=== PATIENT | male | born 1980 | race American Indian/Alaskan Native ===

== ENCOUNTER 2017-02-08 10:24 | Emergency (ER) | payer MEDICAID, OTHER ==
--- NOTE | 2017-02-08 10:22 | EDM.PDOC ---
ED HPI GENERAL MEDICAL PROBLEM - General Chief Complaint: Abdominal Pain Stated Complaint: PANCREATITUS, BY AMBULANCE Time Seen by Provider: 02/08/17 10:10 Source of Information: Reports: Patient, EMS, Provider History Limitations: Reports: No Limitations - History of Present Illness INITIAL COMMENTS - FREE TEXT/NARRATIVE: This 36 yo male patient was sent to the ED from the [facility] by [facility] due to increased abdominal pain. The patient reports his pain started last night and has been getting worse. Dr. Martin reported that the patient had been given IV fluids, Phenergan and Morphine while in the Clinic. EMS gave the patient Zofran and Fentanyl while enroute to the ED. The patient has been admitted for pancreatitis back in September. The patient denies any drug or ETOH use. The patient reports his symptoms are similar to his symptoms when he had pancreatitis. 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 [No Known Home Meds] 05/21/14 [History] Past Medical History HEENT History: Reports: None Cardiovascular History: Reports: None Respiratory History: Reports: None Gastrointestinal History: Reports: Pancreatitis Genitourinary History: Reports: None Musculoskeletal History: Reports: None Neurological History: Reports: None Psychiatric History: Reports: None Endocrine/Metabolic History: Reports: None Hematologic History: Reports: None Immunologic History: Reports: None Oncologic (Cancer) History: Reports: None Dermatologic History: Reports: None - Infectious Disease History Infectious Disease History: Reports: None - Past Surgical History GI Surgical History: Reports: Appendectomy, Cholecystectomy Social & Family History - Family History Family Medical History: Noncontributory - Tobacco Use Smoking Status *Q: Current Every Day Smoker Years of Tobacco use: 5 Packs/Tins Daily: 0.3 Used Tobacco, but Quit: No Month Tobacco Last Used: current Second Hand Smoke Exposure: Yes - Caffeine Use Caffeine Use: Reports: Coffee, Energy Drinks, Soda - Alcohol Use Days Per Week of Alcohol Use: 1 Number of Drinks Per Day: 3 Total Drinks Per Week: 3 - Recreational Drug Use Recreational Drug Use: Yes Drug Use in Last 12 Months: Yes Recreational Drug Type: Reports: Marijuana/Hashish, Methamphetamine Recreational Drug Use Frequency: Binges Recreational Drug Last Use: pot - Living Situation & Occupation Living situation: Reports: with Family Occupation: Unemployed ED ROS GENERAL - Review of Systems Review Of Systems: ROS reveals no pertinent complaints other than HPI. ED EXAM, GI/ABD - Physical Exam Exam: See Below Exam Limited By: No Limitations General Appearance: Alert, WD/WN, Anxious, Severe Distress Eyes: Bilateral: Normal Appearance, EOMI Ears: Normal External Exam, Normal Canal, Hearing Grossly Normal, Normal TMs Nose: Normal Inspection, Normal Mucosa, No Blood Throat/Mouth: Normal Inspection, Normal Lips, Normal Teeth, Normal Gums, Normal Oropharynx, Normal Voice, No Airway Compromise Head: Atraumatic, Normocephalic Neck: Normal Inspection, Supple, Non-Tender, Full Range of Motion Respiratory/Chest: No Respiratory Distress, Lungs Clear, Normal Breath Sounds, No Accessory Muscle Use, Chest Non-Tender Cardiovascular: Normal Peripheral Pulses, Regular Rate, Rhythm, No Edema, No Gallop, No JVD, No Murmur, No Rub GI/Abdominal: Tenderness (generalized), Guarding (Male) Exam: Deferred Rectal (Males) Exam: Deferred Back Exam: Normal Inspection, Full Range of Motion, NT Extremities: Normal Inspection, Normal Range of Motion, Non-Tender, Normal Capillary Refill, No Pedal Edema Neurological: Alert, Oriented, CN II-XII Intact, Normal Cognition, Normal Gait, Normal Reflexes, No Motor/Sensory Deficits Psychiatric: Normal Affect, Normal Mood Skin Exam: Warm, Intact, Normal Color, No Rash, Diaphoretic Lymphatic: No Adenopathy Course - Vital Signs Last Recorded V/S: Last Vital Signs Temp 35.9 C 02/08/17 10:28 Pulse 67 02/08/17 10:28 Resp 16 02/08/17 10:28 BP 150/88 H 02/08/17 10:28 Pulse Ox 88 L 02/08/17 10:34 - Orders/Labs/Meds Orders: Active Orders 24 hr Category Date Time Status Abdomen Pelvis w Cont [CT] Urgent Exams 02/08/17 11:24 Ordered CULTURE BLOOD [BC] Stat Lab 02/08/17 10:28 Received Lactated Ringers [Ringers, Lactated] 1,000 ml Med 02/08/17 10:30 Active IV ASDIRECTED Medication Orders Lactated Ringer's (Ringers, Lactated) 1,000 mls @ 250 mls/hr IV ASDIRECTED JJ Last Admin: 02/08/17 10:22 Dose: 250 mls/hr Labs: Laboratory Tests 02/08/17 02/08/17 02/08/17 Range/Units 10:28 10:28 10:28 WBC 12.6 H (5.0-10.0) 10^3/uL RBC 5.59 (4.6-6.2) 10^6/uL Hgb 17.3 (14.0-18.0) g/dL Hct 49.6 (40.0-54.0) % MCV 88.7 (80-100) fL MCH 30.9 (27.0-34.0) pg MCHC 34.9 (33.0-35.0) g/dL Plt Count 295 (150-450) 10^3/uL Neut % (Auto) 75.4 H (42.2-75.2) % Lymph % (Auto) 16.5 L (20.5-50.1) % [place] % (Auto) 6.3 (2-8) % Eos % (Auto) 1.6 (1.0-3.0) % Baso % (Auto) 0.2 (0.0-1.0) % Sodium 140 (135-145) mmol/L Potassium 3.9 (3.6-5.0) mmol/L Chloride 106 (101-111) mmol/L Carbon Dioxide 19.0 L (21.0-31.0) mmol/L Anion Gap 18.9 BUN 15 (7-18) mg/dL Creatinine 0.9 (0.6-1.3) mg/dL Est Cr Clr Drug Dosing 108.15 mL/min Estimated GFR (MDRD) > 60 BUN/Creatinine Ratio 16.66 Glucose 117 H (74-105) mg/dL Lactic Acid (0.5-2.2) mmol/L Calcium 9.6 (8.4-10.2) mg/dl Magnesium 2.0 (1.8-2.5) mg/dL Total Bilirubin 0.9 (0.2-1.0) mg/dL AST 44 H (10-42) IU/L ALT 68 H (10-60) IU/L Alkaline Phosphatase 93 (42-121) IU/L Ammonia 13 (11-35) umol/L Total Protein 8.2 (6.7-8.2) g/dl Albumin 4.7 (3.2-5.5) g/dl Globulin 3.5 Albumin/Globulin Ratio 1.34 Amylase 60 (28-100) U/L Lipase 20 L (22-51) U/L Urine Color (YELLOW) Urine Appearance (CLEAR) Urine pH (5.0-9.0) Ur Specific [place] (1.005-1.030) Urine Protein (NEGATIVE) Urine Glucose (UA) (NEGATIVE) Urine Ketones (NEGATIVE) Urine Occult Blood (NEGATIVE) Urine Nitrite (NEGATIVE) Urine Bilirubin (NEGATIVE) Urine Urobilinogen (0.2-1.0) mg/dL Ur Leukocyte Esterase (NEGATIVE) Urine RBC /HPF Urine WBC (0-5/HPF) /HPF Ur Epithelial Cells /HPF Urine Bacteria (0-FEW/HPF) /HPF Urine Mucus /LPF Urine Opiates Screen (NEGATIVE) Ur Oxycodone Screen (NEGATIVE) Urine Methadone Screen (NEGATIVE) Acetaminophen 17.6 Ur Barbiturates Screen (NEGATIVE) U Tricyclic Antidepress (NEGATIVE) Ur Phencyclidine Scrn (NEGATIVE) Ur Amphetamine Screen (NEGATIVE) U Methamphetamines Scrn (NEGATIVE) Urine MDMA Screen (NEGATIVE) U Benzodiazepines Scrn (NEGATIVE) Urine Cocaine Screen (NEGATIVE) U Marijuana (THC) Screen (NEGATIVE) Ethyl Alcohol 6 mg/dL 02/08/17 02/08/17 02/08/17 Range/Units 10:28 11:09 11:09 WBC (5.0-10.0) 10^3/uL RBC (4.6-6.2) 10^6/uL Hgb (14.0-18.0) g/dL Hct (40.0-54.0) % MCV (80-100) fL MCH (27.0-34.0) pg MCHC (33.0-35.0) g/dL Plt Count (150-450) 10^3/uL Neut % (Auto) (42.2-75.2) % Lymph % (Auto) (20.5-50.1) % [place] % (Auto) (2-8) % Eos % (Auto) (1.0-3.0) % Baso % (Auto) (0.0-1.0) % Sodium (135-145) mmol/L Potassium (3.6-5.0) mmol/L Chloride (101-111) mmol/L Carbon Dioxide (21.0-31.0) mmol/L Anion Gap BUN (7-18) mg/dL Creatinine (0.6-1.3) mg/dL Est Cr Clr Drug Dosing mL/min Estimated GFR (MDRD) BUN/Creatinine Ratio Glucose (74-105) mg/dL Lactic Acid 1.7 (0.5-2.2) mmol/L Calcium (8.4-10.2) mg/dl Magnesium (1.8-2.5) mg/dL Total Bilirubin (0.2-1.0) mg/dL AST (10-42) IU/L ALT (10-60) IU/L Alkaline Phosphatase (42-121) IU/L Ammonia (11-35) umol/L Total Protein (6.7-8.2) g/dl Albumin (3.2-5.5) g/dl Globulin Albumin/Globulin Ratio Amylase (28-100) U/L Lipase (22-51) U/L Urine Color Yellow (YELLOW) Urine Appearance Slightly cloudy (CLEAR) Urine pH 6.5 (5.0-9.0) Ur Specific [place] 1.020 (1.005-1.030) Urine Protein 100 H (NEGATIVE) Urine Glucose (UA) Negative (NEGATIVE) Urine Ketones 40 H (NEGATIVE) Urine Occult Blood Negative (NEGATIVE) Urine Nitrite Negative (NEGATIVE) Urine Bilirubin Small H (NEGATIVE) Urine Urobilinogen 0.2 (0.2-1.0) mg/dL Ur Leukocyte Esterase Negative (NEGATIVE) Urine RBC 0-5 /HPF Urine WBC 10-20 H (0-5/HPF) /HPF Ur Epithelial Cells Few /HPF Urine Bacteria Few (0-FEW/HPF) /HPF Urine Mucus Few H /LPF Urine Opiates Screen Positive H (NEGATIVE) Ur Oxycodone Screen Negative (NEGATIVE) Urine Methadone Screen Negative (NEGATIVE) Acetaminophen Ur Barbiturates Screen Negative (NEGATIVE) U Tricyclic Antidepress Negative (NEGATIVE) Ur Phencyclidine Scrn Negative (NEGATIVE) Ur Amphetamine Screen Negative (NEGATIVE) U Methamphetamines Scrn Negative (NEGATIVE) Urine MDMA Screen Negative (NEGATIVE) U Benzodiazepines Scrn Negative (NEGATIVE) Urine Cocaine Screen Negative (NEGATIVE) U Marijuana (THC) Screen Positive H (NEGATIVE) Ethyl Alcohol mg/dL Meds: Medications Generic Name Dose Route Start Last Admin Trade Name Freq PRN Reason Stop Dose Admin Lactated Ringer's 1,000 mls @ 250 mls/hr 02/08/17 10:30 02/08/17 10:22 Ringers, Lactated IV 250 mls/hr ASDIRECTED JJ Administration Discontinued Medications Generic Name Dose Route Start Last Admin Trade Name Freq PRN Reason Stop Dose Admin Hydromorphone HCl 1 mg 02/08/17 10:16 02/08/17 10:21 Dilaudid IVPUSH 02/08/17 10:17 1 mg ONETIME ONE Administration Hydromorphone HCl 0.5 mg 02/08/17 11:00 02/08/17 11:12 Dilaudid IVPUSH 02/08/17 11:01 0.5 mg ONETIME ONE Administration Hydromorphone HCl 0.5 mg 02/08/17 12:22 02/08/17 12:31 Dilaudid IVPUSH 02/08/17 12:23 0.5 mg ONETIME ONE Administration Iopamidol 100 ml 02/08/17 11:24 02/08/17 11:46 Isovue-300 (61%) IVPUSH 02/08/17 11:25 75 ml ONETIME ONE Administration Metoclopramide HCl 10 mg 02/08/17 11:01 02/08/17 11:12 Reglan IVPUSH 02/08/17 11:02 10 mg ONETIME ONE Administration Departure - Departure Time of Disposition: 13:00 Disposition: Home, Self-Care 01 Condition: Fair Clinical Impression: Gastroenteritis - Discharge Information Instructions: Viral Gastroenteritis, Adult, [id number] Forms: ED Department Discharge Care Plan Goals: The patient was advised of the examination, lab and CT results during the visit. The patient was given Phenergan ([facility]), Morphine ([facility]), Zofran ([facility]), Fentanyl ([facility]), Reglan ([facility]), Dilaudid ([facility]) and IV fluids ([facility] and [facility]). The patient was discharged with a script for [place] (5/325) #8 to take 1 by mouth every 6 hours as needed for pain and Zofran (4 mg) #10 to take 1 by mouth every 6 hours as needed. The patient should stick to a BRAT diet (bananas, rice, applesauce and toast) with small sips of water. If the patient has any additional symptoms or concerns, the patient should follow-up with his primary care facility or return to the emergency department. - My Orders Last 24 Hours: My Active Orders 02/08/17 10:28 CULTURE BLOOD [BC] Stat 02/08/17 10:30 Lactated Ringers [Ringers, Lactated] 1,000 ml IV ASDIRECTED 02/08/17 11:24 Abdomen Pelvis w Cont [CT] Urgent - Assessment/Plan Last 24 Hours: My Active Orders 02/08/17 10:28 CULTURE BLOOD [BC] Stat 02/08/17 10:30 Lactated Ringers [Ringers, Lactated] 1,000 ml IV ASDIRECTED 02/08/17 11:24 Abdomen Pelvis w Cont [CT] Urgent
[~2017-02-08 10:24] MED LIST: HYDROmorphone 1 MG/ML Syringe IVPUSH ONE
[2017-02-08] MEDS ORDERED: Lactated Ringers 1,000 ML IV SCH (10:30)
[2017-02-08 10:34] VITALS: BP 150/88
[2017-02-08 10:55] LABS: ACETAMINOPHEN 17.6; CHLORIDE,CL 106 mmol/L (101-111); SODIUM,NA 140 mmol/L (135-145)
[2017-02-08] MEDS ORDERED: HYDROmorphone 1 MG/ML Syringe IVPUSH ONE ×2 (11:00→12:22)
[2017-02-08] MEDS ORDERED: Metoclopramide 10 MG/2 ML SDV IVPUSH ONE (11:01)
[2017-02-08] MEDS ORDERED: Iopamidol 612 MG/ML 100 ML Bottle IVPUSH ONE (11:24)
--- NOTE | 2017-02-08 13:21 | CT ---
CLINICAL HISTORY: 36-year-old 150 pound male with history of pancreatitis and now abdominal pain "no acute intra-abdominal pathology" reported on CT exam 04 September 2016 obtained for epigastric pain, nausea and vomiting (patient weight 200# in May 2014). SCAN TECHNIQUE: Volume acquisition of data from the abdomen and pelvis obtained without oral contras t but during the intravenous administration 75 cc nonionic Isovue contrast (3 cc/sec via injector) w hile the patient was lying supine on the Siemens multislice scanner [place], [place]. All data archived in the PACS system for storage, reformatting and study. INTERPRETATION: No acute intraperitoneal abnormalities. 1. Several diverticula sigmoid colon without associated inflammatory changes left lower quadrant. 2. Surgical clips gallbladder fossa. 3. Liver, stomach, spleen, pancreas unremarkable, i.e., negative. Normal adrenal glands and kidneys. No sign of renal cortical mass lesion, nephrolithiasis or obstructive uropathy. Incompletely disten ded urinary bladder unremarkable. 4. No new pelvic or abdominal mass lesion, inflammatory "dirty" peritoneal fat, mesenteric/rectoperi rachael lymphadenopathy, mechanical bowel obstruction, ascites or free intraperitoneal air. 5. Normal cardiac silhouette. Lung bases clear. Normal caliber abdominal aorta.
== END 2017-02-08 13:15 | disposition home or self-care (01) ==
LOC: DL.ED 10:24
DX: K52.9 Noninfective gastroenteritis and colitis, unspecified (principal); F17.210 Nicotine dependence, cigarettes, uncomplicated; Z90.49 Acquired absence of other specified parts of digestive tract
CPT/HCPCS: 36415; 74177; 80053; 80305; 81001; 82140; 82150; 83605; 83690; 83735; 85025; 87040; 96361; 96374; 96375; 96376; 99284; G0480; J1170; J2765; J7120; Q9967

== ENCOUNTER 2017-02-10 04:15 | Emergency (ER) | payer MEDICAID, OTHER ==
[2017-02-10] MEDS ORDERED: Metoclopramide 10 MG/2 ML SDV IVPUSH ONE (04:28)
[2017-02-10] MEDS ORDERED: LORazepam 2 MG/ML Syringe IVPUSH ONE (04:28)
--- NOTE | 2017-02-10 04:35 | EDM.PDOC ---
<Carlos Vance - Last Filed: 02/10/17 07:12> ED HPI GENERAL MEDICAL PROBLEM - General Chief Complaint: Abdominal Pain Stated Complaint: IN BY AMBULANCE Time Seen by Provider: 02/10/17 04:30 Source of Information: Reports: Patient, Old Records History Limitations: Reports: No Limitations - History of Present Illness INITIAL COMMENTS - FREE TEXT/NARRATIVE: pt c/o abd' all night only ate hot dish was here yesterday for same thing states was pancreatitis and wants pain meds now. informed pt the ER record reveal no evidence of pancreatitis but dx of viral gastroenteritis. pt continue to shake and moan and retch. informed pt he will get something for his retching & to calm him down. Epigastric Pain Score (Numeric/FACES): 10 - Related Data Allergies Allergy/AdvReac Type Severity Reaction Status Date / Time No Known Allergies Allergy Verified 02/10/17 05:51 Home Meds: Home Meds . [No Known Home Meds] 05/21/14 [History] Past Medical History HEENT History: Reports: None Cardiovascular History: Reports: None Respiratory History: Reports: None Gastrointestinal History: Reports: Pancreatitis Genitourinary History: Reports: None Musculoskeletal History: Reports: None Neurological History: Reports: None Psychiatric History: Reports: None Endocrine/Metabolic History: Reports: None Hematologic History: Reports: None Immunologic History: Reports: None Oncologic (Cancer) History: Reports: None Dermatologic History: Reports: None - Infectious Disease History Infectious Disease History: Reports: None - Past Surgical History GI Surgical History: Reports: Appendectomy, Cholecystectomy Social & Family History - Family History Family Medical History: Noncontributory - Tobacco Use Smoking Status *Q: Current Every Day Smoker Years of Tobacco use: 5 Packs/Tins Daily: 0.3 Used Tobacco, but Quit: No Month Tobacco Last Used: current Second Hand Smoke Exposure: Yes - Caffeine Use Caffeine Use: Reports: Coffee, Energy Drinks, Soda - Alcohol Use Days Per Week of Alcohol Use: 1 Number of Drinks Per Day: 3 Total Drinks Per Week: 3 - Recreational Drug Use Recreational Drug Use: Yes Drug Use in Last 12 Months: Yes Recreational Drug Type: Reports: Marijuana/Hashish, Methamphetamine Recreational Drug Use Frequency: Binges Recreational Drug Last Use: pot - Living Situation & Occupation Living situation: Reports: with Family Occupation: Unemployed ED ROS GENERAL - Review of Systems Review Of Systems: ROS reveals no pertinent complaints other than HPI. ED EXAM, GI/ABD - Physical Exam Exam: See Below Exam Limited By: No Limitations General Appearance: Alert, WD/WN, Mild Distress, Other (retching shaking) Ears: Hearing Grossly Normal Throat/Mouth: Normal Voice, No Airway Compromise Head: Atraumatic Neck: Non-Tender, Full Range of Motion Respiratory/Chest: No Respiratory Distress, Lungs Clear, Normal Breath Sounds Cardiovascular: Regular Rate, Rhythm GI/Abdominal: Hyperactive Bowel Sounds, Tenderness, Other (epiG). No: Guarding , Rebound, Rigidity Neurological: Alert, Oriented, Normal Cognition, Normal Gait, No Motor/Sensory Deficits Psychiatric: Anxious Skin Exam: Warm, Dry Lymphatic: No Adenopathy Course - Vital Signs Last Recorded V/S: Last Vital Signs Temp 36.2 C 02/10/17 06:50 Pulse 63 02/10/17 06:50 Resp 18 02/10/17 06:50 BP 157/98 H 02/10/17 06:50 Pulse Ox 98 02/10/17 06:50 - Orders/Labs/Meds Orders: Active Orders 24 hr Category Date Time Status KUB [Abdomen 1V Flat] [CR] Urgent Exams 02/10/17 06:25 Taken Labs: Laboratory Tests 02/10/17 02/10/17 02/10/17 Range/Units 04:25 04:25 04:25 WBC 12.5 H (5.0-10.0) 10^3/uL RBC 5.39 (4.6-6.2) 10^6/uL Hgb 16.7 (14.0-18.0) g/dL Hct 48.2 (40.0-54.0) % MCV 89.4 (80-100) fL MCH 31.0 (27.0-34.0) pg MCHC 34.6 (33.0-35.0) g/dL Plt Count 312 (150-450) 10^3/uL Neut % (Auto) 63.7 (42.2-75.2) % Lymph % (Auto) 22.9 (20.5-50.1) % [place] % (Auto) 9.8 H (2-8) % Eos % (Auto) 3.3 H (1.0-3.0) % Baso % (Auto) 0.3 (0.0-1.0) % Sodium 139 (135-145) mmol/L Potassium 3.5 L (3.6-5.0) mmol/L Chloride 104 (101-111) mmol/L Carbon Dioxide 23.0 (21.0-31.0) mmol/L Anion Gap 15.5 BUN 30 H (7-18) mg/dL Creatinine 0.9 (0.6-1.3) mg/dL Est Cr Clr Drug Dosing TNP Estimated GFR (MDRD) > 60 BUN/Creatinine Ratio 33.33 Glucose 104 (74-105) mg/dL Calcium 9.6 (8.4-10.2) mg/dl Total Bilirubin 0.6 (0.2-1.0) mg/dL AST 37 (10-42) IU/L ALT 52 (10-60) IU/L Alkaline Phosphatase 98 (42-121) IU/L Total Protein 8.0 (6.7-8.2) g/dl Albumin 4.5 (3.2-5.5) g/dl Globulin 3.5 Albumin/Globulin Ratio 1.29 Amylase 84 (28-100) U/L Lipase 32 (22-51) U/L Urine Opiates Screen (NEGATIVE) Ur Oxycodone Screen (NEGATIVE) Urine Methadone Screen (NEGATIVE) Ur Barbiturates Screen (NEGATIVE) U Tricyclic Antidepress (NEGATIVE) Ur Phencyclidine Scrn (NEGATIVE) Ur Amphetamine Screen (NEGATIVE) U Methamphetamines Scrn (NEGATIVE) Urine MDMA Screen (NEGATIVE) U Benzodiazepines Scrn (NEGATIVE) Urine Cocaine Screen (NEGATIVE) U Marijuana (THC) Screen (NEGATIVE) Ethyl Alcohol 6 mg/dL 02/10/17 Range/Units 07:00 WBC (5.0-10.0) 10^3/uL RBC (4.6-6.2) 10^6/uL Hgb (14.0-18.0) g/dL Hct (40.0-54.0) % MCV (80-100) fL MCH (27.0-34.0) pg MCHC (33.0-35.0) g/dL Plt Count (150-450) 10^3/uL Neut % (Auto) (42.2-75.2) % Lymph % (Auto) (20.5-50.1) % [place] % (Auto) (2-8) % Eos % (Auto) (1.0-3.0) % Baso % (Auto) (0.0-1.0) % Sodium (135-145) mmol/L Potassium (3.6-5.0) mmol/L Chloride (101-111) mmol/L Carbon Dioxide (21.0-31.0) mmol/L Anion Gap BUN (7-18) mg/dL Creatinine (0.6-1.3) mg/dL Est Cr Clr Drug Dosing Estimated GFR (MDRD) BUN/Creatinine Ratio Glucose (74-105) mg/dL Calcium (8.4-10.2) mg/dl Total Bilirubin (0.2-1.0) mg/dL AST (10-42) IU/L ALT (10-60) IU/L Alkaline Phosphatase (42-121) IU/L Total Protein (6.7-8.2) g/dl Albumin (3.2-5.5) g/dl Globulin Albumin/Globulin Ratio Amylase (28-100) U/L Lipase (22-51) U/L Urine Opiates Screen Positive H (NEGATIVE) Ur Oxycodone Screen Negative (NEGATIVE) Urine Methadone Screen Negative (NEGATIVE) Ur Barbiturates Screen Negative (NEGATIVE) U Tricyclic Antidepress Negative (NEGATIVE) Ur Phencyclidine Scrn Negative (NEGATIVE) Ur Amphetamine Screen Negative (NEGATIVE) U Methamphetamines Scrn Negative (NEGATIVE) Urine MDMA Screen Negative (NEGATIVE) U Benzodiazepines Scrn Positive H (NEGATIVE) Urine Cocaine Screen Negative (NEGATIVE) U Marijuana (THC) Screen Positive H (NEGATIVE) Ethyl Alcohol mg/dL Meds: Medications Discontinued Medications Generic Name Dose Route Start Last Admin Trade Name [place] PRN Reason Stop Dose Admin Dicyclomine HCl 20 mg 02/10/17 05:17 02/10/17 05:24 Bentyl IM 02/10/17 05:18 20 mg ONETIME ONE Administration Lorazepam 2 mg 02/10/17 04:28 02/10/17 04:42 Ativan IVPUSH 02/10/17 04:29 2 mg ONETIME ONE Administration Metoclopramide HCl 10 mg 02/10/17 04:28 02/10/17 04:42 Reglan IVPUSH 02/10/17 04:29 10 mg ONETIME ONE Administration Ondansetron HCl 4 mg 02/10/17 06:09 02/10/17 06:17 Zofran IV 02/10/17 06:10 4 mg ONETIME ONE Administration Pantoprazole Sodium 40 mg 02/10/17 06:12 02/10/17 06:29 Protonix Iv IVPUSH 02/10/17 06:13 40 mg ONETIME ONE Administration - Re-Assessments/Exams Free Text/Narrative Re-Assessment/Exam: 02/10/17 04:36 c/o needing for BM got off gurney by self. 02/10/17 05:05 s/p IV ativan & reglan. Pt sleeping. 02/10/17 05:17 pt woke up wanting morphine. explained to pt laws governing opiod tx. Departure - Departure Disposition: Home, Self-Care 01 Condition: Good Clinical Impression: Abdominal pain Qualifiers: Abdominal location: epigastric Qualified Code(s): R10.13 - Epigastric pain Vomiting Qualifiers: Vomiting type: unspecified Vomiting Intractability: non-intractable Nausea presence: with nausea Qualified Code(s): R11.2 - Nausea with vomiting, unspecified - Discharge Information Instructions: Abdominal Pain, Adult, [id number] Forms: ED Department Discharge Additional Instructions: 1) avoid solid foods next 48 hours 2) have popsicle, jello, juice 3) return to the ED if new or worsening symptoms. 4) Phenergan 25mg po every 6 hrs as needed for nausea. 5) Recheck clinic next available appointment for chronic epigastric pain nausea and vomiting. <Pj Mix - Last Filed: 02/10/17 07:42> Course - Re-Assessments/Exams Free Text/Narrative Re-Assessment/Exam: 02/10/17 07:36 I went into exam the patient after I assumed care at this time. He does not want to be here any more. He came for Dilaudid IV and "you fuckers wont give it to me so I'm fucking leaving". I explained I just took over his care and Dr. Vance had already told the patient no narcotics but I will examine and re- evaluate, patient wants to leave "right fucking now". Pt will be discharged on his request. Without my physical evaluation. 02/10/17 07:41 Departure - Departure Time of Disposition: 07:34 - Assessment/Plan Assessment:: epigastric pain, chronic recurrent. nausea vomiting-without diarrhea. Plan: 1) avoid solid foods next 48 hours 2) have popsicle, jello, juice 3) return to the ED if new or worsening symptoms. 4) Phenergan 25mg po every 6 hrs as needed for nausea. 5) Recheck clinic next available appointment for chronic epigastric pain nausea and vomiting.
[2017-02-10 04:52] LABS: CHLORIDE,CL 104 mmol/L (101-111); SODIUM,NA 139 mmol/L (135-145)
[2017-02-10] MEDS ORDERED: Dicyclomine 20 MG/2 ML SDV IM ONE (05:17)
[2017-02-10] MEDS ORDERED: Ondansetron 4 MG/2 ML SDV IV ONE (06:09)
[2017-02-10] MEDS ORDERED: Pantoprazole 40 MG Vial IVPUSH ONE (06:12)
[2017-02-10 06:51] VITALS: BP 157/98
== END 2017-02-10 07:49 | disposition home or self-care (01) ==
LOC: DL.ED 04:15
DX: R10.13 Epigastric pain (principal); R11.2 Nausea with vomiting, unspecified; F17.210 Nicotine dependence, cigarettes, uncomplicated; Z90.49 Acquired absence of other specified parts of digestive tract
CPT/HCPCS: 36415; 74000; 80053; 80305; 82150; 83690; 85025; 96374; 96375; 99284; C9113; G0480; J0500; J2060; J2405; J2765

== ENCOUNTER 2017-03-25 17:13 | Emergency (ER) | payer MEDICAID, OTHER ==
[2017-03-25] MEDS ORDERED: Sodium Chloride 0.9% 10 ML Syringe FLUSH PRN (17:14)
--- NOTE | 2017-03-25 17:14 | EDM.PDOC ---
<Yoel Beach - Last Filed: 03/25/17 17:50> ED HPI GENERAL MEDICAL PROBLEM - General Chief Complaint: Abdominal Pain Stated Complaint: COMING BY AMBULANCE Time Seen by Provider: 03/25/17 17:14 Source of Information: Reports: Patient, EMS, RN, RN Notes Reviewed History Limitations: Reports: No Limitations - History of Present Illness INITIAL COMMENTS - FREE TEXT/NARRATIVE: Arrives from home by ambulance with a complaint of onset severe epigastric pain this morning. Patient reports he last drank ETOH and "couple of days ago". Denies fever or chills. Pain radiates straight through to his back. Denies bloody or black emesis on stool. Onset: Today Location: Reports: Abdomen Quality: Reports: Ache Severity: Severe Improves with: Reports: None Worsens with: Reports: None Associated Symptoms: Reports: No Other Symptoms - Related Data Allergies Allergy/AdvReac Type Severity Reaction Status Date / Time No Known Allergies Allergy Verified 02/10/17 05:51 Home Meds: Home Meds . [No Known Home Meds] 05/21/14 [History] Past Medical History HEENT History: Reports: None Cardiovascular History: Reports: None Respiratory History: Reports: None Gastrointestinal History: Reports: Pancreatitis (and alcohol abuse) Genitourinary History: Reports: None Musculoskeletal History: Reports: None Neurological History: Reports: None Psychiatric History: Reports: None Endocrine/Metabolic History: Reports: None Hematologic History: Reports: None Immunologic History: Reports: None Oncologic (Cancer) History: Reports: None Dermatologic History: Reports: None - Infectious Disease History Infectious Disease History: Reports: None - Past Surgical History GI Surgical History: Reports: Appendectomy, Cholecystectomy Social & Family History - Family History Family Medical History: Noncontributory - Tobacco Use Smoking Status *Q: Current Every Day Smoker Years of Tobacco use: 5 Packs/Tins Daily: 0.3 Used Tobacco, but Quit: No Month Tobacco Last Used: current Second Hand Smoke Exposure: Yes - Caffeine Use Caffeine Use: Reports: Coffee, Energy Drinks, Soda - Alcohol Use Days Per Week of Alcohol Use: 1 Number of Drinks Per Day: 3 Total Drinks Per Week: 3 - Recreational Drug Use Recreational Drug Use: Yes Drug Use in Last 12 Months: Yes Recreational Drug Type: Reports: Marijuana/Hashish, Methamphetamine Recreational Drug Use Frequency: Binges Recreational Drug Last Use: pot - Living Situation & Occupation Living situation: Reports: with Family Occupation: Unemployed ED ROS GENERAL - Review of Systems Review Of Systems: ROS reveals no pertinent complaints other than HPI. ED EXAM, GI/ABD - Physical Exam Exam: See Below Exam Limited By: No Limitations General Appearance: Other (Severe distress due to abdominal pain with active emesis. ) Eyes: Bilateral: Normal Appearance Ears: Normal External Exam, Normal Canal, Hearing Grossly Normal, Normal TMs Nose: Normal Inspection, Normal Mucosa, No Blood Throat/Mouth: Normal Inspection, Normal Lips, Normal Teeth, Normal Gums, Normal Oropharynx, Normal Voice, No Airway Compromise Head: Atraumatic, Normocephalic Neck: Normal Inspection, Supple, Non-Tender, Full Range of Motion Respiratory/Chest: No Respiratory Distress, Lungs Clear, Normal Breath Sounds, No Accessory Muscle Use, Chest Non-Tender Cardiovascular: Regular Rate, Rhythm, Tachycardia GI/Abdominal Exam: Other (acute epigastric tenderness) (Male) Exam: Deferred Rectal (Males) Exam: Deferred Back Exam: Normal Inspection, Full Range of Motion, NT Extremities: Normal Inspection, Normal Range of Motion, Non-Tender, Normal Capillary Refill, No Pedal Edema Neurological: Alert, Oriented, CN II-XII Intact, Normal Cognition, Normal Gait, Normal Reflexes, No Motor/Sensory Deficits Skin Exam: Warm, Normal Color, Diaphoretic Course - Vital Signs Last Recorded V/S: Last Vital Signs Temp 99.2 F 03/25/17 20:59 Pulse 75 03/25/17 20:59 Resp 18 03/25/17 20:59 BP 133/77 03/25/17 20:59 Pulse Ox 100 03/25/17 20:59 - Orders/Labs/Meds Orders: Active Orders 24 hr Category Date Time Status Peripheral IV Care [RC] . DIRECTED Care 03/25/17 17:15 Active CULTURE BLOOD [BC] Stat Lab 03/25/17 17:29 Received CULTURE BLOOD [BC] Stat Lab 03/25/17 17:34 Received Blood Culture x2 Reflex Set [OM.PC] Stat Oth 03/25/17 17:14 Ordered Peripheral IV Insertion Adult [OM.PC] Stat Oth 03/25/17 17:14 Ordered Labs: Laboratory Tests 03/25/17 03/25/17 03/25/17 Range/Units 17:29 17:29 17:29 WBC 19.1 H (5.0-10.0) 10^3/uL RBC 5.17 (4.6-6.2) 10^6/uL Hgb 16.0 (14.0-18.0) g/dL Hct 46.5 (40.0-54.0) % MCV 89.9 (80-100) fL MCH 30.9 (27.0-34.0) pg MCHC 34.4 (33.0-35.0) g/dL Plt Count 388 (150-450) 10^3/uL Neut % (Auto) 85.3 H (42.2-75.2) % Lymph % (Auto) 10.5 L (20.5-50.1) % [place] % (Auto) 3.8 (2-8) % Eos % (Auto) 0.2 L (1.0-3.0) % Baso % (Auto) 0.2 (0.0-1.0) % Sodium 141 (135-145) mmol/L Potassium 4.0 (3.6-5.0) mmol/L Chloride 102 (101-111) mmol/L Carbon Dioxide 23.0 (21.0-31.0) mmol/L Anion Gap 20.0 BUN 12 (7-18) mg/dL Creatinine 1.0 (0.6-1.3) mg/dL Est Cr Clr Drug Dosing TNP Estimated GFR (MDRD) > 60 BUN/Creatinine Ratio 12.00 Glucose 143 H (74-105) mg/dL Lactic Acid 2.8 H (0.5-2.2) mmol/L Calcium 10.6 H (8.4-10.2) mg/dl Total Bilirubin 1.0 (0.2-1.0) mg/dL AST 43 H (10-42) IU/L ALT 53 (10-60) IU/L Alkaline Phosphatase 103 (42-121) IU/L Troponin I < 0.02 (0.00-0.02) ng/ml Total Protein 8.6 H (6.7-8.2) g/dl Albumin 4.7 (3.2-5.5) g/dl Globulin 3.9 Albumin/Globulin Ratio 1.21 Amylase 73 (28-100) U/L Lipase 19 L (22-51) U/L Urine Color (YELLOW) Urine Appearance (CLEAR) Urine pH (5.0-9.0) Ur Specific [place] (1.005-1.030) Urine Protein (NEGATIVE) Urine Glucose (UA) (NEGATIVE) Urine Ketones (NEGATIVE) Urine Occult Blood (NEGATIVE) Urine Nitrite (NEGATIVE) Urine Bilirubin (NEGATIVE) Urine Urobilinogen (0.2-1.0) mg/dL Ur Leukocyte Esterase (NEGATIVE) Urine RBC /HPF Urine WBC (0-5/HPF) /HPF Ur Epithelial Cells /HPF Amorphous Sediment (0/HPF) /HPF Urine Bacteria (0-FEW/HPF) /HPF Urine Mucus /LPF Urine Opiates Screen (NEGATIVE) Ur Oxycodone Screen (NEGATIVE) Urine Methadone Screen (NEGATIVE) Ur Barbiturates Screen (NEGATIVE) U Tricyclic Antidepress (NEGATIVE) Ur Phencyclidine Scrn (NEGATIVE) Ur Amphetamine Screen (NEGATIVE) U Methamphetamines Scrn (NEGATIVE) Urine MDMA Screen (NEGATIVE) U Benzodiazepines Scrn (NEGATIVE) Urine Cocaine Screen (NEGATIVE) U Marijuana (THC) Screen (NEGATIVE) Ethyl Alcohol < 5 mg/dL 03/25/17 03/25/17 Range/Units 18:07 18:07 WBC (5.0-10.0) 10^3/uL RBC (4.6-6.2) 10^6/uL Hgb (14.0-18.0) g/dL Hct (40.0-54.0) % MCV (80-100) fL MCH (27.0-34.0) pg MCHC (33.0-35.0) g/dL Plt Count (150-450) 10^3/uL Neut % (Auto) (42.2-75.2) % Lymph % (Auto) (20.5-50.1) % [place] % (Auto) (2-8) % Eos % (Auto) (1.0-3.0) % Baso % (Auto) (0.0-1.0) % Sodium (135-145) mmol/L Potassium (3.6-5.0) mmol/L Chloride (101-111) mmol/L Carbon Dioxide (21.0-31.0) mmol/L Anion Gap BUN (7-18) mg/dL Creatinine (0.6-1.3) mg/dL Est Cr Clr Drug Dosing Estimated GFR (MDRD) BUN/Creatinine Ratio Glucose (74-105) mg/dL Lactic Acid (0.5-2.2) mmol/L Calcium (8.4-10.2) mg/dl Total Bilirubin (0.2-1.0) mg/dL AST (10-42) IU/L ALT (10-60) IU/L Alkaline Phosphatase (42-121) IU/L Troponin I (0.00-0.02) ng/ml Total Protein (6.7-8.2) g/dl Albumin (3.2-5.5) g/dl Globulin Albumin/Globulin Ratio Amylase (28-100) U/L Lipase (22-51) U/L Urine Color Yellow (YELLOW) Urine Appearance Clear (CLEAR) Urine pH >= 9.0 (5.0-9.0) Ur Specific [place] 1.020 (1.005-1.030) Urine Protein 100 H (NEGATIVE) Urine Glucose (UA) Negative (NEGATIVE) Urine Ketones >=160 H (NEGATIVE) Urine Occult Blood Trace-intact H (NEGATIVE) Urine Nitrite Negative (NEGATIVE) Urine Bilirubin Small H (NEGATIVE) Urine Urobilinogen 0.2 (0.2-1.0) mg/dL Ur Leukocyte Esterase Negative (NEGATIVE) Urine RBC 5-10 H /HPF Urine WBC 0-5 (0-5/HPF) /HPF Ur Epithelial Cells Rare /HPF Amorphous Sediment Rare (0/HPF) /HPF Urine Bacteria Rare (0-FEW/HPF) /HPF Urine Mucus Many H /LPF Urine Opiates Screen Negative (NEGATIVE) Ur Oxycodone Screen Positive H (NEGATIVE) Urine Methadone Screen Negative (NEGATIVE) Ur Barbiturates Screen Negative (NEGATIVE) U Tricyclic Antidepress Negative (NEGATIVE) Ur Phencyclidine Scrn Negative (NEGATIVE) Ur Amphetamine Screen Negative (NEGATIVE) U Methamphetamines Scrn Negative (NEGATIVE) Urine MDMA Screen Negative (NEGATIVE) U Benzodiazepines Scrn Negative (NEGATIVE) Urine Cocaine Screen Negative (NEGATIVE) U Marijuana (THC) Screen Positive H (NEGATIVE) Ethyl Alcohol mg/dL Meds: Medications Discontinued Medications Generic Name Dose Route Start Last Admin Trade Name Freq PRN Reason Stop Dose Admin Al Hydroxide/Mg Hydroxide 30 ml 03/25/17 20:13 03/25/17 20:19 Gi Cocktail PO 03/25/17 20:14 30 ml ONETIME ONE Administration Dicyclomine HCl 10 mg 03/25/17 20:30 08/07/17 20:55 Bentyl PO 03/25/17 20:31 10 mg ONETIME ONE Administration Famotidine 20 mg 03/25/17 20:12 03/25/17 20:18 Pepcid IVPUSH 03/25/17 20:13 20 mg ONETIME ONE Administration Hydromorphone HCl 1 mg 03/25/17 17:15 03/25/17 18:23 Dilaudid IVPUSH 03/25/17 17:16 1 mg ONETIME ONE Administration Hydromorphone HCl 1 mg 03/25/17 20:43 03/25/17 20:55 Dilaudid IVPUSH 03/25/17 20:44 1 mg ONETIME ONE Administration Sodium Chloride 1,000 mls @ 999 mls/hr 03/25/17 17:15 03/25/17 19:04 Normal Saline IV 03/25/17 18:15 999 mls/hr .BOLUS ONE Administration Multivitamins/Minerals 10 ml/ 1,011.2 mls @ 999 mls/hr 03/25/17 17:49 18:25 Thiamine HCl 100 mg/ Folic IV 03/25/17 18:49 999 mls/hr Acid 1 mg/ Lactated Ringer's .BOLUS ONE Administration Iopamidol 75 ml 03/25/17 18:40 03/25/17 19:09 Isovue-300 (61%) IVPUSH 03/25/17 18:41 75 ml ONETIME ONE Administration Ondansetron HCl 4 mg 03/25/17 17:15 03/25/17 18:21 Zofran IV 03/25/17 17:16 4 mg ONETIME ONE Administration Promethazine HCl 50 mg 03/25/17 17:22 03/25/17 17:50 Phenergan IM 03/25/17 17:23 50 mg ONETIME ONE Administration Promethazine HCl Confirm 03/25/17 17:42 03/25/17 17:51 Phenergan Administered 03/25/17 17:43 Not Given Dose 25 mg .ROUTE .STK-MED ONE Sodium Chloride 10 ml 03/25/17 17:14 03/25/17 17:51 Saline Flush FLUSH 10 ml ASDIRECTED PRN Administration Keep Vein Open Sucralfate Confirm 03/25/17 21:12 03/25/17 21:20 Carafate Administered 03/25/17 21:13 Not Given Dose 2 gm .ROUTE .STK-MED ONE Departure - Departure Disposition: Home, Self-Care 01 Clinical Impression: Gastritis - Discharge Information Instructions: Gastritis, Adult, [id number] Referrals: Eulalio Velazquez [Primary Care Provider] - Forms: ED Department Discharge Additional Instructions: light bland diet no alcohol no drugs carafate 1 gm 4 times daily #8 clinic follow up this week <Tori Contreras - Last Filed: 03/26/17 03:07> Departure - Departure Time of Disposition: 21:01 Condition: Fair
[2017-03-25] MEDS ORDERED: Sodium Chloride 0.9% 1,000 ML IV ONE (17:15)
[2017-03-25] MEDS ORDERED: HYDROmorphone 1 MG/ML Syringe IVPUSH ONE ×2 (17:15→20:43)
[2017-03-25] MEDS ORDERED: Ondansetron 4 MG/2 ML SDV IV ONE (17:15)
[2017-03-25] MEDS ORDERED: Promethazine 25 MG/ML SDV IM ONE (17:22)
[2017-03-25] MEDS ORDERED: Promethazine 25 MG/ML SDV ONE (17:42)
[2017-03-25] MEDS ORDERED: MVI, Adult with Vitamin K 10 ML, Thiamine 100 MG, Folic Acid 1 MG in Lactated Ringers 1... IV ONE ×4 (17:49)
[2017-03-25 17:55] LABS: CHLORIDE,CL 102 mmol/L (101-111); SODIUM,NA 141 mmol/L (135-145)
[2017-03-25] MEDS ORDERED: Iopamidol 612 MG/ML 75 ML Bottle IVPUSH ONE (18:40)
[2017-03-25] MEDS ORDERED: Famotidine 20 MG/2 ML SDV IVPUSH ONE (20:12)
[2017-03-25] MEDS ORDERED: GI Cocktail Oral Solution 30 ML PO ONE (20:13)
[2017-03-25] MEDS ORDERED: Dicyclomine 10 MG Cap PO ONE (20:30)
[2017-03-25 21:00] VITALS: BP 133/77
[2017-03-25] MEDS ORDERED: Sucralfate 1 GM Tab ONE (21:12)
[2017-03-25] MEDS ORDERED: Sucralfate 1 GM Tab PO ONE (21:12)
== END 2017-03-25 21:20 | disposition home or self-care (01) ==
LOC: DL.ED 17:13
DX: K29.70 Gastritis, unspecified, without bleeding (principal); F17.210 Nicotine dependence, cigarettes, uncomplicated; Z90.49 Acquired absence of other specified parts of digestive tract
CPT/HCPCS: 36415; 74177; 80053; 80305; 81001; 82150; 83605; 83690; 84484; 85025; 87040; 96361; 96365; 96372; 96375; 96376; 99284; A9270; G0480; J1170; J2405; J2550; J3411; J7030; J7050; J7120; Q9967; J3490; S0028

== ENCOUNTER 2017-04-26 12:03 | Emergency (ER) | payer MEDICAID, OTHER ==
[2017-04-26] MEDS ORDERED: Sodium Chloride 0.9% 10 ML Syringe FLUSH PRN (12:35)
[2017-04-26] MEDS ORDERED: Ondansetron 4 MG/2 ML SDV IV ONE ×2 (12:36→13:57)
[2017-04-26] MEDS ORDERED: MVI, Adult with Vitamin K 10 ML, Thiamine 100 MG, Folic Acid 1 MG in Lactated Ringers 1... IV ONE ×4 (12:37)
[2017-04-26] MEDS ORDERED: Pantoprazole 40 MG Vial IVPUSH ONE (12:37)
--- NOTE | 2017-04-26 12:42 | EDM.PDOC ---
<Tammie Tate - Last Filed: 04/26/17 17:10> ED HPI GENERAL MEDICAL PROBLEM - General Chief Complaint: Abdominal Pain Stated Complaint: STOMACH PAINS, THROWING UP Time Seen by Provider: 04/26/17 12:42 Source of Information: Reports: Patient History Limitations: Reports: No Limitations - History of Present Illness INITIAL COMMENTS - FREE TEXT/NARRATIVE: Patient presents to the ER with c/o severe nausea, vomiting, and abdominal pain. Patient states he began wretching approximately 1 hour prior to arrival. He states he has had this trouble in the past but it has been due to alcohol. He states he has not drank alcohol in 1 month. - Related Data Allergies Allergy/AdvReac Type Severity Reaction Status Date / Time No Known Allergies Allergy Verified 04/26/17 12:34 Home Meds: Home Meds . [No Known Home Meds] 05/21/14 [History] Past Medical History HEENT History: Reports: None Cardiovascular History: Reports: None Respiratory History: Reports: None Gastrointestinal History: Reports: Pancreatitis Genitourinary History: Reports: None Musculoskeletal History: Reports: None Neurological History: Reports: None Psychiatric History: Reports: None Endocrine/Metabolic History: Reports: None Hematologic History: Reports: None Immunologic History: Reports: None Oncologic (Cancer) History: Reports: None Dermatologic History: Reports: None - Infectious Disease History Infectious Disease History: Reports: None - Past Surgical History GI Surgical History: Reports: Appendectomy, Cholecystectomy Social & Family History - Family History Family Medical History: Noncontributory - Tobacco Use Smoking Status *Q: Current Every Day Smoker Years of Tobacco use: 20 Packs/Tins Daily: 1 Used Tobacco, but Quit: No Month Tobacco Last Used: current Second Hand Smoke Exposure: Yes - Caffeine Use Caffeine Use: Reports: Coffee, Energy Drinks, Soda, Tea - Alcohol Use Days Per Week of Alcohol Use: 5 Number of Drinks Per Day: 6 Total Drinks Per Week: 30 - Recreational Drug Use Recreational Drug Use: Yes Drug Use in Last 12 Months: Yes Recreational Drug Type: Reports: Marijuana/Hashish Other Recreational Drug Type: Pt states that he smoked Pot 2 days ago Recreational Drug Use Frequency: Binges Recreational Drug Last Use: pot - Living Situation & Occupation Living situation: Reports: with Family Occupation: Unemployed ED ROS GENERAL - Review of Systems Review Of Systems: ROS reveals no pertinent complaints other than HPI. ED EXAM, GI/ABD - Physical Exam Exam: See Below Exam Limited By: No Limitations General Appearance: Alert, WD/WN, Anxious, Moderate Distress, Active Emesis Head: Atraumatic, Normocephalic Neck: Normal Inspection Respiratory/Chest: No Respiratory Distress, Lungs Clear, Normal Breath Sounds Cardiovascular: Normal Peripheral Pulses, Regular Rate, Rhythm, No Edema, No Gallop, No JVD, No Murmur, No Rub GI/Abdominal Exam: Normal Bowel Sounds, No Distention, Tender, Other (actively vomiting frequently) (Male) Exam: Deferred Rectal (Males) Exam: Deferred Back Exam: Normal Inspection, Full Range of Motion Extremities: Normal Inspection, Normal Range of Motion Neurological: Alert, Oriented Psychiatric: Anxious Skin Exam: Warm, Dry, Intact, Normal Color, No Rash Lymphatic: No Adenopathy EKG INTERPRETATION EKG Date: 04/26/17 Time: 15:30 Rhythm: Other (sinus bradycardia) Rate (Beats/Min): 38 [place]: Normal P-Wave: Present QRS: Normal ST-T: Normal QT: Normal Course - Vital Signs Last Recorded V/S: Last Vital Signs Temp 35.9 C 04/26/17 15:14 Pulse 60 04/26/17 15:14 Resp 20 04/26/17 15:14 BP 151/99 H 04/26/17 15:14 Pulse Ox 100 04/26/17 15:14 - Orders/Labs/Meds Orders: Active Orders 24 hr Category Date Time Status Peripheral IV Care [RC] . DIRECTED Care 04/26/17 12:36 Active CHLAMYDIA TRACHOMATIS/GC AMPLF Routine Lab 04/26/17 13:29 Received Peripheral IV Insertion Adult [OM.PC] Stat Oth 04/26/17 12:36 Ordered Labs: Laboratory Tests 04/26/17 04/26/17 04/26/17 Range/Units 12:48 12:48 12:48 WBC 12.8 H (5.0-10.0) 10^3/uL RBC 5.13 (4.6-6.2) 10^6/uL Hgb 15.7 (14.0-18.0) g/dL Hct 45.9 (40.0-54.0) % MCV 89.5 (80-100) fL MCH 30.6 (27.0-34.0) pg MCHC 34.2 (33.0-35.0) g/dL Plt Count 299 (150-450) 10^3/uL Neut % (Auto) 69.3 (42.2-75.2) % Lymph % (Auto) 20.1 L (20.5-50.1) % [place] % (Auto) 8.0 (2-8) % Eos % (Auto) 2.3 (1.0-3.0) % Baso % (Auto) 0.3 (0.0-1.0) % PT 9.9 (9.0-12.0) SEC INR 1.0 (0.9-1.2) APTT 25.5 (22.0-34.0) SEC Sodium 142 (135-145) mmol/L Potassium 3.8 (3.6-5.0) mmol/L Chloride 103 (101-111) mmol/L Carbon Dioxide 25.0 (21.0-31.0) mmol/L Anion Gap 17.8 BUN 21 H (7-18) mg/dL Creatinine 1.0 (0.6-1.3) mg/dL Est Cr Clr Drug Dosing 111.01 mL/min Estimated GFR (MDRD) > 60 BUN/Creatinine Ratio 21.00 Glucose 108 H (74-105) mg/dL Calcium 9.7 (8.4-10.2) mg/dl Total Bilirubin 0.7 (0.2-1.0) mg/dL AST 39 (10-42) IU/L ALT 45 (10-60) IU/L Alkaline Phosphatase 100 (42-121) IU/L Total Protein 8.1 (6.7-8.2) g/dl Albumin 4.3 (3.2-5.5) g/dl Globulin 3.8 Albumin/Globulin Ratio 1.13 Amylase 77 (28-100) U/L Lipase 22 (22-51) U/L Urine Color (YELLOW) Urine Appearance (CLEAR) Urine pH (5.0-9.0) Ur Specific [place] (1.005-1.030) Urine Protein (NEGATIVE) Urine Glucose (UA) (NEGATIVE) Urine Ketones (NEGATIVE) Urine Occult Blood (NEGATIVE) Urine Nitrite (NEGATIVE) Urine Bilirubin (NEGATIVE) Urine Urobilinogen (0.2-1.0) mg/dL Ur Leukocyte Esterase (NEGATIVE) Urine RBC /HPF Urine WBC (0-5/HPF) /HPF Ur Epithelial Cells /HPF Amorphous Sediment (0/HPF) /HPF Urine Bacteria (0-FEW/HPF) /HPF Urine Mucus /LPF Urine Opiates Screen (NEGATIVE) Ur Oxycodone Screen (NEGATIVE) Urine Methadone Screen (NEGATIVE) Ur Barbiturates Screen (NEGATIVE) U Tricyclic Antidepress (NEGATIVE) Ur Phencyclidine Scrn (NEGATIVE) Ur Amphetamine Screen (NEGATIVE) U Methamphetamines Scrn (NEGATIVE) Urine MDMA Screen (NEGATIVE) U Benzodiazepines Scrn (NEGATIVE) Urine Cocaine Screen (NEGATIVE) U Marijuana (THC) Screen (NEGATIVE) Ethyl Alcohol < 5 mg/dL 04/26/17 04/26/17 Range/Units 13:29 13:29 WBC (5.0-10.0) 10^3/uL RBC (4.6-6.2) 10^6/uL Hgb (14.0-18.0) g/dL Hct (40.0-54.0) % MCV (80-100) fL MCH (27.0-34.0) pg MCHC (33.0-35.0) g/dL Plt Count (150-450) 10^3/uL Neut % (Auto) (42.2-75.2) % Lymph % (Auto) (20.5-50.1) % [place] % (Auto) (2-8) % Eos % (Auto) (1.0-3.0) % Baso % (Auto) (0.0-1.0) % PT (9.0-12.0) SEC INR (0.9-1.2) APTT (22.0-34.0) SEC Sodium (135-145) mmol/L Potassium (3.6-5.0) mmol/L Chloride (101-111) mmol/L Carbon Dioxide (21.0-31.0) mmol/L Anion Gap BUN (7-18) mg/dL Creatinine (0.6-1.3) mg/dL Est Cr Clr Drug Dosing mL/min Estimated GFR (MDRD) BUN/Creatinine Ratio Glucose (74-105) mg/dL Calcium (8.4-10.2) mg/dl Total Bilirubin (0.2-1.0) mg/dL AST (10-42) IU/L ALT (10-60) IU/L Alkaline Phosphatase (42-121) IU/L Total Protein (6.7-8.2) g/dl Albumin (3.2-5.5) g/dl Globulin Albumin/Globulin Ratio Amylase (28-100) U/L Lipase (22-51) U/L Urine Color Yellow (YELLOW) Urine Appearance Clear (CLEAR) Urine pH 7.0 (5.0-9.0) Ur Specific [place] 1.025 (1.005-1.030) Urine Protein 30 H (NEGATIVE) Urine Glucose (UA) Negative (NEGATIVE) Urine Ketones 15 H (NEGATIVE) Urine Occult Blood Negative (NEGATIVE) Urine Nitrite Negative (NEGATIVE) Urine Bilirubin Negative (NEGATIVE) Urine Urobilinogen 0.2 (0.2-1.0) mg/dL Ur Leukocyte Esterase Negative (NEGATIVE) Urine RBC 5-10 H /HPF Urine WBC 0-5 (0-5/HPF) /HPF Ur Epithelial Cells Moderate H /HPF Amorphous Sediment Moderate (0/HPF) /HPF Urine Bacteria Moderate H (0-FEW/HPF) /HPF Urine Mucus Moderate H /LPF Urine Opiates Screen Negative (NEGATIVE) Ur Oxycodone Screen Positive H (NEGATIVE) Urine Methadone Screen Negative (NEGATIVE) Ur Barbiturates Screen Negative (NEGATIVE) U Tricyclic Antidepress Negative (NEGATIVE) Ur Phencyclidine Scrn Negative (NEGATIVE) Ur Amphetamine Screen Negative (NEGATIVE) U Methamphetamines Scrn Negative (NEGATIVE) Urine MDMA Screen Negative (NEGATIVE) U Benzodiazepines Scrn Negative (NEGATIVE) Urine Cocaine Screen Negative (NEGATIVE) U Marijuana (THC) Screen Positive H (NEGATIVE) Ethyl Alcohol mg/dL Meds: Medications Discontinued Medications Generic Name Dose Route Start Last Admin Trade Name Markel PRN Reason Stop Dose Admin Al Hydroxide/Mg Hydroxide 30 ml 04/26/17 16:56 04/26/17 17:10 Gi Cocktail PO 04/26/17 16:57 30 ml ONETIME ONE Administration Atropine Sulfate 1 mg 04/26/17 19:00 04/26/17 15:35 Atropine IVPUSH 04/26/17 19:01 1 mg ONETIME ONE Administration Diphenhydramine HCl 25 mg 04/26/17 12:54 04/26/17 13:09 Benadryl IVPUSH 04/26/17 12:55 25 mg ONETIME ONE Administration Folic Acid Confirm 04/26/17 12:44 04/26/17 13:24 Folic Acid Administered 04/26/17 12:45 Not Given Dose 50 mg .ROUTE .STK-MED ONE Haloperidol Lactate 5 mg 04/26/17 14:57 04/26/17 15:05 Haldol IVPUSH 04/26/17 14:58 5 mg ONETIME ONE Administration Multivitamins/Minerals 10 ml/ 1,011.2 mls @ 999 mls/hr 04/26/17 12:37 13:11 Thiamine HCl 100 mg/ Folic IV 04/26/17 13:37 999 mls/hr Acid 1 mg/ Lactated Ringer's .BOLUS ONE Administration Pantoprazole Sodium 40 mg/ 100 mls @ 20 mls/hr 04/26/17 12:54 04/26/17 13:42 Sodium Chloride IV 20 mls/hr .CONTINUOS JJ Administration Sodium Chloride 1,000 mls @ 999 mls/hr 04/26/17 14:47 04/26/17 15:42 Normal Saline IV 04/26/17 15:47 999 mls/hr .BOLUS ONE Administration Lorazepam 1 mg 04/26/17 13:13 04/26/17 13:41 Ativan IVPUSH 04/26/17 13:14 1 mg ONETIME ONE Administration Metoclopramide HCl 10 mg 04/26/17 12:53 04/26/17 13:10 Reglan IVPUSH 04/26/17 12:54 10 mg ONETIME ONE Administration Ondansetron HCl 4 mg 04/26/17 12:36 04/26/17 12:58 Zofran IV 04/26/17 12:37 4 mg ONETIME ONE Administration Ondansetron HCl 4 mg 04/26/17 13:57 04/26/17 14:21 Zofran IV 04/26/17 13:58 4 mg ONETIME ONE Administration Pantoprazole Sodium 80 mg 04/26/17 12:37 04/26/17 12:59 Protonix Iv IVPUSH 04/26/17 12:38 80 mg .BOLUS ONE Administration Pantoprazole Sodium Confirm 04/26/17 12:55 04/26/17 13:00 Protonix Iv Administered 04/26/17 12:56 Not Given Dose 40 mg .ROUTE .STK-MED ONE Sodium Chloride 10 ml 04/26/17 12:35 Saline Flush FLUSH ASDIRECTED PRN Keep Vein Open Thiamine HCl Confirm 04/26/17 12:44 04/26/17 13:24 Vitamin B-1 Administered 04/26/17 12:45 Not Given Dose 200 mg .ROUTE .STK-MED ONE Departure - Departure Time of Disposition: 17:02 Disposition: Home, Self-Care 01 Condition: Fair Clinical Impression: Cannabinoid hyperemesis syndrome Gastritis Qualifiers: Gastritis type: unspecified gastritis Chronicity: acute Gastritis bleeding: without bleeding Qualified Code(s): K29.00 - Acute gastritis without bleeding - Discharge Information Instructions: Nausea and Vomiting, Adult, [id number] Referrals: Eulalio Lafleur [Primary Care Provider] - Forms: ED Department Discharge Additional Instructions: Omeprazole 20 mg - take 1 every day for 30 days, or until seen by primary care provider. Carafate 1 gram orally - 4 times daily 30 minutes before meals and bedtime. Abstain from marijuana use. Drink plenty of fluids Follow up with your primary care provider in the clinic in 3-4 days - My Orders Last 24 Hours: My Active Orders 04/26/17 12:36 Peripheral IV Care [RC] . DIRECTED Peripheral IV Insertion Adult [OM.PC] Stat 04/26/17 13:29 CHLAMYDIA TRACHOMATIS/GC AMPLF Routine - Assessment/Plan Last 24 Hours: My Active Orders 04/26/17 12:36 Peripheral IV Care [RC] . DIRECTED Peripheral IV Insertion Adult [OM.PC] Stat 04/26/17 13:29 CHLAMYDIA TRACHOMATIS/GC AMPLF Routine <Yoel Beach - Last Filed: 04/27/17 11:08> Course - Re-Assessments/Exams Free Text/Narrative Re-Assessment/Exam: Pt continued with persistent nausea, vomiting and anxiety/agitation after Zofran 4mg IVP x2, Reglan 10mg IVP w/Benadryl 25mg IVP, Protonix 80mg IV bolus and 8mg/HR. Haldol 5mg IV was given which resolved the pt's N/V and anxiety/ agitation, however shortly after receiving Haldol he had a drop in heart rate with monitor showing sinus pina with rates of 38-48 BPM. Pt maintained nl BP, and was awake, alert and oriented. He received Atropine 1mg IVP per Stanislaw Tate, and had return to HR of 90 to 105 for approx. 15mins. then rate settled in the 80's.
[2017-04-26] MEDS ORDERED: Thiamine 200 MG/2 ML MDV ONE (12:44)
[2017-04-26] MEDS ORDERED: Folic Acid 50 MG/10 ML MDV ONE (12:44)
[2017-04-26] MEDS ORDERED: Metoclopramide 10 MG/2 ML SDV IVPUSH ONE (12:53)
[2017-04-26] MEDS ORDERED: diphenhydrAMINE 50 MG/ML SDV IVPUSH ONE (12:54)
[2017-04-26] MEDS ORDERED: Pantoprazole 40 MG in Sodium Chloride 0.9% 100 ML IV SCH (12:54)
[2017-04-26] MEDS ORDERED: Pantoprazole 40 MG Vial ONE (12:55)
[2017-04-26] MEDS ORDERED: LORazepam 2 MG/ML Syringe IVPUSH ONE (13:13)
[2017-04-26 13:33] LABS: CHLORIDE,CL 103 mmol/L (101-111); SODIUM,NA 142 mmol/L (135-145)
[2017-04-26] MEDS ORDERED: Sodium Chloride 0.9% 1,000 ML IV ONE (14:47)
[2017-04-26] MEDS ORDERED: Haloperidol Lactate 5 MG/ML SDV IVPUSH ONE (14:57)
[2017-04-26 15:16] VITALS: BP 151/99
[2017-04-26] MEDS ORDERED: GI Cocktail Oral Solution 30 ML PO ONE (16:56)
[2017-04-26] MEDS ORDERED: Atropine 0.4 MG/ML SDV IVPUSH ONE (19:00)
--- NOTE | 2017-04-30 13:26 | EKG ---
04/26/2017 - [facility] - [place] 12-lead EKG shows normal sinus rhythm with sinus bradycardia with heart rate of 38. AR interval of 156. QTc of 404. No significant ST elevation or ST depression noted at this time. Nonspecific ST-T wave changes noted on lead V2 and V3. Questionable heart block at this time. [facility] /[id number]
== END 2017-04-26 17:54 | disposition home or self-care (01) ==
LOC: DL.ED 12:03
DX: K29.00 Acute gastritis without bleeding (principal); F12.929 Cannabis use, unspecified with intoxication, unspecified; F17.210 Nicotine dependence, cigarettes, uncomplicated; Z90.49 Acquired absence of other specified parts of digestive tract
CPT/HCPCS: 36415; 80053; 80305; 81001; 82150; 83690; 85025; 85610; 85730; 87491; 87591; 96365; 96366; 96367; 96375; 96376; 99284; A9270; C9113; G0480; J0461; J1200; J1630; J2060; J2405; J2765; J3411; J7030; J7050; J7120; J3490

== ENCOUNTER 2017-04-28 16:09 | Emergency (ER) | payer MEDICAID, OTHER ==
[2017-04-28] MEDS ORDERED: Sodium Chloride 0.9% 10 ML Syringe FLUSH PRN (16:10)
[2017-04-28] MEDS ORDERED: Ondansetron 4 MG/2 ML SDV IV ONE (16:11)
[2017-04-28] MEDS ORDERED: Sodium Chloride 0.9% 1,000 ML IV ONE (16:11)
[2017-04-28] MEDS ORDERED: Pantoprazole 40 MG in Sodium Chloride 0.9% 100 ML IV ONE (16:12)
[2017-04-28 16:18] VITALS: BP 110/67
[2017-04-28 16:44] LABS: CHLORIDE,CL 105 mmol/L (101-111); SODIUM,NA 142 mmol/L (135-145)
[2017-04-28] MEDS ORDERED: HYDROmorphone 1 MG/ML Syringe IVPUSH ONE (16:58)
[2017-04-28] MEDS ORDERED: diphenhydrAMINE 50 MG/ML SDV IVPUSH ONE (16:58)
[2017-04-28] MEDS ORDERED: Sucralfate 1 GM Tab PO ONE (16:59)
[2017-04-28] MEDS ORDERED: GI Cocktail Oral Solution 30 ML PO ONE (16:59)
[2017-04-28] MEDS ORDERED: Promethazine 25 MG Tab ONE (18:19)
[2017-04-28] MEDS ORDERED: Promethazine 25 MG Tab PO ONE (18:19)
--- NOTE | 2017-04-28 18:26 | EDM.PDOC ---
Scribed by Jayne Mcdonnell 04/28/17 3354 for Yoel Beach MD ED HPI GENERAL MEDICAL PROBLEM - General Chief Complaint: Abdominal Pain Stated Complaint: ABD PAINS, COMING BY AMBULANCE Time Seen by Provider: 04/28/17 16:09 Source of Information: Reports: Patient, EMS, EMS Notes Reviewed, RN, RN Notes Reviewed History Limitations: Reports: No Limitations - History of Present Illness INITIAL COMMENTS - FREE TEXT/NARRATIVE: Patient presents via ambulance with 3 days history of severe nausea, vomiting and abdominal pain worse after using marijuana. Location: Reports: Abdomen Quality: Reports: Ache Severity: Severe Improves with: Reports: None Associated Symptoms: Reports: No Other Symptoms Abdominal Pain Score (Numeric/FACES): 9 - Related Data Allergies Allergy/AdvReac Type Severity Reaction Status Date / Time No Known Allergies Allergy Verified 04/28/17 16:10 Home Meds: Home Meds Doxycycline [Vibramycin] 100 mg PO Q12HR 04/28/17 [History] Ibuprofen 800 mg PO PRN 04/28/17 [History] Past Medical History HEENT History: Reports: None Cardiovascular History: Reports: None Respiratory History: Reports: None Gastrointestinal History: Reports: Pancreatitis Genitourinary History: Reports: None Musculoskeletal History: Reports: None Neurological History: Reports: None Psychiatric History: Reports: None Endocrine/Metabolic History: Reports: None Hematologic History: Reports: None Immunologic History: Reports: None Oncologic (Cancer) History: Reports: None Dermatologic History: Reports: None - Infectious Disease History Infectious Disease History: Reports: None - Past Surgical History GI Surgical History: Reports: Appendectomy, Cholecystectomy Social & Family History - Family History Family Medical History: Noncontributory - Tobacco Use Smoking Status *Q: Current Every Day Smoker Years of Tobacco use: 20 Packs/Tins Daily: 1 Used Tobacco, but Quit: No Month Tobacco Last Used: current Second Hand Smoke Exposure: Yes - Caffeine Use Caffeine Use: Reports: Coffee, Energy Drinks, Soda, Tea - Alcohol Use Days Per Week of Alcohol Use: 5 Number of Drinks Per Day: 6 Total Drinks Per Week: 30 - Recreational Drug Use Recreational Drug Use: Yes Drug Use in Last 12 Months: Yes Recreational Drug Type: Reports: Marijuana/Hashish Other Recreational Drug Type: Pt states that he smoked Pot 2 days ago Recreational Drug Use Frequency: Binges Recreational Drug Last Use: pot - Living Situation & Occupation Living situation: Reports: with Family Occupation: Unemployed ED ROS GENERAL - Review of Systems Review Of Systems: ROS reveals no pertinent complaints other than HPI. ED EXAM, GI/ABD - Physical Exam Exam: See Below Exam Limited By: No Limitations General Appearance: Alert, WD/WN, Moderate Distress Head: Atraumatic, Normocephalic Neck: Normal Inspection Respiratory/Chest: No Respiratory Distress, Lungs Clear, Normal Breath Sounds Cardiovascular: Normal Peripheral Pulses, Regular Rate, Rhythm, No Edema, No Gallop, No JVD, No Murmur, No Rub GI/Abdominal Exam: Normal Bowel Sounds, No Distention, Tender (Male) Exam: Deferred Rectal (Males) Exam: Deferred Back Exam: Normal Inspection, Full Range of Motion Extremities: Normal Inspection, Normal Range of Motion Neurological: Alert, Oriented Psychiatric: Anxious Skin Exam: Warm, Dry, Intact, Normal Color, No Rash Lymphatic: No Adenopathy Course - Vital Signs Last Recorded V/S: Last Vital Signs Temp 36.7 C 04/28/17 16:12 Pulse 68 04/28/17 16:12 Resp 16 04/28/17 16:12 BP 110/67 04/28/17 16:12 Pulse Ox 95 04/28/17 16:12 - Orders/Labs/Meds Orders: Active Orders 24 hr Category Date Time Status Peripheral IV Care [RC] . DIRECTED Care 04/28/17 16:11 Active Sodium Chloride 0.9% [Saline Flush] Med 04/28/17 16:10 Active 10 ml FLUSH ASDIRECTED PRN Peripheral IV Insertion Adult [OM.PC] Stat Oth 04/28/17 16:10 Ordered Medication Orders Sodium Chloride (Saline Flush) 10 ml FLUSH ASDIRECTED PRN PRN Reason: Keep Vein Open Last Admin: 04/28/17 16:19 Dose: 10 ml Labs: Laboratory Tests 04/28/17 04/28/17 04/28/17 Range/Units 16:15 16:15 16:18 WBC 8.6 (5.0-10.0) 10^3/uL RBC 4.63 (4.6-6.2) 10^6/uL Hgb 13.9 L (14.0-18.0) g/dL Hct 42.0 (40.0-54.0) % MCV 90.7 (80-100) fL MCH 30.0 (27.0-34.0) pg MCHC 33.1 (33.0-35.0) g/dL Plt Count 272 (150-450) 10^3/uL Neut % (Auto) 71.4 (42.2-75.2) % Lymph % (Auto) 20.8 (20.5-50.1) % [place] % (Auto) 6.3 (2-8) % Eos % (Auto) 1.2 (1.0-3.0) % Baso % (Auto) 0.3 (0.0-1.0) % Sodium (135-145) mmol/L Potassium (3.6-5.0) mmol/L Chloride (101-111) mmol/L Carbon Dioxide (21.0-31.0) mmol/L Anion Gap BUN (7-18) mg/dL Creatinine (0.6-1.3) mg/dL Est Cr Clr Drug Dosing Estimated GFR (MDRD) BUN/Creatinine Ratio Glucose (74-105) mg/dL Calcium (8.4-10.2) mg/dl Total Bilirubin (0.2-1.0) mg/dL AST (10-42) IU/L ALT (10-60) IU/L Alkaline Phosphatase (42-121) IU/L Total Protein (6.7-8.2) g/dl Albumin (3.2-5.5) g/dl Globulin Albumin/Globulin Ratio Amylase (28-100) U/L Lipase (22-51) U/L Urine Color Yellow (YELLOW) Urine Appearance Clear (CLEAR) Urine pH 8.5 (5.0-9.0) Ur Specific [place] 1.015 (1.005-1.030) Urine Protein 30 H (NEGATIVE) Urine Glucose (UA) Negative (NEGATIVE) Urine Ketones Negative (NEGATIVE) Urine Occult Blood Trace-intact H (NEGATIVE) Urine Nitrite Negative (NEGATIVE) Urine Bilirubin Small H (NEGATIVE) Urine Urobilinogen 0.2 (0.2-1.0) mg/dL Ur Leukocyte Esterase Negative (NEGATIVE) Urine RBC 0-5 /HPF Urine WBC 0-5 (0-5/HPF) /HPF Ur Epithelial Cells Few /HPF Amorphous Sediment Many (0/HPF) /HPF Urine Bacteria Moderate H (0-FEW/HPF) /HPF Urine Mucus Moderate H /LPF Urine Opiates Screen Negative (NEGATIVE) Ur Oxycodone Screen Negative (NEGATIVE) Urine Methadone Screen Negative (NEGATIVE) Ur Barbiturates Screen Negative (NEGATIVE) U Tricyclic Antidepress Negative (NEGATIVE) Ur Phencyclidine Scrn Negative (NEGATIVE) Ur Amphetamine Screen Negative (NEGATIVE) U Methamphetamines Scrn Negative (NEGATIVE) Urine MDMA Screen Negative (NEGATIVE) U Benzodiazepines Scrn Positive H (NEGATIVE) Urine Cocaine Screen Negative (NEGATIVE) U Marijuana (THC) Screen Positive H (NEGATIVE) Ethyl Alcohol mg/dL 04/28/17 Range/Units 16:18 WBC (5.0-10.0) 10^3/uL RBC (4.6-6.2) 10^6/uL Hgb (14.0-18.0) g/dL Hct (40.0-54.0) % MCV (80-100) fL MCH (27.0-34.0) pg MCHC (33.0-35.0) g/dL Plt Count (150-450) 10^3/uL Neut % (Auto) (42.2-75.2) % Lymph % (Auto) (20.5-50.1) % [place] % (Auto) (2-8) % Eos % (Auto) (1.0-3.0) % Baso % (Auto) (0.0-1.0) % Sodium 142 (135-145) mmol/L Potassium 3.8 (3.6-5.0) mmol/L Chloride 105 (101-111) mmol/L Carbon Dioxide 28.0 (21.0-31.0) mmol/L Anion Gap 12.8 BUN 20 H (7-18) mg/dL Creatinine 1.0 (0.6-1.3) mg/dL Est Cr Clr Drug Dosing TNP Estimated GFR (MDRD) > 60 BUN/Creatinine Ratio 20.00 Glucose 105 (74-105) mg/dL Calcium 9.1 (8.4-10.2) mg/dl Total Bilirubin 0.7 (0.2-1.0) mg/dL AST 26 (10-42) IU/L ALT 30 (10-60) IU/L Alkaline Phosphatase 76 (42-121) IU/L Total Protein 7.0 (6.7-8.2) g/dl Albumin 3.9 (3.2-5.5) g/dl Globulin 3.1 Albumin/Globulin Ratio 1.26 Amylase 55 (28-100) U/L Lipase 19 L (22-51) U/L Urine Color (YELLOW) Urine Appearance (CLEAR) Urine pH (5.0-9.0) Ur Specific [place] (1.005-1.030) Urine Protein (NEGATIVE) Urine Glucose (UA) (NEGATIVE) Urine Ketones (NEGATIVE) Urine Occult Blood (NEGATIVE) Urine Nitrite (NEGATIVE) Urine Bilirubin (NEGATIVE) Urine Urobilinogen (0.2-1.0) mg/dL Ur Leukocyte Esterase (NEGATIVE) Urine RBC /HPF Urine WBC (0-5/HPF) /HPF Ur Epithelial Cells /HPF Amorphous Sediment (0/HPF) /HPF Urine Bacteria (0-FEW/HPF) /HPF Urine Mucus /LPF Urine Opiates Screen (NEGATIVE) Ur Oxycodone Screen (NEGATIVE) Urine Methadone Screen (NEGATIVE) Ur Barbiturates Screen (NEGATIVE) U Tricyclic Antidepress (NEGATIVE) Ur Phencyclidine Scrn (NEGATIVE) Ur Amphetamine Screen (NEGATIVE) U Methamphetamines Scrn (NEGATIVE) Urine MDMA Screen (NEGATIVE) U Benzodiazepines Scrn (NEGATIVE) Urine Cocaine Screen (NEGATIVE) U Marijuana (THC) Screen (NEGATIVE) Ethyl Alcohol < 5 mg/dL Meds: Medications Generic Name Dose Route Start Last Admin Trade Name Freq PRN Reason Stop Dose Admin Sodium Chloride 10 ml 04/28/17 16:10 04/28/17 16:19 Saline Flush FLUSH 10 ml ASDIRECTED PRN Administration Keep Vein Open Discontinued Medications Generic Name Dose Route Start Last Admin Trade Name Freq PRN Reason Stop Dose Admin Al Hydroxide/Mg Hydroxide 30 ml 04/28/17 16:59 04/28/17 17:15 Gi Cocktail PO 04/28/17 17:00 30 ml ONETIME ONE Administration Diphenhydramine HCl 25 mg 04/28/17 16:58 04/28/17 17:14 Benadryl IVPUSH 04/28/17 16:59 25 mg ONETIME ONE Administration Hydromorphone HCl 1 mg 04/28/17 16:58 04/28/17 17:15 Dilaudid IVPUSH 04/28/17 16:59 1 mg ONETIME ONE Administration Pantoprazole Sodium 40 mg/ 100 mls @ 200 mls/hr 04/28/17 16:12 04/28/17 16:24 Sodium Chloride IV 04/28/17 16:41 200 mls/hr ONETIME ONE Administration Sodium Chloride 1,000 mls @ 999 mls/hr 04/28/17 16:11 04/28/17 16:24 Normal Saline IV 04/28/17 17:11 999 mls/hr .BOLUS ONE Administration Ondansetron HCl 4 mg 04/28/17 16:11 04/28/17 16:24 Zofran IV 04/28/17 16:12 4 mg ONETIME ONE Administration Promethazine HCl Confirm 04/28/17 18:19 04/28/17 18:25 Phenergan Administered 04/28/17 18:20 Not Given Dose 100 mg .ROUTE .STK-MED ONE Sucralfate 1 gm 04/28/17 16:59 04/28/17 17:16 Carafate PO 04/28/17 17:00 1 gm ONETIME ONE Administration Departure - Departure Time of Disposition: 18:06 Disposition: Home, Self-Care 01 Condition: Fair Clinical Impression: Cannabinoid hyperemesis syndrome Gastritis Qualifiers: Gastritis type: unspecified gastritis Chronicity: acute Gastritis bleeding: without bleeding Qualified Code(s): K29.00 - Acute gastritis without bleeding - Discharge Information Instructions: Gastritis, Adult, [id number] Forms: ED Department Discharge Additional Instructions: RX: Phenergan 25mg. Do not smoke marijuana. Follow up in clinic this week for recheck. Take the Carafate as previously described. - My Orders Last 24 Hours: My Active Orders 04/28/17 16:10 Sodium Chloride 0.9% [Saline Flush] 10 ml FLUSH ASDIRECTED PRN Peripheral IV Insertion Adult [OM.PC] Stat 04/28/17 16:11 Peripheral IV Care [RC] . DIRECTED - Assessment/Plan Last 24 Hours: My Active Orders 04/28/17 16:10 Sodium Chloride 0.9% [Saline Flush] 10 ml FLUSH ASDIRECTED PRN Peripheral IV Insertion Adult [OM.PC] Stat 04/28/17 16:11 Peripheral IV Care [RC] . DIRECTED I have read and agree with the documentation that has been completed regarding this visit. By signing this record, I attest that the documentation was completed in my physical presence and is an accurate record of the encounter.
== END 2017-04-28 18:27 | disposition home or self-care (01) ==
LOC: DL.ED 16:09
DX: F12.288 Cannabis dependence with other cannabis-induced disorder (principal); K29.00 Acute gastritis without bleeding; Z90.49 Acquired absence of other specified parts of digestive tract; F17.210 Nicotine dependence, cigarettes, uncomplicated
CPT/HCPCS: 36415; 80053; 80305; 81001; 82150; 83690; 85025; 96361; 96365; 96375; 99285; A9270; C9113; G0480; J1170; J1200; J2405; J7030; J7050

== ENCOUNTER 2017-04-29 07:54 | Emergency (ER) | payer MEDICAID, OTHER ==
[2017-04-29] MEDS ORDERED: Capsaicin 0.025% Crm 60 GM Tube TOP ONE ×2 (07:55→08:05)
[2017-04-29] MEDS ORDERED: Sodium Chloride 0.9% 1,000 ML IV ONE (07:58)
[2017-04-29] MEDS ORDERED: diphenhydrAMINE 50 MG/ML SDV IVPUSH ONE (07:58)
--- NOTE | 2017-04-29 07:58 | EDM.PDOC ---
ED HPI GENERAL MEDICAL PROBLEM - General Chief Complaint: Abdominal Pain Stated Complaint: IN BY AMBULANCE Time Seen by Provider: 04/29/17 07:58 Source of Information: Reports: Patient, EMS, Old Records, RN - History of Present Illness INITIAL COMMENTS - FREE TEXT/NARRATIVE: Arrives by ambulance with c/o waking with severe epigastric pain w/nausea and vomiting. Pt states he had to "force" himself to vomit to feel better. Pt states the only thing that helps is to soak in a tub of hot water. He admits to chronic marijuana use, and "quit" yesterday after he was seen here by me. At yesterday's visit I explained to the pt that his Sx's and exam/diagnostic findings are consistent with 'Cannabinoid Hyperemesis Syndrome". Pt denies fever , chills, radiating pain, or any other Sx's. Duration: Recurring Location: Reports: Abdomen Quality: Reports: Ache Severity: Severe Improves with: Reports: Other (soaking in a hot bath) Worsens with: Reports: Eating Associated Symptoms: Reports: No Other Symptoms Treatments OVEN TENDER BAGELS: Reports: Other Medication(s) Abdominal Pain Score (Numeric/FACES): 10 - Related Data Allergies Allergy/AdvReac Type Severity Reaction Status Date / Time No Known Allergies Allergy Verified 04/29/17 08:03 Home Meds: Home Meds Doxycycline [Vibramycin] 100 mg PO Q12HR 04/28/17 [History] Ibuprofen 800 mg PO PRN 04/28/17 [History] Past Medical History HEENT History: Reports: None Cardiovascular History: Reports: None Respiratory History: Reports: None Gastrointestinal History: Reports: Pancreatitis Genitourinary History: Reports: None Musculoskeletal History: Reports: None Neurological History: Reports: None Psychiatric History: Reports: None Endocrine/Metabolic History: Reports: None Hematologic History: Reports: None Immunologic History: Reports: None Oncologic (Cancer) History: Reports: None Dermatologic History: Reports: None - Infectious Disease History Infectious Disease History: Reports: None - Past Surgical History GI Surgical History: Reports: Appendectomy, Cholecystectomy - History Comment History Comment: Marijuana hyperemesis syndrome Social & Family History - Family History Family Medical History: Noncontributory - Tobacco Use Smoking Status *Q: Current Every Day Smoker Years of Tobacco use: 20 Packs/Tins Daily: 1 Used Tobacco, but Quit: No Month Tobacco Last Used: current Second Hand Smoke Exposure: Yes - Caffeine Use Caffeine Use: Reports: Coffee, Energy Drinks, Soda, Tea - Alcohol Use Days Per Week of Alcohol Use: 5 Number of Drinks Per Day: 6 Total Drinks Per Week: 30 - Recreational Drug Use Recreational Drug Use: Yes Drug Use in Last 12 Months: Yes Recreational Drug Type: Reports: Marijuana/Hashish Other Recreational Drug Type: Pt states that he smoked Pot 2 days ago Recreational Drug Use Frequency: Binges Recreational Drug Last Use: pot - Living Situation & Occupation Living situation: Reports: with Family Occupation: Unemployed ED ROS GENERAL - Review of Systems Review Of Systems: ROS reveals no pertinent complaints other than HPI. ED EXAM, GI/ABD - Physical Exam Exam: See Below Exam Limited By: No Limitations General Appearance: Anxious, Mild Distress (due to epigastric pain) Eyes: Bilateral: Normal Appearance, EOMI Ears: Normal External Exam, Hearing Grossly Normal Nose: Normal Inspection, Normal Mucosa, No Blood Throat/Mouth: Normal Inspection, Normal Lips, Normal Gums, Normal Oropharynx, Normal Voice, No Airway Compromise Head: Atraumatic, Normocephalic Neck: Normal Inspection, Supple, Non-Tender, Full Range of Motion Respiratory/Chest: No Respiratory Distress, Lungs Clear, Normal Breath Sounds, No Accessory Muscle Use, Chest Non-Tender Cardiovascular: Normal Peripheral Pulses, Regular Rate, Rhythm, No Edema, No Gallop, No JVD, No Murmur, No Rub GI/Abdominal Exam: Normal Bowel Sounds, Soft, No Organomegaly, No Distention, No Abnormal Bruit, Tender (epigastric region). No: Guarding, Rigid, Rebound (Male) Exam: Deferred Rectal (Males) Exam: Deferred Back Exam: Normal Inspection Extremities: Normal Inspection Neurological: Alert, Oriented, CN II-XII Intact, Normal Cognition, Normal Gait, No Motor/Sensory Deficits Psychiatric: Normal Affect, Normal Mood Skin Exam: Warm, Dry, Intact, Normal Color, No Rash Course - Vital Signs Last Recorded V/S: Last Vital Signs Temp 36.3 C 04/29/17 08:23 Pulse 64 04/29/17 08:23 Resp 20 04/29/17 08:23 BP 189/91 H 04/29/17 08:23 Pulse Ox 98 04/29/17 08:23 - Orders/Labs/Meds Orders: Active Orders 24 hr Category Date Time Status Sodium Chloride 0.9% [Normal Saline] 1,000 ml Med 04/29/17 07:58 Active IV .BOLUS Sodium Chloride 0.9% [Saline Flush] Med 04/29/17 08:00 Active 10 ml FLUSH ASDIRECTED PRN Peripheral IV Insertion Adult [OM.PC] Stat Oth 04/29/17 08:00 Ordered Medication Orders Sodium Chloride (Normal Saline) 1,000 mls @ 999 mls/hr IV .BOLUS ONE Stop: 04/29/17 08:58 Last Admin: 04/29/17 08:09 Dose: 999 mls/hr Sodium Chloride (Saline Flush) 10 ml FLUSH ASDIRECTED PRN PRN Reason: Keep Vein Open Last Admin: 04/29/17 08:11 Dose: 10 ml Labs: Laboratory Tests 04/29/17 04/29/17 Range/Units 08:09 08:09 WBC 11.1 H (5.0-10.0) 10^3/uL RBC 5.19 (4.6-6.2) 10^6/uL Hgb 15.8 (14.0-18.0) g/dL Hct 47.0 (40.0-54.0) % MCV 90.6 (80-100) fL MCH 30.4 (27.0-34.0) pg MCHC 33.6 (33.0-35.0) g/dL Plt Count 300 (150-450) 10^3/uL Neut % (Auto) 66.3 (42.2-75.2) % Lymph % (Auto) 24.5 (20.5-50.1) % [place] % (Auto) 7.4 (2-8) % Eos % (Auto) 1.4 (1.0-3.0) % Baso % (Auto) 0.4 (0.0-1.0) % Sodium 141 (135-145) mmol/L Potassium 4.4 (3.6-5.0) mmol/L Chloride 102 (101-111) mmol/L Carbon Dioxide 27.0 (21.0-31.0) mmol/L Anion Gap 16.4 BUN 14 (7-18) mg/dL Creatinine 1.1 (0.6-1.3) mg/dL Est Cr Clr Drug Dosing TNP Estimated GFR (MDRD) > 60 BUN/Creatinine Ratio 12.72 Glucose 115 H (74-105) mg/dL Calcium 9.7 (8.4-10.2) mg/dl Total Bilirubin 0.8 (0.2-1.0) mg/dL AST 29 (10-42) IU/L ALT 32 (10-60) IU/L Alkaline Phosphatase 97 (42-121) IU/L Total Protein 8.0 (6.7-8.2) g/dl Albumin 4.4 (3.2-5.5) g/dl Globulin 3.6 Albumin/Globulin Ratio 1.22 Amylase 86 (28-100) U/L Lipase 29 (22-51) U/L Meds: Medications Generic Name Dose Route Start Last Admin Trade Name Freq PRN Reason Stop Dose Admin Sodium Chloride 1,000 mls @ 999 mls/hr 04/29/17 07:58 04/29/17 08:09 Normal Saline IV 04/29/17 08:58 999 mls/hr .BOLUS ONE Administration Sodium Chloride 10 ml 04/29/17 08:00 04/29/17 08:11 Saline Flush FLUSH 10 ml ASDIRECTED PRN Administration Keep Vein Open Discontinued Medications Generic Name Dose Route Start Last Admin Trade Name Freq PRN Reason Stop Dose Admin Capsaicin 15 gm 04/29/17 08:05 04/29/17 08:30 Zostrix 0.025% [facility] 04/29/17 08:06 15 gm ONETIME ONE Administration Diphenhydramine HCl 25 mg 04/29/17 07:58 04/29/17 08:11 Benadryl IVPUSH 04/29/17 07:59 25 mg ONETIME ONE Administration Hydromorphone HCl 1 mg 04/29/17 07:59 04/29/17 08:10 Dilaudid IVPUSH 04/29/17 08:00 1 mg ONETIME ONE Administration Ondansetron HCl 8 mg/ Sodium 54 mls @ 200 mls/hr 04/29/17 08:08 04/29/17 08: 19 Chloride IV 04/29/17 08:24 200 mls/hr ONETIME ONE Administration Lorazepam 2 mg 04/29/17 08:01 04/29/17 08:09 Ativan IVPUSH 04/29/17 08:02 2 mg ONETIME ONE Administration Pantoprazole Sodium 40 mg 04/29/17 07:59 04/29/17 08:11 Protonix Iv IVPUSH 04/29/17 08:00 40 mg ONETIME ONE Administration Departure - Departure Time of Disposition: 09:45 Disposition: Home, Self-Care 01 Condition: Fair Clinical Impression: Cannabinoid hyperemesis syndrome - Discharge Information Instructions: Abdominal Pain, Adult, Ulad-jq-[id number] Forms: ED Department Discharge Additional Instructions: Capsaicin Cream 0.075% Take previous medications as prescribed. Soak in hot bath tub, or take long hot shower. Do not smoke or use any form of marijuana in the future. Follow up in clinic this week for recheck. - My Orders Last 24 Hours: My Active Orders 04/29/17 07:58 Sodium Chloride 0.9% [Normal Saline] 1,000 ml IV .BOLUS 04/29/17 08:00 Sodium Chloride 0.9% [Saline Flush] 10 ml FLUSH ASDIRECTED PRN Peripheral IV Insertion Adult [OM.PC] Stat - Assessment/Plan Last 24 Hours: My Active Orders 04/29/17 07:58 Sodium Chloride 0.9% [Normal Saline] 1,000 ml IV .BOLUS 04/29/17 08:00 Sodium Chloride 0.9% [Saline Flush] 10 ml FLUSH ASDIRECTED PRN Peripheral IV Insertion Adult [OM.PC] Stat
[2017-04-29] MEDS ORDERED: Pantoprazole 40 MG Vial IVPUSH ONE (07:59)
[2017-04-29] MEDS ORDERED: HYDROmorphone 1 MG/ML Syringe IVPUSH ONE (07:59)
[2017-04-29] MEDS ORDERED: Sodium Chloride 0.9% 10 ML Syringe FLUSH PRN (08:00)
[2017-04-29] MEDS ORDERED: LORazepam 2 MG/ML Syringe IVPUSH ONE (08:01)
[2017-04-29] MEDS ORDERED: Ondansetron 8 MG in Sodium Chloride 0.9% 50 ML IV ONE (08:08)
[2017-04-29 08:30] VITALS: BP 189/91
[2017-04-29 08:38] LABS: CHLORIDE,CL 102 mmol/L (101-111); SODIUM,NA 141 mmol/L (135-145)
== END 2017-04-29 09:28 | disposition home or self-care (01) ==
LOC: DL.ED 07:54
DX: F12.10 Cannabis abuse, uncomplicated (principal); R11.10 Vomiting, unspecified; F17.210 Nicotine dependence, cigarettes, uncomplicated
CPT/HCPCS: 36415; 80053; 82150; 83690; 85025; 96361; 96374; 96375; 99284; C9113; J1170; J1200; J2060; J2405; J7030; J7050; A9270-GY

== ENCOUNTER 2017-05-02 07:25 | Day surgery (SDC) | payer MEDICAID, OTHER ==
[~2017-05-02 07:25] MED LIST changes: +Bupivacaine 0.5% 10 ML SDV ONE; -HYDROmorphone 1 MG/ML Syringe IVPUSH ONE; +Lactated Ringers 1,000 ML IV SCH; +Lidocaine 1% 30 ML SDV ONE; +Sodium Chloride 0.9% 10 ML Syringe FLUSH PRN
[2017-05-02] MEDS ORDERED: Midazolam 1 MG/ML 2 ML SDV IV ONE (07:26)
[2017-05-02] MEDS ORDERED: Propofol 1,000 MG/100 ML SDV IV ONE (07:26)
[2017-05-02] MEDS ORDERED: Dexamethasone 4 MG/ML SDV IV ONE (07:26)
[2017-05-02] MEDS ORDERED: Lidocaine 1% 30 ML SDV INJECT ONE ×4 (07:26→10:20)
[2017-05-02] MEDS ORDERED: fentaNYL 100 MCG/2 ML SDV IV ONE (07:26)
[2017-05-02] MEDS ORDERED: Bupivacaine 0.5% 10 ML SDV INJECT ONE ×4 (07:26→10:20)
[2017-05-02] MEDS ORDERED: Ondansetron 4 MG/2 ML SDV IV ONE (07:26)
[2017-05-02] MEDS ORDERED: ceFAZolin 1 GM in Premix Bag 1 BAG IV ONE (07:30)
[2017-05-02] MEDS ORDERED: Atropine 0.4 MG/ML SDV ONE (07:59)
[2017-05-02] MEDS ORDERED: fentaNYL 100 MCG/2 ML SDV ONE (07:59)
[2017-05-02] MEDS ORDERED: Dexamethasone 4 MG/ML SDV ONE (07:59)
[2017-05-02] MEDS ORDERED: Ondansetron 4 MG/2 ML SDV ONE (07:59)
[2017-05-02] MEDS ORDERED: Midazolam 1 MG/ML 2 ML SDV ONE (07:59)
[2017-05-02] MEDS ORDERED: Succinylcholine 200 MG/10 ML MDV ONE (08:00)
--- NOTE | 2017-05-02 08:13 | PCM.SN ---
- Free Text/Narrative Note: 05/02/17 0805 preop patients history and physical reviewed along with allergies and medications cholecystectomy lap appendectomy in past no history of complications with past anesthesia heart regular rhythm lungs clear smoker npo 8 hrs mallampati 2 asa 1 plan local with iv sedation this along with risks goals alternatives explained to patient and accepted
[2017-05-02] MEDS ORDERED: Ketorolac 30 MG/ML SDV IVPUSH ONE (10:34)
[2017-05-02] MEDS ORDERED: Ketorolac 30 MG/ML SDV ONE (10:40)
[2017-05-02] MEDS ORDERED: Acetaminophen/oxyCODONE 325-5 MG Tab PO PRN (10:48)
--- NOTE | 2017-05-02 10:52 | PCM.OPNOTE ---
- General Post-Op/Procedure Note Date of Surgery/Procedure: 05/02/17 Operative Procedure(s): left foot 5th metatarsal osteotomy/bunionectomy, 1st MTPJ exploration with cheilectomy and drilling of cartilaginous defect Pre Op Diagnosis: left foot tailors bunion, 1st MTPJ hallux limitus and joint pain Post-Op Diagnosis: irena Anesthesia Technique: Local, MAC Primary Surgeon: Era Mata Anesthesia Provider: Renan Summers EBL in mLs: 5 Complications: none Condition: Good Free Text/Narrative:: Pt tolerated procedure well and was transported to pacu with vss and vascular status intact to left foot. TT79 mins. alex 2.0 cannulated screws placed.
[2017-05-02] MEDS ORDERED: HYDROmorphone 1 MG/ML Syringe IVPUSH ONE (11:14)
[2017-05-02 13:28] VITALS: BP 146/99
--- NOTE | 2017-05-02 15:19 | PCM.SN ---
- Free Text/Narrative Note: 05/02/17 9622 postop patient recovered well from iv sedation eating drinking no complaints or apparent complications with anesthesia
--- NOTE | 2017-05-02 21:37 | OR ---
DATE: 05/02/2017 PREOPERATIVE DIAGNOSES: 1. Left foot tailor's bunion. 2. Left foot 1st metatarsophalangeal joint pain with hallux limitus. POSTOPERATIVE DIAGNOSES: 1. Left foot tailor's bunion. 2. Left foot 1st metatarsophalangeal joint pain with hallux limitus. PROCEDURE PERFORMED: 1. Left foot 5th metatarsal osteotomy/bunionectomy. 2. Left foot 1st metatarsophalangeal joint exploration with cheilectomy and debridement with subchondral drilling of cartilaginous defect. ANESTHESIA: Local MAC with preoperative local block of 10 mL with 1:1 mixture of 1% lidocaine plain and 0.5% Marcaine plain. TOURNIQUET TIME: 79 minutes of pneumatic ankle tourniquet. ESTIMATED BLOOD LOSS: Minimal. SPECIMEN: None. COMPLICATIONS: None. INDICATIONS: Jr is a 36-year-old male, who presents with bilateral foot pain. He reports very large bunions on the outside of his feet, worse on the left foot. This has been bothering him for over a year now. He has tried multiple different shoes and cushioning of the area with no relief. He reports his shoes do not last very long because they wear to the outside of his foot where his bunions. The bunions do get very swollen by the end of the day. His pain is whenever he is standing or walking. He also has pain to the big toe joint on the left foot which does become swollen on and off. He is not able to move it as well anymore and feels some grinding in the joint. He did injure it a while ago and has not been able to move in the same sense. Pain is rated 9/10 at worst. X-rays reveal a large tailor's bunion with laterally deviated 5th metatarsal, intermetatarsal angle of 12 degrees with some bowing present. Some periarticular spurring at the 1st metatarsophalangeal joint which does have some elevation on the lateral view. There is a small ossicle/bony fragment at the lateral aspect of the joint. The patient voiced good understanding of the proposed procedure, the possible complications, and elects to have surgery at this time. DESCRIPTION OF THE PROCEDURE: The patient was taken the operating room, lying in supine position. After adequate anesthesia induction as described above, the left foot was prepped and draped in the usual sterile fashion. A pneumatic ankle tourniquet was inflated to 225 mmHg. Attention was then directed to the dorsal aspect of the 5th metatarsophalangeal joint where an approximately 5 cm linear incision was made. Sharp and blunt dissection was carried down to the level of the 5th metatarsal and the joint capsule taking care to gently retract all neurovascular structures. A linear capsulotomy was made at the 5th MTPJ and the capsule was reflected to expose the distal 5th metatarsal. A sagittal saw was then used to resect the lateral eminence. The sagittal saw was then used to make a chevron-type osteotomy with a long dorsal arm at the 5th metatarsal. The capital fragment was then transposed medially approximately 6 mm. The 5th digit was noted to be in rectus alignment at this time. Two Carol 2.0 wires from the cannulated screw set were then placed as temporary fixation. Fluoroscopy was used to verify adequate reduction of the deformity and proper fixation. The 2.0 Carol screws were then placed across the osteotomy site. Fluoroscopy was then again used to verify proper positioning of the screws with adequate correction. The osteotomy site was noted to be stable with axial varus and valgus forces applied. The sagittal saw was used to resect the lateral cortical shell. The area was then flushed with copious amounts of sterile saline. The 5th MTPJ did have good fluid range of motion at this time. Deep closure was completed with 3-0 Vicryl, and skin closure was completed with 4-0 nylon. Attention was then directed to the medial foot, where an approximately 4 cm linear incision was made overlying the 1st metatarsophalangeal joint. Sharp and blunt dissection was carried down to the level of the joint capsule taking care to gently retract all neurovascular structures. A linear capsulotomy was performed and the capsule was reflected to expose the distal 1st metatarsal. The 1st metatarsophalangeal joint was inspected and there was noted to be a cartilaginous defect at the lateral central portion. This was debrided and drilled with a K-wire. There was also noted to be a loose bony fragment at this area which was completely removed. It was noted that there was some small amount of spurring at the dorsal aspect of the joint and this was removed using a sagittal saw. A bone rasp was used to remove any rough edges and smooth the area. The rest of the joint appeared healthy in appearance without any signs of defects present. The 1st MTPJ was then tested with range of motion. It was noted that there was increased range of motion to the joint after the dorsal spur was removed. The area was then irrigated with copious amounts of sterile saline. Deep closure was completed with 3-0 Vicryl and skin closure was completed with 4-0 nylon. The foot was then dressed with Xeroform to the incision site, fluffs, Kerlix, and an Paul wrap. The patient was placed into a Cam boot nonweightbearing. The patient tolerated anesthesia and the procedure well and was transported to the recovery room with vital signs stable and vascular status intact as noted by immediate hyperemia to all digits upon deflation of the ankle tourniquet. He was then discharged home once he met hospital discharge requirements. [facility] /[id number]
== END 2017-05-02 12:00 | disposition home or self-care (01) ==
LOC: DL.SDS 07:25
PROVIDERS: ATTEND Podiatrist
DX: M21.622 Bunionette of left foot (principal); M20.5X2 Other deformities of toe(s) (acquired), left foot; Z90.49 Acquired absence of other specified parts of digestive tract; Z98.890 Other specified postprocedural states; F17.210 Nicotine dependence, cigarettes, uncomplicated; Z79.899 Other long term (current) drug therapy
CPT/HCPCS: 28289; 28296; C1713; J0690; J1100; J1170; J1885; J2250; J2405; J2704; J3010; J7120

== ENCOUNTER 2017-05-10 18:04 | Emergency (ER) | payer MEDICAID, OTHER ==
--- NOTE | 2017-05-10 18:45 | EDM.PDOC ---
ED HPI GENERAL MEDICAL PROBLEM - General Chief Complaint: Lower Extremity Injury/Pain Stated Complaint: BY AMBULANCE Time Seen by Provider: 05/10/17 18:40 Source of Information: Reports: Patient History Limitations: Reports: No Limitations - History of Present Illness INITIAL COMMENTS - FREE TEXT/NARRATIVE: states injured left big toe few hours ago. had bunion surgery last week, taking perco' but still in lots of pain. also cut left hand Saturday hurts too. Left Feet Pain Score (Numeric/FACES): 10 Left Hand Pain Score (Numeric/FACES): 10 - Related Data Allergies Allergy/AdvReac Type Severity Reaction Status Date / Time No Known Allergies Allergy Verified 05/10/17 18:19 Home Meds: Home Meds Doxycycline [Vibramycin] 100 mg PO Q12HR 04/28/17 [History] Ibuprofen 800 mg PO ASDIRECTED PRN 04/28/17 [History] Acetaminophen/oxyCODONE [Percocet 325-5 MG] 1 - 2 tab PO Q6H PRN 05/10/17 [ History] Past Medical History HEENT History: Reports: None Other HEENT History: WEARS CONTACT LENS Cardiovascular History: Reports: None Respiratory History: Reports: None Gastrointestinal History: Reports: Pancreatitis Genitourinary History: Reports: None Musculoskeletal History: Reports: None Neurological History: Reports: None Psychiatric History: Reports: None Other Psychiatric History: HX OF CANNABIS ABUSE Endocrine/Metabolic History: Reports: None Hematologic History: Reports: None Immunologic History: Reports: None Oncologic (Cancer) History: Reports: None Dermatologic History: Reports: None - Infectious Disease History Infectious Disease History: Reports: None - Past Surgical History GI Surgical History: Reports: Appendectomy, Cholecystectomy - History Comment History Comment: Marijuana hyperemesis syndrome Social & Family History - Family History Family Medical History: Noncontributory Other HEENT Family History: HX OF ABCESSED TEETH Oncologic: Reports: Other (See Below) Other Oncologic Family History: FATHER & PATERNAL GRANDFATHER CANCER - Tobacco Use Smoking Status *Q: Current Every Day Smoker Years of Tobacco use: 20 Packs/Tins Daily: 1 Used Tobacco, but Quit: No Month Tobacco Last Used: current Second Hand Smoke Exposure: Yes - Caffeine Use Caffeine Use: Reports: Coffee, Energy Drinks, Soda, Tea Other Caffeine Use: 1-2 'CANS' OF CAFFIENATED BEVERAGES - Alcohol Use Days Per Week of Alcohol Use: 5 Number of Drinks Per Day: 6 Total Drinks Per Week: 30 - Recreational Drug Use Recreational Drug Use: Yes Drug Use in Last 12 Months: Yes Recreational Drug Type: Reports: Marijuana/Hashish Other Recreational Drug Type: Pt states that he smoked Pot 2 days ago Recreational Drug Use Frequency: Binges Recreational Drug Last Use: pot - Living Situation & Occupation Living situation: Reports: with Family Occupation: Unemployed Review of Systems - Review of Systems Review Of Systems: ROS reveals no pertinent complaints other than HPI. ED EXAM, GENERAL - Physical Exam Exam: See Below Exam Limited By: No Limitations General Appearance: Alert, WD/WN, Mild Distress, Other (discomfort) Ears: Hearing Grossly Normal Throat/Mouth: Normal Voice, No Airway Compromise Head: Atraumatic Neck: Non-Tender, Full Range of Motion Respiratory/Chest: No Respiratory Distress Cardiovascular: Regular Rate, Rhythm GI/Abdominal: Soft, Non-Tender Extremities: Other (left thenar eminence old spfl lac, without drainage, local erythema without lumphangitis. NV wnl. left foot surical sites good without s/s infection, NV wnl. gait limited to pain.) Neurological: Alert, Oriented, Normal Cognition, No Motor/Sensory Deficits Psychiatric: Tearful Skin Exam: Warm, Dry, Normal Color Lymphatic: No Adenopathy Course - Vital Signs Last Recorded V/S: Last Vital Signs Temp 36.4 C 05/10/17 19:16 Pulse 73 05/10/17 19:16 Resp 18 05/10/17 19:16 BP 156/101 H 05/10/17 19:16 Pulse Ox 100 05/10/17 19:16 - Orders/Labs/Meds Labs: Laboratory Tests 05/10/17 05/10/17 Range/Units 19:19 19:19 Urine Color Yellow (YELLOW) Urine Appearance Clear (CLEAR) Urine pH 7.0 (5.0-9.0) Ur Specific Clover 1.015 (1.005-1.030) Urine Protein Negative (NEGATIVE) Urine Glucose (UA) Negative (NEGATIVE) Urine Ketones Negative (NEGATIVE) Urine Occult Blood Negative (NEGATIVE) Urine Nitrite Negative (NEGATIVE) Urine Bilirubin Negative (NEGATIVE) Urine Urobilinogen 0.2 (0.2-1.0) mg/dL Ur Leukocyte Esterase Negative (NEGATIVE) Urine Opiates Screen Negative (NEGATIVE) Ur Oxycodone Screen Negative (NEGATIVE) Urine Methadone Screen Negative (NEGATIVE) Ur Barbiturates Screen Negative (NEGATIVE) U Tricyclic Antidepress Negative (NEGATIVE) Ur Phencyclidine Scrn Negative (NEGATIVE) Ur Amphetamine Screen Negative (NEGATIVE) U Methamphetamines Scrn Negative (NEGATIVE) Urine MDMA Screen Negative (NEGATIVE) U Benzodiazepines Scrn Negative (NEGATIVE) Urine Cocaine Screen Negative (NEGATIVE) U Marijuana (THC) Screen Positive H (NEGATIVE) Meds: Medications Discontinued Medications Generic Name Dose Route Start Last Admin Trade Name Freq PRN Reason Stop Dose Admin Clindamycin HCl 150 mg 05/10/17 19:34 Cleocin PO 05/10/17 19:35 ONETIME ONE - Re-Assessments/Exams Free Text/Narrative Re-Assessment/Exam: 05/10/17 19:35 results discussed with pt. Departure - Departure Time of Disposition: 19:35 Disposition: Home, Self-Care 01 Condition: Good Clinical Impression: Laceration of left hand with infection Qualifiers: Encounter type: initial encounter Qualified Code(s): S61.412A - Laceration without foreign body of left hand, initial encounter; L08.9 - Local infection of the skin and subcutaneous tissue, unspecified Post op infection Qualifiers: Encounter type: initial encounter Qualified Code(s): T81.4XXA - Infection following a procedure, initial encounter - Discharge Information Instructions: Wound Infection, [id number] Forms: ED Department Discharge Additional Instructions: 1) keep wounds clean dry covered 2) continue daily dressing change 3) follow up with Continuing Education Specialist Saturday rx given; clindamycin 150mg qid x 40
[2017-05-10 19:18] VITALS: BP 156/101
[2017-05-10] MEDS ORDERED: Clindamycin HCl 150 MG Cap PO ONE (19:34)
== END 2017-05-10 19:45 | disposition home or self-care (01) ==
LOC: DL.ED 18:04
DX: T81.4XXA Infection following a procedure, initial encounter (principal); S61.412A Laceration without foreign body of left hand, initial encounter; F17.210 Nicotine dependence, cigarettes, uncomplicated; Z90.49 Acquired absence of other specified parts of digestive tract; Z98.890 Other specified postprocedural states; X58.XXXA Exposure to other specified factors, initial encounter
CPT/HCPCS: 73620; 80305; 81003; 99284; A9270

== ENCOUNTER 2017-05-18 09:22 | Emergency (ER) | payer MEDICAID ==
[2017-05-18] MEDS ORDERED: diphenhydrAMINE 50 MG/ML SDV IVPUSH ONE (09:49)
[2017-05-18] MEDS ORDERED: Sodium Chloride 0.9% 1,000 ML IV ONE (09:49)
[2017-05-18] MEDS ORDERED: GI Cocktail Oral Solution 30 ML PO ONE (09:50)
[2017-05-18] MEDS ORDERED: Pantoprazole 40 MG Vial IVPUSH ONE (09:51)
--- NOTE | 2017-05-18 10:01 | EDM.PDOC ---
ED HPI GENERAL MEDICAL PROBLEM - General Chief Complaint: Abdominal Pain Stated Complaint: by ambulance Time Seen by Provider: 05/18/17 09:40 Source of Information: Reports: Patient History Limitations: Reports: No Limitations - History of Present Illness INITIAL COMMENTS - FREE TEXT/NARRATIVE: Patient comes emergency department today with complaints of abdominal pain. He developed sharp shooting stabbing epigastric abdominal pain earlier this morning. He does have a rather lengthy history of chronic pancreatitis. He has been trying Tylenol and ibuprofen without improvement of the pain. His last flare of his chronic pancreatitis was approximately 1 month ago. He denies any fever or chills. He denies any chest pain shortness breath difficulty breathing. He denies any nausea or vomiting at this time. He denies any flank pain. He denies any hematuria dysuria or urinary frequency. His last bowel movement was this morning and somewhat loose. Treatments GENERAL ASSEMBLER: Reports: Acetaminophen Other Treatments GENERAL ASSEMBLER: ibuprofen Abdominal Pain Score (Numeric/FACES): 9 - Related Data Allergies Allergy/AdvReac Type Severity Reaction Status Date / Time No Known Allergies Allergy Verified 05/10/17 18:19 Home Meds: Home Meds Doxycycline [Vibramycin] 100 mg PO Q12HR 04/28/17 [History] Ibuprofen 800 mg PO ASDIRECTED PRN 04/28/17 [History] Acetaminophen/oxyCODONE [Percocet 325-5 MG] 1 - 2 tab PO Q6H PRN 05/10/17 [ History] Past Medical History HEENT History: Reports: None Other HEENT History: WEARS CONTACT LENS Cardiovascular History: Reports: None Respiratory History: Reports: None Gastrointestinal History: Reports: Pancreatitis Genitourinary History: Reports: None Musculoskeletal History: Reports: None Neurological History: Reports: None Psychiatric History: Reports: None Other Psychiatric History: HX OF CANNABIS ABUSE Endocrine/Metabolic History: Reports: None Hematologic History: Reports: None Immunologic History: Reports: None Oncologic (Cancer) History: Reports: None Dermatologic History: Reports: None - Infectious Disease History Infectious Disease History: Reports: None - Past Surgical History Head Surgeries/Procedures: Reports: None GI Surgical History: Reports: Appendectomy, Cholecystectomy - History Comment History Comment: Marijuana hyperemesis syndrome Social & Family History - Family History Family Medical History: Noncontributory Other HEENT Family History: HX OF ABCESSED TEETH Oncologic: Reports: Other (See Below) Other Oncologic Family History: FATHER & PATERNAL GRANDFATHER CANCER - Tobacco Use Smoking Status *Q: Current Every Day Smoker Years of Tobacco use: 2 Packs/Tins Daily: 0.3 Used Tobacco, but Quit: No Month Tobacco Last Used: current Second Hand Smoke Exposure: Yes - Caffeine Use Caffeine Use: Reports: Coffee, Energy Drinks, Soda, Tea Other Caffeine Use: 1-2 'CANS' OF CAFFIENATED BEVERAGES - Alcohol Use Days Per Week of Alcohol Use: 5 Number of Drinks Per Day: 6 Total Drinks Per Week: 30 - Recreational Drug Use Recreational Drug Use: Yes Drug Use in Last 12 Months: Yes Recreational Drug Type: Reports: Marijuana/Hashish Other Recreational Drug Type: Pt states that he smoked Pot 2 days ago Recreational Drug Use Frequency: Binges Recreational Drug Last Use: pot - Living Situation & Occupation Living situation: Reports: with Family Occupation: Unemployed ED ROS GENERAL - Review of Systems Review Of Systems: ROS reveals no pertinent complaints other than HPI. ED EXAM, GI/ABD - Physical Exam Exam: See Below Exam Limited By: No Limitations General Appearance: Alert, WD/WN, No Apparent Distress Head: Atraumatic, Normocephalic Neck: Normal Inspection, Supple, Non-Tender Respiratory/Chest: No Respiratory Distress, Lungs Clear, Normal Breath Sounds, No Accessory Muscle Use, Chest Non-Tender Cardiovascular: Normal Peripheral Pulses, Regular Rate, Rhythm, No Edema, No Murmur, No Rub GI/Abdominal Exam: Normal Bowel Sounds, Soft, No Organomegaly, No Distention, No Abnormal Bruit, Tender (Tenderness in the epigastric region with mild guarding. No rebound tenderness.) (Male) Exam: Deferred Rectal (Males) Exam: Deferred Back Exam: Normal Inspection. No: CVA Tenderness (L), CVA Tenderness (R) Extremities: Normal Inspection, Normal Range of Motion, Non-Tender, No Pedal Edema, Normal Capillary Refill Neurological: Alert, Oriented, CN II-XII Intact, Normal Cognition Psychiatric: Normal Affect, Normal Mood Skin Exam: Warm, Dry, Intact Lymphatic: No Adenopathy Course - Vital Signs Last Recorded V/S: Last Vital Signs Temp 36.2 C 05/18/17 09:38 Pulse 67 05/18/17 09:38 Resp 18 05/18/17 09:38 BP 139/95 H 05/18/17 09:38 Pulse Ox 100 05/18/17 09:38 - Orders/Labs/Meds Orders: Active Orders 24 hr Category Date Time Status Ketorolac [Toradol] Med 05/18/17 10:48 Once 30 mg IVPUSH ONETIME ONE Labs: Laboratory Tests 05/18/17 05/18/17 Range/Units 09:57 09:57 WBC 8.2 (5.0-10.0) 10^3/uL RBC 4.76 (4.6-6.2) 10^6/uL Hgb 14.5 (14.0-18.0) g/dL Hct 44.1 (40.0-54.0) % MCV 92.6 (80-100) fL MCH 30.5 (27.0-34.0) pg MCHC 32.9 L (33.0-35.0) g/dL Plt Count 314 (150-450) 10^3/uL Neut % (Auto) 65.9 (42.2-75.2) % Lymph % (Auto) 20.6 (20.5-50.1) % Price % (Auto) 9.4 H (2-8) % Eos % (Auto) 3.6 H (1.0-3.0) % Baso % (Auto) 0.5 (0.0-1.0) % Sodium 140 (135-145) mmol/L Potassium 4.8 (3.6-5.0) mmol/L Chloride 104 (101-111) mmol/L Carbon Dioxide 31.0 (21.0-31.0) mmol/L Anion Gap 9.8 BUN 17 (7-18) mg/dL Creatinine 0.9 (0.6-1.3) mg/dL Est Cr Clr Drug Dosing 122.15 mL/min Estimated GFR (MDRD) > 60 BUN/Creatinine Ratio 18.88 Glucose 95 (74-105) mg/dL Calcium 9.2 (8.4-10.2) mg/dl Total Bilirubin 0.4 (0.2-1.0) mg/dL AST 26 (10-42) IU/L ALT 32 (10-60) IU/L Alkaline Phosphatase 78 (42-121) IU/L Total Protein 6.8 (6.7-8.2) g/dl Albumin 3.6 (3.2-5.5) g/dl Globulin 3.2 Albumin/Globulin Ratio 1.13 Lipase 26 (22-51) U/L Ethyl Alcohol < 5 mg/dL Meds: Medications Discontinued Medications Generic Name Dose Route Start Last Admin Trade Name Markel PRN Reason Stop Dose Admin Al Hydroxide/Mg Hydroxide 30 ml 05/18/17 09:50 05/18/17 10:08 Gi Cocktail PO 05/18/17 09:51 30 ml ONETIME ONE Administration Diphenhydramine HCl 25 mg 05/18/17 09:49 05/18/17 10:09 Benadryl IVPUSH 05/18/17 09:50 25 mg ONETIME ONE Administration Sodium Chloride 1,000 mls @ 999 mls/hr 05/18/17 09:49 05/18/17 10:06 Normal Saline IV 05/18/17 10:49 999 mls/hr .BOLUS ONE Administration Pantoprazole Sodium 40 mg 05/18/17 09:51 05/18/17 10:06 Protonix Iv IVPUSH 05/18/17 09:52 40 mg ONETIME ONE Administration - Re-Assessments/Exams Free Text/Narrative Re-Assessment/Exam: 05/18/17 10:51 Following the above therapy the patient felt much better. His nausea and vomiting was still not present. His pain had been much improved. His lab work is rather unremarkable today. We will discharge him home with [id number] remedies for GERD as well as Prilosec. He was comfortable with this plan and his questions were answered. Departure - Departure Time of Disposition: 10:45 Disposition: Home, Self-Care 01 Clinical Impression: Abdominal pain Qualifiers: Abdominal location: epigastric Qualified Code(s): R10.13 - Epigastric pain - Discharge Information Instructions: Abdominal Pain, Adult, Orth-ke-Ffym Forms: ED Department Discharge Additional Instructions: Tylenol and/or ibuprofen as needed for pain. Continue to abstain from alcohol. Push oral fluids over the next couple of days. Pain reoccurs [id number] Maalox or Mylanta as needed for symptoms. Prilosec 1 tablet day for the next 28 days. Rx given to patient. Return to emergency department or worsening symptoms. Follow-up with primary care provider in the next 7 days. - My Orders Last 24 Hours: My Active Orders 05/18/17 10:48 Ketorolac [Toradol] 30 mg IVPUSH ONETIME ONE - Assessment/Plan Last 24 Hours: My Active Orders 05/18/17 10:48 Ketorolac [Toradol] 30 mg IVPUSH ONETIME ONE Assessment:: Abdominal pain/GERD Hx of Chronic pancreatitis. Plan: Tylenol and/or ibuprofen as needed for pain. Continue to abstain from alcohol. Push oral fluids over the next couple of days. Pain reoccurs [id number] Maalox or Mylanta as needed for symptoms. Prilosec 1 tablet day for the next 28 days. Rx given to patient. Return to emergency department or worsening symptoms. Follow-up with primary care provider in the next 7 days.
[2017-05-18 10:24] LABS: CHLORIDE,CL 104 mmol/L (101-111); SODIUM,NA 140 mmol/L (135-145)
[2017-05-18] MEDS ORDERED: Ketorolac 30 MG/ML SDV IVPUSH ONE (10:48)
[2017-05-18 10:58] VITALS: BP 166/93
== END 2017-05-18 11:08 | disposition home or self-care (01) ==
LOC: DL.ED 09:22
DX: K21.9 Gastro-esophageal reflux disease without esophagitis (principal); F17.210 Nicotine dependence, cigarettes, uncomplicated; Z90.49 Acquired absence of other specified parts of digestive tract
CPT/HCPCS: 36415; 80053; 83690; 85025; 96361; 96374; 96375; 99285; A9270; C9113; G0480; J1200; J1885; J7030

== ENCOUNTER 2017-05-28 10:30 | Emergency (ER) | payer MEDICAID ==
[2017-05-28] MEDS ORDERED: Pantoprazole 40 MG Vial IVPUSH ONE (10:33)
[2017-05-28] MEDS ORDERED: diphenhydrAMINE 50 MG/ML SDV IVPUSH ONE (10:33)
[2017-05-28] MEDS ORDERED: LORazepam 2 MG/ML Syringe IVPUSH ONE (10:33)
[2017-05-28] MEDS ORDERED: Ondansetron 4 MG/2 ML SDV IV ONE ×2 (10:34→11:43)
[2017-05-28 10:36] VITALS: BP 146/84
[2017-05-28] MEDS ORDERED: Pantoprazole 40 MG Vial ONE (10:39)
--- NOTE | 2017-05-28 10:47 | EDM.PDOC ---
ED HPI GENERAL MEDICAL PROBLEM - General Chief Complaint: Abdominal Pain Stated Complaint: BY AMBULANCE Time Seen by Provider: 05/28/17 10:46 Source of Information: Reports: Patient, EMS, RN, RN Notes Reviewed History Limitations: Reports: No Limitations - History of Present Illness INITIAL COMMENTS - FREE TEXT/NARRATIVE: Patient presents to the ER per [facility] with c/o abdominal pain and vomiting. Patient told the provider that the pain/nausea/vomiting began last night, but told the nurse it started this am. Patient states he has had many episodes of the gastric pain/nausea/vomiting. He denies alcohol use for "a couple weeks". He denies any elicit drug use except marijuana "just a little bit". He denies fever, but admits to chills, denies sob, chest pain. Onset: Sudden Onset Date: 05/27/17 Duration: Getting Worse Location: Reports: Abdomen Quality: Reports: Stabbing Severity: Severe Improves with: Reports: None Worsens with: Reports: None Associated Symptoms: Reports: Nausea/Vomiting Middle Abdomen Pain Score (Numeric/FACES): 10 - Related Data Allergies Allergy/AdvReac Type Severity Reaction Status Date / Time No Known Allergies Allergy Verified 05/28/17 10:31 Home Meds: Home Meds Doxycycline [Vibramycin] 100 mg PO Q12HR 04/28/17 [History] Ibuprofen 800 mg PO ASDIRECTED PRN 04/28/17 [History] Acetaminophen/oxyCODONE [Percocet 325-5 MG] 1 - 2 tab PO Q6H PRN 05/10/17 [ History] Past Medical History HEENT History: Reports: None Other HEENT History: WEARS CONTACT LENS Cardiovascular History: Reports: None Respiratory History: Reports: None Gastrointestinal History: Reports: Pancreatitis Genitourinary History: Reports: None Musculoskeletal History: Reports: None Neurological History: Reports: None Psychiatric History: Reports: Addiction Other Psychiatric History: HX OF CANNABIS ABUSE Endocrine/Metabolic History: Reports: None Hematologic History: Reports: None Immunologic History: Reports: None Oncologic (Cancer) History: Reports: None Dermatologic History: Reports: None - Infectious Disease History Infectious Disease History: Reports: None - Past Surgical History Head Surgeries/Procedures: Reports: None GI Surgical History: Reports: Appendectomy, Cholecystectomy - History Comment History Comment: Marijuana hyperemesis syndrome Social & Family History - Family History Family Medical History: Noncontributory Other HEENT Family History: HX OF ABCESSED TEETH Oncologic: Reports: Other (See Below) Other Oncologic Family History: FATHER & PATERNAL GRANDFATHER CANCER - Tobacco Use Smoking Status *Q: Former Smoker Years of Tobacco use: 2 Packs/Tins Daily: 0.3 Used Tobacco, but Quit: Yes Month Tobacco Last Used: ? Second Hand Smoke Exposure: Yes - Caffeine Use Caffeine Use: Reports: Coffee Other Caffeine Use: 1-2 'CANS' OF CAFFIENATED BEVERAGES - Alcohol Use Days Per Week of Alcohol Use: 5 Number of Drinks Per Day: 6 Total Drinks Per Week: 30 - Recreational Drug Use Recreational Drug Use: Yes Drug Use in Last 12 Months: Yes Recreational Drug Type: Reports: Marijuana/Hashish Other Recreational Drug Type: Pt states that he smoked Pot 2 days ago Recreational Drug Use Frequency: Binges Recreational Drug Last Use: pot - Living Situation & Occupation Living situation: Reports: with Family Occupation: Unemployed ED ROS GENERAL - Review of Systems Review Of Systems: ROS reveals no pertinent complaints other than HPI. ED EXAM, GI/ABD - Physical Exam Exam: See Below Exam Limited By: No Limitations General Appearance: Alert, WD/WN, Moderate Distress Ears: Normal External Exam, Hearing Grossly Normal Nose: Normal Inspection Throat/Mouth: Normal Inspection, Normal Voice, No Airway Compromise Head: Atraumatic, Normocephalic Neck: Normal Inspection, Supple, Non-Tender, Full Range of Motion Respiratory/Chest: No Respiratory Distress, Lungs Clear, Normal Breath Sounds Cardiovascular: Normal Peripheral Pulses, Regular Rate, Rhythm, No Edema, No Gallop, No JVD, No Murmur, No Rub GI/Abdominal Exam: Normal Bowel Sounds, Soft, Tender (diffuse/epigastric) (Male) Exam: Deferred Rectal (Males) Exam: Deferred Back Exam: Normal Inspection, Full Range of Motion Extremities: Normal Inspection, Normal Range of Motion, Non-Tender, No Pedal Edema, Normal Capillary Refill Neurological: Alert, Oriented, Normal Cognition, No Motor/Sensory Deficits Psychiatric: Normal Affect, Anxious Skin Exam: Warm, Dry, Intact Lymphatic: No Adenopathy Course - Vital Signs Last Recorded V/S: Last Vital Signs Temp 97.4 F 05/28/17 10:31 Pulse 64 05/28/17 10:31 Resp 20 05/28/17 10:31 BP 146/84 H 05/28/17 10:31 Pulse Ox 100 05/28/17 10:31 - Orders/Labs/Meds Labs: Laboratory Tests 05/28/17 05/28/17 05/28/17 Range/Units 10:49 10:49 10:52 WBC 13.7 H (5.0-10.0) 10^3/uL RBC 5.43 (4.6-6.2) 10^6/uL Hgb 16.5 D (14.0-18.0) g/dL Hct 48.8 (40.0-54.0) % MCV 89.9 (80-100) fL MCH 30.4 (27.0-34.0) pg MCHC 33.8 (33.0-35.0) g/dL Plt Count 304 (150-450) 10^3/uL Neut % (Auto) 75.0 (42.2-75.2) % Lymph % (Auto) 17.7 L (20.5-50.1) % [place] % (Auto) 5.8 (2-8) % Eos % (Auto) 1.1 (1.0-3.0) % Baso % (Auto) 0.4 (0.0-1.0) % Sodium (135-145) mmol/L Potassium (3.6-5.0) mmol/L Chloride (101-111) mmol/L Carbon Dioxide (21.0-31.0) mmol/L Anion Gap BUN (7-18) mg/dL Creatinine (0.6-1.3) mg/dL Est Cr Clr Drug Dosing Estimated GFR (MDRD) BUN/Creatinine Ratio Glucose (74-105) mg/dL Calcium (8.4-10.2) mg/dl Total Bilirubin (0.2-1.0) mg/dL AST (10-42) IU/L ALT (10-60) IU/L Alkaline Phosphatase (42-121) IU/L Total Protein (6.7-8.2) g/dl Albumin (3.2-5.5) g/dl Globulin Albumin/Globulin Ratio Amylase (28-100) U/L Lipase (22-51) U/L Urine Color Dark yellow (YELLOW) Urine Appearance Slightly cloudy (CLEAR) Urine pH 7.0 (5.0-9.0) Ur Specific [place] 1.025 (1.005-1.030) Urine Protein 30 H (NEGATIVE) Urine Glucose (UA) Negative (NEGATIVE) Urine Ketones 15 H (NEGATIVE) Urine Occult Blood Small H (NEGATIVE) Urine Nitrite Negative (NEGATIVE) Urine Bilirubin Small H (NEGATIVE) Urine Urobilinogen 0.2 (0.2-1.0) mg/dL Ur Leukocyte Esterase Negative (NEGATIVE) Urine RBC 0-5 /HPF Urine WBC 0-5 (0-5/HPF) /HPF Ur Epithelial Cells Few /HPF Amorphous Sediment Rare (0/HPF) /HPF Urine Bacteria Not seen (0-FEW/HPF) /HPF Urine Mucus Many H /LPF Urine Opiates Screen Negative (NEGATIVE) Ur Oxycodone Screen Negative (NEGATIVE) Urine Methadone Screen Negative (NEGATIVE) Ur Barbiturates Screen Negative (NEGATIVE) U Tricyclic Antidepress Negative (NEGATIVE) Ur Phencyclidine Scrn Negative (NEGATIVE) Ur Amphetamine Screen Negative (NEGATIVE) U Methamphetamines Scrn Negative (NEGATIVE) Urine MDMA Screen Negative (NEGATIVE) U Benzodiazepines Scrn Negative (NEGATIVE) Urine Cocaine Screen Negative (NEGATIVE) U Marijuana (THC) Screen Positive H (NEGATIVE) Ethyl Alcohol mg/dL 05/28/17 05/28/17 Range/Units 10:52 10:52 WBC (5.0-10.0) 10^3/uL RBC (4.6-6.2) 10^6/uL Hgb (14.0-18.0) g/dL Hct (40.0-54.0) % MCV (80-100) fL MCH (27.0-34.0) pg MCHC (33.0-35.0) g/dL Plt Count (150-450) 10^3/uL Neut % (Auto) (42.2-75.2) % Lymph % (Auto) (20.5-50.1) % [place] % (Auto) (2-8) % Eos % (Auto) (1.0-3.0) % Baso % (Auto) (0.0-1.0) % Sodium 140 (135-145) mmol/L Potassium 4.0 (3.6-5.0) mmol/L Chloride 101 (101-111) mmol/L Carbon Dioxide 26.0 (21.0-31.0) mmol/L Anion Gap 17.0 BUN 17 (7-18) mg/dL Creatinine 1.0 (0.6-1.3) mg/dL Est Cr Clr Drug Dosing TNP Estimated GFR (MDRD) > 60 BUN/Creatinine Ratio 17.00 Glucose 103 (74-105) mg/dL Calcium 9.8 (8.4-10.2) mg/dl Total Bilirubin 0.9 (0.2-1.0) mg/dL AST 34 (10-42) IU/L ALT 40 (10-60) IU/L Alkaline Phosphatase 98 (42-121) IU/L Total Protein 8.6 H (6.7-8.2) g/dl Albumin 4.7 (3.2-5.5) g/dl Globulin 3.9 Albumin/Globulin Ratio 1.21 Amylase 65 (28-100) U/L Lipase 22 (22-51) U/L Urine Color (YELLOW) Urine Appearance (CLEAR) Urine pH (5.0-9.0) Ur Specific [place] (1.005-1.030) Urine Protein (NEGATIVE) Urine Glucose (UA) (NEGATIVE) Urine Ketones (NEGATIVE) Urine Occult Blood (NEGATIVE) Urine Nitrite (NEGATIVE) Urine Bilirubin (NEGATIVE) Urine Urobilinogen (0.2-1.0) mg/dL Ur Leukocyte Esterase (NEGATIVE) Urine RBC /HPF Urine WBC (0-5/HPF) /HPF Ur Epithelial Cells /HPF Amorphous Sediment (0/HPF) /HPF Urine Bacteria (0-FEW/HPF) /HPF Urine Mucus /LPF Urine Opiates Screen (NEGATIVE) Ur Oxycodone Screen (NEGATIVE) Urine Methadone Screen (NEGATIVE) Ur Barbiturates Screen (NEGATIVE) U Tricyclic Antidepress (NEGATIVE) Ur Phencyclidine Scrn (NEGATIVE) Ur Amphetamine Screen (NEGATIVE) U Methamphetamines Scrn (NEGATIVE) Urine MDMA Screen (NEGATIVE) U Benzodiazepines Scrn (NEGATIVE) Urine Cocaine Screen (NEGATIVE) U Marijuana (THC) Screen (NEGATIVE) Ethyl Alcohol < 5 mg/dL Meds: Medications Discontinued Medications Generic Name Dose Route Start Last Admin Trade Name Freq PRN Reason Stop Dose Admin Diphenhydramine HCl 50 mg 05/28/17 10:33 05/28/17 10:45 Benadryl IVPUSH 05/28/17 10:34 50 mg ONETIME ONE Administration Haloperidol Lactate 5 mg 05/28/17 11:43 05/28/17 11:51 Haldol IM 05/28/17 11:44 5 mg ONETIME ONE Administration Haloperidol Lactate 5 mg 05/28/17 12:35 05/28/17 12:42 Haldol IM 05/28/17 12:36 5 mg ONETIME ONE Administration Hydromorphone HCl 1 mg 05/28/17 12:34 05/28/17 12:42 Dilaudid IM 05/28/17 12:35 1 mg ONETIME ONE Administration Sodium Chloride 1,000 mls @ 999 mls/hr 05/28/17 11:27 05/28/17 11:34 Normal Saline IV 05/28/17 12:27 999 mls/hr .BOLUS ONE Administration Lorazepam 2 mg 05/28/17 10:33 05/28/17 10:45 Ativan IVPUSH 05/28/17 10:34 2 mg ONETIME ONE Administration Ondansetron HCl 4 mg 05/28/17 10:34 05/28/17 10:45 Zofran IV 05/28/17 10:35 4 mg ONETIME ONE Administration Ondansetron HCl 4 mg 05/28/17 11:43 05/28/17 11:51 Zofran IV 05/28/17 11:44 4 mg ONETIME ONE Administration Pantoprazole Sodium 80 mg 05/28/17 10:33 05/28/17 10:45 Protonix Iv IVPUSH 05/28/17 10:34 80 mg .BOLUS ONE Administration Pantoprazole Sodium Confirm 05/28/17 10:39 05/28/17 10:49 Protonix Iv Administered 05/28/17 10:40 Not Given Dose 40 mg .ROUTE .STK-MED ONE Promethazine HCl 25 mg 05/28/17 12:05 05/28/17 12:10 Phenergan IM 05/28/17 12:06 25 mg ONETIME ONE Administration Departure - Departure Time of Disposition: 13:37 Disposition: Home, Self-Care 01 Condition: Fair Clinical Impression: Gastritis, Cannabinoid hyperemesis syndrome Vomiting Qualifiers: Vomiting type: unspecified Vomiting Intractability: non-intractable Nausea presence: with nausea Qualified Code(s): R11.2 - Nausea with vomiting, unspecified - Discharge Information Instructions: Nausea and Vomiting, Adult, [id number] Forms: ED Department Discharge Additional Instructions: Drink plenty of fluids. Follow up with your primary care facility. Stop using Marijuana Zofran ODT 4mg, 1 every 6 hours as needed for nausea and vomiting.
[2017-05-28 11:26] LABS: CHLORIDE,CL 101 mmol/L (101-111); SODIUM,NA 140 mmol/L (135-145)
[2017-05-28] MEDS ORDERED: Sodium Chloride 0.9% 1,000 ML IV ONE (11:27)
[2017-05-28] MEDS ORDERED: Haloperidol Lactate 5 MG/ML SDV IM ONE ×2 (11:43→12:35)
[2017-05-28] MEDS ORDERED: Promethazine 25 MG/ML SDV IM ONE (12:05)
[2017-05-28] MEDS ORDERED: HYDROmorphone 1 MG/ML Syringe IM ONE (12:34)
== END 2017-05-28 13:53 | disposition home or self-care (01) ==
LOC: DL.ED 10:30
DX: K29.70 Gastritis, unspecified, without bleeding (principal); Z87.891 Personal history of nicotine dependence
CPT/HCPCS: 36415; 80053; 80305; 81001; 82150; 83690; 85025; 96372; 96374; 96375; 99284; C9113; G0480; J1170; J1200; J1630; J2060; J2405; J2550; J7030

== ENCOUNTER 2017-07-03 08:10 | Emergency (ER) | payer MEDICAID ==
[2017-07-03] MEDS ORDERED: Sodium Chloride 0.9% 1,000 ML IV ONE (08:26)
[2017-07-03] MEDS ORDERED: LORazepam 2 MG/ML Syringe IVPUSH ONE (08:26)
--- NOTE | 2017-07-03 08:28 | EDM.PDOC ---
ED HPI GENERAL MEDICAL PROBLEM - General Chief Complaint: Abdominal Pain Stated Complaint: BY AMBULANCE Time Seen by Provider: 07/03/17 08:24 Source of Information: Reports: Patient History Limitations: Reports: No Limitations - History of Present Illness INITIAL COMMENTS - FREE TEXT/NARRATIVE: 37 yo [place] Male c/o abdomen pain Onset: Today Onset Date: 07/03/17 Onset Time: 06:30 Duration: Hour(s):, Chronic Location: Reports: Abdomen Quality: Reports: Ache Severity: Moderate Improves with: Reports: None Worsens with: Reports: None Associated Symptoms: Reports: Nausea/Vomiting Upper Abdominal Pain Score (Numeric/FACES): 10 - Related Data Allergies Allergy/AdvReac Type Severity Reaction Status Date / Time No Known Allergies Allergy Verified 07/03/17 08:25 Home Meds: Home Meds Acetaminophen/oxyCODONE [Percocet 325-5 MG] 2 tab PO Q6H PRN 05/10/17 [History] Past Medical History HEENT History: Reports: None Other HEENT History: WEARS CONTACT LENS Cardiovascular History: Reports: None Respiratory History: Reports: None Gastrointestinal History: Reports: Pancreatitis Genitourinary History: Reports: None Musculoskeletal History: Reports: None Neurological History: Reports: None Psychiatric History: Reports: Addiction Other Psychiatric History: HX OF CANNABIS ABUSE Endocrine/Metabolic History: Reports: None Hematologic History: Reports: None Immunologic History: Reports: None Oncologic (Cancer) History: Reports: None Dermatologic History: Reports: None - Infectious Disease History Infectious Disease History: Reports: None - Past Surgical History Head Surgeries/Procedures: Reports: None GI Surgical History: Reports: Appendectomy, Cholecystectomy - History Comment History Comment: Marijuana hyperemesis syndrome Social & Family History - Family History Family Medical History: Noncontributory Other HEENT Family History: HX OF ABCESSED TEETH Oncologic: Reports: Other (See Below) Other Oncologic Family History: FATHER & PATERNAL GRANDFATHER CANCER - Tobacco Use Smoking Status *Q: Former Smoker Years of Tobacco use: 2 Packs/Tins Daily: 0.3 Used Tobacco, but Quit: Yes Month Tobacco Last Used: ? Second Hand Smoke Exposure: Yes - Caffeine Use Caffeine Use: Reports: Coffee Other Caffeine Use: 1-2 'CANS' OF CAFFIENATED BEVERAGES - Alcohol Use Days Per Week of Alcohol Use: 5 Number of Drinks Per Day: 6 Total Drinks Per Week: 30 - Recreational Drug Use Recreational Drug Use: Yes Drug Use in Last 12 Months: Yes Recreational Drug Type: Reports: Marijuana/Hashish Other Recreational Drug Type: Pt states that he smoked Pot 2 days ago Recreational Drug Use Frequency: Binges Recreational Drug Last Use: pot - Living Situation & Occupation Living situation: Reports: with Family Occupation: Unemployed ED ROS GENERAL - Review of Systems Review Of Systems: See Below Constitutional: Reports: No Symptoms HEENT: Reports: No Symptoms Respiratory: Reports: No Symptoms Cardiovascular: Reports: No Symptoms Endocrine: Reports: No Symptoms GI/Abdominal: Reports: Abdominal Pain (epigastric area) : Reports: No Symptoms Musculoskeletal: Reports: No Symptoms Skin: Reports: No Symptoms Neurological: Reports: No Symptoms Psychiatric: Reports: No Symptoms Hematologic/Lymphatic: Reports: No Symptoms Immunologic: Reports: No Symptoms ED EXAM, GI/ABD - Physical Exam Exam: See Below Exam Limited By: No Limitations General Appearance: Alert, No Apparent Distress, Anxious Eyes: Bilateral: Normal Appearance, EOMI Ears: Normal External Exam Nose: Normal Inspection Throat/Mouth: Normal Inspection Head: Atraumatic Neck: Normal Inspection Respiratory/Chest: No Respiratory Distress Cardiovascular: Normal Peripheral Pulses GI/Abdominal Exam: Normal Bowel Sounds, Soft, No Organomegaly, Tender ( epigastric) (Male) Exam: No Hernia Back Exam: Normal Inspection Extremities: Normal Inspection, Normal Range of Motion Neurological: Alert, Oriented, CN II-XII Intact, Normal Cognition Psychiatric: Anxious Skin Exam: Warm, Dry Lymphatic: No Adenopathy Course - Vital Signs Last Recorded V/S: Last Vital Signs Temp 36.8 C 07/03/17 08:28 Pulse 60 07/03/17 09:12 Resp 24 H 07/03/17 08:28 BP 196/98 H 07/03/17 09:12 Pulse Ox 100 07/03/17 09:12 - Orders/Labs/Meds Orders: Active Orders 24 hr Category Date Time Status Abdomen 2V AP Flat Upright [CR] Urgent Exams 07/03/17 08:27 Taken Labs: Laboratory Tests 07/03/17 07/03/17 07/03/17 Range/Units 08:30 08:30 08:32 WBC 11.8 H (5.0-10.0) 10^3/uL RBC 5.50 (4.6-6.2) 10^6/uL Hgb 16.4 (14.0-18.0) g/dL Hct 48.3 (40.0-54.0) % MCV 87.8 (80-100) fL MCH 29.8 (27.0-34.0) pg MCHC 34.0 (33.0-35.0) g/dL Plt Count 295 (150-450) 10^3/uL Neut % (Auto) 64.5 (42.2-75.2) % Lymph % (Auto) 24.2 (20.5-50.1) % [place] % (Auto) 7.9 (2-8) % Eos % (Auto) 3.1 H (1.0-3.0) % Baso % (Auto) 0.3 (0.0-1.0) % Sodium (135-145) mmol/L Potassium (3.6-5.0) mmol/L Chloride (101-111) mmol/L Carbon Dioxide (21.0-31.0) mmol/L Anion Gap BUN (7-18) mg/dL Creatinine (0.6-1.3) mg/dL Est Cr Clr Drug Dosing mL/min Estimated GFR (MDRD) BUN/Creatinine Ratio Glucose (74-105) mg/dL Lactic Acid (0.5-2.2) mmol/L Calcium (8.4-10.2) mg/dl Total Bilirubin (0.2-1.0) mg/dL AST (10-42) IU/L ALT (10-60) IU/L Alkaline Phosphatase (42-121) IU/L Total Protein (6.7-8.2) g/dl Albumin (3.2-5.5) g/dl Globulin Albumin/Globulin Ratio Amylase (28-100) U/L Lipase (22-51) U/L Urine Color Yellow (YELLOW) Urine Appearance Clear (CLEAR) Urine pH 6.5 (5.0-9.0) Ur Specific [place] 1.020 (1.005-1.030) Urine Protein Negative (NEGATIVE) Urine Glucose (UA) Negative (NEGATIVE) Urine Ketones Negative (NEGATIVE) Urine Occult Blood Trace-intact H (NEGATIVE) Urine Nitrite Negative (NEGATIVE) Urine Bilirubin Negative (NEGATIVE) Urine Urobilinogen 0.2 (0.2-1.0) mg/dL Ur Leukocyte Esterase Negative (NEGATIVE) Urine RBC 0-5 /HPF Urine WBC Not seen (0-5/HPF) /HPF Ur Epithelial Cells Rare /HPF Urine Bacteria Few (0-FEW/HPF) /HPF Urine Opiates Screen Negative (NEGATIVE) Ur Oxycodone Screen Positive H (NEGATIVE) Urine Methadone Screen Negative (NEGATIVE) Ur Barbiturates Screen Negative (NEGATIVE) U Tricyclic Antidepress Negative (NEGATIVE) Ur Phencyclidine Scrn Negative (NEGATIVE) Ur Amphetamine Screen Negative (NEGATIVE) U Methamphetamines Scrn Negative (NEGATIVE) Urine MDMA Screen Negative (NEGATIVE) U Benzodiazepines Scrn Negative (NEGATIVE) Urine Cocaine Screen Negative (NEGATIVE) U Marijuana (THC) Screen Positive H (NEGATIVE) 07/03/17 07/03/17 Range/Units 08:32 08:44 WBC (5.0-10.0) 10^3/uL RBC (4.6-6.2) 10^6/uL Hgb (14.0-18.0) g/dL Hct (40.0-54.0) % MCV (80-100) fL MCH (27.0-34.0) pg MCHC (33.0-35.0) g/dL Plt Count (150-450) 10^3/uL Neut % (Auto) (42.2-75.2) % Lymph % (Auto) (20.5-50.1) % [place] % (Auto) (2-8) % Eos % (Auto) (1.0-3.0) % Baso % (Auto) (0.0-1.0) % Sodium 141 (135-145) mmol/L Potassium 3.9 (3.6-5.0) mmol/L Chloride 105 (101-111) mmol/L Carbon Dioxide 23.0 (21.0-31.0) mmol/L Anion Gap 16.9 BUN 21 H (7-18) mg/dL Creatinine 0.8 (0.6-1.3) mg/dL Est Cr Clr Drug Dosing 137.42 mL/min Estimated GFR (MDRD) > 60 BUN/Creatinine Ratio 26.25 Glucose 112 H (74-105) mg/dL Lactic Acid 2.2 (0.5-2.2) mmol/L Calcium 10.2 (8.4-10.2) mg/dl Total Bilirubin 0.5 (0.2-1.0) mg/dL AST 38 (10-42) IU/L ALT 59 (10-60) IU/L Alkaline Phosphatase 124 H (42-121) IU/L Total Protein 8.5 H (6.7-8.2) g/dl Albumin 4.7 (3.2-5.5) g/dl Globulin 3.8 Albumin/Globulin Ratio 1.24 Amylase 93 (28-100) U/L Lipase 38 (22-51) U/L Urine Color (YELLOW) Urine Appearance (CLEAR) Urine pH (5.0-9.0) Ur Specific [place] (1.005-1.030) Urine Protein (NEGATIVE) Urine Glucose (UA) (NEGATIVE) Urine Ketones (NEGATIVE) Urine Occult Blood (NEGATIVE) Urine Nitrite (NEGATIVE) Urine Bilirubin (NEGATIVE) Urine Urobilinogen (0.2-1.0) mg/dL Ur Leukocyte Esterase (NEGATIVE) Urine RBC /HPF Urine WBC (0-5/HPF) /HPF Ur Epithelial Cells /HPF Urine Bacteria (0-FEW/HPF) /HPF Urine Opiates Screen (NEGATIVE) Ur Oxycodone Screen (NEGATIVE) Urine Methadone Screen (NEGATIVE) Ur Barbiturates Screen (NEGATIVE) U Tricyclic Antidepress (NEGATIVE) Ur Phencyclidine Scrn (NEGATIVE) Ur Amphetamine Screen (NEGATIVE) U Methamphetamines Scrn (NEGATIVE) Urine MDMA Screen (NEGATIVE) U Benzodiazepines Scrn (NEGATIVE) Urine Cocaine Screen (NEGATIVE) U Marijuana (THC) Screen (NEGATIVE) Meds: Medications Discontinued Medications Generic Name Dose Route Start Last Admin Trade Name Freq PRN Reason Stop Dose Admin Sodium Chloride 1,000 mls @ 999 mls/hr 07/03/17 08:26 07/03/17 08:38 Normal Saline IV 07/03/17 09:26 999 mls/hr .BOLUS ONE Administration Ketorolac Tromethamine 30 mg 07/03/17 08:58 07/03/17 09:05 Toradol IVPUSH 07/03/17 08:59 30 mg ONETIME ONE Administration Lorazepam 2 mg 07/03/17 08:26 07/03/17 08:41 Ativan IVPUSH 07/03/17 08:27 2 mg ONETIME ONE Administration Departure - Departure Time of Disposition: 10:01 Disposition: Home, Self-Care 01 Condition: Good Clinical Impression: Cannabinoid hyperemesis syndrome Abdominal pain Qualifiers: Abdominal location: epigastric Qualified Code(s): R10.13 - Epigastric pain - Discharge Information Instructions: Nausea and Vomiting, Adult, [id number] Forms: ED Department Discharge Additional Instructions: Rest For Nausea: ZOFRAN ODT 4mg use as needed # 20 F/U w/ Bowel Specialist as advised previously in [place] Stop All street drug use F/U w/ PCP - My Orders Last 24 Hours: My Active Orders 07/03/17 08:27 Abdomen 2V AP Flat Upright [CR] Urgent - Assessment/Plan Last 24 Hours: My Active Orders 07/03/17 08:27 Abdomen 2V AP Flat Upright [CR] Urgent
[2017-07-03] MEDS ORDERED: Ketorolac 30 MG/ML SDV IVPUSH ONE (08:58)
[2017-07-03 09:02] LABS: CHLORIDE,CL 105 mmol/L (101-111); SODIUM,NA 141 mmol/L (135-145)
[2017-07-03 09:13] VITALS: BP 196/98
--- NOTE | 2017-07-03 10:08 | CR ---
Clinical history: 37-year-old male with abdominal pain. Interpretation: (4 films) surgical clips right upper quadrant. No other foreign body and no abdominal soft tissue mass lesion, pathologic calcifications, or signs of mechanical bowel obstruction. No sharad e subdiaphragmatic air. Lung bases clear. Normal cardiac silhouette. 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 AP pelvis unremarkable. CONCLUSION: No specific plain film exam abdomen. Apparent cholecystectomy. Multilevel lumbar disc dis ease/arthritis.
== END 2017-07-03 10:15 | disposition home or self-care (01) ==
LOC: DL.ED 08:10
DX: R11.2 Nausea with vomiting, unspecified (principal); F12.90 Cannabis use, unspecified, uncomplicated; Z87.891 Personal history of nicotine dependence
CPT/HCPCS: 36415; 74020; 80053; 80305; 81001; 82150; 83605; 83690; 85025; 96361; 96374; 96375; 99285; J1885; J2060; J7030

== ENCOUNTER 2017-08-26 06:54 | Emergency (ER) | payer MEDICAID ==
[2017-08-26] MEDS ORDERED: Ketorolac 30 MG/ML SDV IVPUSH ONE (07:04)
[2017-08-26] MEDS ORDERED: diphenhydrAMINE 50 MG/ML SDV IVPUSH ONE (07:04)
[2017-08-26] MEDS ORDERED: Sodium Chloride 0.9% 1,000 ML IV ONE (07:04)
[2017-08-26] MEDS ORDERED: Promethazine 25 MG/ML SDV IM ONE (07:06)
[2017-08-26] MEDS: Sodium Chloride 0.9% 10 ML Syringe FLUSH PRN ×2 (07:24→09:59)
--- NOTE | 2017-08-26 07:24 | EDM.PDOC ---
ED HPI GENERAL MEDICAL PROBLEM - General Chief Complaint: Abdominal Pain Stated Complaint: IN BY AMBULANCE Time Seen by Provider: 08/26/17 07:05 Source of Information: Reports: Patient History Limitations: Reports: No Limitations - History of Present Illness INITIAL COMMENTS - FREE TEXT/NARRATIVE: Patient comes emergency Department today with complaints of severe abdominal pain. Patient has a rather lengthy history of chronic pancreatitis. For which she has been seen in the emergency department multiple times for this. He has had abdominal pain since last night which has slowly gotten worse. He has not had any fever or chills. He has been vomiting multiple times and primarily bile now. He denies any recent alcohol usage. He denies any recreational drug use. He denies any hematuria dysuria or urinary frequency. No flank pain. Last bowel movement was last night which was normal for him. Upper Abdomen Pain Score (Numeric/FACES): 10 - Related Data Allergies Allergy/AdvReac Type Severity Reaction Status Date / Time No Known Allergies Allergy Verified 07/03/17 08:25 Home Meds: Home Meds Acetaminophen/oxyCODONE [Percocet 325-5 MG] 2 tab PO Q6H PRN 05/10/17 [History] Past Medical History HEENT History: Reports: None Other HEENT History: WEARS CONTACT LENS Cardiovascular History: Reports: None Respiratory History: Reports: None Gastrointestinal History: Reports: Diverticulosis, Pancreatitis Genitourinary History: Reports: None Musculoskeletal History: Reports: None Neurological History: Reports: None Psychiatric History: Reports: Addiction Other Psychiatric History: HX OF CANNABIS ABUSE Endocrine/Metabolic History: Reports: None Hematologic History: Reports: None Immunologic History: Reports: None Oncologic (Cancer) History: Reports: None Dermatologic History: Reports: None - Infectious Disease History Infectious Disease History: Reports: None - Past Surgical History Head Surgeries/Procedures: Reports: None GI Surgical History: Reports: Appendectomy, Cholecystectomy - History Comment History Comment: Marijuana hyperemesis syndrome Social & Family History - Family History Family Medical History: Noncontributory Other HEENT Family History: HX OF ABCESSED TEETH Oncologic: Reports: Other (See Below) Other Oncologic Family History: FATHER & PATERNAL GRANDFATHER CANCER - Tobacco Use Smoking Status *Q: Former Smoker Years of Tobacco use: 2 Packs/Tins Daily: 0.3 Used Tobacco, but Quit: Yes Month Tobacco Last Used: jul 2017 Second Hand Smoke Exposure: Yes - Caffeine Use Caffeine Use: Reports: Coffee Other Caffeine Use: 1-2 'CANS' OF CAFFIENATED BEVERAGES - Alcohol Use Days Per Week of Alcohol Use: 5 Number of Drinks Per Day: 6 Total Drinks Per Week: 30 - Recreational Drug Use Recreational Drug Use: Yes Drug Use in Last 12 Months: Yes Recreational Drug Type: Reports: Marijuana/Hashish Other Recreational Drug Type: Pt states that he smoked Pot 2 days ago Recreational Drug Use Frequency: Binges Recreational Drug Last Use: pot - Living Situation & Occupation Living situation: Reports: with Family Occupation: Unemployed ED ROS GENERAL - Review of Systems Review Of Systems: ROS reveals no pertinent complaints other than HPI. ED EXAM, GI/ABD - Physical Exam Exam: See Below Text/Narrative:: He is in the position on his left side holding his epigastric region. There is bilious like vomit in his emesis bag. He is moaning and anxious. Exam Limited By: No Limitations General Appearance: Alert, WD/WN, Anxious, Moderate Distress Eyes: Bilateral: EOMI Ears: Normal External Exam, Normal Canal, Hearing Grossly Normal, Normal TMs Nose: Normal Inspection, Normal Mucosa, No Blood Throat/Mouth: Normal Inspection (Except for dry mucosal membranes. ), Normal Lips, Normal Teeth, Normal Oropharynx Head: Atraumatic, Normocephalic Neck: Normal Inspection, Supple, Non-Tender, Full Range of Motion Respiratory/Chest: No Respiratory Distress, Lungs Clear, Normal Breath Sounds, No Accessory Muscle Use, Chest Non-Tender Cardiovascular: Normal Peripheral Pulses, Regular Rate, Rhythm, No Edema, No Murmur, No Rub GI/Abdominal Exam: Soft, No Organomegaly, No Distention, No Abnormal Bruit, Tender (Generalized tenderness throughout the abd. More in the epigastric region. ) (Male) Exam: Deferred Rectal (Males) Exam: Deferred Back Exam: Normal Inspection, Full Range of Motion Extremities: Normal Inspection, Normal Capillary Refill Neurological: Alert, Oriented Psychiatric: Normal Affect, Normal Mood Skin Exam: Intact, Normal Color, Diaphoretic Course - Vital Signs Last Recorded V/S: Last Vital Signs Temp 37.1 C 08/26/17 15:50 Pulse 84 08/26/17 15:50 Resp 16 08/26/17 15:50 BP 146/96 H 08/26/17 15:50 Pulse Ox 97 08/26/17 15:50 - Orders/Labs/Meds Orders: Active Orders 24 hr Category Date Time Status Peripheral IV Care [RC] . DIRECTED Care 08/26/17 07:05 Active CULTURE BLOOD [BC] Stat Lab 08/26/17 09:21 Received CULTURE BLOOD [BC] Stat Lab 08/26/17 09:25 Received Blood Culture x2 Reflex Set [OM.PC] Stat Oth 08/26/17 09:09 Ordered Peripheral IV Insertion Adult [OM.PC] Stat Oth 08/26/17 07:04 Ordered Labs: Laboratory Tests 08/26/17 08/26/17 08/26/17 Range/Units 07:07 07:07 07:07 WBC 22.7 H (5.0-10.0) 10^3/uL RBC 5.94 (4.6-6.2) 10^6/uL Hgb 17.8 (14.0-18.0) g/dL Hct 50.1 (40.0-54.0) % MCV 84.3 D (80-100) fL MCH 30.0 (27.0-34.0) pg MCHC 35.5 H (33.0-35.0) g/dL Plt Count 301 (150-450) 10^3/uL Neut % (Auto) 77.1 H (42.2-75.2) % Lymph % (Auto) 14.7 L (20.5-50.1) % Calloway % (Auto) 7.2 (2-8) % Eos % (Auto) 0.8 L (1.0-3.0) % Baso % (Auto) 0.2 (0.0-1.0) % VBG pH (7.31-7.41) VBG pCO2 (41-51) mmHg VBG pO2 (35-42) mmHg VBG HCO3 (19-25) mmol/l VBG O2 Saturation (60-80) % VBG Base Excess ((-2)-(+3)) mmol/l O2 Delivery Device Sodium 134 L (135-145) mmol/L Potassium 3.0 L (3.6-5.0) mmol/L Chloride 93 L D (101-111) mmol/L Carbon Dioxide 29.0 (21.0-31.0) mmol/L Anion Gap 15.0 BUN 18 (7-18) mg/dL Creatinine 1.1 (0.6-1.3) mg/dL Est Cr Clr Drug Dosing 99.94 mL/min Estimated GFR (MDRD) > 60 BUN/Creatinine Ratio 16.36 Glucose 101 (74-105) mg/dL Lactic Acid 1.7 (0.5-2.2) mmol/L Calcium 9.8 (8.4-10.2) mg/dl Magnesium (1.8-2.5) mg/dL Total Bilirubin 1.2 H (0.2-1.0) mg/dL GGT (7-64) IU/L AST 24 (10-42) IU/L ALT 26 (10-60) IU/L Alkaline Phosphatase 110 (42-121) IU/L C-Reactive Protein (0.0-1.3) mg/dL Total Protein 8.4 H (6.7-8.2) g/dl Albumin 4.6 (3.2-5.5) g/dl Globulin 3.8 Albumin/Globulin Ratio 1.21 Amylase 68 (28-100) U/L Lipase 23 (22-51) U/L Urine Color (YELLOW) Urine Appearance (CLEAR) Urine pH (5.0-9.0) Ur Specific [place] (1.005-1.030) Urine Protein (NEGATIVE) Urine Glucose (UA) (NEGATIVE) Urine Ketones (NEGATIVE) Urine Occult Blood (NEGATIVE) Urine Nitrite (NEGATIVE) Urine Bilirubin (NEGATIVE) Urine Urobilinogen (0.2-1.0) mg/dL Ur Leukocyte Esterase (NEGATIVE) Urine RBC /HPF Urine WBC (0-5/HPF) /HPF Ur Epithelial Cells /HPF Urine Bacteria (0-FEW/HPF) /HPF Urine Mucus /LPF Urine Opiates Screen (NEGATIVE) Ur Oxycodone Screen (NEGATIVE) Urine Methadone Screen (NEGATIVE) Ur Barbiturates Screen (NEGATIVE) U Tricyclic Antidepress (NEGATIVE) Ur Phencyclidine Scrn (NEGATIVE) Ur Amphetamine Screen (NEGATIVE) U Methamphetamines Scrn (NEGATIVE) Urine MDMA Screen (NEGATIVE) U Benzodiazepines Scrn (NEGATIVE) Urine Cocaine Screen (NEGATIVE) U Marijuana (THC) Screen (NEGATIVE) Ethyl Alcohol mg/dL 08/26/17 08/26/17 08/26/17 Range/Units 07:07 07:07 07:07 WBC (5.0-10.0) 10^3/uL RBC (4.6-6.2) 10^6/uL Hgb (14.0-18.0) g/dL Hct (40.0-54.0) % MCV (80-100) fL MCH (27.0-34.0) pg MCHC (33.0-35.0) g/dL Plt Count (150-450) 10^3/uL Neut % (Auto) (42.2-75.2) % Lymph % (Auto) (20.5-50.1) % Calloway % (Auto) (2-8) % Eos % (Auto) (1.0-3.0) % Baso % (Auto) (0.0-1.0) % VBG pH (7.31-7.41) VBG pCO2 (41-51) mmHg VBG pO2 (35-42) mmHg VBG HCO3 (19-25) mmol/l VBG O2 Saturation (60-80) % VBG Base Excess ((-2)-(+3)) mmol/l O2 Delivery Device Sodium (135-145) mmol/L Potassium (3.6-5.0) mmol/L Chloride (101-111) mmol/L Carbon Dioxide (21.0-31.0) mmol/L Anion Gap BUN (7-18) mg/dL Creatinine (0.6-1.3) mg/dL Est Cr Clr Drug Dosing mL/min Estimated GFR (MDRD) BUN/Creatinine Ratio Glucose (74-105) mg/dL Lactic Acid (0.5-2.2) mmol/L Calcium (8.4-10.2) mg/dl Magnesium 2.2 (1.8-2.5) mg/dL Total Bilirubin (0.2-1.0) mg/dL GGT (7-64) IU/L AST (10-42) IU/L ALT (10-60) IU/L Alkaline Phosphatase (42-121) IU/L C-Reactive Protein < 0.5 (0.0-1.3) mg/dL Total Protein (6.7-8.2) g/dl Albumin (3.2-5.5) g/dl Globulin Albumin/Globulin Ratio Amylase (28-100) U/L Lipase (22-51) U/L Urine Color (YELLOW) Urine Appearance (CLEAR) Urine pH (5.0-9.0) Ur Specific [place] (1.005-1.030) Urine Protein (NEGATIVE) Urine Glucose (UA) (NEGATIVE) Urine Ketones (NEGATIVE) Urine Occult Blood (NEGATIVE) Urine Nitrite (NEGATIVE) Urine Bilirubin (NEGATIVE) Urine Urobilinogen (0.2-1.0) mg/dL Ur Leukocyte Esterase (NEGATIVE) Urine RBC /HPF Urine WBC (0-5/HPF) /HPF Ur Epithelial Cells /HPF Urine Bacteria (0-FEW/HPF) /HPF Urine Mucus /LPF Urine Opiates Screen (NEGATIVE) Ur Oxycodone Screen (NEGATIVE) Urine Methadone Screen (NEGATIVE) Ur Barbiturates Screen (NEGATIVE) U Tricyclic Antidepress (NEGATIVE) Ur Phencyclidine Scrn (NEGATIVE) Ur Amphetamine Screen (NEGATIVE) U Methamphetamines Scrn (NEGATIVE) Urine MDMA Screen (NEGATIVE) U Benzodiazepines Scrn (NEGATIVE) Urine Cocaine Screen (NEGATIVE) U Marijuana (THC) Screen (NEGATIVE) Ethyl Alcohol < 5 mg/dL 08/26/17 08/26/17 08/26/17 Range/Units 07:07 09:00 09:00 WBC (5.0-10.0) 10^3/uL RBC (4.6-6.2) 10^6/uL Hgb (14.0-18.0) g/dL Hct (40.0-54.0) % MCV (80-100) fL MCH (27.0-34.0) pg MCHC (33.0-35.0) g/dL Plt Count (150-450) 10^3/uL Neut % (Auto) (42.2-75.2) % Lymph % (Auto) (20.5-50.1) % Calloway % (Auto) (2-8) % Eos % (Auto) (1.0-3.0) % Baso % (Auto) (0.0-1.0) % VBG pH (7.31-7.41) VBG pCO2 (41-51) mmHg VBG pO2 (35-42) mmHg VBG HCO3 (19-25) mmol/l VBG O2 Saturation (60-80) % VBG Base Excess ((-2)-(+3)) mmol/l O2 Delivery Device Sodium (135-145) mmol/L Potassium (3.6-5.0) mmol/L Chloride (101-111) mmol/L Carbon Dioxide (21.0-31.0) mmol/L Anion Gap BUN (7-18) mg/dL Creatinine (0.6-1.3) mg/dL Est Cr Clr Drug Dosing mL/min Estimated GFR (MDRD) BUN/Creatinine Ratio Glucose (74-105) mg/dL Lactic Acid (0.5-2.2) mmol/L Calcium (8.4-10.2) mg/dl Magnesium (1.8-2.5) mg/dL Total Bilirubin (0.2-1.0) mg/dL GGT 67 H (7-64) IU/L AST (10-42) IU/L ALT (10-60) IU/L Alkaline Phosphatase (42-121) IU/L C-Reactive Protein (0.0-1.3) mg/dL Total Protein (6.7-8.2) g/dl Albumin (3.2-5.5) g/dl Globulin Albumin/Globulin Ratio Amylase (28-100) U/L Lipase (22-51) U/L Urine Color Yellow (YELLOW) Urine Appearance Clear (CLEAR) Urine pH 7.0 (5.0-9.0) Ur Specific [place] 1.015 (1.005-1.030) Urine Protein Negative (NEGATIVE) Urine Glucose (UA) Negative (NEGATIVE) Urine Ketones 15 H (NEGATIVE) Urine Occult Blood Negative (NEGATIVE) Urine Nitrite Negative (NEGATIVE) Urine Bilirubin Negative (NEGATIVE) Urine Urobilinogen 1.0 (0.2-1.0) mg/dL Ur Leukocyte Esterase Negative (NEGATIVE) Urine RBC 0-5 /HPF Urine WBC 0-5 (0-5/HPF) /HPF Ur Epithelial Cells Few /HPF Urine Bacteria Moderate H (0-FEW/HPF) /HPF Urine Mucus Moderate H /LPF Urine Opiates Screen Negative (NEGATIVE) Ur Oxycodone Screen Negative (NEGATIVE) Urine Methadone Screen Negative (NEGATIVE) Ur Barbiturates Screen Negative (NEGATIVE) U Tricyclic Antidepress Negative (NEGATIVE) Ur Phencyclidine Scrn Negative (NEGATIVE) Ur Amphetamine Screen Negative (NEGATIVE) U Methamphetamines Scrn Negative (NEGATIVE) Urine MDMA Screen Negative (NEGATIVE) U Benzodiazepines Scrn Negative (NEGATIVE) Urine Cocaine Screen Negative (NEGATIVE) U Marijuana (THC) Screen Positive H (NEGATIVE) Ethyl Alcohol mg/dL 01/08/18 Range/Units 09:20 WBC (5.0-10.0) 10^3/uL RBC (4.6-6.2) 10^6/uL Hgb (14.0-18.0) g/dL Hct (40.0-54.0) % MCV (80-100) fL MCH (27.0-34.0) pg MCHC (33.0-35.0) g/dL Plt Count (150-450) 10^3/uL Neut % (Auto) (42.2-75.2) % Lymph % (Auto) (20.5-50.1) % Calloway % (Auto) (2-8) % Eos % (Auto) (1.0-3.0) % Baso % (Auto) (0.0-1.0) % VBG pH 7.42 H (7.31-7.41) VBG pCO2 47 (41-51) mmHg VBG pO2 39 (35-42) mmHg VBG HCO3 30 H (19-25) mmol/l VBG O2 Saturation 78.4 (60-80) % VBG Base Excess 4.8 H ((-2)-(+3)) mmol/l O2 Delivery Device Room air Sodium (135-145) mmol/L Potassium (3.6-5.0) mmol/L Chloride (101-111) mmol/L Carbon Dioxide (21.0-31.0) mmol/L Anion Gap BUN (7-18) mg/dL Creatinine (0.6-1.3) mg/dL Est Cr Clr Drug Dosing mL/min Estimated GFR (MDRD) BUN/Creatinine Ratio Glucose (74-105) mg/dL Lactic Acid (0.5-2.2) mmol/L Calcium (8.4-10.2) mg/dl Magnesium (1.8-2.5) mg/dL Total Bilirubin (0.2-1.0) mg/dL GGT (7-64) IU/L AST (10-42) IU/L ALT (10-60) IU/L Alkaline Phosphatase (42-121) IU/L C-Reactive Protein (0.0-1.3) mg/dL Total Protein (6.7-8.2) g/dl Albumin (3.2-5.5) g/dl Globulin Albumin/Globulin Ratio Amylase (28-100) U/L Lipase (22-51) U/L Urine Color (YELLOW) Urine Appearance (CLEAR) Urine pH (5.0-9.0) Ur Specific [place] (1.005-1.030) Urine Protein (NEGATIVE) Urine Glucose (UA) (NEGATIVE) Urine Ketones (NEGATIVE) Urine Occult Blood (NEGATIVE) Urine Nitrite (NEGATIVE) Urine Bilirubin (NEGATIVE) Urine Urobilinogen (0.2-1.0) mg/dL Ur Leukocyte Esterase (NEGATIVE) Urine RBC /HPF Urine WBC (0-5/HPF) /HPF Ur Epithelial Cells /HPF Urine Bacteria (0-FEW/HPF) /HPF Urine Mucus /LPF Urine Opiates Screen (NEGATIVE) Ur Oxycodone Screen (NEGATIVE) Urine Methadone Screen (NEGATIVE) Ur Barbiturates Screen (NEGATIVE) U Tricyclic Antidepress (NEGATIVE) Ur Phencyclidine Scrn (NEGATIVE) Ur Amphetamine Screen (NEGATIVE) U Methamphetamines Scrn (NEGATIVE) Urine MDMA Screen (NEGATIVE) U Benzodiazepines Scrn (NEGATIVE) Urine Cocaine Screen (NEGATIVE) U Marijuana (THC) Screen (NEGATIVE) Ethyl Alcohol mg/dL Meds: Medications Discontinued Medications Generic Name Dose Route Start Last Admin Trade Name Freq PRN Reason Stop Dose Admin Diphenhydramine HCl 50 mg 08/26/17 07:04 08/26/17 07:11 Benadryl IVPUSH 08/26/17 07:05 50 mg ONETIME ONE Administration Hydromorphone HCl 1 mg 08/26/17 07:53 08/26/17 08:00 Dilaudid IVPUSH 08/26/17 07:54 1 mg ONETIME ONE Administration Hydromorphone HCl 1 mg 08/26/17 09:53 08/26/17 09:59 Dilaudid IVPUSH 08/26/17 09:54 1 mg ONETIME ONE Administration Sodium Chloride 1,000 mls @ 999 mls/hr 08/26/17 07:04 08/26/17 07:08 Normal Saline IV 08/26/17 08:04 999 mls/hr .BOLUS ONE Administration Potassium Chloride/Sodium Chloride 1,000 mls @ 250 mls/hr 08/26/17 08:15 Normal Saline With 40 Meq Kcl IV ASDIRECTED JJ Potassium Chloride 10 meq/ 100 mls @ 100 mls/hr 08/26/17 08:22 08/26/17 08:32 Premix IV 08/26/17 09:21 100 mls/hr ONETIME ONE Administration Sodium Chloride 1,000 mls @ 250 mls/hr 08/26/17 08:30 08/26/17 10:44 Normal Saline IV 250 mls/hr ASDIRECTED JJ Administration Piperacillin Sod/Tazobactam 100 mls @ 200 mls/hr 08/26/17 09:14 08/26/17 09: 39 Sod 3.375 gm/ Sodium Chloride IV 08/26/17 09:43 200 mls/hr ONETIME ONE Administration Potassium Chloride 10 meq/ 100 mls @ 100 mls/hr 08/26/17 10:20 08/26/17 10:44 Premix IV 08/26/17 11:19 100 mls/hr ONETIME ONE Administration Piperacillin Sod/Tazobactam 100 mls @ 200 mls/hr 08/26/17 16:00 08/26/17 15: 03 Sod 3.375 gm/ Sodium Chloride IV 200 mls/hr ONETIME JJ Administration Iopamidol 100 ml 08/26/17 08:23 08/26/17 08:20 Isovue-300 (61%) IVPUSH 08/26/17 08:24 100 ml ONETIME ONE Administration Ketorolac Tromethamine 30 mg 08/26/17 07:04 08/26/17 07:12 Toradol IVPUSH 08/26/17 07:05 30 mg ONETIME ONE Administration Morphine Sulfate 2 mg 08/26/17 15:49 08/26/17 15:57 Morphine IVPUSH 08/26/17 15:50 2 mg ONETIME ONE Administration Promethazine HCl 25 mg 08/26/17 07:06 08/26/17 07:12 Phenergan IM 08/26/17 07:07 25 mg ONETIME ONE Administration Sodium Chloride 10 ml 08/26/17 07:05 08/26/17 09:59 Saline Flush FLUSH 10 ml ASDIRECTED PRN Administration Keep Vein Open - Radiology Interpretation Free Text/Narrative:: Radiological review cholecystectomy and new evidence of air in the hepatobiliary ducts. Question cholangitis. Normal pancreas. - Re-Assessments/Exams Free Text/Narrative Re-Assessment/Exam: 01/08/18 09:21 IV normal saline 1 L wide open Benadryl 50 mg IV push. Ketorolac 30 mg IV push. Phenergan 25 mg IM. Patient continued pain as well as retching and vomiting. Dilaudid 1 mg IV. Continue normal saline at 250 mils an hour with jingle writer of 10 mEq potassium chloride. I did have the surgeon Dr. Sheppard review the case with myself due to the concerns of cholangitis and he does not feel that there is anything surgical at this time. Zosyn 3.375grams IVPB after blood cultures were drawn. 08/26/17 12:29 [facility] beds were full so we held the patient in the emergency department until a bed was available. Departure - Departure Time of Disposition: 16:00 Disposition: DC/Tfer to Acute Hospital 02 Clinical Impression: Cholangitis, Hypokalemia Chronic pancreatitis Qualifiers: Pancreatitis type: alcohol induced Qualified Code(s): K86.0 - Alcohol-induced chronic pancreatitis Hypertension Qualifiers: Hypertension type: unspecified Qualified Code(s): I10 - Essential (primary) hypertension - Discharge Information Referrals: PCP,Unobtain [Primary Care Provider] - Forms: ED Department Discharge, Interfacility Transfer [facility] ED Communication - Discussed Case With (1) Discussed Case With (1): Inpatient Mover Helper (Dr. Sheppard surgeon on site, who reviewed the labs and the CT and does not feel there is anything surgical at this time.) - Discussed Case With (2) Discussed Case With (2): Admitting Provider (Call ed spoke with [facility] hospitalist in [place]. HPI ER COURSE findings and concerns were relayed verbally to Dr. Alcantar over the phone. Questions answered and accepted the patient in transfer at this time. Eventually [facility] did not have any bed we were told at 1400 hrs. So unable to accepted. [facility] full. 1400hrs I called and spoke with Dr. Damon at [facility] HPI ER COURSE findings and concerns were relayed to him and his questions answered. He accepted the patient in transfer to [facility].) - My Orders Last 24 Hours: My Active Orders 08/26/17 07:04 Peripheral IV Insertion Adult [OM.PC] Stat 08/26/17 07:05 Peripheral IV Care [RC] . DIRECTED 08/26/17 09:09 Blood Culture x2 Reflex Set [OM.PC] Stat 08/26/17 09:21 CULTURE BLOOD [BC] Stat 08/26/17 09:25 CULTURE BLOOD [BC] Stat - Assessment/Plan Last 24 Hours: My Active Orders 08/26/17 07:04 Peripheral IV Insertion Adult [OM.PC] Stat 08/26/17 07:05 Peripheral IV Care [RC] . DIRECTED 08/26/17 09:09 Blood Culture x2 Reflex Set [OM.PC] Stat 08/26/17 09:21 CULTURE BLOOD [BC] Stat 08/26/17 09:25 CULTURE BLOOD [BC] Stat Assessment:: Cholangitis Chronic pancreatitis hypokalemia Plan: Transfer to [facility] for further care and management. Continue IV therapy with potassium. Zosyn blood cultures pending on transfer.
[2017-08-26 07:36] LABS: CHLORIDE,CL 93 mmol/L (101-111); SODIUM,NA 134 mmol/L (135-145)
[2017-08-26] MEDS ORDERED: HYDROmorphone 1 MG/ML Syringe IVPUSH ONE ×2 (07:53→09:53)
[2017-08-26] MEDS ORDERED: Sodium Chloride 0.9% with KCl 1,000 ML IV SCH (08:15)
[2017-08-26] MEDS ORDERED: Potassium Chloride 10 MEQ in Premix Bag 1 BAG IV ONE ×2 (08:22→10:20)
[2017-08-26] MEDS ORDERED: Iopamidol 612 MG/ML 100 ML Bottle IVPUSH ONE (08:23)
[2017-08-26] MEDS ORDERED: Sodium Chloride 0.9% 1,000 ML IV SCH (08:30)
--- NOTE | 2017-08-26 09:01 | CT ---
Clinical history: 37-year-old 200 pound hypertensive male smoker with epigastric pain, clinical "merchandise team manager marina pancreatitis" and WBC 22,000 reported to have "mild left hydrocele but otherwise unremarkable" CT exam 25 March 2017. Reevaluate please. Scan technique: Volume acquisition of data from the abdomen and pelvis obtained without oral contrast but during/after intravenous administration 100 cc nonionic Isovue contrast while patient was lying supine on the Siemens multi slice scanner [place], [place]. All data a rchived in the PACS system for storage, reformatting axial/sagittal/coronal planes and study. Interpretation: 1. Cholecystectomy. Air extending through the nondilated biliary biliary ducts (new compared to Mar ust 2016). Cholangitis? 2. Liver, stomach, spleen, pancreas and adrenal glands otherwise unremarkable and unchanged. 3. No inflammatory "dirty" peritoneal fat, signs of mechanical bowel obstruction, ascites or free int raperitoneal air. 4. Normal reniform size axis and configuration bilaterally. No new signs of renal cortical mass lesio n, inflammation, nephrolithiasis or obstructive uropathy. Symmetrically distended normal appearing ur inary bladder. Prostate gland and seminal vesicles unremarkable. 5. No abdominal or pelvic mass lesion and no mesenteric or retroperitoneal lymphadenopathy. 6. Arthritis lumbar spine. Normal caliber aortoiliac vessels i.e. no aneurysm or dissection. 7. Lung bases clear. Normal cardiac silhouette. CONCLUSION: Cholecystectomy and new evidence of air in the hepatobiliary ducts (see above). Normal pa ncreas.
[2017-08-26] MEDS ORDERED: Piperacillin/Tazobactam 3.375 GM in Sodium Chloride 0.9% 100 ML IV ONE (09:14)
[2017-08-26 09:33] LABS: BASE EXCESS VENOUS 4.8 mmol/l ((-2)-(+3)); BICARBONATE,VENOUS 30 mmol/l (19-25); O2 DELIVERY DEVICE ROOM AIR; O2 SATURATION VENOUS 78.4 % (60-80); PCO2 VENOUS 47 mmHg (41-51); PO2 VENOUS 39 mmHg (35-42)
[2017-08-26 09:44] LABS: PH,VENOUS 7.42 (7.31-7.41)
[2017-08-26] MEDS ORDERED: Morphine 2 MG/ML Syringe IVPUSH ONE (15:49)
[2017-08-26 15:50] VITALS: BP 146/96
[2017-08-26] MEDS ORDERED: Piperacillin/Tazobactam 3.375 GM in Sodium Chloride 0.9% 100 ML IV SCH (16:00)
== END 2017-08-26 16:20 ==
LOC: DL.ED 06:54
DX: K86.0 Alcohol-induced chronic pancreatitis (principal); K83.0 Cholangitis; E87.6 Hypokalemia; I10 Essential (primary) hypertension; Z87.891 Personal history of nicotine dependence
CPT/HCPCS: 36415; 74177; 80053; 80305; 81001; 82150; 82803; 82977; 83605; 83690; 83735; 85025; 86140; 87040; 96361; 96365; 96366; 96367; 96372; 96375; 96376; 99285; G0480; J1170; J1200; J1885; J2270; J2543; J2550; J3480; J7030; J7050; Q9967; 87077; 87186

== ENCOUNTER 2017-09-06 11:21 | Emergency (ER) | payer MEDICAID ==
[2017-09-06] MEDS ORDERED: Sodium Chloride 0.9% 10 ML Syringe FLUSH PRN (11:28)
[2017-09-06] MEDS ORDERED: Sodium Chloride 0.9% 1,000 ML IV ONE (11:29)
[2017-09-06] MEDS ORDERED: Morphine 2 MG/ML Syringe IVPUSH ONE (11:29)
[2017-09-06] MEDS ORDERED: Ondansetron 4 MG/2 ML SDV IV ONE ×2 (11:29→13:48)
[2017-09-06] MEDS ORDERED: fentaNYL 100 MCG/2 ML SDV IVPUSH ONE ×3 (12:25→15:04)
[2017-09-06 12:28] LABS: ANION GAP 14.4; CHLORIDE,CL 98 mmol/L (101-111); SODIUM,NA 136 mmol/L (135-145)
[2017-09-06] MEDS ORDERED: Iopamidol 612 MG/ML 100 ML Bottle IVPUSH ONE (12:33)
--- NOTE | 2017-09-06 14:18 | CT ---
Clinical history: 37-year-old 200 pound hypertensive male smoker with unexplained abdominal pain who was reported on recent CT scan 26 August 2017 for "clinical pancreatitis and WBC 22,000" to have "cho lecystectomy, biliary duct air and.... a normal pancreas". Reevaluate please. Scan technique: Volume acquisition of data abdomen and pelvis obtained without oral contrast but duri ng the intravenous administration 100 cc nonionic Isovue contrast (3 cc/s via injector) while patient was lying supine on the Siemens multi slice scanner [place], [place]. All data archived in the PACS system for storage, reformatting and study. Interpretation: 1. Surgical clips gallbladder fossa and trace air defining the intrahepatic biliary ducts unchanged s rashi a August 2017 CT exam. 2. Normal-appearing stomach, spleen, pancreas, adrenal glands and kidneys (no new evidence of acute p ancreatitis). No pancreatic mass (solid or cystic), calcifications or major pancreatic duct dilatatio n. No peripancreatic inflammatory "dirty" peritoneal fat. 3. Lung bases clear. Normal caliber aortoiliac vessels. 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 4. No new abdominal or pelvic mass lesion, signs of mesenteric/retroperitoneal lymphadenopathy, mecha nical bowel obstruction, ascites or free intraperitoneal air. Prostate gland unremarkable. CONCLUSION: No acute new intraperitoneal abnormality. 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
[2017-09-06 15:13] VITALS: BP 155/100
--- NOTE | 2017-09-06 15:44 | EDM.PDOC ---
Scribed by Jayne Mcdonnell 09/06/17 1543 for Tammie Tate NP ED HPI GENERAL MEDICAL PROBLEM - General Chief Complaint: Abdominal Pain Stated Complaint: INFECTION Time Seen by Provider: 09/06/17 11:35 Source of Information: Reports: Patient, RN, RN Notes Reviewed History Limitations: Reports: No Limitations - History of Present Illness INITIAL COMMENTS - FREE TEXT/NARRATIVE: Patient presents to the ER with complaint of severe abdominal pain rated 10/10. Patient states he recently had an ERCP done about 1 week ago. He was told if pain did not improve he would need stents. Pain began Saturday on and off and worsening since yesterday. He has nausea and vomiting. Duration: Getting Worse Location: Reports: Abdomen Quality: Reports: Ache Severity: Severe Improves with: Reports: None Worsens with: Reports: None Associated Symptoms: Reports: No Other Symptoms Abdomen Pain Score (Numeric/FACES): 10 - Related Data Allergies Allergy/AdvReac Type Severity Reaction Status Date / Time No Known Allergies Allergy Verified 09/06/17 11:25 Home Meds: Home Meds Acetaminophen/oxyCODONE [Percocet 325-5 MG] 2 tab PO Q6H PRN 05/10/17 [History] Past Medical History HEENT History: Reports: None Other HEENT History: WEARS CONTACT LENS Cardiovascular History: Reports: None Respiratory History: Reports: None Gastrointestinal History: Reports: Diverticulosis, Pancreatitis Genitourinary History: Reports: None Musculoskeletal History: Reports: None Neurological History: Reports: None Psychiatric History: Reports: Addiction Other Psychiatric History: HX OF CANNABIS ABUSE Endocrine/Metabolic History: Reports: None Hematologic History: Reports: None Immunologic History: Reports: None Oncologic (Cancer) History: Reports: None Dermatologic History: Reports: None - Infectious Disease History Infectious Disease History: Reports: None - Past Surgical History Head Surgeries/Procedures: Reports: None GI Surgical History: Reports: Appendectomy, Cholecystectomy, ERCP - History Comment History Comment: Marijuana hyperemesis syndrome Social & Family History - Family History Family Medical History: Noncontributory Other HEENT Family History: HX OF ABCESSED TEETH Oncologic: Reports: Other (See Below) Other Oncologic Family History: FATHER & PATERNAL GRANDFATHER CANCER - Tobacco Use Smoking Status *Q: Former Smoker Years of Tobacco use: 2 Packs/Tins Daily: 0.3 Used Tobacco, but Quit: Yes Month Tobacco Last Used: jul 2017 Second Hand Smoke Exposure: Yes - Caffeine Use Caffeine Use: Reports: Coffee Other Caffeine Use: 1-2 'CANS' OF CAFFIENATED BEVERAGES - Alcohol Use Days Per Week of Alcohol Use: 5 Number of Drinks Per Day: 6 Total Drinks Per Week: 30 - Recreational Drug Use Recreational Drug Use: Yes Drug Use in Last 12 Months: Yes Recreational Drug Type: Reports: Marijuana/Hashish Other Recreational Drug Type: Pt states that he smoked Pot 2 days ago Recreational Drug Use Frequency: Binges Recreational Drug Last Use: pot - Living Situation & Occupation Living situation: Reports: with Family Occupation: Unemployed ED ROS GENERAL - Review of Systems Review Of Systems: ROS reveals no pertinent complaints other than HPI. ED EXAM, GI/ABD - Physical Exam Exam: See Below Exam Limited By: No Limitations General Appearance: Moderate Distress, Other (agitated.) Ears: Normal External Exam, Normal Canal, Hearing Grossly Normal, Normal TMs Nose: Normal Inspection, Normal Mucosa, No Blood Throat/Mouth: Normal Inspection, Normal Lips, Normal Teeth, Normal Gums, Normal Oropharynx, Normal Voice, No Airway Compromise Head: Atraumatic, Normocephalic Neck: Normal Inspection, Supple, Non-Tender, Full Range of Motion Respiratory/Chest: No Respiratory Distress, Lungs Clear, Normal Breath Sounds, No Accessory Muscle Use, Chest Non-Tender Cardiovascular: Normal Peripheral Pulses, Regular Rate, Rhythm, No Edema, No Gallop, No JVD, No Murmur, No Rub GI/Abdominal Exam: Soft, Guarding, Other (tender) (Male) Exam: Deferred Rectal (Males) Exam: Deferred Back Exam: Normal Inspection, Full Range of Motion, NT Extremities: Normal Inspection, Normal Range of Motion, Non-Tender, Normal Capillary Refill, No Pedal Edema Neurological: Alert, Oriented, CN II-XII Intact, Normal Cognition, Normal Gait, Normal Reflexes, No Motor/Sensory Deficits Psychiatric: Anxious, Tearful Skin Exam: Warm, Dry, Intact, Normal Color, No Rash Lymphatic: No Adenopathy Course - Vital Signs Last Recorded V/S: Last Vital Signs Temp 98.8 F 09/06/17 15:12 Pulse 67 09/06/17 15:12 Resp 20 09/06/17 15:12 BP 155/100 H 09/06/17 15:12 Pulse Ox 100 09/06/17 15:12 - Orders/Labs/Meds Orders: Active Orders 24 hr Category Date Time Status Peripheral IV Care [RC] . DIRECTED Care 09/06/17 11:29 Active CULTURE BLOOD [BC] Stat Lab 09/06/17 11:54 Received CULTURE BLOOD [BC] Stat Lab 09/06/17 12:01 Received Sodium Chloride 0.9% [Saline Flush] Med 09/06/17 11:28 Active 10 ml FLUSH ASDIRECTED PRN Blood Culture x2 Reflex Set [OM.PC] Stat Oth 09/06/17 11:29 Ordered Peripheral IV Insertion Adult [OM.PC] Stat Oth 09/06/17 11:28 Ordered Medication Orders Sodium Chloride (Saline Flush) 10 ml FLUSH ASDIRECTED PRN PRN Reason: Keep Vein Open Last Admin: 09/06/17 11:47 Dose: 10 ml Labs: Laboratory Tests 09/06/17 09/06/17 09/06/17 Range/Units 12:01 12:01 12:01 WBC 15.7 H (5.0-10.0) 10^3/uL RBC 5.49 (4.6-6.2) 10^6/uL Hgb 16.5 (14.0-18.0) g/dL Hct 47.0 (40.0-54.0) % MCV 85.6 (80-100) fL MCH 30.1 (27.0-34.0) pg MCHC 35.1 H (33.0-35.0) g/dL Plt Count 306 (150-450) 10^3/uL Neut % (Auto) 82.2 H (42.2-75.2) % Lymph % (Auto) 11.2 L (20.5-50.1) % Coal % (Auto) 5.2 (2-8) % Eos % (Auto) 1.2 (1.0-3.0) % Baso % (Auto) 0.2 (0.0-1.0) % Sodium 136 (135-145) mmol/L Potassium 3.4 L (3.6-5.0) mmol/L Chloride 98 L (101-111) mmol/L Carbon Dioxide 27.0 (21.0-31.0) mmol/L Anion Gap 14.4 BUN 19 H (7-18) mg/dL Creatinine 1.0 (0.6-1.3) mg/dL Est Cr Clr Drug Dosing 109.93 mL/min Estimated GFR (MDRD) > 60 BUN/Creatinine Ratio 19.00 Glucose 89 (74-105) mg/dL Lactic Acid 2.3 H (0.5-2.2) mmol/L Calcium 9.3 (8.4-10.2) mg/dl Total Bilirubin 1.0 (0.2-1.0) mg/dL AST 29 (10-42) IU/L ALT 28 (10-60) IU/L Alkaline Phosphatase 98 (42-121) IU/L Total Protein 7.8 (6.7-8.2) g/dl Albumin 4.4 (3.2-5.5) g/dl Globulin 3.4 Albumin/Globulin Ratio 1.29 Amylase (28-100) U/L Lipase (22-51) U/L Urine Color (YELLOW) Urine Appearance (CLEAR) Urine pH (5.0-9.0) Ur Specific [place] (1.005-1.030) Urine Protein (NEGATIVE) Urine Glucose (UA) (NEGATIVE) Urine Ketones (NEGATIVE) Urine Occult Blood (NEGATIVE) Urine Nitrite (NEGATIVE) Urine Bilirubin (NEGATIVE) Urine Urobilinogen (0.2-1.0) mg/dL Ur Leukocyte Esterase (NEGATIVE) Urine RBC /HPF Urine WBC (0-5/HPF) /HPF Ur Epithelial Cells /HPF Amorphous Sediment (0/HPF) /HPF Urine Bacteria (0-FEW/HPF) /HPF Urine Mucus /LPF Urine Opiates Screen (NEGATIVE) Ur Oxycodone Screen (NEGATIVE) Urine Methadone Screen (NEGATIVE) Ur Barbiturates Screen (NEGATIVE) U Tricyclic Antidepress (NEGATIVE) Ur Phencyclidine Scrn (NEGATIVE) Ur Amphetamine Screen (NEGATIVE) U Methamphetamines Scrn (NEGATIVE) Urine MDMA Screen (NEGATIVE) U Benzodiazepines Scrn (NEGATIVE) Urine Cocaine Screen (NEGATIVE) U Marijuana (THC) Screen (NEGATIVE) 09/06/17 09/06/17 09/06/17 Range/Units 12:01 12:01 12:31 WBC (5.0-10.0) 10^3/uL RBC (4.6-6.2) 10^6/uL Hgb (14.0-18.0) g/dL Hct (40.0-54.0) % MCV (80-100) fL MCH (27.0-34.0) pg MCHC (33.0-35.0) g/dL Plt Count (150-450) 10^3/uL Neut % (Auto) (42.2-75.2) % Lymph % (Auto) (20.5-50.1) % Coal % (Auto) (2-8) % Eos % (Auto) (1.0-3.0) % Baso % (Auto) (0.0-1.0) % Sodium (135-145) mmol/L Potassium (3.6-5.0) mmol/L Chloride (101-111) mmol/L Carbon Dioxide (21.0-31.0) mmol/L Anion Gap BUN (7-18) mg/dL Creatinine (0.6-1.3) mg/dL Est Cr Clr Drug Dosing mL/min Estimated GFR (MDRD) BUN/Creatinine Ratio Glucose (74-105) mg/dL Lactic Acid (0.5-2.2) mmol/L Calcium (8.4-10.2) mg/dl Total Bilirubin (0.2-1.0) mg/dL AST (10-42) IU/L ALT (10-60) IU/L Alkaline Phosphatase (42-121) IU/L Total Protein (6.7-8.2) g/dl Albumin (3.2-5.5) g/dl Globulin Albumin/Globulin Ratio Amylase 64 (28-100) U/L Lipase 26 (22-51) U/L Urine Color Yellow (YELLOW) Urine Appearance Slightly cloudy (CLEAR) Urine pH 7.0 (5.0-9.0) Ur Specific [place] 1.010 (1.005-1.030) Urine Protein Negative (NEGATIVE) Urine Glucose (UA) Negative (NEGATIVE) Urine Ketones Negative (NEGATIVE) Urine Occult Blood Negative (NEGATIVE) Urine Nitrite Negative (NEGATIVE) Urine Bilirubin Negative (NEGATIVE) Urine Urobilinogen 0.2 (0.2-1.0) mg/dL Ur Leukocyte Esterase Negative (NEGATIVE) Urine RBC 0-5 /HPF Urine WBC 0-5 (0-5/HPF) /HPF Ur Epithelial Cells Rare /HPF Amorphous Sediment Rare (0/HPF) /HPF Urine Bacteria Rare (0-FEW/HPF) /HPF Urine Mucus Few H /LPF Urine Opiates Screen (NEGATIVE) Ur Oxycodone Screen (NEGATIVE) Urine Methadone Screen (NEGATIVE) Ur Barbiturates Screen (NEGATIVE) U Tricyclic Antidepress (NEGATIVE) Ur Phencyclidine Scrn (NEGATIVE) Ur Amphetamine Screen (NEGATIVE) U Methamphetamines Scrn (NEGATIVE) Urine MDMA Screen (NEGATIVE) U Benzodiazepines Scrn (NEGATIVE) Urine Cocaine Screen (NEGATIVE) U Marijuana (THC) Screen (NEGATIVE) 09/06/17 Range/Units 12:31 WBC (5.0-10.0) 10^3/uL RBC (4.6-6.2) 10^6/uL Hgb (14.0-18.0) g/dL Hct (40.0-54.0) % MCV (80-100) fL MCH (27.0-34.0) pg MCHC (33.0-35.0) g/dL Plt Count (150-450) 10^3/uL Neut % (Auto) (42.2-75.2) % Lymph % (Auto) (20.5-50.1) % Coal % (Auto) (2-8) % Eos % (Auto) (1.0-3.0) % Baso % (Auto) (0.0-1.0) % Sodium (135-145) mmol/L Potassium (3.6-5.0) mmol/L Chloride (101-111) mmol/L Carbon Dioxide (21.0-31.0) mmol/L Anion Gap BUN (7-18) mg/dL Creatinine (0.6-1.3) mg/dL Est Cr Clr Drug Dosing mL/min Estimated GFR (MDRD) BUN/Creatinine Ratio Glucose (74-105) mg/dL Lactic Acid (0.5-2.2) mmol/L Calcium (8.4-10.2) mg/dl Total Bilirubin (0.2-1.0) mg/dL AST (10-42) IU/L ALT (10-60) IU/L Alkaline Phosphatase (42-121) IU/L Total Protein (6.7-8.2) g/dl Albumin (3.2-5.5) g/dl Globulin Albumin/Globulin Ratio Amylase (28-100) U/L Lipase (22-51) U/L Urine Color (YELLOW) Urine Appearance (CLEAR) Urine pH (5.0-9.0) Ur Specific [place] (1.005-1.030) Urine Protein (NEGATIVE) Urine Glucose (UA) (NEGATIVE) Urine Ketones (NEGATIVE) Urine Occult Blood (NEGATIVE) Urine Nitrite (NEGATIVE) Urine Bilirubin (NEGATIVE) Urine Urobilinogen (0.2-1.0) mg/dL Ur Leukocyte Esterase (NEGATIVE) Urine RBC /HPF Urine WBC (0-5/HPF) /HPF Ur Epithelial Cells /HPF Amorphous Sediment (0/HPF) /HPF Urine Bacteria (0-FEW/HPF) /HPF Urine Mucus /LPF Urine Opiates Screen Positive H (NEGATIVE) Ur Oxycodone Screen Negative (NEGATIVE) Urine Methadone Screen Negative (NEGATIVE) Ur Barbiturates Screen Negative (NEGATIVE) U Tricyclic Antidepress Negative (NEGATIVE) Ur Phencyclidine Scrn Negative (NEGATIVE) Ur Amphetamine Screen Negative (NEGATIVE) U Methamphetamines Scrn Negative (NEGATIVE) Urine MDMA Screen Negative (NEGATIVE) U Benzodiazepines Scrn Negative (NEGATIVE) Urine Cocaine Screen Negative (NEGATIVE) U Marijuana (THC) Screen Positive H (NEGATIVE) Meds: Medications Generic Name Dose Route Start Last Admin Trade Name Freq PRN Reason Stop Dose Admin Sodium Chloride 10 ml 09/06/17 11:28 09/06/17 11:47 Saline Flush FLUSH 10 ml ASDIRECTED PRN Administration Keep Vein Open Discontinued Medications Generic Name Dose Route Start Last Admin Trade Name Freq PRN Reason Stop Dose Admin Fentanyl 100 mcg 09/06/17 12:25 09/06/17 12:31 Sublimaze IVPUSH 09/06/17 12:26 100 mcg ONETIME ONE Administration Fentanyl 50 mcg 09/06/17 13:49 09/06/17 13:57 Sublimaze IVPUSH 09/06/17 13:50 50 mcg ONETIME ONE Administration Fentanyl 100 mcg 09/06/17 15:04 09/06/17 15:12 Sublimaze IVPUSH 09/06/17 15:05 100 mcg ONETIME ONE Administration Sodium Chloride 1,000 mls @ 999 mls/hr 09/06/17 11:29 09/06/17 11:46 Normal Saline IV 09/06/17 12:29 999 mls/hr .BOLUS ONE Administration Iopamidol 100 ml 09/06/17 12:33 09/06/17 12:48 Isovue-300 (61%) IVPUSH 09/06/17 12:34 100 ml ONETIME ONE Administration Morphine Sulfate 2 mg 09/06/17 11:29 09/06/17 11:48 Morphine IVPUSH 09/06/17 11:30 2 mg ONETIME ONE Administration Ondansetron HCl 4 mg 09/06/17 11:29 09/06/17 11:47 Zofran IV 09/06/17 11:30 4 mg ONETIME ONE Administration Ondansetron HCl 4 mg 09/06/17 13:48 09/06/17 13:57 Zofran IV 09/06/17 13:49 4 mg ONETIME ONE Administration - Radiology Interpretation Free Text/Narrative:: Abdomen pelvis CT: No acute new intraperitoneal abnormality. 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 See Rad report. Departure - Departure Time of Disposition: 15:42 Disposition: DC/[facility] to [facility] Condition: Poor Clinical Impression: Abdominal pain, Elevated lactic acid level Leukocytosis Qualifiers: Leukocytosis type: unspecified Qualified Code(s): D72.829 - Elevated white blood cell count, unspecified - Discharge Information Forms: ED Department Discharge, Interfacility Transfer EMTALA - My Orders Last 24 Hours: My Active Orders 09/06/17 11:28 Sodium Chloride 0.9% [Saline Flush] 10 ml FLUSH ASDIRECTED PRN Peripheral IV Insertion Adult [OM.PC] Stat 09/06/17 11:29 Peripheral IV Care [RC] . DIRECTED Blood Culture x2 Reflex Set [OM.PC] Stat 09/06/17 11:54 CULTURE BLOOD [BC] Stat 09/06/17 12:01 CULTURE BLOOD [BC] Stat - Assessment/Plan Last 24 Hours: My Active Orders 09/06/17 11:28 Sodium Chloride 0.9% [Saline Flush] 10 ml FLUSH ASDIRECTED PRN Peripheral IV Insertion Adult [OM.PC] Stat 09/06/17 11:29 Peripheral IV Care [RC] . DIRECTED Blood Culture x2 Reflex Set [OM.PC] Stat 09/06/17 11:54 CULTURE BLOOD [BC] Stat 09/06/17 12:01 CULTURE BLOOD [BC] Stat I have read and agree with the documentation that has been completed regarding this visit. By signing this record, I attest that the documentation was completed in my physical presence and is an accurate record of the encounter.
== END 2017-09-06 15:40 ==
LOC: DL.ED 11:21
DX: R10.9 Unspecified abdominal pain (principal); D72.829 Elevated white blood cell count, unspecified; R74.0 Nonspecific elevation of levels of transaminase and lactic acid dehydrogenase [LDH]; Z87.891 Personal history of nicotine dependence; Z90.49 Acquired absence of other specified parts of digestive tract
CPT/HCPCS: 36415; 74177; 80053; 80305; 81001; 82150; 83605; 83690; 85025; 87040; 96361; 96374; 96375; 96376; 99285; J2270; J2405; J3010; J7030; J7050; Q9967

== ENCOUNTER 2017-10-08 10:08 | Emergency (ER) | payer MEDICAID ==
[2017-10-08] MEDS ORDERED: Sodium Chloride 0.9% 1,000 ML IV ONE (10:12)
[2017-10-08] MEDS ORDERED: Ondansetron 4 MG/2 ML SDV IV ONE (10:12)
[2017-10-08 10:16] VITALS: BP 183/104
--- NOTE | 2017-10-08 10:35 | EDM.PDOC ---
ED HPI GENERAL MEDICAL PROBLEM - General Chief Complaint: Abdominal Pain Stated Complaint: IN BY AMBULANCE Time Seen by Provider: 10/08/17 10:30 Source of Information: Reports: Patient History Limitations: Reports: No Limitations - History of Present Illness INITIAL COMMENTS - FREE TEXT/NARRATIVE: This 37 yo male patient reports to the ED via [facility] with diffuse abdominal pain that started yesterday. The patient reports his pain is similar to symptoms last month. The patient reports he was sent to [facility] in [place] for some kind of obstruction. The patient reports he has not taken anything for his current symptoms. The patient reports he ran out of [employer] 2 days ago. The patient reports he has not been having normal bowel movements and has not been eating or drinking much. The patient reports he smoked some marijuana last week, but denies any other drug or ETOH use. Onset Date: 10/07/17 Duration: Constant, Getting Worse Location: Reports: Abdomen Quality: Reports: Ache, Sharp, Stabbing Severity: Severe Improves with: Reports: None Worsens with: Reports: None Associated Symptoms: Reports: No Other Symptoms Bilateral Abdomen Pain Score (Numeric/FACES): 10 - Related Data Allergies Allergy/AdvReac Type Severity Reaction Status Date / Time No Known Allergies Allergy Verified 10/08/17 10:13 Home Meds: Home Meds Acetaminophen/oxyCODONE [Percocet 325-5 MG] 2 tab PO Q6H PRN 05/10/17 [History] Past Medical History HEENT History: Reports: None Other HEENT History: WEARS CONTACT LENS Cardiovascular History: Reports: None Respiratory History: Reports: None Gastrointestinal History: Reports: Diverticulosis, Pancreatitis Genitourinary History: Reports: None Musculoskeletal History: Reports: None Neurological History: Reports: None Psychiatric History: Reports: Addiction Other Psychiatric History: HX OF CANNABIS ABUSE Endocrine/Metabolic History: Reports: None Hematologic History: Reports: None Immunologic History: Reports: None Oncologic (Cancer) History: Reports: None Dermatologic History: Reports: None - Infectious Disease History Infectious Disease History: Reports: None - Past Surgical History Head Surgeries/Procedures: Reports: None GI Surgical History: Reports: Appendectomy, Cholecystectomy, ERCP - History Comment History Comment: Marijuana hyperemesis syndrome Social & Family History - Family History Family Medical History: Noncontributory Other HEENT Family History: HX OF ABCESSED TEETH Oncologic: Reports: Other (See Below) Other Oncologic Family History: FATHER & PATERNAL GRANDFATHER CANCER - Tobacco Use Smoking Status *Q: Current Every Day Smoker Years of Tobacco use: 8 Packs/Tins Daily: 1 Used Tobacco, but Quit: Yes Month Tobacco Last Used: jul 2017 Second Hand Smoke Exposure: Yes - Caffeine Use Caffeine Use: Reports: Soda Other Caffeine Use: 1-2 'CANS' OF CAFFIENATED BEVERAGES - Alcohol Use Days Per Week of Alcohol Use: 5 Number of Drinks Per Day: 6 Total Drinks Per Week: 30 - Recreational Drug Use Recreational Drug Use: No Drug Use in Last 12 Months: Yes Recreational Drug Type: Reports: Marijuana/Hashish Other Recreational Drug Type: Pt states that he smoked Pot 2 days ago Recreational Drug Use Frequency: Binges Recreational Drug Last Use: pot - Living Situation & Occupation Living situation: Reports: with Family Occupation: Unemployed ED ROS GENERAL - Review of Systems Review Of Systems: ROS reveals no pertinent complaints other than HPI. ED EXAM, GI/ABD - Physical Exam Exam: See Below Exam Limited By: No Limitations General Appearance: Alert, WD/WN, Severe Distress, Thin Eyes: Bilateral: Normal Appearance, EOMI Ears: Normal External Exam Nose: Normal Inspection, Normal Mucosa, No Blood Throat/Mouth: Other (excoriations in posterior pharynx) Head: Atraumatic, Normocephalic Neck: Normal Inspection, Supple, Non-Tender, Full Range of Motion Respiratory/Chest: No Respiratory Distress, Lungs Clear, Normal Breath Sounds, No Accessory Muscle Use, Chest Non-Tender Cardiovascular: Normal Peripheral Pulses, Regular Rate, Rhythm, No Edema, No Gallop, No JVD, No Murmur, No Rub GI/Abdominal Exam: Guarding, Tender (diffuse tenderness) (Male) Exam: Deferred Rectal (Males) Exam: Deferred Back Exam: Normal Inspection, Full Range of Motion, NT Extremities: Normal Inspection, Normal Range of Motion, Non-Tender, Normal Capillary Refill, No Pedal Edema Neurological: Alert, Oriented, CN II-XII Intact Psychiatric: Anxious Skin Exam: Warm, Dry, Intact, Normal Color, No Rash Course - Vital Signs Last Recorded V/S: Last Vital Signs Temp 36.4 C 10/08/17 10:13 Pulse 70 10/08/17 10:13 Resp 20 10/08/17 10:13 BP 183/104 H 10/08/17 10:13 Pulse Ox 99 10/08/17 10:13 - Orders/Labs/Meds Orders: Active Orders 24 hr Category Date Time Status CULTURE BLOOD [BC] Stat Lab 10/08/17 10:36 Received CULTURE BLOOD [BC] Stat Lab 10/08/17 10:58 Received Lactated Ringers [Ringers, Lactated] 1,000 ml Med 10/08/17 12:30 Active IV ASDIRECTED Blood Culture x2 Reflex Set [OM.PC] Stat Oth 10/08/17 10:12 Ordered Medication Orders Lactated Ringer's (Ringers, Lactated) 1,000 mls @ 125 mls/hr IV ASDIRECTED JJ Last Admin: 10/08/17 13:09 Dose: 125 mls/hr Labs: Laboratory Tests 10/08/17 10/08/17 10/08/17 Range/Units 10:25 10:30 10:38 WBC 14.2 H (5.0-10.0) 10^3/uL RBC 5.84 (4.6-6.2) 10^6/uL Hgb 17.7 (14.0-18.0) g/dL Hct 50.3 (40.0-54.0) % MCV 86.1 (80-100) fL MCH 30.3 (27.0-34.0) pg MCHC 35.2 H (33.0-35.0) g/dL Plt Count 313 (150-450) 10^3/uL Neut % (Auto) 82.9 H (42.2-75.2) % Lymph % (Auto) 12.6 L (20.5-50.1) % [place] % (Auto) 3.9 (2-8) % Eos % (Auto) 0.3 L (1.0-3.0) % Baso % (Auto) 0.3 (0.0-1.0) % Sodium (135-145) mmol/L Potassium (3.6-5.0) mmol/L Chloride (101-111) mmol/L Carbon Dioxide (21.0-31.0) mmol/L Anion Gap BUN (7-18) mg/dL Creatinine (0.6-1.3) mg/dL Est Cr Clr Drug Dosing mL/min Estimated GFR (MDRD) BUN/Creatinine Ratio Glucose (74-105) mg/dL Lactic Acid (0.5-2.2) mmol/L Calcium (8.4-10.2) mg/dl Total Bilirubin (0.2-1.0) mg/dL AST (10-42) IU/L ALT (10-60) IU/L Alkaline Phosphatase (42-121) IU/L Total Protein (6.7-8.2) g/dl Albumin (3.2-5.5) g/dl Globulin Albumin/Globulin Ratio Amylase (28-100) U/L Lipase (22-51) U/L Urine Color Sera (YELLOW) Urine Appearance Slightly cloudy (CLEAR) Urine pH 8.5 (5.0-9.0) Ur Specific [place] 1.020 (1.005-1.030) Urine Protein >=300 H (NEGATIVE) Urine Glucose (UA) Negative (NEGATIVE) Urine Ketones >=160 H (NEGATIVE) Urine Occult Blood Negative (NEGATIVE) Urine Nitrite Negative (NEGATIVE) Urine Bilirubin Small H (NEGATIVE) Urine Urobilinogen 4.0 H (0.2-1.0) mg/dL Ur Leukocyte Esterase Negative (NEGATIVE) Urine RBC 0-5 /HPF Urine WBC 0-5 (0-5/HPF) /HPF Ur Epithelial Cells Moderate H /HPF Amorphous Sediment Many (0/HPF) /HPF Urine Bacteria Few (0-FEW/HPF) /HPF Urine Mucus Many H /LPF Salicylates Urine Opiates Screen Negative (NEGATIVE) Ur Oxycodone Screen Negative (NEGATIVE) Urine Methadone Screen Negative (NEGATIVE) Acetaminophen Ur Barbiturates Screen Negative (NEGATIVE) U Tricyclic Antidepress Negative (NEGATIVE) Ur Phencyclidine Scrn Negative (NEGATIVE) Ur Amphetamine Screen Negative (NEGATIVE) U Methamphetamines Scrn Negative (NEGATIVE) Urine MDMA Screen Negative (NEGATIVE) U Benzodiazepines Scrn Negative (NEGATIVE) Urine Cocaine Screen Negative (NEGATIVE) U Marijuana (THC) Screen Positive H (NEGATIVE) Ethyl Alcohol mg/dL 10/08/17 10/08/17 10/08/17 Range/Units 10:58 10:58 10:58 WBC (5.0-10.0) 10^3/uL RBC (4.6-6.2) 10^6/uL Hgb (14.0-18.0) g/dL Hct (40.0-54.0) % MCV (80-100) fL MCH (27.0-34.0) pg MCHC (33.0-35.0) g/dL Plt Count (150-450) 10^3/uL Neut % (Auto) (42.2-75.2) % Lymph % (Auto) (20.5-50.1) % [place] % (Auto) (2-8) % Eos % (Auto) (1.0-3.0) % Baso % (Auto) (0.0-1.0) % Sodium 139 (135-145) mmol/L Potassium 3.8 (3.6-5.0) mmol/L Chloride 102 (101-111) mmol/L Carbon Dioxide 24.0 (21.0-31.0) mmol/L Anion Gap 16.8 BUN 20 H (7-18) mg/dL Creatinine 1.0 (0.6-1.3) mg/dL Est Cr Clr Drug Dosing 109.93 mL/min Estimated GFR (MDRD) > 60 BUN/Creatinine Ratio 20.00 Glucose 116 H (74-105) mg/dL Lactic Acid 2.6 H (0.5-2.2) mmol/L Calcium 9.7 (8.4-10.2) mg/dl Total Bilirubin 1.1 H (0.2-1.0) mg/dL AST 36 (10-42) IU/L ALT 29 (10-60) IU/L Alkaline Phosphatase 81 (42-121) IU/L Total Protein 7.9 (6.7-8.2) g/dl Albumin 4.5 (3.2-5.5) g/dl Globulin 3.4 Albumin/Globulin Ratio 1.32 Amylase (28-100) U/L Lipase (22-51) U/L Urine Color (YELLOW) Urine Appearance (CLEAR) Urine pH (5.0-9.0) Ur Specific [place] (1.005-1.030) Urine Protein (NEGATIVE) Urine Glucose (UA) (NEGATIVE) Urine Ketones (NEGATIVE) Urine Occult Blood (NEGATIVE) Urine Nitrite (NEGATIVE) Urine Bilirubin (NEGATIVE) Urine Urobilinogen (0.2-1.0) mg/dL Ur Leukocyte Esterase (NEGATIVE) Urine RBC /HPF Urine WBC (0-5/HPF) /HPF Ur Epithelial Cells /HPF Amorphous Sediment (0/HPF) /HPF Urine Bacteria (0-FEW/HPF) /HPF Urine Mucus /LPF Salicylates < 4 Urine Opiates Screen (NEGATIVE) Ur Oxycodone Screen (NEGATIVE) Urine Methadone Screen (NEGATIVE) Acetaminophen < 10 Ur Barbiturates Screen (NEGATIVE) U Tricyclic Antidepress (NEGATIVE) Ur Phencyclidine Scrn (NEGATIVE) Ur Amphetamine Screen (NEGATIVE) U Methamphetamines Scrn (NEGATIVE) Urine MDMA Screen (NEGATIVE) U Benzodiazepines Scrn (NEGATIVE) Urine Cocaine Screen (NEGATIVE) U Marijuana (THC) Screen (NEGATIVE) Ethyl Alcohol < 5 mg/dL 10/08/17 10/08/17 Range/Units 10:58 10:58 WBC (5.0-10.0) 10^3/uL RBC (4.6-6.2) 10^6/uL Hgb (14.0-18.0) g/dL Hct (40.0-54.0) % MCV (80-100) fL MCH (27.0-34.0) pg MCHC (33.0-35.0) g/dL Plt Count (150-450) 10^3/uL Neut % (Auto) (42.2-75.2) % Lymph % (Auto) (20.5-50.1) % [place] % (Auto) (2-8) % Eos % (Auto) (1.0-3.0) % Baso % (Auto) (0.0-1.0) % Sodium (135-145) mmol/L Potassium (3.6-5.0) mmol/L Chloride (101-111) mmol/L Carbon Dioxide (21.0-31.0) mmol/L Anion Gap BUN (7-18) mg/dL Creatinine (0.6-1.3) mg/dL Est Cr Clr Drug Dosing mL/min Estimated GFR (MDRD) BUN/Creatinine Ratio Glucose (74-105) mg/dL Lactic Acid (0.5-2.2) mmol/L Calcium (8.4-10.2) mg/dl Total Bilirubin (0.2-1.0) mg/dL AST (10-42) IU/L ALT (10-60) IU/L Alkaline Phosphatase (42-121) IU/L Total Protein (6.7-8.2) g/dl Albumin (3.2-5.5) g/dl Globulin Albumin/Globulin Ratio Amylase 61 (28-100) U/L Lipase 14 L (22-51) U/L Urine Color (YELLOW) Urine Appearance (CLEAR) Urine pH (5.0-9.0) Ur Specific [place] (1.005-1.030) Urine Protein (NEGATIVE) Urine Glucose (UA) (NEGATIVE) Urine Ketones (NEGATIVE) Urine Occult Blood (NEGATIVE) Urine Nitrite (NEGATIVE) Urine Bilirubin (NEGATIVE) Urine Urobilinogen (0.2-1.0) mg/dL Ur Leukocyte Esterase (NEGATIVE) Urine RBC /HPF Urine WBC (0-5/HPF) /HPF Ur Epithelial Cells /HPF Amorphous Sediment (0/HPF) /HPF Urine Bacteria (0-FEW/HPF) /HPF Urine Mucus /LPF Salicylates Urine Opiates Screen (NEGATIVE) Ur Oxycodone Screen (NEGATIVE) Urine Methadone Screen (NEGATIVE) Acetaminophen Ur Barbiturates Screen (NEGATIVE) U Tricyclic Antidepress (NEGATIVE) Ur Phencyclidine Scrn (NEGATIVE) Ur Amphetamine Screen (NEGATIVE) U Methamphetamines Scrn (NEGATIVE) Urine MDMA Screen (NEGATIVE) U Benzodiazepines Scrn (NEGATIVE) Urine Cocaine Screen (NEGATIVE) U Marijuana (THC) Screen (NEGATIVE) Ethyl Alcohol mg/dL Meds: Medications Generic Name Dose Route Start Last Admin Trade Name Freq PRN Reason Stop Dose Admin Lactated Ringer's 1,000 mls @ 125 mls/hr 10/08/17 12:30 10/08/17 13:09 Ringers, Lactated IV 125 mls/hr ASDIRECTED JJ Administration Discontinued Medications Generic Name Dose Route Start Last Admin Trade Name Freq PRN Reason Stop Dose Admin Hydromorphone HCl 1 mg 10/08/17 10:59 10/08/17 11:06 Dilaudid IVPUSH 10/08/17 11:00 1 mg ONETIME ONE Administration Hydromorphone HCl 0.5 mg 10/08/17 11:32 10/08/17 11:50 Dilaudid IVPUSH 10/08/17 11:33 0.5 mg ONETIME ONE Administration Hydromorphone HCl 0.5 mg 10/08/17 12:54 10/08/17 13:08 Dilaudid IVPUSH 10/08/17 12:55 0.5 mg ONETIME ONE Administration Sodium Chloride 1,000 mls @ 999 mls/hr 10/08/17 10:12 10/08/17 10:36 Normal Saline IV 10/08/17 11:12 999 mls/hr .BOLUS ONE Administration Iopamidol 100 ml 10/08/17 11:34 10/08/17 12:04 Isovue-300 (61%) IVPUSH 10/08/17 11:35 100 ml ONETIME ONE Administration Ondansetron HCl 4 mg 10/08/17 10:12 10/08/17 10:36 Zofran IV 10/08/17 10:13 4 mg ONETIME ONE Administration Promethazine HCl 25 mg 10/08/17 12:51 10/08/17 13:08 Phenergan IM 10/08/17 12:52 25 mg ONETIME ONE Administration - Re-Assessments/Exams Free Text/Narrative Re-Assessment/Exam: 10/08/17 13:14 Discussed the history, examination, CT and lab results with Dr. Teran ( Pancreatologist with [facility] in [place]). Dr. Teran reviewed his previous testing, recommendations and current test results. Dr. Teran recommended that the patient follow-up with a primary care provider to get a referral to pain management for continued evaluation and further treatment of his regional pain syndrome. Dr. Teran believes that all pertinent testing has been done at this time. The patient should be started on a clear fluid and follow-up with his primary care facility for continued evaluation and management. Departure - Departure Time of Disposition: 13:53 Disposition: Home, Self-Care 01 Condition: Fair Clinical Impression: Gastroenteritis - Discharge Information Instructions: Viral Gastroenteritis, Adult, [id number], Abdominal Pain, Adult , [id number] Forms: ED Department Discharge Care Plan Goals: The patient was advised of the examination, lab and CT results during the visit. A consult with Dr. Teran (Pancreatic Specialist with [facility] in [place]) with a complete review of previous records from [facility] as well as review of current labs and CT results resulted in the recommendation to have the patient follow-up with his primary care facility for continued evaluation and further management. The patient was given IV fluids, medications for nausea and medications for pain while in the emergency department. The patient was discharged with a script for Minco () #2 to take 1 by mouth every 6 hours. If the patient has any additional symptoms or concerns, the patient should follow-up with his primary care facility or return to the emergency department. - My Orders Last 24 Hours: My Active Orders 10/08/17 10:12 Blood Culture x2 Reflex Set [OM.PC] Stat 10/08/17 10:36 CULTURE BLOOD [BC] Stat 10/08/17 10:58 CULTURE BLOOD [BC] Stat 10/08/17 12:30 Lactated Ringers [Ringers, Lactated] 1,000 ml IV ASDIRECTED - Assessment/Plan Last 24 Hours: My Active Orders 10/08/17 10:12 Blood Culture x2 Reflex Set [OM.PC] Stat 10/08/17 10:36 CULTURE BLOOD [BC] Stat 10/08/17 10:58 CULTURE BLOOD [BC] Stat 10/08/17 12:30 Lactated Ringers [Ringers, Lactated] 1,000 ml IV ASDIRECTED
[2017-10-08] MEDS ORDERED: HYDROmorphone 1 MG/ML Syringe IVPUSH ONE (10:59)
[2017-10-08 11:24] LABS: ACETAMINOPHEN < 10
[2017-10-08 11:26] LABS: CHLORIDE,CL 102 mmol/L (101-111); SODIUM,NA 139 mmol/L (135-145)
[2017-10-08] MEDS ORDERED: HYDROmorphone 0.5 MG/0.5 ML Syringe IVPUSH ONE ×2 (11:32→12:54)
[2017-10-08] MEDS ORDERED: Iopamidol 612 MG/ML 100 ML Bottle IVPUSH ONE (11:34)
--- NOTE | 2017-10-08 12:07 | CT ---
Clinical history: 37-year-old
[2017-10-08] MEDS ORDERED: Lactated Ringers 1,000 ML IV SCH (12:30)
[2017-10-08] MEDS ORDERED: Promethazine 25 MG/ML SDV IM ONE (12:51)
== END 2017-10-08 14:04 | disposition home or self-care (01) ==
LOC: DL.ED 10:08
DX: K52.9 Noninfective gastroenteritis and colitis, unspecified (principal); F17.210 Nicotine dependence, cigarettes, uncomplicated; Z90.49 Acquired absence of other specified parts of digestive tract
CPT/HCPCS: 36415; 74177; 80053; 80305; 81001; 82150; 83605; 83690; 85025; 87040; 96361; 96372; 96374; 96375; 96376; 99285; G0480; J1170; J2405; J2550; J7030; J7120; Q9967

== ENCOUNTER 2017-12-26 14:34 | Emergency (ER) | payer MEDICAID ==
[2017-12-26] MEDS ORDERED: Sodium Chloride 0.9% 10 ML Syringe FLUSH PRN (14:35)
--- NOTE | 2017-12-26 14:35 | EDM.PDOC ---
ED HPI GENERAL MEDICAL PROBLEM - General Chief Complaint: Abdominal Pain Stated Complaint: ABDOMINAL PAIN Time Seen by Provider: 12/26/17 14:35 Source of Information: Reports: Patient, EMS, Old Records, RN, RN Notes Reviewed History Limitations: Reports: No Limitations - History of Present Illness INITIAL COMMENTS - FREE TEXT/NARRATIVE: Pt reports onset of generalized mid-abdominal pain from suprapubic region through periumbilical region to the epigastric abdomen. Pt states the pain aches into the low back as well. Admits to chills associated with nausea, vomiting, and dry heaves. Denies diarrhea, constipation, or urinary Sx's. Denies fevers. Pt states he last ate a sandwich from a cafe about 1.5 hours before the onset of Sx's. 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 Onset: Today Duration: Constant Location: Reports: Abdomen Quality: Reports: Ache, Same as Previous Episode, Sharp, Other (cramping) Severity: Severe Improves with: Reports: None Worsens with: Reports: None Associated Symptoms: Reports: No Other Symptoms Bilateral Lower Abdominal Pain Score (Numeric/FACES): 10 - Related Data Allergies Allergy/AdvReac Type Severity Reaction Status Date / Time No Known Allergies Allergy Verified 12/26/17 15:54 Home Meds: Home Meds Acetaminophen/oxyCODONE [Percocet 325-5 MG] 2 tab PO Q6H PRN 05/10/17 [History] Past Medical History HEENT History: Reports: None Other HEENT History: WEARS CONTACT LENS Cardiovascular History: Reports: None Respiratory History: Reports: None Gastrointestinal History: Reports: Diverticulosis, Pancreatitis Genitourinary History: Reports: None Musculoskeletal History: Reports: None Neurological History: Reports: None Psychiatric History: Reports: Addiction Other Psychiatric History: HX OF CANNABIS ABUSE Endocrine/Metabolic History: Reports: None Hematologic History: Reports: None Immunologic History: Reports: None Oncologic (Cancer) History: Reports: None Dermatologic History: Reports: None - Infectious Disease History Infectious Disease History: Reports: None - Past Surgical History Head Surgeries/Procedures: Reports: None GI Surgical History: Reports: Appendectomy, Cholecystectomy, ERCP - History Comment History Comment: Marijuana hyperemesis syndrome Social & Family History - Family History Family Medical History: Noncontributory Other HEENT Family History: HX OF ABCESSED TEETH Oncologic: Reports: Other (See Below) Other Oncologic Family History: FATHER & PATERNAL GRANDFATHER CANCER - Tobacco Use Smoking Status *Q: Current Every Day Smoker Tobacco Use Within Last Twelve Months: Cigarettes Years of Tobacco use: 20 Second Hand Smoke Exposure: Yes - Caffeine Use Caffeine Use: Reports: Soda Other Caffeine Use: 1-2 'CANS' OF CAFFIENATED BEVERAGES - Alcohol Use Alcohol Use History: Yes Alcohol Use Frequency: Binges, Rarely - Recreational Drug Use Recreational Drug Use: Yes Recreational Drug Type: Reports: Marijuana/Hashish Recreational Drug Use Frequency: Patient Refuses To Answer - Living Situation & Occupation Living situation: Reports: with Family Occupation: Unemployed ED ROS GENERAL - Review of Systems Review Of Systems: ROS reveals no pertinent complaints other than HPI. ED EXAM, GI/ABD - Physical Exam Exam: See Below Exam Limited By: No Limitations General Appearance: Alert, Anxious, Active Emesis Eyes: Bilateral: Normal Appearance (no scleral icterus), EOMI Ears: Normal External Exam, Normal Canal, Hearing Grossly Normal, Normal TMs Nose: Normal Inspection, Normal Mucosa, No Blood Throat/Mouth: Normal Oropharynx, Normal Voice, No Airway Compromise, Other (dry oral membranes). No: Normal Teeth Head: Atraumatic, Normocephalic Neck: Normal Inspection, Supple, Non-Tender, Full Range of Motion. No: Lymphadenopathy (L), Lymphadenopathy (R) Respiratory/Chest: No Respiratory Distress, Lungs Clear, Normal Breath Sounds, No Accessory Muscle Use, Chest Non-Tender Cardiovascular: Regular Rate, Rhythm, No Edema, Bradycardia GI/Abdominal Exam: Soft, No Distention, No Abnormal Bruit, Tender (generalized tenderness to upper abdomen and periumbilcial region, no RLQ tenderness or peritoneal signs), Abnormal Bowel Sounds (slightly hyperactive bowel sounds). No: Guarding, Rigid, Rebound (Male) Exam: Deferred Rectal (Males) Exam: Deferred Back Exam: Normal Inspection, Full Range of Motion. No: CVA Tenderness (L), CVA Tenderness (R) Extremities: Normal Inspection, Normal Range of Motion, Non-Tender, Normal Capillary Refill, No Pedal Edema Neurological: Alert, Oriented, CN II-XII Intact, Normal Cognition, No Motor/ Sensory Deficits Psychiatric: Anxious Skin Exam: Warm, Dry, Intact, Normal Color, No Rash EKG INTERPRETATION EKG Date: 12/26/17 Time: 15:13 Rhythm: Other (sinus bradycardia) Rate (Beats/Min): 48 [place]: Normal P-Wave: Present QRS: Normal ST-T: Normal QT: Normal Course - Vital Signs Last Recorded V/S: Last Vital Signs Temp 36.5 C 12/26/17 14:41 Pulse 46 L 12/26/17 14:41 Resp 17 12/26/17 14:41 BP 224/127 H 12/26/17 14:41 Pulse Ox 100 12/26/17 14:41 - Orders/Labs/Meds Orders: Active Orders 24 hr Category Date Time Status EKG 12 Lead [EKG Documentation Completion] [] STAT Care 12/26/17 15:06 Active Peripheral IV Care [] . DIRECTED Care 12/26/17 14:36 Active DRUG SCREEN URINE BIORAD [URCHEM] Stat Lab 12/26/17 18:15 Ordered UA W/MICROSCOPIC [URIN] Stat Lab 12/26/17 18:15 Ordered Sodium Chloride 0.9% [Saline Flush] Med 12/26/17 14:35 Active 10 ml FLUSH ASDIRECTED PRN Peripheral IV Insertion Adult [OM.PC] Stat Oth 12/26/17 14:36 Ordered Medication Orders Sodium Chloride (Saline Flush) 10 ml FLUSH ASDIRECTED PRN PRN Reason: Keep Vein Open Last Admin: 12/26/17 14:58 Dose: 10 ml Labs: Laboratory Tests 12/26/17 12/26/17 12/26/17 Range/Units 14:48 14:48 14:48 WBC 10.6 H (5.0-10.0) 10^3/uL RBC 5.11 (4.6-6.2) 10^6/uL Hgb 15.6 D (14.0-18.0) g/dL Hct 44.9 (40.0-54.0) % MCV 87.9 (80-100) fL MCH 30.5 (27.0-34.0) pg MCHC 34.7 (33.0-35.0) g/dL Plt Count 268 (150-450) 10^3/uL Neut % (Auto) 70.5 (42.2-75.2) % Lymph % (Auto) 20.7 (20.5-50.1) % [place] % (Auto) 6.8 (2-8) % Eos % (Auto) 1.7 (1.0-3.0) % Baso % (Auto) 0.3 (0.0-1.0) % Sodium 138 (135-145) mmol/L Potassium 3.2 L (3.6-5.0) mmol/L Chloride 101 (101-111) mmol/L Carbon Dioxide 28.0 (21.0-31.0) mmol/L Anion Gap 12.2 BUN 15 (7-18) mg/dL Creatinine 0.9 (0.6-1.3) mg/dL Est Cr Clr Drug Dosing TNP Estimated GFR (MDRD) > 60 BUN/Creatinine Ratio 16.66 Glucose 100 (74-105) mg/dL Calcium 9.2 (8.4-10.2) mg/dl Total Bilirubin 0.9 (0.2-1.0) mg/dL AST 30 (10-42) IU/L ALT 26 (10-60) IU/L Alkaline Phosphatase 81 (42-121) IU/L Troponin I < 0.02 (0.00-0.02) ng/ml Total Protein 7.5 (6.7-8.2) g/dl Albumin 4.3 (3.2-5.5) g/dl Globulin 3.2 Albumin/Globulin Ratio 1.34 Amylase 65 (28-100) U/L Lipase 24 (22-51) U/L Ethyl Alcohol < 5 mg/dL Meds: Medications Generic Name Dose Route Start Last Admin Trade Name Freq PRN Reason Stop Dose Admin Sodium Chloride 10 ml 12/26/17 14:35 12/26/17 14:58 Saline Flush FLUSH 10 ml ASDIRECTED PRN Administration Keep Vein Open Discontinued Medications Generic Name Dose Route Start Last Admin Trade Name Freq PRN Reason Stop Dose Admin Capsaicin 5 gm 12/26/17 18:03 Zostrix 0.025% Crm TOP 12/26/17 18:04 ONETIME ONE Diphenhydramine HCl 25 mg 12/26/17 14:36 12/26/17 14:57 Benadryl IVPUSH 12/26/17 14:37 25 mg ONETIME ONE Administration Flumazenil 0.2 mg 12/26/17 17:47 12/26/17 17:53 Romazicon IVPUSH 12/26/17 17:48 0.2 mg ONETIME ONE Administration Sodium Chloride 1,000 mls @ 999 mls/hr 12/26/17 14:36 12/26/17 14:53 Normal Saline IV 12/26/17 15:36 999 mls/hr .BOLUS ONE Administration Lorazepam 2 mg 12/26/17 14:36 12/26/17 14:58 Ativan IVPUSH 12/26/17 14:37 2 mg ONETIME ONE Administration Metoclopramide HCl 10 mg 12/26/17 14:37 12/26/17 14:58 Reglan IVPUSH 12/26/17 14:38 10 mg ONETIME ONE Administration Morphine Sulfate 5 mg 12/26/17 18:01 12/26/17 18:11 Morphine IVPUSH 12/26/17 18:02 5 mg ONETIME ONE Administration Pantoprazole Sodium 40 mg 12/26/17 14:38 12/26/17 14:57 Protonix Iv IVPUSH 12/26/17 14:39 40 mg ONETIME ONE Administration - Re-Assessments/Exams Free Text/Narrative Re-Assessment/Exam: 12/26/17 18:19 Pt uncooperative during ER stay, refused to provide urine specimen and urinated in his pants. Departure - Departure Time of Disposition: 18:20 Disposition: Home, Self-Care 01 Condition: Good Clinical Impression: Cannabinoid hyperemesis syndrome Abdominal pain Qualifiers: Abdominal location: generalized Qualified Code(s): R10.84 - Generalized abdominal pain - Discharge Information Instructions: Abdominal Pain, Adult, [id number], Cannabis Use Disorder Forms: ED Department Discharge Additional Instructions: Rx: Promethazine 25mg *Do not drive while under the influence of this medication. Rx: Dicyclomine 20mg *Do not drive while under the influence of this medication. Abstain from marijuana use to avoid abdominal pain and vomiting. Follow up in clinic if not improving as expected. - My Orders Last 24 Hours: My Active Orders 12/26/17 14:35 Sodium Chloride 0.9% [Saline Flush] 10 ml FLUSH ASDIRECTED PRN 12/26/17 14:36 Peripheral IV Care [RC] . DIRECTED Peripheral IV Insertion Adult [OM.PC] Stat 12/26/17 15:06 EKG 12 Lead [EKG Documentation Completion] [RC] STAT 12/26/17 18:15 DRUG SCREEN URINE BIORAD [URCHEM] Stat UA W/MICROSCOPIC [URIN] Stat - Assessment/Plan Last 24 Hours: My Active Orders 12/26/17 14:35 Sodium Chloride 0.9% [Saline Flush] 10 ml FLUSH ASDIRECTED PRN 12/26/17 14:36 Peripheral IV Care [RC] . DIRECTED Peripheral IV Insertion Adult [OM.PC] Stat 12/26/17 15:06 EKG 12 Lead [EKG Documentation Completion] [] STAT 12/26/17 18:15 DRUG SCREEN URINE BIORAD [URCHEM] Stat UA W/MICROSCOPIC [URIN] Stat
[2017-12-26] MEDS ORDERED: LORazepam 2 MG/ML Syringe IVPUSH ONE (14:36)
[2017-12-26] MEDS ORDERED: Sodium Chloride 0.9% 1,000 ML IV ONE (14:36)
[2017-12-26] MEDS ORDERED: diphenhydrAMINE 50 MG/ML SDV IVPUSH ONE (14:36)
[2017-12-26] MEDS ORDERED: Metoclopramide 10 MG/2 ML SDV IVPUSH ONE (14:37)
[2017-12-26] MEDS ORDERED: Pantoprazole 40 MG Vial IVPUSH ONE (14:38)
[2017-12-26 14:42] VITALS: BP 224/127
[2017-12-26 15:15] LABS: CHLORIDE,CL 101 mmol/L (101-111); SODIUM,NA 138 mmol/L (135-145)
[2017-12-26] MEDS ORDERED: Flumazenil 0.1 MG/ML 5 ML MDV IVPUSH ONE (17:47)
[2017-12-26] MEDS ORDERED: Morphine 10 MG/ML Syringe IVPUSH ONE ×2 (18:01→18:55)
[2017-12-26] MEDS ORDERED: Capsaicin 0.025% Crm 60 GM Tube TOP ONE (18:03)
--- NOTE | 2017-12-28 13:05 | EKG ---
12/26/2017 - KAL ODEN - FINDINGS: A 12-lead EKG shows normal sinus rhythm with sinus bradycardia with heart rate of 48. No significant ST elevation or ST depression noted on this 12- lead EKG. Nonspecific ST-T wave changes noted on leads V2, V3, V4, and V5. [facility] /[id number]
== END 2017-12-26 19:21 | disposition home or self-care (01) ==
LOC: DL.ED 14:34
DX: R10.84 Generalized abdominal pain (principal); F17.210 Nicotine dependence, cigarettes, uncomplicated
CPT/HCPCS: 36415; 80053; 80305; 81001; 82150; 83690; 84484; 85025; 93005; 96361; 96374; 96375; 99284; C9113; G0480; J1200; J2060; J2270; J2765; J7030; J7050; J3490

== ENCOUNTER 2017-12-29 06:53 | Emergency (ER) | payer MEDICAID ==
[2017-12-29] MEDS ORDERED: Morphine 2 MG/ML Syringe IVPUSH ONE (07:19)
[2017-12-29] MEDS ORDERED: Metoclopramide 10 MG/2 ML SDV IVPUSH ONE (07:20)
--- NOTE | 2017-12-29 07:22 | EDM.PDOC ---
ED HPI GENERAL MEDICAL PROBLEM - General Chief Complaint: Abdominal Pain Stated Complaint: IN BY AMBULANCE STOMACH PAIN Time Seen by Provider: 12/29/17 07:10 Source of Information: Reports: Patient, EMS, EMS Notes Reviewed, RN, RN Notes Reviewed History Limitations: Reports: No Limitations - History of Present Illness INITIAL COMMENTS - FREE TEXT/NARRATIVE: Pt presents to the ER with c/o severe abdominal pain, nausea and vomiting. Patient states he was seen in the ER a few days ago for the same thing and the pain has been on and off since last evening. Patient admits to chills, denies fevers, chest pains, SOB. When asked where the pain is, the patient points to RUQ, RLQ, rates the pain 10/10. Patient denies alcohol use. He states he has not been able to eat for the past few days and has only consumed water and soda. Patient states last BM was yesterday and was loose. Onset: Gradual Onset Date: 12/26/17 Duration: Getting Worse Location: Reports: Abdomen Quality: Reports: Sharp, Stabbing Severity: Severe Improves with: Reports: None Worsens with: Reports: None Associated Symptoms: Reports: Fever/Chills, Nausea/Vomiting Middle Abdomen Pain Score (Numeric/FACES): 9 - Related Data Allergies Allergy/AdvReac Type Severity Reaction Status Date / Time No Known Allergies Allergy Verified 12/26/17 15:54 Home Meds: Home Meds Acetaminophen/oxyCODONE [Percocet 325-5 MG] 2 tab PO Q6H PRN 05/10/17 [History] Past Medical History HEENT History: Reports: Other (See Below) Other HEENT History: WEARS CONTACT LENS Cardiovascular History: Reports: None Respiratory History: Reports: None Gastrointestinal History: Reports: Diverticulosis, Pancreatitis Genitourinary History: Reports: None Musculoskeletal History: Reports: None Neurological History: Reports: None Psychiatric History: Reports: Addiction, Other (See Below) Other Psychiatric History: HX OF CANNABIS ABUSE Endocrine/Metabolic History: Reports: None Hematologic History: Reports: None Immunologic History: Reports: None Oncologic (Cancer) History: Reports: None Dermatologic History: Reports: None - Infectious Disease History Infectious Disease History: Reports: None - Past Surgical History Head Surgeries/Procedures: Reports: None GI Surgical History: Reports: Appendectomy, Cholecystectomy, ERCP - History Comment History Comment: Marijuana hyperemesis syndrome Social & Family History - Family History Family Medical History: Noncontributory Other HEENT Family History: HX OF ABCESSED TEETH Oncologic: Reports: Other (See Below) Other Oncologic Family History: FATHER & PATERNAL GRANDFATHER CANCER - Tobacco Use Smoking Status *Q: Current Status Unknown - Caffeine Use Caffeine Use: Reports: None Other Caffeine Use: 1-2 'CANS' OF CAFFIENATED BEVERAGES - Recreational Drug Use Recreational Drug Use: No - Living Situation & Occupation Living situation: Reports: with Family Occupation: Unemployed ED ROS GENERAL - Review of Systems Review Of Systems: ROS reveals no pertinent complaints other than HPI. ED EXAM, GI/ABD - Physical Exam Exam: See Below Exam Limited By: No Limitations General Appearance: Alert, WD/WN, Moderate Distress Eyes: Bilateral: Normal Appearance, EOMI Ears: Normal External Exam, Hearing Grossly Normal Nose: Normal Inspection Throat/Mouth: Normal Inspection, Normal Voice, No Airway Compromise Head: Atraumatic, Normocephalic Neck: Normal Inspection, Supple, Non-Tender, Full Range of Motion Respiratory/Chest: No Respiratory Distress, Lungs Clear, Normal Breath Sounds, No Accessory Muscle Use, Chest Non-Tender Cardiovascular: Normal Peripheral Pulses, Regular Rate, Rhythm, No Edema, No Gallop, No JVD, No Murmur, No Rub GI/Abdominal Exam: Soft, No Organomegaly, No Distention, No Abnormal Bruit, No Mass, Pelvis Stable, Guarding, Tender (RUQ, RLQ), Abnormal Bowel Sounds ( hypoactive) (Male) Exam: Deferred Rectal (Males) Exam: Deferred Back Exam: Normal Inspection, Full Range of Motion Extremities: Normal Inspection, Normal Range of Motion, Non-Tender, Normal Capillary Refill, No Pedal Edema Neurological: Alert, Oriented, CN II-XII Intact, Normal Cognition, Normal Gait, Normal Reflexes, No Motor/Sensory Deficits Psychiatric: Anxious, Tearful Skin Exam: Warm, Dry, Intact, Normal Color, No Rash Lymphatic: No Adenopathy Course - Vital Signs Last Recorded V/S: Last Vital Signs Temp 97.8 F 12/29/17 06:53 Pulse 50 L 12/29/17 06:53 Resp 20 12/29/17 06:53 BP 188/101 H 12/29/17 08:05 Pulse Ox 100 12/29/17 06:53 - Orders/Labs/Meds Orders: Active Orders 24 hr Category Date Time Status DRUG SCREEN URINE BIORAD [URCHEM] Stat Lab 12/29/17 07:52 Ordered UA W/MICROSCOPIC [URIN] Stat Lab 12/29/17 07:52 Ordered Morphine Med 12/29/17 09:01 Once 2 mg IVPUSH ONETIME ONE Labs: Laboratory Tests 12/29/17 12/29/17 12/29/17 Range/Units 07:34 07:34 07:52 WBC 13.2 H (5.0-10.0) 10^3/uL RBC 5.62 (4.6-6.2) 10^6/uL Hgb 17.0 (14.0-18.0) g/dL Hct 48.1 (40.0-54.0) % MCV 85.6 (80-100) fL MCH 30.2 (27.0-34.0) pg MCHC 35.3 H (33.0-35.0) g/dL Plt Count 324 (150-450) 10^3/uL Neut % (Auto) 68.9 (42.2-75.2) % Lymph % (Auto) 20.4 L (20.5-50.1) % [facility] % (Auto) 8.2 H (2-8) % Eos % (Auto) 2.1 (1.0-3.0) % Baso % (Auto) 0.4 (0.0-1.0) % Sodium 135 (135-145) mmol/L Potassium 3.2 L (3.6-5.0) mmol/L Chloride 98 L (101-111) mmol/L Carbon Dioxide 28.0 (21.0-31.0) mmol/L Anion Gap 12.2 BUN 26 H (7-18) mg/dL Creatinine 1.1 (0.6-1.3) mg/dL Est Cr Clr Drug Dosing 99.94 mL/min Estimated GFR (MDRD) > 60 BUN/Creatinine Ratio 23.63 Glucose 103 (74-105) mg/dL Calcium 9.6 (8.4-10.2) mg/dl Total Bilirubin 1.5 H (0.2-1.0) mg/dL AST 26 (10-42) IU/L ALT 23 (10-60) IU/L Alkaline Phosphatase 88 (42-121) IU/L Total Protein 8.3 H (6.7-8.2) g/dl Albumin 4.6 (3.2-5.5) g/dl Globulin 3.7 Albumin/Globulin Ratio 1.24 Amylase 52 (28-100) U/L Lipase 22 (22-51) U/L Urine Color Yellow (YELLOW) Urine Appearance Cloudy (CLEAR) Urine pH 6.5 (5.0-9.0) Ur Specific [place] 1.025 (1.005-1.030) Urine Protein 30 H (NEGATIVE) Urine Glucose (UA) Negative (NEGATIVE) Urine Ketones 40 H (NEGATIVE) Urine Occult Blood Negative (NEGATIVE) Urine Nitrite Negative (NEGATIVE) Urine Bilirubin Moderate H (NEGATIVE) Urine Urobilinogen 4.0 H (0.2-1.0) mg/dL Ur Leukocyte Esterase Negative (NEGATIVE) Urine RBC 0-5 /HPF Urine WBC 0-5 (0-5/HPF) /HPF Ur Epithelial Cells Few /HPF Amorphous Sediment Few (0/HPF) /HPF Urine Bacteria Rare (0-FEW/HPF) /HPF Hyaline Casts Rare H /LPF Urine Mucus Many H /LPF Urine Opiates Screen (NEGATIVE) Ur Oxycodone Screen (NEGATIVE) Urine Methadone Screen (NEGATIVE) Ur Barbiturates Screen (NEGATIVE) U Tricyclic Antidepress (NEGATIVE) Ur Phencyclidine Scrn (NEGATIVE) Ur Amphetamine Screen (NEGATIVE) U Methamphetamines Scrn (NEGATIVE) Urine MDMA Screen (NEGATIVE) U Benzodiazepines Scrn (NEGATIVE) Urine Cocaine Screen (NEGATIVE) U Marijuana (THC) Screen (NEGATIVE) Ethyl Alcohol < 5 mg/dL 12/29/17 Range/Units 07:52 WBC (5.0-10.0) 10^3/uL RBC (4.6-6.2) 10^6/uL Hgb (14.0-18.0) g/dL Hct (40.0-54.0) % MCV (80-100) fL MCH (27.0-34.0) pg MCHC (33.0-35.0) g/dL Plt Count (150-450) 10^3/uL Neut % (Auto) (42.2-75.2) % Lymph % (Auto) (20.5-50.1) % [place] % (Auto) (2-8) % Eos % (Auto) (1.0-3.0) % Baso % (Auto) (0.0-1.0) % Sodium (135-145) mmol/L Potassium (3.6-5.0) mmol/L Chloride (101-111) mmol/L Carbon Dioxide (21.0-31.0) mmol/L Anion Gap BUN (7-18) mg/dL Creatinine (0.6-1.3) mg/dL Est Cr Clr Drug Dosing mL/min Estimated GFR (MDRD) BUN/Creatinine Ratio Glucose (74-105) mg/dL Calcium (8.4-10.2) mg/dl Total Bilirubin (0.2-1.0) mg/dL AST (10-42) IU/L ALT (10-60) IU/L Alkaline Phosphatase (42-121) IU/L Total Protein (6.7-8.2) g/dl Albumin (3.2-5.5) g/dl Globulin Albumin/Globulin Ratio Amylase (28-100) U/L Lipase (22-51) U/L Urine Color (YELLOW) Urine Appearance (CLEAR) Urine pH (5.0-9.0) Ur Specific [place] (1.005-1.030) Urine Protein (NEGATIVE) Urine Glucose (UA) (NEGATIVE) Urine Ketones (NEGATIVE) Urine Occult Blood (NEGATIVE) Urine Nitrite (NEGATIVE) Urine Bilirubin (NEGATIVE) Urine Urobilinogen (0.2-1.0) mg/dL Ur Leukocyte Esterase (NEGATIVE) Urine RBC /HPF Urine WBC (0-5/HPF) /HPF Ur Epithelial Cells /HPF Amorphous Sediment (0/HPF) /HPF Urine Bacteria (0-FEW/HPF) /HPF Hyaline Casts /LPF Urine Mucus /LPF Urine Opiates Screen Negative (NEGATIVE) Ur Oxycodone Screen Negative (NEGATIVE) Urine Methadone Screen Negative (NEGATIVE) Ur Barbiturates Screen Negative (NEGATIVE) U Tricyclic Antidepress Negative (NEGATIVE) Ur Phencyclidine Scrn Negative (NEGATIVE) Ur Amphetamine Screen Positive H (NEGATIVE) U Methamphetamines Scrn Positive H (NEGATIVE) Urine MDMA Screen Negative (NEGATIVE) U Benzodiazepines Scrn Negative (NEGATIVE) Urine Cocaine Screen Negative (NEGATIVE) U Marijuana (THC) Screen Positive H (NEGATIVE) Ethyl Alcohol mg/dL Meds: Medications Discontinued Medications Generic Name Dose Route Start Last Admin Trade Name Freq PRN Reason Stop Dose Admin Fentanyl 50 mcg 12/29/17 07:53 12/29/17 08:02 Sublimaze IVPUSH 12/29/17 07:54 50 mcg ONETIME ONE Administration Ketorolac Tromethamine 30 mg 12/29/17 07:25 12/29/17 07:31 Toradol IVPUSH 12/29/17 07:26 30 mg ONETIME ONE Administration Metoclopramide HCl 10 mg 12/29/17 07:20 12/29/17 07:27 Reglan IVPUSH 12/29/17 07:21 10 mg ONETIME ONE Administration Morphine Sulfate 2 mg 12/29/17 07:19 12/29/17 07:28 Morphine IVPUSH 12/29/17 07:20 Not Given ONETIME ONE Departure - Departure Time of Disposition: 09:03 Disposition: Home, Self-Care 01 Condition: Fair Clinical Impression: Cannabinoid hyperemesis syndrome - Discharge Information Instructions: Nausea and Vomiting, Adult, [id number], Abdominal Pain, Adult, [id number] Forms: ED Department Discharge Additional Instructions: Follow up with your primary care facility Refrain from use of marijuana Take medications as prescribed - My Orders Last 24 Hours: My Active Orders 12/29/17 07:52 DRUG SCREEN URINE BIORAD [URCHEM] Stat UA W/MICROSCOPIC [URIN] Stat 12/29/17 09:01 Morphine 2 mg IVPUSH ONETIME ONE - Assessment/Plan Last 24 Hours: My Active Orders 12/29/17 07:52 DRUG SCREEN URINE BIORAD [URCHEM] Stat UA W/MICROSCOPIC [URIN] Stat 12/29/17 09:01 Morphine 2 mg IVPUSH ONETIME ONE
[2017-12-29] MEDS ORDERED: Ketorolac 30 MG/ML SDV IVPUSH ONE (07:25)
[2017-12-29] MEDS ORDERED: fentaNYL 100 MCG/2 ML SDV IVPUSH ONE (07:53)
[2017-12-29 08:00] LABS: CHLORIDE,CL 98 mmol/L (101-111); SODIUM,NA 135 mmol/L (135-145)
[2017-12-29] MEDS ORDERED: Morphine 4 MG/ML Syringe IVPUSH ONE (09:01)
[2017-12-29] MEDS ORDERED: Ondansetron 4 MG Tab.DIS PO ONE (09:05)
[2017-12-29 09:49] VITALS: BP 186/118
== END 2017-12-29 10:05 | disposition home or self-care (01) ==
LOC: DL.ED 06:53
DX: F12.288 Cannabis dependence with other cannabis-induced disorder (principal); R11.10 Vomiting, unspecified
CPT/HCPCS: 36415; 80053; 80305; 81001; 82150; 83690; 85025; 96374; 96375; 96376; 99284; A9270; G0480; J1885; J2270; J2765; J3010

== ENCOUNTER 2018-04-04 09:00 | Emergency (ER) | payer MEDICAID ==
[~2018-04-04 09:00] MED LIST changes: -Bupivacaine 0.5% 10 ML SDV ONE; +HYDROmorphone 0.5 MG/0.5 ML Syringe IVPUSH ONE; -Lactated Ringers 1,000 ML IV SCH; -Lidocaine 1% 30 ML SDV ONE; +Metoclopramide 10 MG/2 ML SDV IVPUSH ONE; +Sodium Chloride 0.9% 1,000 ML IV ONE; -Sodium Chloride 0.9% 10 ML Syringe FLUSH PRN
[2018-04-04] MEDS ORDERED: Haloperidol Lactate 5 MG/ML SDV IVPUSH ONE (09:30)
[2018-04-04 09:46] LABS: ANION GAP 15.6; CHLORIDE,CL 106 mmol/L (101-111); SODIUM,NA 141 mmol/L (135-145)
--- NOTE | 2018-04-04 10:23 | EDM.PDOC ---
ED HPI GENERAL MEDICAL PROBLEM - General Chief Complaint: Abdominal Pain Stated Complaint: AMBULANCE / PANCREATITUS Time Seen by Provider: 04/04/18 09:27 Source of Information: Reports: Patient, EMS, EMS Notes Reviewed, RN, RN Notes Reviewed History Limitations: Reports: No Limitations - History of Present Illness INITIAL COMMENTS - FREE TEXT/NARRATIVE: Pt to Er per [facility] with c/o severe abdominal pain. Pt states the pain began last night. States pain getting worse. Admits to nausea, vomiting, and chills. Denies fever. Denies alcohol, admits to marijuana. Onset: Sudden Onset Date: 04/03/18 Duration: Constant Location: Reports: Abdomen Abdomen Pain Score (Numeric/FACES): 10 - Related Data Allergies Allergy/AdvReac Type Severity Reaction Status Date / Time No Known Allergies Allergy Verified 04/04/18 10:08 Home Meds: Home Meds Acetaminophen/oxyCODONE [Percocet 325-5 MG] 2 tab PO Q6H PRN 05/10/17 [History] Acetaminophen [Acetaminophen Extra Strength] 500 mg PO DAILY 02/12/18 [History] Aluminum Chloride [Drysol] 1 applic TOP ASDIRECTED 02/12/18 [History] Clotrimazole [Clotrimazole 1%] 1 applic TOP ASDIRECTED PRN 02/12/18 [History] Diclofenac Sodium [Voltaren] 75 mg PO ASDIRECTED PRN 02/12/18 [History] Gabapentin [Neurontin] 300 mg PO DAILY 02/12/18 [History] Ibuprofen 200 mg PO ASDIRECTED PRN 02/12/18 [History] Omeprazole 20 mg PO DAILY 02/12/18 [History] Past Medical History HEENT History: Reports: Other (See Below) Other HEENT History: WEARS CONTACT LENS Cardiovascular History: Reports: None Respiratory History: Reports: None Gastrointestinal History: Reports: Diverticulosis, Pancreatitis Genitourinary History: Reports: None Musculoskeletal History: Reports: None Neurological History: Reports: None Psychiatric History: Reports: Addiction, Other (See Below) Other Psychiatric History: HX OF CANNABIS ABUSE Endocrine/Metabolic History: Reports: None Hematologic History: Reports: None Immunologic History: Reports: None Oncologic (Cancer) History: Reports: None Dermatologic History: Reports: None - Infectious Disease History Infectious Disease History: Reports: None - Past Surgical History Head Surgeries/Procedures: Reports: None HEENT Surgical History: Reports: Oral Surgery Cardiovascular Surgical History: Reports: None Respiratory Surgical History: Reports: None GI Surgical History: Reports: Appendectomy, Cholecystectomy, EGD, ERCP Male Surgical History: Reports: None Endocrine Surgical History: Reports: None Neurological Surgical History: Reports: None Musculoskeletal Surgical History: Reports: None, Other (See Below) Other Musculoskeletal Surgeries/Procedures:: BUNIONECTOMY LEFT WITH HARDWARE Dermatological Surgical History: Reports: None - History Comment History Comment: Marijuana hyperemesis syndrome Social & Family History - Family History Family Medical History: Noncontributory Other HEENT Family History: HX OF ABCESSED TEETH Oncologic: Reports: Other (See Below) Other Oncologic Family History: FATHER & PATERNAL GRANDFATHER CANCER - Caffeine Use Caffeine Use: Reports: None Other Caffeine Use: 1-2 'CANS' OF CAFFIENATED BEVERAGES - Living Situation & Occupation Living situation: Reports: with Family Occupation: Unemployed ED ROS GENERAL - Review of Systems Review Of Systems: ROS reveals no pertinent complaints other than HPI. ED EXAM, GI/ABD - Physical Exam Exam: See Below Exam Limited By: No Limitations General Appearance: Alert, WD/WN, Anxious, Severe Distress Eyes: Bilateral: Normal Appearance, EOMI Ears: Normal External Exam, Hearing Grossly Normal Nose: Normal Inspection Throat/Mouth: Normal Inspection, Normal Voice, No Airway Compromise Head: Atraumatic, Normocephalic Neck: Normal Inspection, Supple, Non-Tender, Full Range of Motion Respiratory/Chest: No Respiratory Distress, Lungs Clear, Normal Breath Sounds, No Accessory Muscle Use, Chest Non-Tender Cardiovascular: Normal Peripheral Pulses, Regular Rate, Rhythm, No Edema, No Gallop, No JVD, No Murmur, No Rub GI/Abdominal Exam: Normal Bowel Sounds, Soft, No Organomegaly, No Distention, No Abnormal Bruit, No Mass, Pelvis Stable, Guarding, Tender (Male) Exam: Deferred Rectal (Males) Exam: Deferred Back Exam: Normal Inspection, Full Range of Motion Extremities: Normal Inspection, Normal Range of Motion, Non-Tender, No Pedal Edema, Normal Capillary Refill Neurological: Alert, Oriented, CN II-XII Intact, Normal Cognition, Normal Gait, Normal Reflexes, No Motor/Sensory Deficits Psychiatric: Anxious, Tearful, Other (Yelling out) Skin Exam: Warm, Dry, Intact, Normal Color, No Rash Lymphatic: No Adenopathy EKG INTERPRETATION EKG Date: 04/04/18 Time: 12:42 Rhythm: Other (sinus bradycardia) Rate (Beats/Min): 43 Comparison: No Change Course - Vital Signs Last Recorded V/S: Last Vital Signs Temp 97 F 04/04/18 12:56 Pulse 122 H 04/04/18 12:56 Resp 17 04/04/18 12:56 BP 163/119 H 04/04/18 12:56 Pulse Ox 97 04/04/18 12:56 - Orders/Labs/Meds Orders: Active Orders 24 hr Category Date Time Status EKG Documentation Completion [RC] URGENT Care 04/04/18 13:00 Active DRUG SCREEN URINE BIORAD [URCHEM] Stat Lab 04/04/18 09:48 Ordered OCCULT BLOOD DIAGNOSTIC [OP] Stat Lab 04/04/18 10:11 Ordered OCCULT BLOOD, GASTRIC [OP] Stat Lab 04/04/18 08:56 Ordered UA W/MICROSCOPIC [URIN] Stat Lab 04/04/18 09:47 Ordered Labs: Laboratory Tests 04/04/18 04/04/18 04/04/18 Range/Units 09:11 09:11 09:47 WBC 14.9 H (5.0-10.0) 10^3/uL RBC 5.28 (4.6-6.2) 10^6/uL Hgb 15.7 (14.0-18.0) g/dL Hct 46.6 (40.0-54.0) % MCV 88.3 (80-100) fL MCH 29.7 (27.0-34.0) pg MCHC 33.7 (33.0-35.0) g/dL Plt Count 279 (150-450) 10^3/uL Neut % (Auto) 76.5 H (42.2-75.2) % Lymph % (Auto) 16.1 L (20.5-50.1) % [place] % (Auto) 6.0 (2-8) % Eos % (Auto) 1.1 (1.0-3.0) % Baso % (Auto) 0.3 (0.0-1.0) % Sodium 141 (135-145) mmol/L Potassium 3.6 (3.6-5.0) mmol/L Chloride 106 (101-111) mmol/L Carbon Dioxide 23.0 (21.0-31.0) mmol/L Anion Gap 15.6 BUN 16 (7-18) mg/dL Creatinine 0.8 (0.6-1.3) mg/dL Est Cr Clr Drug Dosing TNP Estimated GFR (MDRD) > 60 BUN/Creatinine Ratio 20.00 Glucose 119 H (74-105) mg/dL Calcium 9.5 (8.4-10.2) mg/dl Total Bilirubin 0.4 (0.2-1.0) mg/dL AST 42 (10-42) IU/L ALT 48 (10-60) IU/L Alkaline Phosphatase 80 (42-121) IU/L Total Protein 7.6 (6.7-8.2) g/dl Albumin 4.4 (3.2-5.5) g/dl Globulin 3.2 Albumin/Globulin Ratio 1.38 Amylase 89 (28-100) U/L Lipase 40 (22-51) U/L Urine Color Dark yellow (YELLOW) Urine Appearance Slightly cloudy (CLEAR) Urine pH 7.5 (5.0-9.0) Ur Specific [place] 1.025 (1.005-1.030) Urine Protein Trace H (NEGATIVE) Urine Glucose (UA) Negative (NEGATIVE) Urine Ketones 15 H (NEGATIVE) Urine Occult Blood Negative (NEGATIVE) Urine Nitrite Negative (NEGATIVE) Urine Bilirubin Negative (NEGATIVE) Urine Urobilinogen 0.2 (0.2-1.0) mg/dL Ur Leukocyte Esterase Negative (NEGATIVE) Urine RBC 0-5 /HPF Urine WBC 0-5 (0-5/HPF) /HPF Ur Epithelial Cells Few /HPF Amorphous Sediment Few (0/HPF) /HPF Urine Bacteria Rare (0-FEW/HPF) /HPF Urine Mucus Many H /LPF Urine Opiates Screen (NEGATIVE) Ur Oxycodone Screen (NEGATIVE) Urine Methadone Screen (NEGATIVE) Ur Barbiturates Screen (NEGATIVE) U Tricyclic Antidepress (NEGATIVE) Ur Phencyclidine Scrn (NEGATIVE) Ur Amphetamine Screen (NEGATIVE) U Methamphetamines Scrn (NEGATIVE) Urine MDMA Screen (NEGATIVE) U Benzodiazepines Scrn (NEGATIVE) Urine Cocaine Screen (NEGATIVE) U Marijuana (THC) Screen (NEGATIVE) Ethyl Alcohol < 5 mg/dL 04/04/18 Range/Units 09:48 WBC (5.0-10.0) 10^3/uL RBC (4.6-6.2) 10^6/uL Hgb (14.0-18.0) g/dL Hct (40.0-54.0) % MCV (80-100) fL MCH (27.0-34.0) pg MCHC (33.0-35.0) g/dL Plt Count (150-450) 10^3/uL Neut % (Auto) (42.2-75.2) % Lymph % (Auto) (20.5-50.1) % [place] % (Auto) (2-8) % Eos % (Auto) (1.0-3.0) % Baso % (Auto) (0.0-1.0) % Sodium (135-145) mmol/L Potassium (3.6-5.0) mmol/L Chloride (101-111) mmol/L Carbon Dioxide (21.0-31.0) mmol/L Anion Gap BUN (7-18) mg/dL Creatinine (0.6-1.3) mg/dL Est Cr Clr Drug Dosing Estimated GFR (MDRD) BUN/Creatinine Ratio Glucose (74-105) mg/dL Calcium (8.4-10.2) mg/dl Total Bilirubin (0.2-1.0) mg/dL AST (10-42) IU/L ALT (10-60) IU/L Alkaline Phosphatase (42-121) IU/L Total Protein (6.7-8.2) g/dl Albumin (3.2-5.5) g/dl Globulin Albumin/Globulin Ratio Amylase (28-100) U/L Lipase (22-51) U/L Urine Color (YELLOW) Urine Appearance (CLEAR) Urine pH (5.0-9.0) Ur Specific [place] (1.005-1.030) Urine Protein (NEGATIVE) Urine Glucose (UA) (NEGATIVE) Urine Ketones (NEGATIVE) Urine Occult Blood (NEGATIVE) Urine Nitrite (NEGATIVE) Urine Bilirubin (NEGATIVE) Urine Urobilinogen (0.2-1.0) mg/dL Ur Leukocyte Esterase (NEGATIVE) Urine RBC /HPF Urine WBC (0-5/HPF) /HPF Ur Epithelial Cells /HPF Amorphous Sediment (0/HPF) /HPF Urine Bacteria (0-FEW/HPF) /HPF Urine Mucus /LPF Urine Opiates Screen Negative (NEGATIVE) Ur Oxycodone Screen Negative (NEGATIVE) Urine Methadone Screen Negative (NEGATIVE) Ur Barbiturates Screen Negative (NEGATIVE) U Tricyclic Antidepress Negative (NEGATIVE) Ur Phencyclidine Scrn Negative (NEGATIVE) Ur Amphetamine Screen Negative (NEGATIVE) U Methamphetamines Scrn Negative (NEGATIVE) Urine MDMA Screen Negative (NEGATIVE) U Benzodiazepines Scrn Negative (NEGATIVE) Urine Cocaine Screen Negative (NEGATIVE) U Marijuana (THC) Screen Positive H (NEGATIVE) Ethyl Alcohol mg/dL Meds: Medications Discontinued Medications Generic Name Dose Route Start Last Admin Trade Name Freq PRN Reason Stop Dose Admin Atropine Sulfate 0.5 mg 04/04/18 12:26 04/04/18 12:48 Atropine 0.1 Mg/Ml IVPUSH 04/04/18 12:27 0.5 mg ONETIME ONE Administration Haloperidol Lactate 5 mg 04/04/18 09:30 04/04/18 09:39 Haldol IVPUSH 04/04/18 09:31 5 mg ONETIME ONE Administration Hydromorphone HCl 0.5 mg 04/04/18 08:54 04/04/18 09:14 Dilaudid IVPUSH 04/04/18 08:55 0.5 mg ONETIME ONE Administration Hydromorphone HCl 0.5 mg 04/04/18 10:40 04/04/18 11:04 Dilaudid IVPUSH 04/04/18 10:41 0.5 mg ONETIME ONE Administration Hydromorphone HCl 0.5 mg 04/04/18 11:54 04/04/18 12:21 Dilaudid IVPUSH 04/04/18 11:55 0.5 mg ONETIME ONE Administration Sodium Chloride 1,000 mls @ 999 mls/hr 04/04/18 08:54 04/04/18 09:14 Normal Saline IV 04/04/18 09:54 999 mls/hr .BOLUS ONE Administration Metoclopramide HCl 10 mg 04/04/18 08:54 04/04/18 09:14 Reglan IVPUSH 04/04/18 08:55 10 mg ONETIME ONE Administration - Re-Assessments/Exams Free Text/Narrative Re-Assessment/Exam: 04/04/18 14:18 Patient became bradycardic after Haldol given. Atropine 0.5mg given IV. Heartrate improved. Pain decreased. Patient will be discharged home. Departure - Departure Time of Disposition: 13:40 Disposition: Home, Self-Care 01 Condition: Fair Clinical Impression: Gastritis, Cannabinoid hyperemesis syndrome Vomiting Qualifiers: Vomiting type: unspecified Vomiting Intractability: non-intractable Nausea presence: with nausea Qualified Code(s): R11.2 - Nausea with vomiting, unspecified - Discharge Information *PRESCRIPTION DRUG MONITORING PROGRAM REVIEWED*: Yes *COPY OF PRESCRIPTION DRUG MONITORING REPORT IN PATIENT NAKITA: No Instructions: Gastritis, Adult, [id number] Referrals: PCP,None [Primary Care Provider] - Forms: ED Department Discharge Additional Instructions: Bowel rest Only clear liquids when vomiting stops, gradually increase diet as tolerated Follow up with your primary care facility - My Orders Last 24 Hours: My Active Orders 04/04/18 08:56 OCCULT BLOOD, GASTRIC [OP] Stat 04/04/18 09:47 UA W/MICROSCOPIC [URIN] Stat 04/04/18 09:48 DRUG SCREEN URINE BIORAD [URCHEM] Stat 04/04/18 10:11 OCCULT BLOOD DIAGNOSTIC [OP] Stat 04/04/18 13:00 EKG Documentation Completion [RC] URGENT - Assessment/Plan Last 24 Hours: My Active Orders 04/04/18 08:56 OCCULT BLOOD, GASTRIC [OP] Stat 04/04/18 09:47 UA W/MICROSCOPIC [URIN] Stat 04/04/18 09:48 DRUG SCREEN URINE BIORAD [URCHEM] Stat 04/04/18 10:11 OCCULT BLOOD DIAGNOSTIC [OP] Stat 04/04/18 13:00 EKG Documentation Completion [RC] URGENT
[2018-04-04] MEDS ORDERED: HYDROmorphone 0.5 MG/0.5 ML Syringe IVPUSH ONE ×2 (10:40→11:54)
[2018-04-04] MEDS ORDERED: Atropine 0.1 MG/ML 10 ML Syringe IVPUSH ONE (12:26)
[2018-04-04 12:57] VITALS: BP 163/119
== END 2018-04-04 13:41 | disposition home or self-care (01) ==
LOC: DL.ED 09:00
DX: K29.70 Gastritis, unspecified, without bleeding (principal); F12.929 Cannabis use, unspecified with intoxication, unspecified; R11.2 Nausea with vomiting, unspecified; Z79.899 Other long term (current) drug therapy
CPT/HCPCS: 36415; 80053; 80305; 81001; 82150; 82271; 82272; 83690; 85025; 93005; 96361; 96374; 96375; 96376; 99285; G0480; J0461; J1170; J1630; J2765; J7030

== ENCOUNTER 2018-04-09 00:52 | Emergency (ER) | payer MEDICAID ==
[2018-04-09 00:56] VITALS: BP 165/89
[2018-04-09] MEDS ORDERED: Sodium Chloride 0.9% 10 ML Syringe FLUSH PRN (01:05)
[2018-04-09] MEDS ORDERED: GI Cocktail Oral Solution 30 ML PO ONE (01:06)
[2018-04-09] MEDS ORDERED: Lactated Ringers 1,000 ML IV ONE (01:06)
[2018-04-09] MEDS ORDERED: Pantoprazole 40 MG Vial IVPUSH ONE (01:06)
[2018-04-09] MEDS ORDERED: diphenhydrAMINE 50 MG/ML SDV IVPUSH ONE (01:07)
[2018-04-09 01:31] LABS: ANION GAP 12.1; CHLORIDE,CL 101 mmol/L (101-111); SODIUM,NA 138 mmol/L (135-145)
[2018-04-09] MEDS ORDERED: Potassium Chloride 10% 20 MEQ/15 ML Soln 15 ML UD Cup PO STA (02:09)
--- NOTE | 2018-04-09 03:19 | EDM.PDOC ---
ED HPI GENERAL MEDICAL PROBLEM - General Chief Complaint: Abdominal Pain Stated Complaint: IN BY AMBULANCE Time Seen by Provider: 04/09/18 01:05 Source of Information: Reports: Patient History Limitations: Reports: No Limitations - History of Present Illness INITIAL COMMENTS - FREE TEXT/NARRATIVE: patient emergency department today by ambulance from home with concerns of abdominal pain. This patient is well-known to myself as well as emergency department for recurring chronic epigastric abdominal pain.He does have a history of chronic pancreatitis as well as GERD. He was seen just a couple of days ago in the emergency department and his pain is slowly gotten worse since that time.He has been nauseated without vomiting. He does report that he questions if he has had black or tarry stools. This feels like his typical abdominal pain. No chest pain or shortness of breath or difficulty breathing. No fever no chills. No hematuria dysuria or urinary frequency. Middle Abdomen Pain Score (Numeric/FACES): 6 - Related Data Allergies Allergy/AdvReac Type Severity Reaction Status Date / Time No Known Allergies Allergy Verified 04/09/18 00:53 Home Meds: Home Meds Acetaminophen/oxyCODONE [Percocet 325-5 MG] 2 tab PO Q6H PRN 05/10/17 [History] Acetaminophen [Acetaminophen Extra Strength] 500 mg PO DAILY 02/12/18 [History] Aluminum Chloride [Drysol] 1 applic TOP ASDIRECTED 02/12/18 [History] Clotrimazole [Clotrimazole 1%] 1 applic TOP ASDIRECTED PRN 02/12/18 [History] Diclofenac Sodium [Voltaren] 75 mg PO ASDIRECTED PRN 02/12/18 [History] Gabapentin [Neurontin] 300 mg PO DAILY 02/12/18 [History] Ibuprofen 200 mg PO ASDIRECTED PRN 02/12/18 [History] Omeprazole 20 mg PO DAILY 02/12/18 [History] Past Medical History HEENT History: Reports: Other (See Below) Other HEENT History: WEARS CONTACT LENS Cardiovascular History: Reports: None Respiratory History: Reports: None Gastrointestinal History: Reports: Diverticulosis, Pancreatitis Genitourinary History: Reports: None Musculoskeletal History: Reports: None Neurological History: Reports: None Psychiatric History: Reports: Addiction, Other (See Below) Other Psychiatric History: HX OF CANNABIS ABUSE Endocrine/Metabolic History: Reports: None Hematologic History: Reports: None Immunologic History: Reports: None Oncologic (Cancer) History: Reports: None Dermatologic History: Reports: None - Infectious Disease History Infectious Disease History: Reports: None - Past Surgical History Head Surgeries/Procedures: Reports: None HEENT Surgical History: Reports: Oral Surgery Cardiovascular Surgical History: Reports: None Respiratory Surgical History: Reports: None GI Surgical History: Reports: Appendectomy, Cholecystectomy, EGD, ERCP Male Surgical History: Reports: None Endocrine Surgical History: Reports: None Neurological Surgical History: Reports: None Musculoskeletal Surgical History: Reports: None, Other (See Below) Other Musculoskeletal Surgeries/Procedures:: BUNIONECTOMY LEFT WITH HARDWARE Dermatological Surgical History: Reports: None - History Comment History Comment: Marijuana hyperemesis syndrome Social & Family History - Family History Family Medical History: Noncontributory Other HEENT Family History: HX OF ABCESSED TEETH Oncologic: Reports: Other (See Below) Other Oncologic Family History: FATHER & PATERNAL GRANDFATHER CANCER - Tobacco Use Smoking Status *Q: Light Tobacco Smoker Years of Tobacco use: 10 Packs/Tins Daily: 0.5 - Caffeine Use Caffeine Use: Reports: None Other Caffeine Use: 1-2 'CANS' OF CAFFIENATED BEVERAGES - Recreational Drug Use Recreational Drug Use: Yes Recreational Drug Type: Reports: Marijuana/Hashish Recreational Drug Use Frequency: Socially - Living Situation & Occupation Living situation: Reports: with Family Occupation: Unemployed ED ROS GENERAL - Review of Systems Review Of Systems: ROS reveals no pertinent complaints other than HPI. ED EXAM, GI/ABD - Physical Exam Exam: See Below Exam Limited By: No Limitations General Appearance: Alert, WD/WN, No Apparent Distress, Anxious Eyes: Bilateral: Normal Appearance Ears: Normal External Exam Nose: Normal Inspection Throat/Mouth: Normal Inspection, Normal Oropharynx Head: Atraumatic, Normocephalic Neck: Normal Inspection, Supple Respiratory/Chest: No Respiratory Distress, Lungs Clear, Normal Breath Sounds, No Accessory Muscle Use, Chest Non-Tender Cardiovascular: Normal Peripheral Pulses, Regular Rate, Rhythm GI/Abdominal Exam: Normal Bowel Sounds, Soft, Non-Tender, No Organomegaly, Tender (generalized tenderness). No: Distended, Guarding, Rigid, Rebound Back Exam: Normal Inspection, Full Range of Motion Extremities: Normal Inspection, Normal Range of Motion, Normal Capillary Refill Neurological: Alert, Oriented, CN II-XII Intact, Normal Reflexes Psychiatric: Normal Affect, Normal Mood Skin Exam: Warm, Dry, Intact, Normal Color, No Rash Course - Vital Signs Last Recorded V/S: Last Vital Signs Temp 37.0 C 04/09/18 00:53 Pulse 74 04/09/18 00:53 Resp 18 04/09/18 00:53 BP 165/89 H 04/09/18 00:53 Pulse Ox 98 04/09/18 00:53 - Orders/Labs/Meds Orders: Active Orders 24 hr Category Date Time Status Peripheral IV Care [RC] . DIRECTED Care 04/09/18 01:05 Active Peripheral IV Insertion Adult [OM.PC] Stat Oth 04/09/18 01:05 Ordered Labs: Laboratory Tests 04/09/18 04/09/18 04/09/18 Range/Units 01:05 01:05 01:05 WBC 10.4 H (5.0-10.0) 10^3/uL RBC 4.77 (4.6-6.2) 10^6/uL Hgb 14.2 D (14.0-18.0) g/dL Hct 41.7 (40.0-54.0) % MCV 87.4 (80-100) fL MCH 29.8 (27.0-34.0) pg MCHC 34.1 (33.0-35.0) g/dL Plt Count 270 (150-450) 10^3/uL Neut % (Auto) 63.9 (42.2-75.2) % Lymph % (Auto) 23.7 (20.5-50.1) % [place] % (Auto) 8.2 H (2-8) % Eos % (Auto) 3.8 H (1.0-3.0) % Baso % (Auto) 0.4 (0.0-1.0) % Sodium 138 (135-145) mmol/L Potassium 3.1 L (3.6-5.0) mmol/L Chloride 101 (101-111) mmol/L Carbon Dioxide 28.0 (21.0-31.0) mmol/L Anion Gap 12.1 BUN 9 (7-18) mg/dL Creatinine 0.9 (0.6-1.3) mg/dL Est Cr Clr Drug Dosing 122.15 mL/min Estimated GFR (MDRD) > 60 BUN/Creatinine Ratio 10.00 Glucose 105 (74-105) mg/dL Calcium 8.7 (8.4-10.2) mg/dl Total Bilirubin 0.7 (0.2-1.0) mg/dL AST 33 (10-42) IU/L ALT 34 (10-60) IU/L Alkaline Phosphatase 66 (42-121) IU/L C-Reactive Protein 0.5 (0.0-1.3) mg/dL Total Protein 6.7 (6.7-8.2) g/dl Albumin 3.9 (3.2-5.5) g/dl Globulin 2.8 Albumin/Globulin Ratio 1.39 Lipase 39 (22-51) U/L Meds: Medications Discontinued Medications Generic Name Dose Route Start Last Admin Trade Name Freq PRN Reason Stop Dose Admin Al Hydroxide/Mg Hydroxide 30 ml 04/09/18 01:06 04/09/18 01:15 Gi Cocktail PO 04/09/18 01:07 30 ml ONETIME ONE Administration Diphenhydramine HCl 50 mg 04/09/18 01:07 04/09/18 01:13 Benadryl IVPUSH 04/09/18 01:08 50 mg ONETIME ONE Administration Lactated Ringer's 1,000 mls @ 999 mls/hr 04/09/18 01:06 04/09/18 01:15 Ringers, Lactated IV 04/09/18 02:06 999 mls/hr .BOLUS ONE Administration Pantoprazole Sodium 40 mg 04/09/18 01:06 04/09/18 01:14 Protonix Iv IVPUSH 04/09/18 01:07 40 mg ONETIME ONE Administration Potassium Chloride 20 meq 04/09/18 02:09 04/09/18 02:32 Potassium Chloride Solution PO 04/09/18 02:10 20 meq NOW STA Administration Sodium Chloride 10 ml 04/09/18 01:05 04/09/18 01:14 Saline Flush FLUSH 10 ml ASDIRECTED PRN Administration Keep Vein Open - Re-Assessments/Exams Free Text/Narrative Re-Assessment/Exam: 04/09/18 the patient is given a GI cocktail as well as Protonix and Benadryl. His pain was much improved and he was able to rest comfortably and he was sleeping in the room. His laboratory evaluation is rather unremarkable. This is a chronic recurring abdominal pain. We will discharge him home at this time as there is no acute findings Departure - Departure Time of Disposition: 03:17 Disposition: Home, Self-Care 01 Clinical Impression: Chronic abdominal pain - Discharge Information Instructions: Abdominal Pain, Adult, [id number] Referrals: PCP,Unobtain [Primary Care Provider] - Forms: ED Department Discharge Additional Instructions: Continue therapies as before. Bowel rest until your symptoms have resolved. Follow up with primary care in the next week. - My Orders Last 24 Hours: My Active Orders 04/09/18 01:05 Peripheral IV Care [RC] . DIRECTED Peripheral IV Insertion Adult [OM.PC] Stat - Assessment/Plan Last 24 Hours: My Active Orders 04/09/18 01:05 Peripheral IV Care [RC] . DIRECTED Peripheral IV Insertion Adult [OM.PC] Stat Assessment:: Chronic abd pain. Plan: Continue therapies as before. Bowel rest until your symptoms have resolved. Follow up with primary care in the next week.
== END 2018-04-09 03:36 | disposition home or self-care (01) ==
LOC: DL.ED 00:52
DX: R10.9 Unspecified abdominal pain (principal); Z79.899 Other long term (current) drug therapy; F17.210 Nicotine dependence, cigarettes, uncomplicated
CPT/HCPCS: 36415; 80053; 83690; 85025; 86140; 96365; 96375; 99284; A9270; C9113; J1200; J7050; J7120

== ENCOUNTER 2018-04-30 06:14 | Inpatient (IN) | payer MEDICAID ==
[2018-04-30] MEDS ORDERED: Ketorolac 30 MG/ML SDV IVPUSH ONE (06:55)
--- NOTE | 2018-04-30 06:55 | EDM.PDOC ---
<Wero De Santiago - Last Filed: 04/30/18 07:07> ED HPI GENERAL MEDICAL PROBLEM - General Chief Complaint: Bite:Animal, Insect Stated Complaint: IN BY AMBULANCE Time Seen by Provider: 04/30/18 06:18 Source of Information: Reports: Patient, EMS History Limitations: Reports: No Limitations - History of Present Illness INITIAL COMMENTS - FREE TEXT/NARRATIVE: left hand sore swollen.This am sore to right thumb. States seen at [facility] yesterday and started on Clindamycin, had one dose. Was told if worse needed to be seen right away so called ambulance. Chills this am, No GI sx. Treatments COOK CAMP: Reports: NSAIDS Right 1-Thumb Pain Score (Numeric/FACES): 10 Left Hand Pain Score (Numeric/FACES): 10 - Related Data Allergies Allergy/AdvReac Type Severity Reaction Status Date / Time No Known Allergies Allergy Verified 04/30/18 06:22 Home Meds: Home Meds Acetaminophen [Acetaminophen Extra Strength] 500 mg PO DAILY 02/12/18 [History] Gabapentin [Neurontin] 300 mg PO DAILY 02/12/18 [History] Ibuprofen 200 mg PO ASDIRECTED PRN 02/12/18 [History] Omeprazole 20 mg PO DAILY 02/12/18 [History] Buprenorphine HCl/Naloxone HCl [Zubsolv 8.6-2.1 mg Tablet Sl] 1 tab PO ASDIRECTED 04/30/18 [History] Clindamycin HCl 300 mg PO TID 04/30/18 [History] Ondansetron [Ondansetron ODT] 4 mg SL Q6H PRN 04/30/18 [History] Past Medical History HEENT History: Reports: Impaired Vision Other HEENT History: WEARS CONTACT LENS Cardiovascular History: Reports: Hypertension Respiratory History: Reports: None Gastrointestinal History: Reports: Diverticulosis, GERD, Pancreatitis Genitourinary History: Reports: None Musculoskeletal History: Reports: None Neurological History: Reports: None Psychiatric History: Reports: Addiction, Other (See Below) Other Psychiatric History: HX OF CANNABIS ABUSE Endocrine/Metabolic History: Reports: None Hematologic History: Reports: None Immunologic History: Reports: None Oncologic (Cancer) History: Reports: None Dermatologic History: Reports: None - Infectious Disease History Infectious Disease History: Reports: None - Past Surgical History Head Surgeries/Procedures: Reports: None HEENT Surgical History: Reports: Oral Surgery Respiratory Surgical History: Reports: None GI Surgical History: Reports: Appendectomy, Cholecystectomy, EGD, ERCP Male Surgical History: Reports: None Endocrine Surgical History: Reports: None Neurological Surgical History: Reports: None Musculoskeletal Surgical History: Reports: Other (See Below) Other Musculoskeletal Surgeries/Procedures:: BUNIONECTOMY LEFT WITH HARDWARE Dermatological Surgical History: Reports: None - History Comment History Comment: Marijuana hyperemesis syndrome Social & Family History - Family History Family Medical History: Noncontributory Other HEENT Family History: HX OF ABCESSED TEETH Oncologic: Reports: Other (See Below) Other Oncologic Family History: FATHER & PATERNAL GRANDFATHER CANCER - Tobacco Use Smoking Status *Q: Current Every Day Smoker Years of Tobacco use: 23 Packs/Tins Daily: 0.5 Used Tobacco, but Quit: No Second Hand Smoke Exposure: Yes - Caffeine Use Caffeine Use: Reports: Coffee, Energy Drinks, Soda, Tea Other Caffeine Use: 1-2 'CANS' OF CAFFIENATED BEVERAGES - Recreational Drug Use Recreational Drug Use: Yes Recreational Drug Type: Reports: Marijuana/Hashish Recreational Drug Use Frequency: Binges - Living Situation & Occupation Living situation: Reports: with Family Occupation: Unemployed ED ROS GENERAL - Review of Systems Review Of Systems: ROS reveals no pertinent complaints other than HPI. ED EXAM, ANIMAL BITE - Physical Exam Exam: See Below Exam Limited By: No Limitations General Appearance: Alert, Mild Distress Eye Exam: Bilateral Eye: EOMI Ears: Normal External Exam, Hearing Loss. No: Hearing Grossly Normal Nose: Normal Inspection Throat/Mouth: Normal Inspection Head: Atraumatic, Normocephalic Neck: Normal Inspection Respiratory/Chest: No Respiratory Distress, Lungs Clear, Normal Breath Sounds Cardiovascular: Normal Peripheral Pulses, Regular Rate, Rhythm GI/Abdominal: Normal Bowel Sounds Extremities: Normal Range of Motion, Normal Capillary Refill, Limited Range of Motion (left hand), Increased Warmth (left hand) Neurological: Alert, Oriented, Normal Cognition Psychiatric: Other (irritable) Skin Exam: Warm/Dry, Other (purple bulla1.5.7mm right thumb, left hand swollen web and thenar pad erythematous. old crusted blister to inner thumb, pred web with central 3mm whitis area, no drainage. pain with movment) ED ANIMAL BITE PROCEDURES - I&D Site: right thumb Skin Prep: Providone-Iodine (Betadine) Area Incised With: 11 Blade Drainage: Purulent, Large Amount Sterile Dressinx4(s) Complications: No Course - Vital Signs Last Recorded V/S: Last Vital Signs Temp 36.9 C 04/30/18 07:05 Pulse 69 04/30/18 07:05 Resp 16 04/30/18 07:05 BP 140/94 H 04/30/18 07:05 Pulse Ox 96 04/30/18 07:05 - Orders/Labs/Meds Orders: Active Orders 24 hr Category Date Time Status CULTURE BLOOD [BC] Stat Lab 04/30/18 06:24 Received CULTURE BLOOD [BC] Stat Lab 04/30/18 06:33 Received CULTURE WOUND [RM] Stat Lab 04/30/18 07:07 Received Blood Culture x2 Reflex Set [OM.PC] Stat Oth 04/30/18 06:21 Ordered Labs: Laboratory Tests 04/30/18 04/30/18 04/30/18 Range/Units 06:24 06:24 06:24 WBC 18.0 H (5.0-10.0) 10^3/uL RBC 4.99 (4.6-6.2) 10^6/uL Hgb 14.9 (14.0-18.0) g/dL Hct 43.1 (40.0-54.0) % MCV 86.4 (80-100) fL MCH 29.9 (27.0-34.0) pg MCHC 34.6 (33.0-35.0) g/dL Plt Count 306 (150-450) 10^3/uL Neut % (Auto) 78.0 H (42.2-75.2) % Lymph % (Auto) 8.9 L (20.5-50.1) % [place] % (Auto) 11.0 H (2-8) % Eos % (Auto) 1.9 (1.0-3.0) % Baso % (Auto) 0.2 (0.0-1.0) % Sodium 134 L (135-145) mmol/L Potassium 3.2 L (3.6-5.0) mmol/L Chloride 96 L (101-111) mmol/L Carbon Dioxide 31.0 (21.0-31.0) mmol/L Anion Gap 10.2 BUN 17 (7-18) mg/dL Creatinine 1.3 (0.6-1.3) mg/dL Est Cr Clr Drug Dosing 84.56 mL/min Estimated GFR (MDRD) > 60 BUN/Creatinine Ratio 13.07 Glucose 98 (74-105) mg/dL Lactic Acid 0.8 (0.5-2.2) mmol/L Calcium 8.7 (8.4-10.2) mg/dl Total Bilirubin 0.9 (0.2-1.0) mg/dL AST 50 H (10-42) IU/L ALT 42 (10-60) IU/L Alkaline Phosphatase 73 (42-121) IU/L Total Protein 7.1 (6.7-8.2) g/dl Albumin 3.8 (3.2-5.5) g/dl Globulin 3.3 Albumin/Globulin Ratio 1.15 Meds: Medications Discontinued Medications Generic Name Dose Route Start Last Admin Trade Name Freq PRN Reason Stop Dose Admin Diphenhydramine HCl 25 mg 04/30/18 07:22 04/30/18 07:47 Benadryl IVPUSH 04/30/18 07:23 25 mg ONETIME ONE Administration Ketorolac Tromethamine 30 mg 04/30/18 06:55 04/30/18 07:03 Toradol IVPUSH 04/30/18 06:56 30 mg ONETIME ONE Administration Vancomycin HCl 1,250 mg 04/30/18 07:23 04/30/18 07:50 Vancomycin IV 04/30/18 07:24 1,250 mg ONETIME ONE Administration Vancomycin HCl Confirm 04/30/18 07:35 04/30/18 07:51 Vancomycin Administered 04/30/18 07:36 Not Given Dose 1 gm .ROUTE .STK-MED ONE Vancomycin HCl Confirm 04/30/18 07:35 04/30/18 07:51 Vancomycin Administered 04/30/18 07:36 Not Given Dose 500 mg .ROUTE .STK-MED ONE - Re-Assessments/Exams Free Text/Narrative Re-Assessment/Exam: 04/30/18 07:[address] Beach with shift change Departure - Departure Disposition: Admitted As Inpatient 65 Clinical Impression: Abscess of right thumb Cellulitis Qualifiers: Site of cellulitis: extremity Site of cellulitis of extremity: upper extremity Laterality: left Qualified Code(s): L03.114 - Cellulitis of left upper limb - Discharge Information Forms: ED Department Discharge <Yoel Beach - Last Filed: 04/30/18 08:12> ED HPI GENERAL MEDICAL PROBLEM - History of Present Illness INITIAL COMMENTS - FREE TEXT/NARRATIVE: Pt with Hx of clinic visit at [place] yesterday due to suspected spider bites to B/L hands. The left hand became hot, painful, swollen, and red over night. He reports feeling of fever and chills last night. Pt initially seen here in ER by Wero AGUILAR then care was transferred to tx at 0700HR shift change with x-ray report and lab results pending. Wero performed an I&D of the Rt thumb. Onset: Gradual Duration: Constant, Getting Worse Location: Reports: Upper Extremity, Left, Upper Extremity, Right Quality: Reports: Ache, Throbbing Severity: Moderate Improves with: Reports: None Worsens with: Reports: None Associated Symptoms: Reports: No Other Symptoms Treatments [place]OOK CAMP: Reports: Other Medication(s) (one dose of clinidamycin 300mg) ED EXAM, ANIMAL BITE - Physical Exam Text/Narrative:: No change to exam as documented by Wero AGUILAR for this encounter, except the erythema on the left hand has extended to the distal forearm. Course - Radiology Interpretation Free Text/Narrative:: [facility] Final Radiology Report Call: [phone] assistance Online chat: [email or web address] Name: KAL ODEN Age: 37Years M Date: 04/30/2018 SSN: -- : [id number] Study: XR HAND COMPLETE MIN OF 3 VIEWS Requesting Physician: WERO DE SANTIAGO Images: 3 Addl Studies: Provided Clinical History: Contrast: Contrast Medium: Contrast Amount: Contrast Method: CONFIDENTIALITY STATEMENT This report is intended only for use by the referring physician, and only in accordance with law. If you received this in error, call [phone]. Page 1 of 1 EXAM: XR Left Hand Complete, 3 or more Views EXAM DATE/TIME: 04/30/2018 6:35 AM CLINICAL HISTORY: 37 years old, male; Pain and signs and symptoms; Swelling and other: Cellulitis ; Hand; Left TECHNIQUE: XR Left hand 3 or more views. COMPARISON: No relevant prior studies available. FINDINGS: Bones/joints: Normal. Soft tissues: Soft tissue spine IMPRESSION: Soft tissue swelling No acute fracture or foreign body Thank you for allowing us to participate in the care of your patient. Dictated and Authenticated by: Castillo Blevins MD 04/30/2018 6:50 AM Central Time ([place] & [place]) Departure - Departure Time of Disposition: 07:40 (admitted to Dr. Mendoza) Condition: Fair, Serious
[2018-04-30 07:04] LABS: ANION GAP 10.2; CHLORIDE,CL 96 mmol/L (101-111); SODIUM,NA 134 mmol/L (135-145)
[2018-04-30] MEDS ORDERED: diphenhydrAMINE 50 MG/ML SDV IVPUSH ONE (07:22)
[2018-04-30] MEDS ORDERED: Vancomycin 500 MG SDV IV ONE (07:23)
[2018-04-30] MEDS ORDERED: Vancomycin 500 MG SDV ONE (07:35)
[2018-04-30] MEDS ORDERED: Vancomycin 1 GM SDV ONE (07:35)
[2018-04-30] MEDS ORDERED: Potassium Chloride 10 MEQ Tab.ER PO ONE (10:01)
[2018-04-30] MEDS: Morphine 2 MG/ML Syringe IVPUSH PRN ×5 (10:49→22:41)
[2018-04-30] MEDS ORDERED: Ondansetron 4 MG/2 ML SDV IV PRN (10:52)
[2018-04-30] MEDS ORDERED: Sodium Chloride 0.9% 10 ML Syringe FLUSH PRN (10:57)
--- NOTE | 2018-04-30 11:48 | PCM.HP ---
H&P History of Present Illness - General Date of Service: 04/30/18 Admit Problem/Dx: Admission Diagnosis/Problem Admission Diagnosis/Problem Cellulitis and abscess of finger Source of Information: Patient History Limitations: Reports: No Limitations - History of Present Illness Initial Comments - Free Text/Narative: 37 yo M with substance abuse disorder who presents with bilateral hand swelling , pain. Patient reports that symptoms started on Saturday, first on on the left hand around the thenar eminence and subsequently on the right pollex. He had associated fever, chills. No chest pain, no abdominal pain, no urinary symptoms. No history of instrumentation or recent IVDU Pain and swelling worsened and he came to the ED today. An I and D was done on the right pollex. Admission was recommended for IV antibiotics. Right 1-Thumb Pain Score (Numeric/FACES): 8 Left Hand Pain Score (Numeric/FACES): 8 - Related Data Allergies/Adverse Reactions: Allergies Allergy/AdvReac Type Severity Reaction Status Date / Time No Known Allergies Allergy Verified 04/30/18 09:24 Home Medications: Home Meds Acetaminophen [Acetaminophen Extra Strength] 500 mg PO DAILY 02/12/18 [History] Gabapentin [Neurontin] 300 mg PO DAILY 02/12/18 [History] Ibuprofen 200 mg PO ASDIRECTED PRN 02/12/18 [History] Omeprazole 20 mg PO DAILY 02/12/18 [History] Buprenorphine HCl/Naloxone HCl [Zubsolv 8.6-2.1 mg Tablet Sl] 1 tab PO ASDIRECTED 04/30/18 [History] Clindamycin HCl 300 mg PO TID 04/30/18 [History] Ondansetron [Ondansetron ODT] 4 mg SL Q6H PRN 04/30/18 [History] Past Medical History HEENT History: Reports: Impaired Vision Other HEENT History: WEARS CONTACT LENS AND GLASSES Cardiovascular History: Reports: Hypertension Respiratory History: Reports: None Gastrointestinal History: Reports: Diverticulosis, GERD, Pancreatitis Genitourinary History: Reports: None Musculoskeletal History: Reports: None Neurological History: Reports: None Psychiatric History: Reports: Addiction, Other (See Below) Other Psychiatric History: HX OF CANNABIS ABUSE Endocrine/Metabolic History: Reports: None Hematologic History: Reports: None Immunologic History: Reports: None Oncologic (Cancer) History: Reports: None Dermatologic History: Reports: None - Infectious Disease History Infectious Disease History: Reports: None - Past Surgical History Head Surgeries/Procedures: Reports: None HEENT Surgical History: Reports: Oral Surgery Respiratory Surgical History: Reports: None GI Surgical History: Reports: Appendectomy, Cholecystectomy, EGD, ERCP Male Surgical History: Reports: None Endocrine Surgical History: Reports: None Neurological Surgical History: Reports: None Musculoskeletal Surgical History: Reports: Other (See Below) Other Musculoskeletal Surgeries/Procedures:: BUNIONECTOMY LEFT WITH HARDWARE Dermatological Surgical History: Reports: None - History Comment History Comment: Marijuana hyperemesis syndrome Social & Family History - Family History Family Medical History: Noncontributory Other HEENT Family History: HX OF ABCESSED TEETH Oncologic: Reports: Other (See Below) Other Oncologic Family History: FATHER & PATERNAL GRANDFATHER CANCER - Tobacco Use Smoking Status *Q: Current Every Day Smoker Years of Tobacco use: 5 Packs/Tins Daily: 0.5 Used Tobacco, but Quit: No Second Hand Smoke Exposure: Yes - Caffeine Use Caffeine Use: Reports: Coffee, Energy Drinks, Soda, Tea Other Caffeine Use: 1-2 'CANS' OF CAFFIENATED BEVERAGES - Recreational Drug Use Recreational Drug Use: Yes Drug Use in Last 12 Months: Yes Recreational Drug Type: Reports: Marijuana/Hashish Recreational Drug Use Frequency: Daily - Living Situation & Occupation Living situation: Reports: with Family Occupation: Unemployed H&P Review of Systems - Review of Systems: Review Of Systems: See Below General: Reports: Fever HEENT: Reports: No Symptoms Pulmonary: Reports: No Symptoms Cardiovascular: Reports: No Symptoms Gastrointestinal: Reports: No Symptoms Genitourinary: Reports: No Symptoms Musculoskeletal: Reports: Other (as in HPI) Exam - Exam Exam: See Below - Vital Signs Vital Signs: Last Vital Signs Temp 37.1 C 04/30/18 10:53 Pulse 71 04/30/18 10:53 Resp 20 04/30/18 10:53 BP 139/91 H 04/30/18 10:53 Pulse Ox 100 04/30/18 10:53 Weight: 77.292 kg - Exam General: Alert, Oriented HEENT: Conjunctiva Clear Neck: Supple, Trachea Midline Lungs: Clear to Auscultation, Normal Respiratory Effort Cardiovascular: Regular Rate, Regular Rhythm GI/Abdominal Exam: Normal Bowel Sounds Extremities: Other (left thenar eminence is tender, swollen. right thumb is tender, swollen, draining sero-purulent material) - Patient Data Lab Results Last 24 hrs: Laboratory Results - last 24 hr 04/30/18 04/30/18 04/30/18 Range/Units 06:24 06:24 06:24 WBC 18.0 H (5.0-10.0) 10^3/uL RBC 4.99 (4.6-6.2) 10^6/uL Hgb 14.9 (14.0-18.0) g/dL Hct 43.1 (40.0-54.0) % MCV 86.4 (80-100) fL MCH 29.9 (27.0-34.0) pg MCHC 34.6 (33.0-35.0) g/dL Plt Count 306 (150-450) 10^3/uL Neut % (Auto) 78.0 H (42.2-75.2) % Lymph % (Auto) 8.9 L (20.5-50.1) % [place] % (Auto) 11.0 H (2-8) % Eos % (Auto) 1.9 (1.0-3.0) % Baso % (Auto) 0.2 (0.0-1.0) % Sodium 134 L (135-145) mmol/L Potassium 3.2 L (3.6-5.0) mmol/L Chloride 96 L (101-111) mmol/L Carbon Dioxide 31.0 (21.0-31.0) mmol/L Anion Gap 10.2 BUN 17 (7-18) mg/dL Creatinine 1.3 (0.6-1.3) mg/dL Est Cr Clr Drug Dosing 84.56 mL/min Estimated GFR (MDRD) > 60 BUN/Creatinine Ratio 13.07 Glucose 98 (74-105) mg/dL Lactic Acid 0.8 (0.5-2.2) mmol/L Calcium 8.7 (8.4-10.2) mg/dl Total Bilirubin 0.9 (0.2-1.0) mg/dL AST 50 H (10-42) IU/L ALT 42 (10-60) IU/L Alkaline Phosphatase 73 (42-121) IU/L Total Protein 7.1 (6.7-8.2) g/dl Albumin 3.8 (3.2-5.5) g/dl Globulin 3.3 Albumin/Globulin Ratio 1.15 Result Diagrams: 04/30/18 06:24 04/30/18 06:24 Problem List Initiated/Reviewed/Updated: Yes Orders Last 24hrs: Active Orders 24 hr Category Date Time Status Patient Status [ADT] Routine ADT 04/30/18 10:01 Active Ambulate [RC] ASDIRECTED Care 04/30/18 10:01 Active May Shower [RC] ASDIRECTED Care 04/30/18 10:01 Active Oxygen Therapy [RC] PRN Care 04/30/18 10:01 Active VTE/DVT Education [RC] PER UNIT ROUTINE Care 04/30/18 10:01 Active Vital Signs [RC] 00,04,08,12,16,20 Care 04/30/18 10:01 Active Regular Diet [DIET] Diet 04/30/18 Breakfast Active Hand w Cont Bi [CT] Routine Exams 04/30/18 10:56 Ordered CULTURE BLOOD [BC] Stat Lab 04/30/18 06:24 Received CULTURE BLOOD [BC] Stat Lab 04/30/18 06:33 Received CULTURE WOUND [RM] Stat Lab 04/30/18 07:07 Received Acetaminophen [Tylenol] Med 04/30/18 10:01 Active 650 mg PO Q4H PRN Heparin Sodium Med 04/30/18 14:00 Active 5,000 units SUBCUT Q8HR Ketorolac [Toradol] Med 04/30/18 10:01 Active 30 mg IVPUSH Q6H PRN Morphine Med 04/30/18 10:01 Active 2 mg IVPUSH Q2H PRN Ondansetron [Zofran] Med 04/30/18 10:52 Active 4 mg IV Q4H PRN Piperacillin/Tazobactam [Zosyn] 3.375 gm Med 04/30/18 12:00 Active Sodium Chloride 0.9% [Normal Saline] 100 ml IV Q6HR Sodium Chloride 0.9% [Saline Flush] Med 04/30/18 10:57 Active 10 ml FLUSH ASDIRECTED PRN Vancomycin Pharmacy to Dose [Pharmacy to Dose - Med 04/30/18 10:15 Pending Vancomycin] 1 dose .XX ASDIRECTED Blood Culture x2 Reflex Set [OM.PC] Stat Oth 04/30/18 06:21 Ordered Saline Lock Insert [OM.PC] Routine Oth 04/30/18 10:57 Ordered Resuscitation Status Routine Resus Stat 04/30/18 10:01 Ordered Medication Orders Acetaminophen (Tylenol) 650 mg PO Q4H PRN PRN Reason: Pain (Mild 1-3)/fever Heparin Sodium (Porcine) (Heparin Sodium) 5,000 units SUBCUT Q8HR JJ Piperacillin Sod/Tazobactam (Sod 3.375 gm/ Sodium Chloride) 100 mls @ 200 mls/ hr IV Q6HR JJ Ketorolac Tromethamine (Toradol) 30 mg IVPUSH Q6H PRN PRN Reason: Pain (moderate 4-6) Morphine Sulfate (Morphine) 2 mg IVPUSH Q2H PRN PRN Reason: Pain (severe 7-10) Last Admin: 04/30/18 10:49 Dose: 2 mg Ondansetron HCl (Zofran) 4 mg IV Q4H PRN PRN Reason: Nausea/Vomiting Sodium Chloride (Saline Flush) 10 ml FLUSH ASDIRECTED PRN PRN Reason: Keep Vein Open Vancomycin HCl (Pharmacy To Dose - Vancomycin) 1 dose .XX ASDIRECTED [facility] Assessment/Plan Comment:: Cellulitis/Abscess of the right and left hand -f/u blood culture -IV Vanc and Zosyn -CT of the hands bilaterally, if there is residual abscess, will transfer to Orthopedic center for further care Code status: OUMOU
[2018-04-30] MEDS: Piperacillin/Tazobactam 3.375 GM in Sodium Chloride 0.9% 100 ML IV SCH ×3 (12:28→23:31)
[2018-04-30] MEDS: Acetaminophen 325 MG Tab PO PRN ×2 (13:00→18:15)
[2018-04-30] MEDS: Ketorolac 30 MG/ML SDV IVPUSH PRN ×2 (13:04→20:07)
[2018-04-30] MEDS ORDERED: Iopamidol 612 MG/ML 100 ML Bottle IVPUSH ONE (13:10)
[2018-04-30] MEDS ORDERED: Heparin Sodium 5,000 Units/ML Vial SUBCUT SCH (14:00)
[2018-04-30] MEDS: Heparin Sodium 5,000 Units/ML Vial SUBCUT SCH ×2 (14:28→22:35)
[2018-05-01] MEDS: Morphine 2 MG/ML Syringe IVPUSH PRN ×2 (03:04→09:32)
[2018-05-01] MEDS: Ketorolac 30 MG/ML SDV IVPUSH PRN (03:55)
[2018-05-01] MEDS: Heparin Sodium 5,000 Units/ML Vial SUBCUT SCH (05:53)
[2018-05-01] MEDS: Piperacillin/Tazobactam 3.375 GM in Sodium Chloride 0.9% 100 ML IV SCH (05:54)
[2018-05-01] MEDS: Acetaminophen 325 MG Tab PO PRN (09:34)
[2018-05-01 09:44] LABS: ANION GAP 9.4; CHLORIDE,CL 99 mmol/L (101-111); SODIUM,NA 136 mmol/L (135-145)
[2018-05-01] MEDS ORDERED: Acetaminophen/oxyCODONE 325-5 MG Tab PO PRN (10:18)
[2018-05-01 10:48] VITALS: BP 155/94
--- NOTE | 2018-05-01 11:14 | PCM.DCSUM1 ---
Discharge Summary - Hospital Course HPI Initial Comments: 37 yo M with substance abuse disorder who presents with bilateral hand swelling , pain. An I and D was done on the right pollex in the ED. IV antibiotics started on admission. This morning patient report increasing pain and swelling to the right hand. Exam revealed very swollen, tender of the right hand with erythema spreading up wards. Evidence of pus collection noted. Hand tender and held in frog shape position. Patient being transfer to [facility] for orthopedic/hand surgery evaluation for I&D. Diagnosis: Stroke: No Modified [place] Scale: Mod.Disablility Requiring Some Help,Able to Walk Without Assistance Modified [place] Scale Score: 3 - Discharge Data Discharge Date: 05/01/18 Discharge Disposition: DC/Tfer to Acute Hospital 02 Condition: Stable - Patient Summary/Data Consults: Consultations 04/30/18 11:52 Consult to Wound Care Services [CONS] Routine - Patient Instructions Notify Provider of: Fever, Increased Pain, Swelling and Redness, Nausea and/or Vomiting - Discharge Plan *PRESCRIPTION DRUG MONITORING PROGRAM REVIEWED*: Not Applicable *COPY OF PRESCRIPTION DRUG MONITORING REPORT IN PATIENT [place]: Not Applicable Home Medications: Home Meds Acetaminophen [Acetaminophen Extra Strength] 500 mg PO DAILY 02/12/18 [History] Gabapentin [Neurontin] 300 mg PO DAILY 02/12/18 [History] Ibuprofen 200 mg PO ASDIRECTED PRN 02/12/18 [History] Omeprazole 20 mg PO DAILY 02/12/18 [History] Buprenorphine HCl/Naloxone HCl [Zubsolv 8.6-2.1 mg Tablet Sl] 1 tab PO ASDIRECTED 04/30/18 [History] Ondansetron [Ondansetron ODT] 4 mg SL Q6H PRN 04/30/18 [History] Forms: ED Department Discharge Referrals: PCP,Unobtain [Primary Care Provider] - - Discharge Summary/Plan Comment DC Time >30 min.: Yes - General Info Date of Service: 05/01/18 Subjective Update: 37 yo M with substance abuse disorder who presents with bilateral hand swelling , pain. An I and D was done on the right pollex in the ED. IV antibiotics started on admission. This morning patient report increasing pain and swelling to the right hand. Exam revealed very swollen, tender of the right hand with erythema spreading up wards. Evidence of pus collection noted. Hand tender and held in frog shape position. Patient being transfer to [facility] for orthopedic/hand surgery evaluation for I&D. Functional Status: Reports: Other (severe pain to right hand) - Review of Systems General: Reports: Fever HEENT: Reports: No Symptoms Pulmonary: Reports: No Symptoms Cardiovascular: Reports: No Symptoms Gastrointestinal: Reports: No Symptoms Genitourinary: Reports: No Symptoms Musculoskeletal: Reports: Other (tender swollen right hand) Skin: Reports: No Symptoms Neurological: Reports: No Symptoms Psychiatric: Reports: No Symptoms - Patient Data Vitals - Most Recent: Last Vital Signs Temp 98.4 F 05/01/18 10:48 Pulse 74 05/01/18 10:48 Resp 20 05/01/18 10:48 BP 155/94 H 05/01/18 10:48 Pulse Ox 96 05/01/18 10:48 Weight - Most Recent: 170 lb 6.4 oz I&O - Last 24 hours: Intake & Output 04/30/18 05/01/18 05/01/18 22:59 06:59 14:59 Intake Total 660 485 Balance 660 485 Lab Results - Last 24 hrs: Laboratory Results - last 24 hr 05/01/18 05/01/18 Range/Units 09:12 09:12 WBC 14.1 H (5.0-10.0) 10^3/uL RBC 4.64 (4.6-6.2) 10^6/uL Hgb 13.8 L (14.0-18.0) g/dL Hct 40.7 (40.0-54.0) % MCV 87.7 (80-100) fL MCH 29.7 (27.0-34.0) pg MCHC 33.9 (33.0-35.0) g/dL Plt Count 286 (150-450) 10^3/uL Neut % (Auto) 78.8 H (42.2-75.2) % Lymph % (Auto) 9.4 L (20.5-50.1) % [place] % (Auto) 7.9 (2-8) % Eos % (Auto) 3.6 H (1.0-3.0) % Baso % (Auto) 0.3 (0.0-1.0) % Sodium 136 (135-145) mmol/L Potassium 3.4 L (3.6-5.0) mmol/L Chloride 99 L (101-111) mmol/L Carbon Dioxide 31.0 (21.0-31.0) mmol/L Anion Gap 9.4 BUN 13 (7-18) mg/dL Creatinine 1.0 (0.6-1.3) mg/dL Est Cr Clr Drug Dosing 109.50 mL/min Estimated GFR (MDRD) > 60 Glucose 133 H (74-105) mg/dL Calcium 8.2 L (8.4-10.2) mg/dl JOHN Results - Last 24 hrs: Microbiology 04/30/18 07:07 Wound Culture - Preliminary Finger, Right 04/30/18 06:33 Aerobic Blood Culture - Preliminary Blood - Venous - Lab Draw NO GROWTH AFTER 1 DAY Anaerobic Blood Culture - Preliminary NO GROWTH AFTER 1 DAY 04/30/18 06:24 Aerobic Blood Culture - Preliminary Blood - Venous NO GROWTH AFTER 1 DAY Anaerobic Blood Culture - Preliminary NO GROWTH AFTER 1 DAY Med Orders - Current: Current Medications Acetaminophen (Tylenol) 650 mg PO Q4H PRN PRN Reason: Pain (Mild 1-3)/fever Last Admin: 05/01/18 09:34 Dose: 650 mg Heparin Sodium (Porcine) (Heparin Sodium) 5,000 units SUBCUT Q8HR [facility] Last Admin: 05/01/18 05:53 Dose: 5,000 units Piperacillin Sod/Tazobactam (Sod 3.375 gm/ Sodium Chloride) 100 mls @ 200 mls/ hr IV Q6HR [facility] Last Infusion: 05/01/18 06:32 Dose: Infused Vancomycin HCl 1 gm/ Sodium (Chloride) 250 mls @ 166.667 mls/hr IV Q8H [facility] Last Admin: 05/01/18 09:35 Dose: 166.667 mls/hr Ketorolac Tromethamine (Toradol) 30 mg IVPUSH Q6H PRN PRN Reason: Pain (moderate 4-6) Last Admin: 05/01/18 03:55 Dose: 30 mg Morphine Sulfate (Morphine) 2 mg IVPUSH Q2H PRN PRN Reason: Pain (severe 7-10) Last Admin: 05/01/18 09:32 Dose: 2 mg Ondansetron HCl (Zofran) 4 mg IV Q4H PRN PRN Reason: Nausea/Vomiting Oxycodone/Acetaminophen (Percocet 325-5 Mg) 2 tab PO Q6H PRN PRN Reason: Pain Last Admin: 05/01/18 10:37 Dose: 2 tab Sodium Chloride (Saline Flush) 10 ml FLUSH ASDIRECTED PRN PRN Reason: Keep Vein Open Last Admin: 05/01/18 09:31 Dose: 10 ml Vancomycin HCl (Pharmacy To Dose - Vancomycin) 1 dose .XX ASDIRECTED JJ Discontinued Medications Diphenhydramine HCl (Benadryl) 25 mg IVPUSH ONETIME ONE Stop: 04/30/18 07:23 Last Admin: 04/30/18 07:47 Dose: 25 mg Iopamidol (Isovue-300 (61%)) 100 ml IVPUSH ONETIME ONE Stop: 04/30/18 13:11 Last Admin: 04/30/18 13:44 Dose: 100 ml Ketorolac Tromethamine (Toradol) 30 mg IVPUSH ONETIME ONE Stop: 04/30/18 06:56 Last Admin: 04/30/18 07:03 Dose: 30 mg Potassium Chloride (Klor-Con 10) 40 meq PO ONETIME ONE Stop: 04/30/18 10:02 Last Admin: 04/30/18 10:49 Dose: 40 meq Vancomycin HCl (Vancomycin) 1,250 mg IV ONETIME ONE Stop: 04/30/18 07:24 Last Admin: 04/30/18 07:50 Dose: 1,250 mg Vancomycin HCl (Vancomycin) Confirm Administered Dose 1 gm .ROUTE .STK-MED ONE Stop: 04/30/18 07:36 Last Admin: 04/30/18 07:51 Dose: Not Given Vancomycin HCl (Vancomycin) Confirm Administered Dose 500 mg .ROUTE .STK-MED ONE Stop: 04/30/18 07:36 Last Admin: 04/30/18 07:51 Dose: Not Given Discharge Operative/Procedures - Procedures Performed I&D Site: right thumb
== END 2018-05-01 11:45 | DRG 603 ==
LOC: DL.ED 06:14 → DL.MS 08:47 → UNDOADMIN 08:47 → DL.MS 10:01
PROVIDERS: ADMIT Hospitalist; ATTEND Hospitalist
PROC: 0H9FXZX Drainage of Right Hand Skin, External Approach, Diagnostic (ICD-10-PCS; principal; 2018-04-30)
DX: L03.113 Cellulitis of right upper limb (principal); L03.011 Cellulitis of right finger; L03.114 Cellulitis of left upper limb; F19.10 Other psychoactive substance abuse, uncomplicated; I10 Essential (primary) hypertension; K21.9 Gastro-esophageal reflux disease without esophagitis; F17.210 Nicotine dependence, cigarettes, uncomplicated; H54.7 Unspecified visual loss; Z79.899 Other long term (current) drug therapy
CPT/HCPCS: 36415; 73130-LT; 73201-50; 80048; 80053; 83605; 85025; 87040; 87070; 87186; 96365; 96375; 99285; A9270-GY; J1200; J1644; J1885; J2270; J2543; J3370; J7050; Q9967

== ENCOUNTER 2018-11-24 16:01 | Emergency (ER) | payer SELFPAY ==
[2018-11-24 16:11] VITALS: BP 150/120
[2018-11-24] MEDS ORDERED: diphenhydrAMINE 50 MG/ML SDV IVPUSH ONE (16:30)
[2018-11-24] MEDS ORDERED: Ketorolac 30 MG/ML SDV IVPUSH ONE (16:30)
[2018-11-24] MEDS ORDERED: Lactated Ringers 1,000 ML IV ONE (16:30)
[2018-11-24] MEDS ORDERED: Sodium Chloride 0.9% 10 ML Syringe FLUSH PRN (16:31)
[2018-11-24] MEDS ORDERED: Haloperidol Lactate 5 MG/ML SDV IVPUSH ONE (16:31)
[2018-11-24] MEDS ORDERED: Promethazine 25 MG/ML SDV IM ONE (16:36)
--- NOTE | 2018-11-24 16:37 | EDM.PDOC ---
ED HPI GENERAL MEDICAL PROBLEM - General Chief Complaint: Abdominal Pain Stated Complaint: ABDOMINAL PAIN Time Seen by Provider: 11/24/18 16:25 Source of Information: Reports: Patient History Limitations: Reports: No Limitations - History of Present Illness INITIAL COMMENTS - FREE TEXT/NARRATIVE: Patient comes rinse her department today with complaints of epigastric pain. Patient is well-known to myself as well as the department for chronic epigastric recurrent pain. He has not had an episode of this since June of last year. He was sitting in class today when suddenly he had severe pain in his epigastric region. He is nauseated and vomited multiple times. No fever no chills. He has had no recent surgery. He was fine up until just a couple of hours ago he reports. He denies any recent alcohol usage. He has stopped using his Suboxone in June of last year. He denies any recreational drug usage. No black or tarry stools. No diarrhea. Abdominal Pain Score (Numeric/FACES): 10 - Related Data Allergies Allergy/AdvReac Type Severity Reaction Status Date / Time No Known Allergies Allergy Verified 11/24/18 16:14 Home Meds: Home Meds Acetaminophen [Acetaminophen Extra Strength] 500 mg PO DAILY 02/12/18 [History] Gabapentin [Neurontin] 300 mg PO DAILY 02/12/18 [History] Ibuprofen 200 mg PO ASDIRECTED PRN 02/12/18 [History] Omeprazole 20 mg PO DAILY 02/12/18 [History] Buprenorphine HCl/Naloxone HCl [Zubsolv 8.6-2.1 mg Tablet Sl] 1 tab PO ASDIRECTED 04/30/18 [History] Ondansetron [Ondansetron ODT] 4 mg SL Q6H PRN 04/30/18 [History] Lisinopril 20 mg PO DAILY 11/24/18 [History] Past Medical History HEENT History: Reports: Impaired Vision Other HEENT History: WEARS CONTACT LENS Cardiovascular History: Reports: Hypertension Respiratory History: Reports: None Gastrointestinal History: Reports: Diverticulosis, GERD, Pancreatitis Genitourinary History: Reports: None Musculoskeletal History: Reports: None Neurological History: Reports: None Psychiatric History: Reports: Addiction, Other (See Below) Other Psychiatric History: HX OF CANNABIS ABUSE Endocrine/Metabolic History: Reports: None Hematologic History: Reports: None Immunologic History: Reports: None Oncologic (Cancer) History: Reports: None Dermatologic History: Reports: None - Infectious Disease History Infectious Disease History: Reports: None - Past Surgical History Head Surgeries/Procedures: Reports: None HEENT Surgical History: Reports: Oral Surgery Cardiovascular Surgical History: Reports: None Respiratory Surgical History: Reports: None GI Surgical History: Reports: Appendectomy, Cholecystectomy, EGD, ERCP Male Surgical History: Reports: None Endocrine Surgical History: Reports: None Neurological Surgical History: Reports: None Musculoskeletal Surgical History: Reports: Other (See Below) Other Musculoskeletal Surgeries/Procedures:: BUNIONECTOMY LEFT WITH HARDWARE Dermatological Surgical History: Reports: None - History Comment History Comment: Marijuana hyperemesis syndrome Social & Family History - Family History Family Medical History: Noncontributory Other HEENT Family History: HX OF ABCESSED TEETH Oncologic: Reports: Other (See Below) Other Oncologic Family History: FATHER & PATERNAL GRANDFATHER CANCER - Tobacco Use Smoking Status *Q: Light Tobacco Smoker Years of Tobacco use: 2 Packs/Tins Daily: 0.5 Used Tobacco, but Quit: No - Caffeine Use Caffeine Use: Reports: None Other Caffeine Use: 1-2 'CANS' OF CAFFIENATED BEVERAGES - Recreational Drug Use Recreational Drug Type: Reports: Marijuana/Hashish Recreational Drug Use Frequency: Monthly - Living Situation & Occupation Living situation: Reports: with Family Occupation: Unemployed ED ROS GENERAL - Review of Systems Review Of Systems: ROS reveals no pertinent complaints other than HPI. ED EXAM, GI/ABD - Physical Exam Exam: See Below Exam Limited By: No Limitations General Appearance: Moderate Distress (he is moaning and shaking in discomfort. He is diaphoretic. ) Ears: Normal External Exam Nose: Normal Inspection, Normal Mucosa Throat/Mouth: Normal Inspection, Normal Lips, Normal Oropharynx Head: Atraumatic, Normocephalic Neck: Normal Inspection, Supple, Non-Tender Respiratory/Chest: No Respiratory Distress, Lungs Clear, Normal Breath Sounds, No Accessory Muscle Use Cardiovascular: Normal Peripheral Pulses, Regular Rate, Rhythm GI/Abdominal Exam: Normal Bowel Sounds, Soft, No Organomegaly, No Distention, No Abnormal Bruit, No Mass, Tender (to the epigastric region. ). No: Distended , Guarding, Rigid, Rebound, Hernia, Splenomegaly Back Exam: Normal Inspection Extremities: Normal Inspection, Normal Range of Motion, Normal Capillary Refill Neurological: Alert, Oriented, Normal Cognition, No Motor/Sensory Deficits Psychiatric: Normal Affect, Normal Mood Skin Exam: Intact, No Rash, Cool, Diaphoretic, Pallor Course - Vital Signs Last Recorded V/S: Last Vital Signs Temp 36.1 C 11/24/18 16:05 Pulse 85 11/24/18 16:05 Resp 20 11/24/18 16:05 BP 150/120 H 11/24/18 16:05 Pulse Ox 97 11/24/18 16:05 - Orders/Labs/Meds Orders: Active Orders 24 hr Category Date Time Status Peripheral IV Care [RC] . DIRECTED Care 11/24/18 16:31 Active Peripheral IV Insertion Adult [OM.PC] Stat Oth 11/24/18 16:30 Ordered Labs: Laboratory Tests 11/24/18 11/24/18 Range/Units 16:15 16:15 WBC 11.6 H (5.0-10.0) 10^3/uL RBC 5.53 (4.6-6.2) 10^6/uL Hgb 17.1 (14.0-18.0) g/dL Hct 49.4 (40.0-54.0) % MCV 89.3 D (80-100) fL MCH 30.9 (27.0-34.0) pg MCHC 34.6 (33.0-35.0) g/dL Plt Count 342 D (150-450) 10^3/uL Neut % (Auto) 68.9 (42.2-75.2) % Lymph % (Auto) 20.4 L (20.5-50.1) % [place] % (Auto) 9.4 H (2-8) % Eos % (Auto) 1.0 (1.0-3.0) % Baso % (Auto) 0.3 (0.0-1.0) % Sodium 138 (135-145) mmol/L Potassium 3.6 (3.6-5.0) mmol/L Chloride 104 (101-111) mmol/L Carbon Dioxide 19.0 L (21.0-31.0) mmol/L Anion Gap 18.6 BUN 21 H (7-18) mg/dL Creatinine 1.0 (0.6-1.3) mg/dL Est Cr Clr Drug Dosing 108.86 mL/min Estimated GFR (MDRD) > 60 BUN/Creatinine Ratio 21.00 Glucose 97 (74-105) mg/dL Calcium 9.8 (8.4-10.2) mg/dl Total Bilirubin 0.8 (0.2-1.0) mg/dL AST 36 (10-42) IU/L ALT 40 (10-60) IU/L Alkaline Phosphatase 82 (42-121) IU/L Total Protein 8.5 H (6.7-8.2) g/dl Albumin 4.6 (3.2-5.5) g/dl Globulin 3.9 Albumin/Globulin Ratio 1.18 Lipase 24 (22-51) U/L Ethyl Alcohol < 5 mg/dL Meds: Medications Discontinued Medications Generic Name Dose Route Start Last Admin Trade Name Freq PRN Reason Stop Dose Admin Diphenhydramine HCl 25 mg 11/24/18 16:30 11/24/18 16:39 Benadryl IVPUSH 11/24/18 16:31 25 mg ONETIME ONE Administration Haloperidol Lactate 2 mg 11/24/18 16:31 Haldol IVPUSH 11/24/18 16:32 ONETIME ONE Lactated Ringer's 1,000 mls @ 1,000 mls/hr 11/24/18 16:30 11/24/18 16:40 Ringers, Lactated IV 11/24/18 17:29 1,000 mls/hr .BOLUS ONE Administration Ketorolac Tromethamine 30 mg 11/24/18 16:30 11/24/18 16:38 Toradol IVPUSH 11/24/18 16:31 30 mg ONETIME ONE Administration Promethazine HCl 25 mg 11/24/18 16:36 11/24/18 16:49 Phenergan IM 11/24/18 16:37 25 mg ONETIME ONE Administration Sodium Chloride 10 ml 11/24/18 16:31 11/24/18 16:38 Saline Flush FLUSH 10 ml ASDIRECTED PRN Administration Keep Vein Open - Re-Assessments/Exams Free Text/Narrative Re-Assessment/Exam: 11/24/18 IV LR 1 liter wide open. Diphenhydramine 25mg IVP Phenergan 25mg IM Ketorolac 30mg IV Labs were drawn the patient left AMA as he had to go get his children. The patient left prior to receiving AMA discussion and left. Labs were not resulted. Departure - Departure Time of Disposition: 17:00 Disposition: Against Medical Advice 07 Clinical Impression: Abdominal pain Qualifiers: Abdominal location: generalized Qualified Code(s): R10.84 - Generalized abdominal pain - Discharge Information Forms: ED Department Discharge - My Orders Last 24 Hours: My Active Orders 11/24/18 16:30 Peripheral IV Insertion Adult [OM.PC] Stat 11/24/18 16:31 Peripheral IV Care [RC] . DIRECTED - Assessment/Plan Last 24 Hours: My Active Orders 11/24/18 16:30 Peripheral IV Insertion Adult [OM.PC] Stat 11/24/18 16:31 Peripheral IV Care [RC] . DIRECTED Assessment:: ABD pain acute on chronic left AMA before evaluation complete. Plan: LEFT AMA prior to AMA discussion with myself.
[2018-11-24 16:50] LABS: ANION GAP 18.6; CHLORIDE,CL 104 mmol/L (101-111); SODIUM,NA 138 mmol/L (135-145)
== END 2018-11-24 17:12 | disposition left against medical advice (07) ==
LOC: DL.ED 16:01
DX: R10.84 Generalized abdominal pain (principal); I10 Essential (primary) hypertension; F17.210 Nicotine dependence, cigarettes, uncomplicated; Z79.899 Other long term (current) drug therapy
CPT/HCPCS: 36415; 80053; 83690; 85025; 96372; 96374; 96375; 99284; G0480; J1200; J1885; J2550; J7120

== ENCOUNTER 2018-11-28 11:29 | Emergency (ER) | payer SELFPAY ==
--- NOTE | 2018-11-28 11:32 | EDM.PDOC ---
ED HPI GENERAL MEDICAL PROBLEM - General Chief Complaint: Abdominal Pain Stated Complaint: AMBULANCE Time Seen by Provider: 11/28/18 11:32 Source of Information: Reports: Patient, EMS, Old Records, RN, RN Notes Reviewed History Limitations: Reports: No Limitations - History of Present Illness INITIAL COMMENTS - FREE TEXT/NARRATIVE: Pt presents to ER by ambulance with c/o epigastric and LLQ abdominal pain with nausea and vomiting. Pt states the N/V and epigastric pain started about 4 days ago and has been recurrent. The LLQ pain began this morning. He denies fever, chills, diarrhea, or constipation. Pt has Hx of similar Sx's multiple times in the past due to marijuana hyperemesis syndrome. He also has Hx of pancreatitis. Pt denies recent alcohol or meth use, stating that he has abstained for several months. He did use marijuana last week. Duration: Day(s): (4), Recurring, Waxing/Waning Location: Reports: Abdomen Quality: Reports: Same as Previous Episode Severity: Severe Improves with: Reports: None Worsens with: Reports: None Associated Symptoms: Reports: No Other Symptoms - Related Data Allergies Allergy/AdvReac Type Severity Reaction Status Date / Time No Known Allergies Allergy Verified 11/28/18 11:30 Home Meds: Home Meds Acetaminophen [Acetaminophen Extra Strength] 500 mg PO DAILY 02/12/18 [History] Gabapentin [Neurontin] 300 mg PO DAILY 02/12/18 [History] Ibuprofen 200 mg PO ASDIRECTED PRN 02/12/18 [History] Omeprazole 20 mg PO DAILY 02/12/18 [History] Buprenorphine HCl/Naloxone HCl [Zubsolv 8.6-2.1 mg Tablet Sl] 1 tab PO ASDIRECTED 04/30/18 [History] Ondansetron [Ondansetron ODT] 4 mg SL Q6H PRN 04/30/18 [History] Lisinopril 20 mg PO DAILY 11/24/18 [History] Past Medical History HEENT History: Reports: Impaired Vision Other HEENT History: WEARS CONTACT LENS Cardiovascular History: Reports: Hypertension Respiratory History: Reports: None Gastrointestinal History: Reports: Diverticulosis, GERD, Pancreatitis Genitourinary History: Reports: None Musculoskeletal History: Reports: None Neurological History: Reports: None Psychiatric History: Reports: Addiction, Other (See Below) Other Psychiatric History: HX OF CANNABIS ABUSE Endocrine/Metabolic History: Reports: None Hematologic History: Reports: None Immunologic History: Reports: None Oncologic (Cancer) History: Reports: None Dermatologic History: Reports: None - Infectious Disease History Infectious Disease History: Reports: None - Past Surgical History Head Surgeries/Procedures: Reports: None HEENT Surgical History: Reports: Oral Surgery Cardiovascular Surgical History: Reports: None Respiratory Surgical History: Reports: None GI Surgical History: Reports: Appendectomy, Cholecystectomy, EGD, ERCP Male Surgical History: Reports: None Endocrine Surgical History: Reports: None Neurological Surgical History: Reports: None Musculoskeletal Surgical History: Reports: Other (See Below) Other Musculoskeletal Surgeries/Procedures:: BUNIONECTOMY LEFT WITH HARDWARE Dermatological Surgical History: Reports: None - History Comment History Comment: Marijuana hyperemesis syndrome Social & Family History - Family History Family Medical History: Noncontributory Other HEENT Family History: HX OF ABCESSED TEETH Oncologic: Reports: Other (See Below) Other Oncologic Family History: FATHER & PATERNAL GRANDFATHER CANCER - Caffeine Use Caffeine Use: Reports: None Other Caffeine Use: 1-2 'CANS' OF CAFFIENATED BEVERAGES - Alcohol Use Alcohol Use History: Yes Alcohol Use Frequency: Not Used in Over 1 Month - Recreational Drug Use Recreational Drug Use: Yes Recreational Drug Type: Reports: Marijuana/Hashish, Methamphetamine - Living Situation & Occupation Living situation: Reports: with Significant Other, with Family Occupation: Student ED ROS GENERAL - Review of Systems Review Of Systems: ROS reveals no pertinent complaints other than HPI. ED EXAM, GI/ABD - Physical Exam Exam: See Below Exam Limited By: No Limitations General Appearance: Alert, WD/WN, Moderate Distress (with dry heaving) Nose: Normal Inspection, Normal Mucosa, No Blood Throat/Mouth: Normal Inspection, Normal Voice, No Airway Compromise Head: Atraumatic, Normocephalic Neck: Normal Inspection, Full Range of Motion Respiratory/Chest: No Respiratory Distress, Lungs Clear, Normal Breath Sounds, No Accessory Muscle Use, Chest Non-Tender Cardiovascular: Regular Rate, Rhythm, No Edema GI/Abdominal Exam: Normal Bowel Sounds, Soft, No Distention, No Abnormal Bruit, No Mass, Tender (epigastric and LLQ). No: Guarding, Rigid, Rebound (Male) Exam: No: Hernia Rectal (Males) Exam: Deferred Back Exam: Normal Inspection, Full Range of Motion. No: CVA Tenderness (L), CVA Tenderness (R) Extremities: Normal Inspection Neurological: Alert, Oriented, CN II-XII Intact, Normal Cognition, Normal Gait, No Motor/Sensory Deficits Psychiatric: Anxious, Tearful Skin Exam: Warm, Dry, Intact, Normal Color, No Rash Course - Vital Signs Last Recorded V/S: Last Vital Signs Temp 37.0 C 11/28/18 11:35 Pulse 63 11/28/18 11:35 Resp 16 11/28/18 11:35 BP Pulse Ox 100 11/28/18 11:35 - Orders/Labs/Meds Orders: Active Orders 24 hr Category Date Time Status Peripheral IV Care [RC] . DIRECTED Care 11/28/18 11:35 Active Abdomen Pelvis w Cont [CT] Urgent Exams 11/28/18 14:07 Taken Sodium Chloride 0.9% [Saline Flush] Med 11/28/18 11:35 Active 10 ml FLUSH ASDIRECTED PRN Peripheral IV Insertion Adult [OM.PC] Stat Oth 11/28/18 11:35 Ordered Medication Orders Sodium Chloride (Saline Flush) 10 ml FLUSH ASDIRECTED PRN PRN Reason: Keep Vein Open Last Admin: 11/28/18 11:48 Dose: 10 ml Labs: Laboratory Tests 11/28/18 11/28/18 11/28/18 Range/Units 11:43 11:43 12:35 WBC 13.5 H (5.0-10.0) 10^3/uL RBC 5.56 (4.6-6.2) 10^6/uL Hgb 17.1 (14.0-18.0) g/dL Hct 48.2 (40.0-54.0) % MCV 86.7 (80-100) fL MCH 30.8 (27.0-34.0) pg MCHC 35.5 H (33.0-35.0) g/dL Plt Count 327 (150-450) 10^3/uL Neut % (Auto) 75.0 (42.2-75.2) % Lymph % (Auto) 14.9 L (20.5-50.1) % Hardy % (Auto) 8.7 H (2-8) % Eos % (Auto) 1.1 (1.0-3.0) % Baso % (Auto) 0.3 (0.0-1.0) % Sodium 135 (135-145) mmol/L Potassium 4.0 (3.6-5.0) mmol/L Chloride 99 L (101-111) mmol/L Carbon Dioxide 22.0 (21.0-31.0) mmol/L Anion Gap 18.0 BUN 22 H (7-18) mg/dL Creatinine 1.0 (0.6-1.3) mg/dL Est Cr Clr Drug Dosing TNP Estimated GFR (MDRD) > 60 BUN/Creatinine Ratio 22.00 Glucose 103 (74-105) mg/dL Calcium 9.2 (8.4-10.2) mg/dl Total Bilirubin 1.6 H (0.2-1.0) mg/dL AST 38 (10-42) IU/L ALT 38 (10-60) IU/L Alkaline Phosphatase 78 (42-121) IU/L Total Protein 8.1 (6.7-8.2) g/dl Albumin 4.6 (3.2-5.5) g/dl Globulin 3.5 Albumin/Globulin Ratio 1.31 Amylase 78 (28-100) U/L Lipase 18 L (22-51) U/L Urine Color Dark yellow (YELLOW) Urine Appearance Slightly cloudy (CLEAR) Urine pH 7.0 (5.0-9.0) Ur Specific Schaller 1.020 (1.005-1.030) Urine Protein 100 H (NEGATIVE) Urine Glucose (UA) Negative (NEGATIVE) Urine Ketones >=160 H (NEGATIVE) Urine Occult Blood Negative (NEGATIVE) Urine Nitrite Negative (NEGATIVE) Urine Bilirubin Small H (NEGATIVE) Urine Urobilinogen 1.0 (0.2-1.0) mg/dL Ur Leukocyte Esterase Negative (NEGATIVE) Urine RBC 0-5 /HPF Urine WBC 0-5 (0-5/HPF) /HPF Ur Epithelial Cells Few /HPF Amorphous Sediment Rare (0/HPF) /HPF Urine Bacteria Rare (0-FEW/HPF) /HPF Urine Mucus Many H /LPF Urine Opiates Screen (NEGATIVE) Ur Oxycodone Screen (NEGATIVE) Urine Methadone Screen (NEGATIVE) Ur Barbiturates Screen (NEGATIVE) U Tricyclic Antidepress (NEGATIVE) Ur Phencyclidine Scrn (NEGATIVE) Ur Amphetamine Screen (NEGATIVE) U Methamphetamines Scrn (NEGATIVE) Urine MDMA Screen (NEGATIVE) U Benzodiazepines Scrn (NEGATIVE) Urine Cocaine Screen (NEGATIVE) U Marijuana (THC) Screen (NEGATIVE) Ethyl Alcohol < 5 mg/dL 11/28/18 Range/Units 12:35 WBC (5.0-10.0) 10^3/uL RBC (4.6-6.2) 10^6/uL Hgb (14.0-18.0) g/dL Hct (40.0-54.0) % MCV (80-100) fL MCH (27.0-34.0) pg MCHC (33.0-35.0) g/dL Plt Count (150-450) 10^3/uL Neut % (Auto) (42.2-75.2) % Lymph % (Auto) (20.5-50.1) % Hardy % (Auto) (2-8) % Eos % (Auto) (1.0-3.0) % Baso % (Auto) (0.0-1.0) % Sodium (135-145) mmol/L Potassium (3.6-5.0) mmol/L Chloride (101-111) mmol/L Carbon Dioxide (21.0-31.0) mmol/L Anion Gap BUN (7-18) mg/dL Creatinine (0.6-1.3) mg/dL Est Cr Clr Drug Dosing Estimated GFR (MDRD) BUN/Creatinine Ratio Glucose (74-105) mg/dL Calcium (8.4-10.2) mg/dl Total Bilirubin (0.2-1.0) mg/dL AST (10-42) IU/L ALT (10-60) IU/L Alkaline Phosphatase (42-121) IU/L Total Protein (6.7-8.2) g/dl Albumin (3.2-5.5) g/dl Globulin Albumin/Globulin Ratio Amylase (28-100) U/L Lipase (22-51) U/L Urine Color (YELLOW) Urine Appearance (CLEAR) Urine pH (5.0-9.0) Ur Specific Schaller (1.005-1.030) Urine Protein (NEGATIVE) Urine Glucose (UA) (NEGATIVE) Urine Ketones (NEGATIVE) Urine Occult Blood (NEGATIVE) Urine Nitrite (NEGATIVE) Urine Bilirubin (NEGATIVE) Urine Urobilinogen (0.2-1.0) mg/dL Ur Leukocyte Esterase (NEGATIVE) Urine RBC /HPF Urine WBC (0-5/HPF) /HPF Ur Epithelial Cells /HPF Amorphous Sediment (0/HPF) /HPF Urine Bacteria (0-FEW/HPF) /HPF Urine Mucus /LPF Urine Opiates Screen Negative (NEGATIVE) Ur Oxycodone Screen Negative (NEGATIVE) Urine Methadone Screen Negative (NEGATIVE) Ur Barbiturates Screen Negative (NEGATIVE) U Tricyclic Antidepress Negative (NEGATIVE) Ur Phencyclidine Scrn Negative (NEGATIVE) Ur Amphetamine Screen Negative (NEGATIVE) U Methamphetamines Scrn Negative (NEGATIVE) Urine MDMA Screen Negative (NEGATIVE) U Benzodiazepines Scrn Negative (NEGATIVE) Urine Cocaine Screen Negative (NEGATIVE) U Marijuana (THC) Screen Positive H (NEGATIVE) Ethyl Alcohol mg/dL Meds: Medications Generic Name Dose Route Start Last Admin Trade Name Freq PRN Reason Stop Dose Admin Sodium Chloride 10 ml 11/28/18 11:35 11/28/18 11:48 Saline Flush FLUSH 10 ml ASDIRECTED PRN Administration Keep Vein Open Discontinued Medications Generic Name Dose Route Start Last Admin Trade Name Freq PRN Reason Stop Dose Admin Diphenhydramine HCl 50 mg 11/28/18 11:36 11/28/18 11:48 Benadryl IVPUSH 11/28/18 11:37 50 mg ONETIME ONE Administration Famotidine 20 mg 11/28/18 11:37 11/28/18 11:48 Pepcid IVPUSH 11/28/18 11:38 20 mg ONETIME ONE Administration Famotidine Confirm 11/28/18 11:43 11/28/18 11:48 Pepcid Administered 11/28/18 11:44 Not Given Dose 20 mg .ROUTE .STK-MED ONE Hydromorphone HCl 1 mg 11/28/18 12:28 11/28/18 12:32 Dilaudid IVPUSH 11/28/18 12:29 1 mg ONETIME ONE Administration Hydromorphone HCl 1 mg 11/28/18 14:09 11/28/18 14:32 Dilaudid IVPUSH 11/28/18 14:10 1 mg ONETIME ONE Administration Sodium Chloride 1,000 mls @ 999 mls/hr 11/28/18 11:36 11/28/18 11:49 Normal Saline IV 11/28/18 12:36 999 mls/hr .BOLUS ONE Administration Iopamidol 100 ml 11/28/18 14:07 04/12/19 14:56 Isovue-300 (61%) IVPUSH 11/28/18 14:08 100 ml ONETIME ONE Administration Ketorolac Tromethamine 30 mg 11/28/18 14:10 11/28/18 14:32 Toradol IVPUSH 11/28/18 14:11 30 mg ONETIME ONE Administration Metoclopramide HCl 10 mg 11/28/18 11:36 11/28/18 11:48 Reglan IVPUSH 11/28/18 11:37 10 mg ONETIME ONE Administration Ondansetron HCl 4 mg 11/28/18 12:28 11/28/18 12:32 Zofran IV 11/28/18 12:29 4 mg ONETIME ONE Administration - Radiology Interpretation Free Text/Narrative:: CT Abd/Pelvis: no acute findings per Rad. report. Departure - Departure Time of Disposition: 15:17 Disposition: Home, Self-Care 01 Condition: Good Clinical Impression: Cannabinoid hyperemesis syndrome Abdominal pain Qualifiers: Abdominal location: generalized Qualified Code(s): R10.84 - Generalized abdominal pain - Discharge Information *PRESCRIPTION DRUG MONITORING PROGRAM REVIEWED*: No *COPY OF PRESCRIPTION DRUG MONITORING REPORT IN PATIENT NAKITA: No Instructions: Abdominal Pain, Adult, [id number] Referrals: PCP,None [Primary Care Provider] - Forms: ED Department Discharge Additional Instructions: Rx: Dicyclomine 20mg Rx: Promethazine 25mg Clear liquid diet until abdominal pain and nausea resolve, then advance to soft bland diet as tolerated. Follow up in clinic next week for recheck. - My Orders Last 24 Hours: My Active Orders 11/28/18 11:35 Peripheral IV Care [RC] . DIRECTED Sodium Chloride 0.9% [Saline Flush] 10 ml FLUSH ASDIRECTED PRN Peripheral IV Insertion Adult [OM.PC] Stat 11/28/18 14:07 Abdomen Pelvis w Cont [CT] Urgent - Assessment/Plan Last 24 Hours: My Active Orders 11/28/18 11:35 Peripheral IV Care [RC] . DIRECTED Sodium Chloride 0.9% [Saline Flush] 10 ml FLUSH ASDIRECTED PRN Peripheral IV Insertion Adult [OM.PC] Stat 11/28/18 14:07 Abdomen Pelvis w Cont [CT] Urgent
[2018-11-28] MEDS ORDERED: Sodium Chloride 0.9% 10 ML Syringe FLUSH PRN (11:35)
[2018-11-28] MEDS ORDERED: Metoclopramide 10 MG/2 ML SDV IVPUSH ONE (11:36)
[2018-11-28] MEDS ORDERED: diphenhydrAMINE 50 MG/ML SDV IVPUSH ONE (11:36)
[2018-11-28] MEDS ORDERED: Sodium Chloride 0.9% 1,000 ML IV ONE (11:36)
[2018-11-28] MEDS ORDERED: Famotidine 20 MG/2 ML SDV IVPUSH ONE (11:37)
[2018-11-28] MEDS ORDERED: Famotidine 20 MG/2 ML SDV ONE (11:43)
[2018-11-28 12:11] LABS: CHLORIDE,CL 99 mmol/L (101-111); SODIUM,NA 135 mmol/L (135-145)
[2018-11-28] MEDS ORDERED: Ondansetron 4 MG/2 ML SDV IV ONE (12:28)
[2018-11-28] MEDS ORDERED: HYDROmorphone 1 MG/ML Syringe IVPUSH ONE ×2 (12:28→14:09)
[2018-11-28] MEDS ORDERED: Iopamidol 612 MG/ML 100 ML Bottle IVPUSH ONE (14:07)
[2018-11-28] MEDS ORDERED: Ketorolac 30 MG/ML SDV IVPUSH ONE (14:10)
--- NOTE | 2018-11-28 17:34 | CT ---
Clinical history: 38 year-old 200 pound male smoker with left lower quadrant abdominal pain and white blood cell count of 13,000. Scan technique: Volume acquisition of data emergency unenhanced CT scan of the abdomen and pelvis obtained with the patient was lying supine on the Siemens multi slice scanner [place], [place]. All data archived in the PACS system for storage, reformatting axial/sagittal/coronal planes and study. Interpretation: No signs of acute peritonitis this patient who has had his gallbladder removed. Focal grouping small bowel lower mid abdomen could reflect or represent an adhesion however no surrounding inflammatory "dirty" peritoneal fat and no current signs of mechanical small bowel obstruction. Significance? Unenhanced liver, stomach, spleen, pancreas, adrenal glands and kidneys unremarkable. No sign of renal cortical mass lesion, nephrolithiasis or obstructive uropathy. No pelvic or abdominal mass lesion. No pelvic, mesenteric or retroperitoneal lymphadenopathy. No sign of mechanical bowel obstruction, ascites or free intraperitoneal air. A few diverticula in the distal transverse colon (LUQ). Normal caliber abdominal aorta. Mid lumbar disc disease/arthritis.
== END 2018-11-28 15:25 | disposition home or self-care (01) ==
LOC: DL.ED 11:29
DX: F12.188 Cannabis abuse with other cannabis-induced disorder (principal); R11.10 Vomiting, unspecified; I10 Essential (primary) hypertension
CPT/HCPCS: 36415; 74177; 80053; 80305; 81001; 82150; 83690; 85025; 96361; 96374; 96375; 96376; 99284; G0480; J1170; J1200; J1885; J2405; J2765; J3490; J7030; Q9967

== ENCOUNTER 2018-12-28 09:36 | Emergency (ER) | payer SELFPAY ==
[2018-12-28] MEDS ORDERED: Sodium Chloride 0.9% 10 ML Syringe FLUSH PRN (09:41)
[2018-12-28] MEDS ORDERED: Sodium Chloride 0.9% 1,000 ML IV ONE (09:42)
[2018-12-28] MEDS ORDERED: Ketorolac 30 MG/ML SDV IVPUSH ONE (09:42)
[2018-12-28] MEDS ORDERED: diphenhydrAMINE 50 MG/ML SDV IVPUSH ONE (09:42)
[2018-12-28] MEDS ORDERED: Metoclopramide 10 MG/2 ML SDV IVPUSH ONE (09:43)
[2018-12-28] MEDS ORDERED: Famotidine 20 MG/2 ML SDV IVPUSH ONE (09:44)
[2018-12-28] MEDS ORDERED: LORazepam 2 MG/ML Syringe IVPUSH ONE (09:44)
[2018-12-28 10:19] VITALS: BP 175/122
[2018-12-28 10:22] LABS: ANION GAP 14.7; CHLORIDE,CL 105 mmol/L (101-111); SODIUM,NA 137 mmol/L (135-145)
[2018-12-28] MEDS ORDERED: Ondansetron 4 MG/2 ML SDV IV ONE (11:18)
[2018-12-28] MEDS ORDERED: HYDROmorphone 1 MG/ML Syringe IVPUSH ONE (11:20)
--- NOTE | 2018-12-28 11:22 | EDM.PDOC ---
Scribed by Jayne Mcdonnell 12/28/18 0959 for Yoel Beach MD ED HPI GENERAL MEDICAL PROBLEM - General Chief Complaint: Abdominal Pain Stated Complaint: Abdominal pain Time Seen by Provider: 12/28/18 09:38 Source of Information: Reports: Patient, EMS, EMS Notes Reviewed, Old Records, RN, RN Notes Reviewed History Limitations: Reports: No Limitations - History of Present Illness INITIAL COMMENTS - FREE TEXT/NARRATIVE: Pt arrives to ER from home by POV with c/o upper abdominal pain with nausea and "dry heaves" that began 3 or 4 days ago and has got worse. Pt states the pain began after he started smoking marijuana again. Records review reveals pt has a Hx of cannabinoid hyperemesis syndrome, and frequently presents to the ER with abdominal pain. When asked why he keeps smoking marijuana if it makes him sick the pt replies, "because I have given up meth and alcohol, and I have nothing left". He states that he goes weeks without using marijuana but he has been taking classes, so school and family stress gets to him and then he smokes "dope ". Pt states that sometimes this happens and he can make it better by soaking in a very hot bath. He denies fever, bloody or coffee ground emesis, bloody or black stool, or any radiating pain. Onset: Gradual Onset Date: 12/25/18 Duration: Constant, Getting Worse Quality: Reports: Same as Previous Episode Severity: Severe Improves with: Reports: Other (Soaking in a hot bath.) Worsens with: Reports: Other (Marijuana use.) Associated Symptoms: Reports: No Other Symptoms Abdomen Pain Score (Numeric/FACES): 10 - Related Data Allergies Allergy/AdvReac Type Severity Reaction Status Date / Time No Known Allergies Allergy Verified 12/28/18 10:14 Home Meds: Home Meds Acetaminophen [Acetaminophen Extra Strength] 500 mg PO DAILY 02/12/18 [History] Gabapentin [Neurontin] 300 mg PO DAILY 02/12/18 [History] Ibuprofen 200 mg PO ASDIRECTED PRN 02/12/18 [History] Omeprazole 20 mg PO DAILY 02/12/18 [History] Buprenorphine HCl/Naloxone HCl [Zubsolv 8.6-2.1 mg Tablet Sl] 1 tab PO ASDIRECTED 04/30/18 [History] Ondansetron [Ondansetron ODT] 4 mg SL Q6H PRN 04/30/18 [History] Lisinopril 20 mg PO DAILY 11/24/18 [History] Past Medical History HEENT History: Reports: Impaired Vision Other HEENT History: WEARS CONTACT LENS Cardiovascular History: Reports: Hypertension Respiratory History: Reports: None Gastrointestinal History: Reports: Diverticulosis, GERD, Pancreatitis Genitourinary History: Reports: None Musculoskeletal History: Reports: None Neurological History: Reports: None Psychiatric History: Reports: Addiction, Other (See Below) Other Psychiatric History: HX OF CANNABIS ABUSE Endocrine/Metabolic History: Reports: None Hematologic History: Reports: None Immunologic History: Reports: None Oncologic (Cancer) History: Reports: None Dermatologic History: Reports: None - Infectious Disease History Infectious Disease History: Reports: None - Past Surgical History Head Surgeries/Procedures: Reports: None HEENT Surgical History: Reports: Oral Surgery Cardiovascular Surgical History: Reports: None Respiratory Surgical History: Reports: None GI Surgical History: Reports: Appendectomy, Cholecystectomy, EGD, ERCP Male Surgical History: Reports: None Endocrine Surgical History: Reports: None Neurological Surgical History: Reports: None Musculoskeletal Surgical History: Reports: Other (See Below) Other Musculoskeletal Surgeries/Procedures:: BUNIONECTOMY LEFT WITH HARDWARE Dermatological Surgical History: Reports: None - History Comment History Comment: Marijuana hyperemesis syndrome Social & Family History - Family History Family Medical History: Noncontributory Other HEENT Family History: HX OF ABCESSED TEETH Oncologic: Reports: Other (See Below) Other Oncologic Family History: FATHER & PATERNAL GRANDFATHER CANCER - Caffeine Use Caffeine Use: Reports: None Other Caffeine Use: 1-2 'CANS' OF CAFFIENATED BEVERAGES - Alcohol Use Alcohol Use History: Yes Alcohol Use Frequency: Not Used in Over 6 Months - Recreational Drug Use Recreational Drug Use: Yes Drug Use in Last 12 Months: Yes Recreational Drug Type: Reports: Marijuana/Hashish, Methamphetamine Recreational Drug Use Frequency: Socially (Pt claims he has abstained from meth for the past 6 months. Still smokes marijuana occasionally.) - Living Situation & Occupation Living situation: Reports: with Significant Other, with Family Occupation: Student ED ROS GENERAL - Review of Systems Review Of Systems: ROS reveals no pertinent complaints other than HPI. ED EXAM, GI/ABD - Physical Exam Exam: See Below Exam Limited By: No Limitations General Appearance: Alert, WD/WN, Moderate Distress (due to epigastric abdominal pain), Active Emesis (Dry heaves) Eyes: Bilateral: Normal Appearance Nose: Normal Inspection, Normal Mucosa, No Blood Throat/Mouth: Normal Inspection, Normal Lips, Normal Oropharynx, Normal Voice, No Airway Compromise Head: Atraumatic, Normocephalic Neck: Normal Inspection, Full Range of Motion Respiratory/Chest: No Respiratory Distress, Lungs Clear, Normal Breath Sounds, No Accessory Muscle Use, Chest Non-Tender Cardiovascular: Regular Rate, Rhythm, No Edema GI/Abdominal Exam: Normal Bowel Sounds, Soft, No Distention, No Abnormal Bruit, Tender (Mild tenderness to palpation at epigastric region). No: Guarding, Rigid , Rebound Back Exam: Normal Inspection Extremities: Normal Inspection Neurological: Alert, Oriented, CN II-XII Intact, Normal Cognition, Normal Gait, No Motor/Sensory Deficits Psychiatric: Anxious Skin Exam: Warm, Dry, Intact, Normal Color, No Rash Course - Vital Signs Last Recorded V/S: Last Vital Signs Temp 37.1 C 12/28/18 10:00 Pulse 67 12/28/18 10:00 Resp 20 12/28/18 10:00 BP 175/122 H 12/28/18 10:00 Pulse Ox 100 12/28/18 10:00 - Orders/Labs/Meds Orders: Active Orders 24 hr Category Date Time Status Peripheral IV Care [RC] . DIRECTED Care 12/28/18 09:41 Active DRUG SCREEN URINE BIORAD [URCHEM] Stat Lab 12/28/18 09:41 Ordered UA RFX JOHN AND CULT IF INDIC [URIN] Stat Lab 12/28/18 09:41 Ordered HYDROmorphone [Dilaudid] Med 12/28/18 11:20 Once 1 mg IVPUSH ONETIME ONE Sodium Chloride 0.9% [Saline Flush] Med 12/28/18 09:41 Active 10 ml FLUSH ASDIRECTED PRN Peripheral IV Insertion Adult [OM.PC] Stat Oth 12/28/18 09:41 Ordered Medication Orders Hydromorphone HCl (Dilaudid) 1 mg IVPUSH ONETIME ONE Stop: 12/28/18 11:21 Sodium Chloride (Saline Flush) 10 ml FLUSH ASDIRECTED PRN PRN Reason: Keep Vein Open Last Admin: 12/28/18 10:00 Dose: 10 ml Labs: Laboratory Tests 12/28/18 12/28/18 Range/Units 09:54 09:54 WBC 9.6 (5.0-10.0) 10^3/uL RBC 5.25 (4.6-6.2) 10^6/uL Hgb 16.3 (14.0-18.0) g/dL Hct 46.8 (40.0-54.0) % MCV 89.1 (80-100) fL MCH 31.0 (27.0-34.0) pg MCHC 34.8 (33.0-35.0) g/dL Plt Count 344 (150-450) 10^3/uL Neut % (Auto) 80.0 H (42.2-75.2) % Lymph % (Auto) 13.6 L (20.5-50.1) % Archuleta % (Auto) 5.3 (2-8) % Eos % (Auto) 0.9 L (1.0-3.0) % Baso % (Auto) 0.2 (0.0-1.0) % Sodium 137 (135-145) mmol/L Potassium 3.7 (3.6-5.0) mmol/L Chloride 105 (101-111) mmol/L Carbon Dioxide 21.0 (21.0-31.0) mmol/L Anion Gap 14.7 BUN 17 (7-18) mg/dL Creatinine 1.0 (0.6-1.3) mg/dL Est Cr Clr Drug Dosing 108.86 mL/min Estimated GFR (MDRD) > 60 BUN/Creatinine Ratio 17.00 Glucose 113 H (74-105) mg/dL Calcium 8.7 (8.4-10.2) mg/dl Total Bilirubin 0.9 (0.2-1.0) mg/dL AST 27 (10-42) IU/L ALT 29 (10-60) IU/L Alkaline Phosphatase 65 (42-121) IU/L Total Protein 7.4 (6.7-8.2) g/dl Albumin 4.3 (3.2-5.5) g/dl Globulin 3.1 Albumin/Globulin Ratio 1.39 Amylase 74 (28-100) U/L Lipase 20 L (22-51) U/L Ethyl Alcohol < 5 mg/dL Meds: Medications Generic Name Dose Route Start Last Admin Trade Name Freq PRN Reason Stop Dose Admin Hydromorphone HCl 1 mg 12/28/18 11:20 Dilaudid IVPUSH 12/28/18 11:21 ONETIME ONE Sodium Chloride 10 ml 12/28/18 09:41 12/28/18 10:00 Saline Flush FLUSH 10 ml ASDIRECTED PRN Administration Keep Vein Open Discontinued Medications Generic Name Dose Route Start Last Admin Trade Name Markel PRN Reason Stop Dose Admin Diphenhydramine HCl 50 mg 12/28/18 09:42 12/28/18 10:22 Benadryl IVPUSH 12/28/18 09:43 50 mg ONETIME ONE Administration Famotidine 20 mg 12/28/18 09:44 12/28/18 10:16 Pepcid IVPUSH 12/28/18 09:45 20 mg ONETIME ONE Administration Sodium Chloride 1,000 mls @ 999 mls/hr 12/28/18 09:42 12/28/18 10:07 Normal Saline IV 12/28/18 10:42 999 mls/hr .BOLUS ONE Administration Ketorolac Tromethamine 30 mg 12/28/18 09:42 12/28/18 10:09 Toradol IVPUSH 12/28/18 09:43 30 mg ONETIME ONE Administration Lorazepam 2 mg 12/28/18 09:44 12/28/18 10:07 Ativan IVPUSH 12/28/18 09:45 2 mg ONETIME ONE Administration Metoclopramide HCl 10 mg 12/28/18 09:43 12/28/18 10:14 Reglan IVPUSH 12/28/18 09:44 10 mg ONETIME ONE Administration Ondansetron HCl 4 mg 12/28/18 11:18 Zofran IV 12/28/18 11:19 ONETIME ONE Departure - Departure Time of Disposition: 11:21 Disposition: Home, Self-Care 01 Condition: Fair Clinical Impression: Cannabinoid hyperemesis syndrome - Discharge Information *PRESCRIPTION DRUG MONITORING PROGRAM REVIEWED*: No *COPY OF PRESCRIPTION DRUG MONITORING REPORT IN PATIENT NAKITA: No Instructions: Cannabinoid Hyperemesis Syndrome Forms: ED Department Discharge Additional Instructions: Abstain from marijuana use. Go home and take a hot bath or shower. Follow up in clinic this week for recheck. - My Orders Last 24 Hours: My Active Orders 12/28/18 09:41 Peripheral IV Care [RC] . DIRECTED DRUG SCREEN URINE BIORAD [URCHEM] Stat UA RFX JOHN AND CULT IF INDIC [URIN] Stat Sodium Chloride 0.9% [Saline Flush] 10 ml FLUSH ASDIRECTED PRN Peripheral IV Insertion Adult [OM.PC] Stat 12/28/18 11:20 HYDROmorphone [Dilaudid] 1 mg IVPUSH ONETIME ONE - Assessment/Plan Last 24 Hours: My Active Orders 12/28/18 09:41 Peripheral IV Care [RC] . DIRECTED DRUG SCREEN URINE BIORAD [URCHEM] Stat UA RFX JOHN AND CULT IF INDIC [URIN] Stat Sodium Chloride 0.9% [Saline Flush] 10 ml FLUSH ASDIRECTED PRN Peripheral IV Insertion Adult [OM.PC] Stat 12/28/18 11:20 HYDROmorphone [Dilaudid] 1 mg IVPUSH ONETIME ONE I have read and agree with the documentation that has been completed regarding this visit. By signing this record, I attest that the documentation was completed in my physical presence and is an accurate record of the encounter.
== END 2018-12-28 12:07 | disposition home or self-care (01) ==
LOC: DL.ED 09:36
DX: F12.188 Cannabis abuse with other cannabis-induced disorder (principal); R11.10 Vomiting, unspecified; I10 Essential (primary) hypertension; Z79.899 Other long term (current) drug therapy
CPT/HCPCS: 36415; 80053; 82150; 83690; 85025; 96361; 96374; 96375; 99283; G0480; J1170; J1200; J1885; J2060; J2405; J2765; J3490; J7030

== ENCOUNTER 2018-12-30 08:10 | Emergency (ER) | payer SELFPAY ==
[2018-12-30 08:17] VITALS: BP 160/138
[2018-12-30] MEDS ORDERED: Metoclopramide 10 MG/2 ML SDV IVPUSH ONE (08:26)
[2018-12-30] MEDS ORDERED: Lactated Ringers 1,000 ML IV ONE (08:27)
--- NOTE | 2018-12-30 08:43 | EDM.PDOC ---
ED HPI GENERAL MEDICAL PROBLEM - General Chief Complaint: Abdominal Pain Stated Complaint: ABD. PAIN Time Seen by Provider: 12/30/18 08:25 Source of Information: Reports: Patient History Limitations: Reports: No Limitations - History of Present Illness INITIAL COMMENTS - FREE TEXT/NARRATIVE: This 38 yo male patient reports to the ED with abdominal pain, nausea and vomiting. The patient was seen in the ED 2 days ago with similar symptoms and diagnosed with cannabinoid hyperemesis syndrome. During that visit, the patient admitted to smoking marijuana prior to symptom onset. The patient reports he has not taken anything today for symptom relief. The patient denies any drug or alcohol use. The patient reports he was going to set up a follow-up appointment today with his primary care facility, but has not gotten there yet. Onset Date: 12/26/18 Duration: Constant Location: Reports: Abdomen Quality: Reports: Other Severity: Moderate Improves with: Reports: None Worsens with: Reports: None Context: Reports: Other Associated Symptoms: Reports: Nausea/Vomiting, Other Abdominal Pain Score (Numeric/FACES): 10 - Related Data Allergies Allergy/AdvReac Type Severity Reaction Status Date / Time No Known Allergies Allergy Verified 12/30/18 08:20 Home Meds: Home Meds Acetaminophen [Acetaminophen Extra Strength] 500 mg PO DAILY 02/12/18 [History] Gabapentin [Neurontin] 300 mg PO DAILY 02/12/18 [History] Ibuprofen 200 mg PO ASDIRECTED PRN 02/12/18 [History] Omeprazole 20 mg PO DAILY 02/12/18 [History] Buprenorphine HCl/Naloxone HCl [Zubsolv 8.6-2.1 mg Tablet Sl] 1 tab PO ASDIRECTED 04/30/18 [History] Ondansetron [Ondansetron ODT] 4 mg SL Q6H PRN 04/30/18 [History] Lisinopril 20 mg PO DAILY 11/24/18 [History] Past Medical History HEENT History: Reports: Impaired Vision Other HEENT History: WEARS CONTACT LENS Cardiovascular History: Reports: Hypertension Respiratory History: Reports: None Gastrointestinal History: Reports: Diverticulosis, GERD, Pancreatitis Genitourinary History: Reports: None Musculoskeletal History: Reports: None Neurological History: Reports: None Psychiatric History: Reports: Addiction, Other (See Below) Other Psychiatric History: HX OF CANNABIS ABUSE Endocrine/Metabolic History: Reports: None Hematologic History: Reports: None Immunologic History: Reports: None Oncologic (Cancer) History: Reports: None Dermatologic History: Reports: None - Infectious Disease History Infectious Disease History: Reports: None - Past Surgical History Head Surgeries/Procedures: Reports: None HEENT Surgical History: Reports: Oral Surgery Cardiovascular Surgical History: Reports: None Respiratory Surgical History: Reports: None GI Surgical History: Reports: Appendectomy, Cholecystectomy, EGD, ERCP Male Surgical History: Reports: None Endocrine Surgical History: Reports: None Neurological Surgical History: Reports: None Musculoskeletal Surgical History: Reports: Other (See Below) Other Musculoskeletal Surgeries/Procedures:: BUNIONECTOMY LEFT WITH HARDWARE Dermatological Surgical History: Reports: None - History Comment History Comment: Marijuana hyperemesis syndrome Social & Family History - Family History Family Medical History: Noncontributory Other HEENT Family History: HX OF ABCESSED TEETH Oncologic: Reports: Other (See Below) Other Oncologic Family History: FATHER & PATERNAL GRANDFATHER CANCER - Tobacco Use Smoking Status *Q: Current Every Day Smoker Years of Tobacco use: 2 Packs/Tins Daily: 0.2 - Caffeine Use Caffeine Use: Reports: None Other Caffeine Use: 1-2 'CANS' OF CAFFIENATED BEVERAGES - Recreational Drug Use Recreational Drug Use: Yes Drug Use in Last 12 Months: Yes Recreational Drug Type: Reports: Marijuana/Hashish Recreational Drug Use Frequency: Weekly - Living Situation & Occupation Living situation: Reports: with Significant Other, with Family Occupation: Student ED ROS GENERAL - Review of Systems Review Of Systems: ROS reveals no pertinent complaints other than HPI. ED EXAM, GI/ABD - Physical Exam Exam: See Below Exam Limited By: No Limitations General Appearance: Alert, WD/WN, Moderate Distress Eyes: Bilateral: Normal Appearance, EOMI Ears: Normal External Exam, Normal Canal, Hearing Grossly Normal, Normal TMs Nose: Normal Inspection, Normal Mucosa, No Blood Throat/Mouth: Normal Inspection, Normal Lips, Normal Teeth, Normal Gums, Normal Oropharynx, Normal Voice, No Airway Compromise Head: Atraumatic, Normocephalic Neck: Normal Inspection, Supple, Non-Tender, Full Range of Motion Respiratory/Chest: No Respiratory Distress, Lungs Clear, Normal Breath Sounds, No Accessory Muscle Use, Chest Non-Tender Cardiovascular: Normal Peripheral Pulses, Regular Rate, Rhythm, No Edema, No Gallop, No JVD, No Murmur, No Rub GI/Abdominal Exam: Normal Bowel Sounds, Soft, Non-Tender, No Organomegaly, No Distention, No Abnormal Bruit, No Mass, Pelvis Stable (Male) Exam: Deferred Rectal (Males) Exam: Deferred Back Exam: Normal Inspection, Full Range of Motion, NT Extremities: Normal Inspection, Normal Range of Motion, Non-Tender, Normal Capillary Refill, No Pedal Edema Neurological: Alert, Oriented, CN II-XII Intact, Normal Cognition, Normal Gait, Normal Reflexes, No Motor/Sensory Deficits Psychiatric: Normal Affect, Normal Mood Skin Exam: Warm, Dry, Intact, Normal Color, No Rash Lymphatic: No Adenopathy Course - Vital Signs Last Recorded V/S: Last Vital Signs Temp 36.7 C 12/30/18 08:13 Pulse 65 12/30/18 08:13 Resp 18 12/30/18 08:13 BP 160/138 H 12/30/18 08:13 Pulse Ox 100 12/30/18 08:13 - Orders/Labs/Meds Orders: Active Orders 24 hr Category Date Time Status Abdomen Pelvis w Cont [CT] Urgent Exams 12/30/18 08:57 Stop Req Lactated Ringers [Ringers, Lactated] 1,000 ml Med 12/30/18 08:27 Ordered IV .BOLUS Medication Orders Lactated Ringer's (Ringers, Lactated) 1,000 mls @ 999 mls/hr IV .BOLUS ONE Stop: 12/30/18 09:27 Last Admin: 12/30/18 08:35 Dose: 999 mls/hr Labs: Laboratory Tests 12/30/18 12/30/18 12/30/18 Range/Units 08:24 08:24 08:24 WBC 8.3 (5.0-10.0) 10^3/uL RBC 5.47 (4.6-6.2) 10^6/uL Hgb 16.8 (14.0-18.0) g/dL Hct 48.1 (40.0-54.0) % MCV 87.9 (80-100) fL MCH 30.7 (27.0-34.0) pg MCHC 34.9 (33.0-35.0) g/dL Plt Count 397 (150-450) 10^3/uL Neut % (Auto) 54.5 (42.2-75.2) % Lymph % (Auto) 32.6 (20.5-50.1) % Russell % (Auto) 9.2 H (2-8) % Eos % (Auto) 3.3 H (1.0-3.0) % Baso % (Auto) 0.4 (0.0-1.0) % Sodium 137 (135-145) mmol/L Potassium 3.6 (3.6-5.0) mmol/L Chloride 104 (101-111) mmol/L Carbon Dioxide 22.0 (21.0-31.0) mmol/L Anion Gap 14.6 BUN 11 (7-18) mg/dL Creatinine 1.0 (0.6-1.3) mg/dL Est Cr Clr Drug Dosing 108.86 mL/min Estimated GFR (MDRD) > 60 BUN/Creatinine Ratio 11.00 Glucose 104 (74-105) mg/dL Calcium 9.1 (8.4-10.2) mg/dl Total Bilirubin 1.2 H (0.2-1.0) mg/dL AST 25 (10-42) IU/L ALT 25 (10-60) IU/L Alkaline Phosphatase 65 (42-121) IU/L Total Protein 7.7 (6.7-8.2) g/dl Albumin 4.3 (3.2-5.5) g/dl Globulin 3.4 Albumin/Globulin Ratio 1.26 Amylase 63 (28-100) U/L Lipase 33 (22-51) U/L Urine Color (YELLOW) Urine Appearance (CLEAR) Urine pH (5.0-9.0) Ur Specific [place] (1.005-1.030) Urine Protein (NEGATIVE) Urine Glucose (UA) (NEGATIVE) Urine Ketones (NEGATIVE) Urine Occult Blood (NEGATIVE) Urine Nitrite (NEGATIVE) Urine Bilirubin (NEGATIVE) Urine Urobilinogen (0.2-1.0) mg/dL Ur Leukocyte Esterase (NEGATIVE) Urine Opiates Screen (NEGATIVE) Ur Oxycodone Screen (NEGATIVE) Urine Methadone Screen (NEGATIVE) Ur Barbiturates Screen (NEGATIVE) U Tricyclic Antidepress (NEGATIVE) Ur Phencyclidine Scrn (NEGATIVE) Ur Amphetamine Screen (NEGATIVE) U Methamphetamines Scrn (NEGATIVE) Urine MDMA Screen (NEGATIVE) U Benzodiazepines Scrn (NEGATIVE) Urine Cocaine Screen (NEGATIVE) U Marijuana (THC) Screen (NEGATIVE) Ethyl Alcohol < 5 mg/dL 05/14/19 05/14/19 Range/Units 08:26 08:26 WBC (5.0-10.0) 10^3/uL RBC (4.6-6.2) 10^6/uL Hgb (14.0-18.0) g/dL Hct (40.0-54.0) % MCV (80-100) fL MCH (27.0-34.0) pg MCHC (33.0-35.0) g/dL Plt Count (150-450) 10^3/uL Neut % (Auto) (42.2-75.2) % Lymph % (Auto) (20.5-50.1) % Russell % (Auto) (2-8) % Eos % (Auto) (1.0-3.0) % Baso % (Auto) (0.0-1.0) % Sodium (135-145) mmol/L Potassium (3.6-5.0) mmol/L Chloride (101-111) mmol/L Carbon Dioxide (21.0-31.0) mmol/L Anion Gap BUN (7-18) mg/dL Creatinine (0.6-1.3) mg/dL Est Cr Clr Drug Dosing mL/min Estimated GFR (MDRD) BUN/Creatinine Ratio Glucose (74-105) mg/dL Calcium (8.4-10.2) mg/dl Total Bilirubin (0.2-1.0) mg/dL AST (10-42) IU/L ALT (10-60) IU/L Alkaline Phosphatase (42-121) IU/L Total Protein (6.7-8.2) g/dl Albumin (3.2-5.5) g/dl Globulin Albumin/Globulin Ratio Amylase (28-100) U/L Lipase (22-51) U/L Urine Color Yellow (YELLOW) Urine Appearance Clear (CLEAR) Urine pH 6.0 (5.0-9.0) Ur Specific [place] 1.020 (1.005-1.030) Urine Protein Negative (NEGATIVE) Urine Glucose (UA) Negative (NEGATIVE) Urine Ketones Negative (NEGATIVE) Urine Occult Blood Negative (NEGATIVE) Urine Nitrite Negative (NEGATIVE) Urine Bilirubin Negative (NEGATIVE) Urine Urobilinogen 0.2 (0.2-1.0) mg/dL Ur Leukocyte Esterase Negative (NEGATIVE) Urine Opiates Screen Negative (NEGATIVE) Ur Oxycodone Screen Negative (NEGATIVE) Urine Methadone Screen Negative (NEGATIVE) Ur Barbiturates Screen Negative (NEGATIVE) U Tricyclic Antidepress Negative (NEGATIVE) Ur Phencyclidine Scrn Negative (NEGATIVE) Ur Amphetamine Screen Negative (NEGATIVE) U Methamphetamines Scrn Negative (NEGATIVE) Urine MDMA Screen Negative (NEGATIVE) U Benzodiazepines Scrn Negative (NEGATIVE) Urine Cocaine Screen Negative (NEGATIVE) U Marijuana (THC) Screen Positive H (NEGATIVE) Ethyl Alcohol mg/dL Meds: Medications Generic Name Dose Route Start Last Admin Trade Name Freq PRN Reason Stop Dose Admin Lactated Ringer's 1,000 mls @ 999 mls/hr 12/30/18 08:27 12/30/18 08:35 Ringers, Lactated IV 12/30/18 09:27 999 mls/hr .BOLUS ONE Administration Discontinued Medications Generic Name Dose Route Start Last Admin Trade Name Freq PRN Reason Stop Dose Admin Iopamidol 75 ml 12/30/18 08:58 Isovue-300 (61%) IVPUSH 12/30/18 08:59 ONETIME ONE Lorazepam 1 mg 12/30/18 08:58 Ativan IVPUSH 12/30/18 08:59 ONETIME ONE Metoclopramide HCl 10 mg 12/30/18 08:26 12/30/18 08:35 Reglan IVPUSH 12/30/18 08:27 10 mg ONETIME ONE Administration Departure - Departure Time of Disposition: 09:02 Disposition: Against Medical Advice 07 Condition: Undetermined Clinical Impression: Abdominal pain Qualifiers: Abdominal location: generalized Qualified Code(s): R10.84 - Generalized abdominal pain - Discharge Information Forms: ED Department Discharge Care Plan Goals: The patient was advised that he would not be getting narcotics, but an order was placed for Ativan and a CT with contrast. The patient stated that "he is not getting a fair shake". The patient stated that "he will leave". The patient' s IV was removed and the patient left prior to complete evaluation or treatment. - My Orders Last 24 Hours: My Active Orders 12/30/18 08:27 Lactated Ringers [Ringers, Lactated] 1,000 ml IV .BOLUS 12/30/18 08:57 Abdomen Pelvis w Cont [CT] Urgent - Assessment/Plan Last 24 Hours: My Active Orders 12/30/18 08:27 Lactated Ringers [Ringers, Lactated] 1,000 ml IV .BOLUS 12/30/18 08:57 Abdomen Pelvis w Cont [CT] Urgent
[2018-12-30 08:56] LABS: ANION GAP 14.6; CHLORIDE,CL 104 mmol/L (101-111); SODIUM,NA 137 mmol/L (135-145)
[2018-12-30] MEDS ORDERED: LORazepam 2 MG/ML Syringe IVPUSH ONE (08:58)
[2018-12-30] MEDS ORDERED: Iopamidol 612 MG/ML 75 ML Bottle IVPUSH ONE (08:58)
== END 2018-12-30 09:02 | disposition left against medical advice (07) ==
LOC: DL.ED 08:10
DX: R10.84 Generalized abdominal pain (principal); R11.2 Nausea with vomiting, unspecified; I10 Essential (primary) hypertension; K21.9 Gastro-esophageal reflux disease without esophagitis; F17.210 Nicotine dependence, cigarettes, uncomplicated; Z90.49 Acquired absence of other specified parts of digestive tract; Z98.890 Other specified postprocedural states; Z79.899 Other long term (current) drug therapy
CPT/HCPCS: 36415; 80053; 80305; 81003; 82150; 83690; 85025; 96365; 96375; 99284; G0480; J2765; J7120

== ENCOUNTER 2019-04-15 13:31 | Emergency (ER) | payer SELFPAY ==
[2019-04-15] MEDS: Lactated Ringers 1,000 ML IV ONE (14:02)
[2019-04-15 14:12] LABS: ANION GAP 12.9; CHLORIDE,CL 102 mmol/L (101-111); SODIUM,NA 136 mmol/L (135-145)
--- NOTE | 2019-04-15 14:12 | EDM.PDOC ---
ED HPI GENERAL MEDICAL PROBLEM - General Stated Complaint: SEVERE STOMACH PAINS Time Seen by Provider: 04/15/19 14:00 Source of Information: Reports: Patient History Limitations: Reports: No Limitations - History of Present Illness INITIAL COMMENTS - FREE TEXT/NARRATIVE: This 38 yo male patient reports to the ED with intermittent abdominal pain. The patient reports his pain has been coming and going for the past 1-2 weeks. The patient reports he has been seen here in the ED once, but has not follow-up with his primary care facility for a referral. The patient reports he has been nauseated and vomiting. The patient denies any drug or ETOH use. The patient states his pain is unbearable at this time. The patient reports a history of pancreatitis with numerous previous treatments. Onset: Today Duration: Intermittent Location: Reports: Abdomen Quality: Reports: Ache, Sharp, Stabbing Severity: Severe Improves with: Reports: None Worsens with: Reports: None Context: Reports: Other Associated Symptoms: Reports: No Other Symptoms - Related Data Allergies Allergy/AdvReac Type Severity Reaction Status Date / Time No Known Allergies Allergy Verified 04/06/19 16:18 Home Meds: Home Meds Gabapentin [Neurontin] 300 mg PO DAILY 02/12/18 [History] Ibuprofen 200 mg PO ASDIRECTED PRN 02/12/18 [History] Ondansetron [Ondansetron ODT] 4 mg SL Q6H PRN 04/30/18 [History] Lisinopril 20 mg PO DAILY 11/24/18 [History] Past Medical History HEENT History: Reports: Impaired Vision Other HEENT History: WEARS CONTACT LENS Cardiovascular History: Reports: Hypertension Respiratory History: Reports: None Gastrointestinal History: Reports: Diverticulosis, GERD, Pancreatitis Genitourinary History: Reports: None Musculoskeletal History: Reports: None Neurological History: Reports: None Psychiatric History: Reports: Addiction, Other (See Below) Other Psychiatric History: HX OF CANNABIS ABUSE Endocrine/Metabolic History: Reports: None Hematologic History: Reports: None Immunologic History: Reports: None Oncologic (Cancer) History: Reports: None Dermatologic History: Reports: None - Infectious Disease History Infectious Disease History: Reports: None - Past Surgical History Head Surgeries/Procedures: Reports: None HEENT Surgical History: Reports: Oral Surgery Cardiovascular Surgical History: Reports: None Respiratory Surgical History: Reports: None GI Surgical History: Reports: Appendectomy, Cholecystectomy, EGD, ERCP Male Surgical History: Reports: None Endocrine Surgical History: Reports: None Neurological Surgical History: Reports: None Musculoskeletal Surgical History: Reports: Other (See Below) Other Musculoskeletal Surgeries/Procedures:: BUNIONECTOMY LEFT WITH HARDWARE Dermatological Surgical History: Reports: None - History Comment History Comment: Marijuana hyperemesis syndrome Social & Family History - Family History Family Medical History: Noncontributory Other HEENT Family History: HX OF ABCESSED TEETH Oncologic: Reports: Other (See Below) Other Oncologic Family History: FATHER & PATERNAL GRANDFATHER CANCER - Caffeine Use Caffeine Use: Reports: None Other Caffeine Use: 1-2 'CANS' OF CAFFIENATED BEVERAGES - Living Situation & Occupation Living situation: Reports: with Significant Other, with Family Occupation: Student ED ROS GENERAL - Review of Systems Review Of Systems: ROS reveals no pertinent complaints other than HPI. ED EXAM, GI/ABD - Physical Exam Exam: See Below Exam Limited By: No Limitations General Appearance: Alert, WD/WN, Severe Distress, Thin Eyes: Bilateral: Normal Appearance, EOMI Ears: Normal External Exam, Normal Canal, Hearing Grossly Normal, Normal TMs Nose: Normal Inspection, Normal Mucosa, No Blood Throat/Mouth: Normal Inspection, Normal Lips, Normal Teeth, Normal Gums, Normal Oropharynx, Normal Voice, No Airway Compromise Head: Atraumatic, Normocephalic Neck: Normal Inspection, Supple, Non-Tender, Full Range of Motion Respiratory/Chest: No Respiratory Distress, Lungs Clear, Normal Breath Sounds, No Accessory Muscle Use, Chest Non-Tender Cardiovascular: Normal Peripheral Pulses, Regular Rate, Rhythm, No Edema, No Gallop, No JVD, No Murmur, No Rub GI/Abdominal Exam: Tender (upper abdominal pain ) (Male) Exam: Deferred Rectal (Males) Exam: Deferred Back Exam: Normal Inspection, Full Range of Motion, NT Extremities: Normal Inspection, Normal Range of Motion, Non-Tender, Normal Capillary Refill, No Pedal Edema Neurological: Alert, Oriented, CN II-XII Intact, Normal Cognition Psychiatric: Normal Affect, Normal Mood Skin Exam: Warm, Dry, Intact, Normal Color, No Rash Lymphatic: No Adenopathy Course - Vital Signs Last Recorded V/S: Last Vital Signs Temp 36.9 C 04/15/19 13:42 Pulse 67 04/15/19 13:42 Resp 18 04/15/19 15:28 BP 139/79 04/15/19 15:28 Pulse Ox 100 04/15/19 13:42 - Orders/Labs/Meds Labs: Laboratory Tests 04/15/19 04/15/19 04/15/19 Range/Units 13:46 13:46 13:46 WBC 11.2 H (5.0-10.0) 10^3/uL RBC 5.80 (4.6-6.2) 10^6/uL Hgb 17.7 (14.0-18.0) g/dL Hct 51.1 (40.0-54.0) % MCV 88.1 (80-100) fL MCH 30.5 (27.0-34.0) pg MCHC 34.6 (33.0-35.0) g/dL Plt Count 412 (150-450) 10^3/uL Neut % (Auto) 78.4 H (42.2-75.2) % Lymph % (Auto) 16.0 L (20.5-50.1) % [facility] % (Auto) 4.5 (2-8) % Eos % (Auto) 0.7 L (1.0-3.0) % Baso % (Auto) 0.4 (0.0-1.0) % Sodium (135-145) mmol/L Potassium (3.6-5.0) mmol/L Chloride (101-111) mmol/L Carbon Dioxide (21.0-31.0) mmol/L Anion Gap BUN (7-18) mg/dL Creatinine (0.6-1.3) mg/dL Est Cr Clr Drug Dosing mL/min Estimated GFR (MDRD) BUN/Creatinine Ratio Glucose (74-105) mg/dL Calcium (8.4-10.2) mg/dl Magnesium 1.9 (1.8-2.5) mg/dL Total Bilirubin (0.2-1.0) mg/dL AST (10-42) IU/L ALT (10-60) IU/L Alkaline Phosphatase (42-121) IU/L Ammonia 10 L (11-35) umol/L Total Protein (6.7-8.2) g/dl Albumin (3.2-5.5) g/dl Globulin Albumin/Globulin Ratio Amylase 133 H (28-100) U/L Lipase 27 (22-51) U/L Salicylates < 4.0 mg/dL Urine Opiates Screen (NEGATIVE) Ur Oxycodone Screen (NEGATIVE) Urine Methadone Screen (NEGATIVE) Acetaminophen < 10.0 ug/mL Ur Barbiturates Screen (NEGATIVE) U Tricyclic Antidepress (NEGATIVE) Ur Phencyclidine Scrn (NEGATIVE) Ur Amphetamine Screen (NEGATIVE) U Methamphetamines Scrn (NEGATIVE) Urine MDMA Screen (NEGATIVE) U Benzodiazepines Scrn (NEGATIVE) Urine Cocaine Screen (NEGATIVE) U Marijuana (THC) Screen (NEGATIVE) Ethyl Alcohol < 5 mg/dL 04/15/19 04/15/19 Range/Units 13:46 13:53 WBC (5.0-10.0) 10^3/uL RBC (4.6-6.2) 10^6/uL Hgb (14.0-18.0) g/dL Hct (40.0-54.0) % MCV (80-100) fL MCH (27.0-34.0) pg MCHC (33.0-35.0) g/dL Plt Count (150-450) 10^3/uL Neut % (Auto) (42.2-75.2) % Lymph % (Auto) (20.5-50.1) % [facility] % (Auto) (2-8) % Eos % (Auto) (1.0-3.0) % Baso % (Auto) (0.0-1.0) % Sodium 136 (135-145) mmol/L Potassium 3.9 (3.6-5.0) mmol/L Chloride 102 (101-111) mmol/L Carbon Dioxide 25.0 (21.0-31.0) mmol/L Anion Gap 12.9 BUN 15 (7-18) mg/dL Creatinine 1.1 (0.6-1.3) mg/dL Est Cr Clr Drug Dosing 98.96 mL/min Estimated GFR (MDRD) > 60 BUN/Creatinine Ratio 13.63 Glucose 103 (74-105) mg/dL Calcium 9.3 (8.4-10.2) mg/dl Magnesium (1.8-2.5) mg/dL Total Bilirubin 0.8 (0.2-1.0) mg/dL AST 24 (10-42) IU/L ALT 23 (10-60) IU/L Alkaline Phosphatase 80 (42-121) IU/L Ammonia (11-35) umol/L Total Protein 8.1 (6.7-8.2) g/dl Albumin 4.6 (3.2-5.5) g/dl Globulin 3.5 Albumin/Globulin Ratio 1.31 Amylase (28-100) U/L Lipase (22-51) U/L Salicylates mg/dL Urine Opiates Screen Negative (NEGATIVE) Ur Oxycodone Screen Negative (NEGATIVE) Urine Methadone Screen Negative (NEGATIVE) Acetaminophen ug/mL Ur Barbiturates Screen Negative (NEGATIVE) U Tricyclic Antidepress Negative (NEGATIVE) Ur Phencyclidine Scrn Negative (NEGATIVE) Ur Amphetamine Screen Negative (NEGATIVE) U Methamphetamines Scrn Negative (NEGATIVE) Urine MDMA Screen Negative (NEGATIVE) U Benzodiazepines Scrn Negative (NEGATIVE) Urine Cocaine Screen Negative (NEGATIVE) U Marijuana (THC) Screen Positive H (NEGATIVE) Ethyl Alcohol mg/dL Meds: Medications Discontinued Medications Generic Name Dose Route Start Last Admin Trade Name Freq PRN Reason Stop Dose Admin Hydromorphone HCl 1 mg 04/15/19 14:31 04/15/19 14:40 Dilaudid IVPUSH 04/15/19 14:32 1 mg ONETIME ONE Administration Lactated Ringer's 1,000 mls @ 999 mls/hr 04/15/19 13:36 04/15/19 14:02 Ringers, Lactated IV 04/15/19 14:36 999 mls/hr .BOLUS ONE Administration Iopamidol 75 ml 04/15/19 14:32 04/15/19 14:51 Isovue-300 (61%) IVPUSH 04/15/19 14:33 75 ml ONETIME ONE Administration Metoclopramide HCl 10 mg 04/15/19 14:07 04/15/19 14:15 Reglan IVPUSH 04/15/19 14:08 10 mg ONETIME ONE Administration Departure - Departure Time of Disposition: 16:03 Disposition: Home, Self-Care 01 Condition: Fair Clinical Impression: Pancreatitis Qualifiers: Chronicity: chronic Pancreatitis type: unspecified pancreatitis type Qualified Code(s): K86.1 - Other chronic pancreatitis - Discharge Information *PRESCRIPTION DRUG MONITORING PROGRAM REVIEWED*: Yes *COPY OF PRESCRIPTION DRUG MONITORING REPORT IN PATIENT NAKITA: Yes Instructions: Acute Pancreatitis, [id number] Care Plan Goals: The patient was advised of the examination, lab and CT results during the visit. The patient was given an IV dose of Dilaudid, IV Reglan and IV fluids while in the ED. The patient was discharged with a script for Kavitha () #8 to take 1 by mouth every 6 hours as needed for pain. The patient should visit his primary care facility for continued evaluation and treatment. If the patient has any additional symptoms or concerns, the patient should either return to the emergency department or visit his primary care facility.
[2019-04-15] MEDS: Metoclopramide 10 MG/2 ML SDV IVPUSH ONE (14:15)
[2019-04-15 14:25] LABS: ACETAMINOPHEN < 10.0 ug/mL
[2019-04-15] MEDS: HYDROmorphone 1 MG/ML Syringe IVPUSH ONE (14:40)
[2019-04-15] MEDS: Iopamidol 612 MG/ML 75 ML Bottle IVPUSH ONE (14:51)
--- NOTE | 2019-04-15 15:27 | CT ---
EXAMINATION: Abdomen Pelvis w Cont SEX: Male AGE: 38 years CLINICAL HISTORY: 38-year-old hypertensive afebrile male with elevated WBC, increased serum amylase, and abdominal pain. SCAN TECHNIQUE: Volume acquisition of data from the abdomen and pelvis obtained without oral contrast but during the intravenous infusion 75 cc nonionic Isovue contrast (3 cc/s via injector) while the patient was lying supine on the Siemens multislice scanner [place], [place]. All data archived in the PACS system for storage, reformatting axial/sagittal/coronal planes and study. INTERPRETATION: 1. Surgically absent gallbladder (cholecystectomy). Liver, stomach, spleen and adrenal glands unremarkable. 2. Pancreas normal size, anatomic configuration and homogeneously dense. No pathologic pancreatic calcifications, discrete cystic/solid pancreatic mass lesion, peripancreatic edema, or signs of major pancreatic duct dilatation. 3. Normal reniform size, axis and configuration. No sign of renal cortical mass lesion, nephrolithiasis or obstructive uropathy. Symmetrically distended normal appearing urinary bladder. 4. No pelvic or abdominal mass lesion. No mesenteric or retroperitoneal lymphadenopathy. No inflammatory "dirty" peritoneal fat, signs of mechanical bowel obstruction, ascites or free intraperitoneal air. 5. Evidence of lower thoracic and mid lumbar disc disease, i.e., interspace narrowing with reactive sclerosis and marginal spondylosis. CONCLUSION: No sign of acute intraperitoneal abnormality. Specifically no evidence of pancreatitis. Cholecystectomy. No malignancy or signs of mechanical bowel obstruction.
[2019-04-15 15:29] VITALS: BP 139/79
== END 2019-04-15 16:18 | disposition home or self-care (01) ==
LOC: DL.ED 13:31
DX: K86.1 Other chronic pancreatitis (principal); I10 Essential (primary) hypertension; Z98.890 Other specified postprocedural states; Z90.49 Acquired absence of other specified parts of digestive tract
CPT/HCPCS: 36415; 74177; 80053; 80305-QW; 82140; 82150; 83690; 83735; 85025; 96361; 96374; 96375; 99284-25; G0480; J1170; J2765; J7120; Q9967

== ENCOUNTER 2019-05-27 15:53 | Emergency (ER) | payer SELFPAY ==
[2019-05-27] MEDS ORDERED: Sodium Chloride 0.9% 10 ML Syringe FLUSH PRN (16:22)
[2019-05-27] MEDS ORDERED: Ketorolac 30 MG/ML SDV IVPUSH ONE (16:23)
[2019-05-27] MEDS ORDERED: Ondansetron 4 MG/2 ML SDV IV ONE (16:23)
[2019-05-27] MEDS ORDERED: Sodium Chloride 0.9% 1,000 ML IV ONE (16:23)
[2019-05-27] MEDS ORDERED: diphenhydrAMINE 50 MG/ML SDV IVPUSH ONE (16:23)
[2019-05-27] MEDS ORDERED: Haloperidol Lactate 5 MG/ML SDV IM ONE (16:24)
[2019-05-27 16:53] LABS: ANION GAP 16.9; CHLORIDE,CL 105 mmol/L (101-111); SODIUM,NA 141 mmol/L (135-145)
[2019-05-27] MEDS ORDERED: Promethazine 25 MG/ML SDV IM ONE (16:54)
[2019-05-27] MEDS ORDERED: HYDROmorphone 1 MG/ML Syringe IVPUSH ONE (16:55)
[2019-05-27 17:17] VITALS: BP 145/85; PULSE 59
--- NOTE | 2019-05-27 17:56 | EDM.PDOC ---
Scribed by Jayne Mcdonnell 05/27/19 1714 for Yoel Beach MD ED HPI GENERAL MEDICAL PROBLEM - General Chief Complaint: Abdominal Pain Stated Complaint: VOMITING Time Seen by Provider: 05/27/19 16:22 Source of Information: Reports: Patient, RN Notes Reviewed History Limitations: Reports: No Limitations - History of Present Illness INITIAL COMMENTS - FREE TEXT/NARRATIVE: Patient presents to ER with complaint of epigastric pain, nausea and vomiting that began this morning. He complains of yellow bile like emesis. Denies any bloody or coffee ground emesis. Patient states that he is covered in sweat and cannot stop wretching. The only thing that helps is standing in a hot shower for a prolonged period of time. Patient has a history of cannabinoid hyperemesis syndrome, but denies marijuana use recently. Onset: Today Duration: Hour(s): (8) Severity: Severe Improves with: Reports: Other (hot shower) Worsens with: Reports: None Associated Symptoms: Reports: No Other Symptoms Abdomen Pain Score (Numeric/FACES): 10 - Related Data Allergies Allergy/AdvReac Type Severity Reaction Status Date / Time No Known Allergies Allergy Verified 05/27/19 16:08 Home Meds: Home Meds Gabapentin [Neurontin] 300 mg PO DAILY 02/12/18 [History] Ibuprofen 200 mg PO ASDIRECTED PRN 02/12/18 [History] Lisinopril 20 mg PO DAILY 11/24/18 [History] hydrOXYzine HCl [Atarax] 25 mg PO Q6H PRN 05/27/19 [History] Past Medical History HEENT History: Reports: Impaired Vision Other HEENT History: WEARS CONTACT LENS Cardiovascular History: Reports: Hypertension Respiratory History: Reports: None Gastrointestinal History: Reports: Diverticulosis, GERD, Pancreatitis Genitourinary History: Reports: None Musculoskeletal History: Reports: None Neurological History: Reports: None Psychiatric History: Reports: Addiction, Other (See Below) Other Psychiatric History: HX OF CANNABIS ABUSE Endocrine/Metabolic History: Reports: None Hematologic History: Reports: None Immunologic History: Reports: None Oncologic (Cancer) History: Reports: None Dermatologic History: Reports: None - Infectious Disease History Infectious Disease History: Reports: None - Past Surgical History Head Surgeries/Procedures: Reports: None HEENT Surgical History: Reports: Oral Surgery Cardiovascular Surgical History: Reports: None Respiratory Surgical History: Reports: None GI Surgical History: Reports: Appendectomy, Cholecystectomy, EGD, ERCP Male Surgical History: Reports: None Endocrine Surgical History: Reports: None Neurological Surgical History: Reports: None Musculoskeletal Surgical History: Reports: Other (See Below) Other Musculoskeletal Surgeries/Procedures:: BUNIONECTOMY LEFT WITH HARDWARE Dermatological Surgical History: Reports: None - History Comment History Comment: Marijuana hyperemesis syndrome Social & Family History - Family History Family Medical History: Noncontributory Other HEENT Family History: HX OF ABCESSED TEETH Oncologic: Reports: Other (See Below) Other Oncologic Family History: FATHER & PATERNAL GRANDFATHER CANCER - Caffeine Use Caffeine Use: Reports: None Other Caffeine Use: 1-2 'CANS' OF CAFFIENATED BEVERAGES - Alcohol Use Alcohol Use History: No - Recreational Drug Use Recreational Drug Use: Yes Drug Use in Last 12 Months: Yes Recreational Drug Type: Reports: Marijuana/Hashish Recreational Drug Use Frequency: Patient Refuses To Answer - Living Situation & Occupation Living situation: Reports: with Significant Other, with Family Occupation: Student ED ROS GENERAL - Review of Systems Review Of Systems: ROS reveals no pertinent complaints other than HPI. ED EXAM, GI/ABD - Physical Exam Exam: See Below Exam Limited By: No Limitations General Appearance: Alert, WD/WN, Anxious, Moderate Distress, Active Emesis Eyes: Bilateral: Normal Appearance, EOMI Nose: Normal Inspection, Normal Mucosa, No Blood Throat/Mouth: Normal Inspection, Normal Lips, Normal Oropharynx, Normal Voice, No Airway Compromise Head: Atraumatic, Normocephalic Neck: Normal Inspection, Supple, Non-Tender, Full Range of Motion Respiratory/Chest: No Respiratory Distress, Lungs Clear, Normal Breath Sounds, No Accessory Muscle Use, Chest Non-Tender Cardiovascular: Normal Peripheral Pulses, Regular Rate, Rhythm, No Edema, No Gallop, No JVD, No Murmur, No Rub GI/Abdominal Exam: Normal Bowel Sounds, Soft, No Organomegaly, No Distention, No Abnormal Bruit, No Mass, Pelvis Stable, Tender (Epigastric ) Back Exam: Normal Inspection Extremities: Normal Inspection Neurological: Alert, Oriented, CN II-XII Intact, Normal Cognition, Normal Reflexes, No Motor/Sensory Deficits Psychiatric: Anxious, Tearful Skin Exam: Warm, Intact, Normal Color, No Rash, Diaphoretic Course - Vital Signs Last Recorded V/S: Last Vital Signs Temp 97.5 F 05/27/19 15:58 Pulse 59 L 05/27/19 17:05 Resp 16 05/27/19 17:17 BP 145/85 H 05/27/19 17:05 Pulse Ox 98 05/27/19 17:17 - Orders/Labs/Meds Orders: Active Orders 24 hr Category Date Time Status Oxygen Therapy Adult [Oxygen Therapy, ED] [RC] Care 05/27/19 17:14 Active ASDIRECTED Peripheral IV Care [RC] . DIRECTED Care 05/27/19 16:23 Active DRUG SCREEN URINE BIORAD [URCHEM] Stat Lab 05/27/19 16:23 Ordered UA RFX JOHN AND CULT IF INDIC [URIN] Stat Lab 05/27/19 16:23 Ordered Sodium Chloride 0.9% [Saline Flush] Med 05/27/19 16:22 Active 10 ml FLUSH ASDIRECTED PRN Peripheral IV Insertion Adult [OM.PC] Stat Oth 05/27/19 16:22 Ordered Medication Orders Sodium Chloride (Saline Flush) 10 ml FLUSH ASDIRECTED PRN PRN Reason: Keep Vein Open Last Admin: 05/27/19 17:23 Dose: 10 ml Labs: Laboratory Tests 05/27/19 05/27/19 Range/Units 16:25 16:25 WBC 14.7 H (5.0-10.0) 10^3/uL RBC 5.27 (4.6-6.2) 10^6/uL Hgb 16.0 D (14.0-18.0) g/dL Hct 46.7 (40.0-54.0) % MCV 88.6 (80-100) fL MCH 30.4 (27.0-34.0) pg MCHC 34.3 (33.0-35.0) g/dL Plt Count 462 H (150-450) 10^3/uL Neut % (Auto) 73.3 (42.2-75.2) % Lymph % (Auto) 18.4 L (20.5-50.1) % [place] % (Auto) 6.5 (2-8) % Eos % (Auto) 1.5 (1.0-3.0) % Baso % (Auto) 0.3 (0.0-1.0) % Sodium 141 (135-145) mmol/L Potassium 3.9 (3.6-5.0) mmol/L Chloride 105 (101-111) mmol/L Carbon Dioxide 23.0 (21.0-31.0) mmol/L Anion Gap 16.9 BUN 22 H (7-18) mg/dL Creatinine 1.3 (0.6-1.3) mg/dL Est Cr Clr Drug Dosing 82.91 mL/min Estimated GFR (MDRD) > 60 BUN/Creatinine Ratio 16.92 Glucose 107 H (74-105) mg/dL Calcium 9.5 (8.4-10.2) mg/dl Total Bilirubin 0.9 (0.2-1.0) mg/dL AST 32 (10-42) IU/L ALT 29 (10-60) IU/L Alkaline Phosphatase 77 (42-121) IU/L Total Protein 8.1 (6.7-8.2) g/dl Albumin 4.8 (3.2-5.5) g/dl Globulin 3.3 Albumin/Globulin Ratio 1.45 Amylase 95 (28-100) U/L Lipase 26 (22-51) U/L Ethyl Alcohol < 5 mg/dL Meds: Medications Generic Name Dose Route Start Last Admin Trade Name Freq PRN Reason Stop Dose Admin Sodium Chloride 10 ml 05/27/19 16:22 05/27/19 17:23 Saline Flush FLUSH 10 ml ASDIRECTED PRN Administration Keep Vein Open Discontinued Medications Generic Name Dose Route Start Last Admin Trade Name Fremary PRN Reason Stop Dose Admin Diphenhydramine HCl 50 mg 05/27/19 16:23 05/27/19 16:41 Benadryl IVPUSH 05/27/19 16:24 50 mg ONETIME ONE Administration Haloperidol Lactate 10 mg 05/27/19 16:24 05/27/19 16:32 Haldol IM 05/27/19 16:25 10 mg ONETIME ONE Administration Hydromorphone HCl 1 mg 05/27/19 16:55 05/27/19 17:00 Dilaudid IVPUSH 05/27/19 16:56 1 mg ONETIME ONE Administration Sodium Chloride 1,000 mls @ 999 mls/hr 05/27/19 16:23 05/27/19 16:29 Normal Saline IV 05/27/19 17:23 999 mls/hr .BOLUS ONE Administration Ketorolac Tromethamine 30 mg 05/27/19 16:23 05/27/19 16:35 Toradol IVPUSH 05/27/19 16:24 30 mg ONETIME ONE Administration Ondansetron HCl 8 mg 05/27/19 16:23 05/27/19 16:37 Zofran IV 05/27/19 16:24 8 mg ONETIME ONE Administration Promethazine HCl 25 mg 05/27/19 16:54 05/27/19 16:59 Phenergan IM 05/27/19 16:55 25 mg ONETIME ONE Administration Departure - Departure Time of Disposition: 17:54 Disposition: Home, Self-Care 01 Condition: Good Clinical Impression: Cannabinoid hyperemesis syndrome, Marijuana abuse - Discharge Information *PRESCRIPTION DRUG MONITORING PROGRAM REVIEWED*: No *COPY OF PRESCRIPTION DRUG MONITORING REPORT IN PATIENT NAKITA: No Instructions: Cannabinoid Hyperemesis Syndrome, Cannabis Use Disorder Forms: ED Department Discharge Additional Instructions: Quit smoking marijuana. - My Orders Last 24 Hours: My Active Orders 05/27/19 16:22 Sodium Chloride 0.9% [Saline Flush] 10 ml FLUSH ASDIRECTED PRN Peripheral IV Insertion Adult [OM.PC] Stat 05/27/19 16:23 Peripheral IV Care [RC] . DIRECTED DRUG SCREEN URINE BIORAD [URCHEM] Stat UA RFX JOHN AND CULT IF INDIC [URIN] Stat 05/27/19 17:14 Oxygen Therapy Adult [Oxygen Therapy, ED] [RC] ASDIRECTED - Assessment/Plan Last 24 Hours: My Active Orders 05/27/19 16:22 Sodium Chloride 0.9% [Saline Flush] 10 ml FLUSH ASDIRECTED PRN Peripheral IV Insertion Adult [OM.PC] Stat 05/27/19 16:23 Peripheral IV Care [RC] . DIRECTED DRUG SCREEN URINE BIORAD [URCHEM] Stat UA RFX JOHN AND CULT IF INDIC [URIN] Stat 05/27/19 17:14 Oxygen Therapy Adult [Oxygen Therapy, ED] [RC] ASDIRECTED I have read and agree with the documentation that has been completed regarding this visit. By signing this record, I attest that the documentation was completed in my physical presence and is an accurate record of the encounter.
== END 2019-05-27 17:58 | disposition home or self-care (01) ==
LOC: DL.ED 15:53
DX: F12.188 Cannabis abuse with other cannabis-induced disorder (principal); R11.2 Nausea with vomiting, unspecified; I10 Essential (primary) hypertension; Z90.49 Acquired absence of other specified parts of digestive tract
CPT/HCPCS: 36415; 80053; 80305-QW; 81001; 82150; 83690; 85025; 96361; 96372; 96374; 96375; 99284-25; G0480; J1170; J1200; J1630; J1885; J2405; J2550; J7030

== ENCOUNTER 2019-06-02 13:35 | Emergency (ER) | payer SELFPAY ==
[2019-06-02 13:49] VITALS: BP 156/105; PULSE 63
[2019-06-02] MEDS ORDERED: HYDROmorphone 1 MG/ML Syringe IVPUSH ONE ×2 (14:04→16:45)
[2019-06-02] MEDS ORDERED: Metoclopramide 10 MG/2 ML SDV IVPUSH ONE (14:04)
--- NOTE | 2019-06-02 14:10 | EDM.PDOC ---
ED HPI GENERAL MEDICAL PROBLEM - General Chief Complaint: Abdominal Pain Stated Complaint: STOMACH ACHE Time Seen by Provider: 06/02/19 14:00 Source of Information: Reports: Patient History Limitations: Reports: No Limitations - History of Present Illness INITIAL COMMENTS - FREE TEXT/NARRATIVE: This 39 yo male patient reports to the ED with a 1 week history of upper abdominal pain. The patient reports he has been nauseated and vomiting throughout the week. The patient was seen in the ED on 05/27/19 and attempted to be seen on 05/31/19. The patient reports he has been attempting to establish a primary care provider at the [facility], but can not get an appointment until 06/15/19. The patient has been seen by GI several times and was advised that he had chronic pancreatitis and diverticulitis on another visit. The patient reports he had some symptom relief while in the ED, but the symptom relief was very short lived during the visit. The patient has attempted to take Tylenol, but has vomited with each dose. The patient denies any recent drug or ETOH use. The patient specifically denies any recent marijuana use. Duration: Week(s):, Constant, Getting Worse Location: Reports: Abdomen Quality: Reports: Ache, Sharp, Stabbing Severity: Severe Improves with: Reports: None Worsens with: Reports: None Context: Reports: Other Associated Symptoms: Reports: Nausea/Vomiting Treatments WIRE DRAWER: Reports: Acetaminophen Abdominal Pain Score (Numeric/FACES): 10 - Related Data Allergies Allergy/AdvReac Type Severity Reaction Status Date / Time No Known Allergies Allergy Verified 05/31/19 18:49 Home Meds: Home Meds Gabapentin [Neurontin] 300 mg PO DAILY 02/12/18 [History] Ibuprofen 200 mg PO ASDIRECTED PRN 02/12/18 [History] Lisinopril 20 mg PO DAILY 11/24/18 [History] hydrOXYzine HCl [Atarax] 25 mg PO Q6H PRN 05/27/19 [History] Past Medical History HEENT History: Reports: Impaired Vision Other HEENT History: WEARS CONTACT LENS Cardiovascular History: Reports: Hypertension Respiratory History: Reports: None Gastrointestinal History: Reports: Diverticulosis, GERD, Pancreatitis Genitourinary History: Reports: None Musculoskeletal History: Reports: None Neurological History: Reports: None Psychiatric History: Reports: Addiction, Other (See Below) Other Psychiatric History: HX OF CANNABIS ABUSE Endocrine/Metabolic History: Reports: None Hematologic History: Reports: None Immunologic History: Reports: None Oncologic (Cancer) History: Reports: None Dermatologic History: Reports: None - Infectious Disease History Infectious Disease History: Reports: None - Past Surgical History Head Surgeries/Procedures: Reports: None HEENT Surgical History: Reports: Oral Surgery Cardiovascular Surgical History: Reports: None Respiratory Surgical History: Reports: None GI Surgical History: Reports: Appendectomy, Cholecystectomy, EGD, ERCP Male Surgical History: Reports: None Endocrine Surgical History: Reports: None Neurological Surgical History: Reports: None Musculoskeletal Surgical History: Reports: Other (See Below) Other Musculoskeletal Surgeries/Procedures:: BUNIONECTOMY LEFT WITH HARDWARE Dermatological Surgical History: Reports: None - History Comment History Comment: Marijuana hyperemesis syndrome Social & Family History - Family History Family Medical History: Noncontributory Other HEENT Family History: HX OF ABCESSED TEETH Oncologic: Reports: Other (See Below) Other Oncologic Family History: FATHER & PATERNAL GRANDFATHER CANCER - Tobacco Use Smoking Status *Q: Current Every Day Smoker Years of Tobacco use: 2 Packs/Tins Daily: 0.5 - Caffeine Use Caffeine Use: Reports: None Other Caffeine Use: 1-2 'CANS' OF CAFFIENATED BEVERAGES - Recreational Drug Use Recreational Drug Use: No - Living Situation & Occupation Living situation: Reports: with Significant Other, with Family Occupation: Student ED ROS GENERAL - Review of Systems Review Of Systems: ROS reveals no pertinent complaints other than HPI. ED EXAM, GI/ABD - Physical Exam Exam: See Below Exam Limited By: No Limitations General Appearance: Alert, WD/WN, Anxious, Moderate Distress Eyes: Bilateral: Normal Appearance, EOMI Ears: Normal External Exam, Normal Canal, Hearing Grossly Normal, Normal TMs Nose: Normal Inspection, Normal Mucosa, No Blood Throat/Mouth: Normal Inspection, Normal Lips, Normal Teeth, Normal Gums, Normal Oropharynx, Normal Voice, No Airway Compromise Head: Atraumatic, Normocephalic Neck: Normal Inspection, Supple, Non-Tender, Full Range of Motion Respiratory/Chest: No Respiratory Distress, Lungs Clear, Normal Breath Sounds, No Accessory Muscle Use, Chest Non-Tender Cardiovascular: Normal Peripheral Pulses, Regular Rate, Rhythm, No Edema, No Gallop, No JVD, No Murmur, No Rub GI/Abdominal Exam: Normal Bowel Sounds, No Organomegaly, No Distention, No Abnormal Bruit, No Mass, Pelvis Stable, Tender (upper abdomen) (Male) Exam: Deferred Rectal (Males) Exam: Deferred Back Exam: Normal Inspection, Full Range of Motion, NT Extremities: Normal Inspection, Normal Range of Motion, Non-Tender, Normal Capillary Refill, No Pedal Edema Neurological: Alert, Oriented, CN II-XII Intact, Normal Cognition, Abnormal Gait (due to abdominal pain) Psychiatric: Anxious Skin Exam: Warm, Dry, Intact, Normal Color, No Rash Lymphatic: No Adenopathy Course - Vital Signs Last Recorded V/S: Last Vital Signs Temp 37.4 C 06/02/19 13:39 Pulse 63 06/02/19 13:39 Resp 18 06/02/19 13:39 BP 156/105 H 06/02/19 13:39 Pulse Ox 100 06/02/19 13:39 - Orders/Labs/Meds Orders: Active Orders 24 hr Category Date Time Status CULTURE BLOOD [BC] Stat Lab 06/02/19 14:12 Received HYDROmorphone [Dilaudid] Med 06/02/19 16:45 Once 1 mg IVPUSH ONETIME ONE Lactated Ringers [Ringers, Lactated] 1,000 ml Med 06/02/19 14:15 Active IV ASDIRECTED Medication Orders Hydromorphone HCl (Dilaudid) 1 mg IVPUSH ONETIME ONE Stop: 06/02/19 16:46 Lactated Ringer's (Ringers, Lactated) 1,000 mls @ 999 mls/hr IV ASDIRECTED JJ Last Admin: 06/02/19 14:22 Dose: 999 mls/hr Labs: Laboratory Tests 06/02/19 06/02/19 06/02/19 Range/Units 14:12 14:12 14:12 WBC 10.2 H (5.0-10.0) 10^3/uL RBC 4.99 (4.6-6.2) 10^6/uL Hgb 15.4 (14.0-18.0) g/dL Hct 43.9 (40.0-54.0) % MCV 88.0 (80-100) fL MCH 30.9 (27.0-34.0) pg MCHC 35.1 H (33.0-35.0) g/dL Plt Count 426 (150-450) 10^3/uL Neut % (Auto) 79.1 H (42.2-75.2) % Lymph % (Auto) 14.9 L (20.5-50.1) % Rooks % (Auto) 5.6 (2-8) % Eos % (Auto) 0.2 L (1.0-3.0) % Baso % (Auto) 0.2 (0.0-1.0) % Sodium (135-145) mmol/L Potassium (3.6-5.0) mmol/L Chloride (101-111) mmol/L Carbon Dioxide (21.0-31.0) mmol/L Anion Gap BUN (7-18) mg/dL Creatinine (0.6-1.3) mg/dL Est Cr Clr Drug Dosing mL/min Estimated GFR (MDRD) BUN/Creatinine Ratio Glucose (74-105) mg/dL Lactic Acid 1.4 (0.5-2.2) mmol/L Calcium (8.4-10.2) mg/dl Total Bilirubin (0.2-1.0) mg/dL AST (10-42) IU/L ALT (10-60) IU/L Alkaline Phosphatase (42-121) IU/L Total Protein (6.7-8.2) g/dl Albumin (3.2-5.5) g/dl Globulin Albumin/Globulin Ratio Amylase (28-100) U/L Lipase (22-51) U/L Urine Color (YELLOW) Urine Appearance (CLEAR) Urine pH (5.0-9.0) Ur Specific Bolton (1.005-1.030) Urine Protein (NEGATIVE) Urine Glucose (UA) (NEGATIVE) Urine Ketones (NEGATIVE) Urine Occult Blood (NEGATIVE) Urine Nitrite (NEGATIVE) Urine Bilirubin (NEGATIVE) Urine Urobilinogen (0.2-1.0) mg/dL Ur Leukocyte Esterase (NEGATIVE) Urine Opiates Screen (NEGATIVE) Ur Oxycodone Screen (NEGATIVE) Urine Methadone Screen (NEGATIVE) Acetaminophen ug/mL Ur Barbiturates Screen (NEGATIVE) U Tricyclic Antidepress (NEGATIVE) Ur Phencyclidine Scrn (NEGATIVE) Ur Amphetamine Screen (NEGATIVE) U Methamphetamines Scrn (NEGATIVE) Urine MDMA Screen (NEGATIVE) U Benzodiazepines Scrn (NEGATIVE) Urine Cocaine Screen (NEGATIVE) U Marijuana (THC) Screen (NEGATIVE) Ethyl Alcohol < 5 mg/dL 06/02/19 06/02/19 06/02/19 Range/Units 14:12 14:12 14:12 WBC (5.0-10.0) 10^3/uL RBC (4.6-6.2) 10^6/uL Hgb (14.0-18.0) g/dL Hct (40.0-54.0) % MCV (80-100) fL MCH (27.0-34.0) pg MCHC (33.0-35.0) g/dL Plt Count (150-450) 10^3/uL Neut % (Auto) (42.2-75.2) % Lymph % (Auto) (20.5-50.1) % Rooks % (Auto) (2-8) % Eos % (Auto) (1.0-3.0) % Baso % (Auto) (0.0-1.0) % Sodium 136 (135-145) mmol/L Potassium 3.9 (3.6-5.0) mmol/L Chloride 99 L (101-111) mmol/L Carbon Dioxide 25.0 (21.0-31.0) mmol/L Anion Gap 15.9 BUN 13 (7-18) mg/dL Creatinine 1.0 (0.6-1.3) mg/dL Est Cr Clr Drug Dosing 107.78 mL/min Estimated GFR (MDRD) > 60 BUN/Creatinine Ratio 13.00 Glucose 106 H (74-105) mg/dL Lactic Acid (0.5-2.2) mmol/L Calcium 9.0 (8.4-10.2) mg/dl Total Bilirubin 1.1 H (0.2-1.0) mg/dL AST 27 (10-42) IU/L ALT 25 (10-60) IU/L Alkaline Phosphatase 65 (42-121) IU/L Total Protein 7.6 (6.7-8.2) g/dl Albumin 4.4 (3.2-5.5) g/dl Globulin 3.2 Albumin/Globulin Ratio 1.38 Amylase 77 (28-100) U/L Lipase 37 (22-51) U/L Urine Color (YELLOW) Urine Appearance (CLEAR) Urine pH (5.0-9.0) Ur Specific Bolton (1.005-1.030) Urine Protein (NEGATIVE) Urine Glucose (UA) (NEGATIVE) Urine Ketones (NEGATIVE) Urine Occult Blood (NEGATIVE) Urine Nitrite (NEGATIVE) Urine Bilirubin (NEGATIVE) Urine Urobilinogen (0.2-1.0) mg/dL Ur Leukocyte Esterase (NEGATIVE) Urine Opiates Screen (NEGATIVE) Ur Oxycodone Screen (NEGATIVE) Urine Methadone Screen (NEGATIVE) Acetaminophen < 10 ug/mL Ur Barbiturates Screen (NEGATIVE) U Tricyclic Antidepress (NEGATIVE) Ur Phencyclidine Scrn (NEGATIVE) Ur Amphetamine Screen (NEGATIVE) U Methamphetamines Scrn (NEGATIVE) Urine MDMA Screen (NEGATIVE) U Benzodiazepines Scrn (NEGATIVE) Urine Cocaine Screen (NEGATIVE) U Marijuana (THC) Screen (NEGATIVE) Ethyl Alcohol mg/dL 06/02/19 06/02/19 Range/Units 15:11 15:11 WBC (5.0-10.0) 10^3/uL RBC (4.6-6.2) 10^6/uL Hgb (14.0-18.0) g/dL Hct (40.0-54.0) % MCV (80-100) fL MCH (27.0-34.0) pg MCHC (33.0-35.0) g/dL Plt Count (150-450) 10^3/uL Neut % (Auto) (42.2-75.2) % Lymph % (Auto) (20.5-50.1) % Rooks % (Auto) (2-8) % Eos % (Auto) (1.0-3.0) % Baso % (Auto) (0.0-1.0) % Sodium (135-145) mmol/L Potassium (3.6-5.0) mmol/L Chloride (101-111) mmol/L Carbon Dioxide (21.0-31.0) mmol/L Anion Gap BUN (7-18) mg/dL Creatinine (0.6-1.3) mg/dL Est Cr Clr Drug Dosing mL/min Estimated GFR (MDRD) BUN/Creatinine Ratio Glucose (74-105) mg/dL Lactic Acid (0.5-2.2) mmol/L Calcium (8.4-10.2) mg/dl Total Bilirubin (0.2-1.0) mg/dL AST (10-42) IU/L ALT (10-60) IU/L Alkaline Phosphatase (42-121) IU/L Total Protein (6.7-8.2) g/dl Albumin (3.2-5.5) g/dl Globulin Albumin/Globulin Ratio Amylase (28-100) U/L Lipase (22-51) U/L Urine Color Yellow (YELLOW) Urine Appearance Clear (CLEAR) Urine pH 7.0 (5.0-9.0) Ur Specific Bolton 1.015 (1.005-1.030) Urine Protein Negative (NEGATIVE) Urine Glucose (UA) Negative (NEGATIVE) Urine Ketones 15 H (NEGATIVE) Urine Occult Blood Negative (NEGATIVE) Urine Nitrite Negative (NEGATIVE) Urine Bilirubin Negative (NEGATIVE) Urine Urobilinogen 1.0 (0.2-1.0) mg/dL Ur Leukocyte Esterase Negative (NEGATIVE) Urine Opiates Screen Negative (NEGATIVE) Ur Oxycodone Screen Negative (NEGATIVE) Urine Methadone Screen Negative (NEGATIVE) Acetaminophen ug/mL Ur Barbiturates Screen Negative (NEGATIVE) U Tricyclic Antidepress Negative (NEGATIVE) Ur Phencyclidine Scrn Negative (NEGATIVE) Ur Amphetamine Screen Negative (NEGATIVE) U Methamphetamines Scrn Negative (NEGATIVE) Urine MDMA Screen Negative (NEGATIVE) U Benzodiazepines Scrn Positive H (NEGATIVE) Urine Cocaine Screen Negative (NEGATIVE) U Marijuana (THC) Screen Positive H (NEGATIVE) Ethyl Alcohol mg/dL Meds: Medications Generic Name Dose Route Start Last Admin Trade Name Freq PRN Reason Stop Dose Admin Hydromorphone HCl 1 mg 06/02/19 16:45 Dilaudid IVPUSH 06/02/19 16:46 ONETIME ONE Lactated Ringer's 1,000 mls @ 999 mls/hr 06/02/19 14:15 06/02/19 14:22 Ringers, Lactated IV 999 mls/hr ASDIRECTED JJ Administration Discontinued Medications Generic Name Dose Route Start Last Admin Trade Name Freq PRN Reason Stop Dose Admin Hydromorphone HCl 1 mg 06/02/19 14:04 06/02/19 14:22 Dilaudid IVPUSH 06/02/19 14:05 1 mg ONETIME ONE Administration Iopamidol 75 ml 06/02/19 14:46 06/02/19 15:24 Isovue-300 (61%) IVPUSH 06/02/19 14:47 75 ml ONETIME ONE Administration Metoclopramide HCl 10 mg 06/02/19 14:04 06/02/19 14:22 Reglan IVPUSH 06/02/19 14:05 10 mg ONETIME ONE Administration - Re-Assessments/Exams Free Text/Narrative Re-Assessment/Exam: 06/02/19 14:56 The patient continues to report abdominal pain, but also reports being more comfortable. Departure - Departure Time of Disposition: 16:46 Disposition: Home, Self-Care 01 Condition: Fair Clinical Impression: Chronic pancreatitis Qualifiers: Pancreatitis type: alcohol induced Qualified Code(s): K86.0 - Alcohol-induced chronic pancreatitis - Discharge Information *PRESCRIPTION DRUG MONITORING PROGRAM REVIEWED*: Not Applicable *COPY OF PRESCRIPTION DRUG MONITORING REPORT IN PATIENT NAKITA: Not Applicable Instructions: Chronic Pancreatitis Forms: ED Department Discharge Care Plan Goals: The patient was advised of the examination, lab and CT results during the visit. The patient was given IV fluids and IV Dilaudid while in the ED. The patient was discharged with a script for Kavitha () #8 to take 1 by mouth every 6 hours as needed. The patient was encouraged to follow-up with his primary care facility for continued evaluation (GI consult). If the patient has any additional symptoms or concerns, the patient should either return to the emergency department or visit his primary care facility. - My Orders Last 24 Hours: My Active Orders 06/02/19 14:12 CULTURE BLOOD [BC] Stat 06/02/19 14:15 Lactated Ringers [Ringers, Lactated] 1,000 ml IV ASDIRECTED 06/02/19 16:45 HYDROmorphone [Dilaudid] 1 mg IVPUSH ONETIME ONE - Assessment/Plan Last 24 Hours: My Active Orders 06/02/19 14:12 CULTURE BLOOD [BC] Stat 06/02/19 14:15 Lactated Ringers [Ringers, Lactated] 1,000 ml IV ASDIRECTED 06/02/19 16:45 HYDROmorphone [Dilaudid] 1 mg IVPUSH ONETIME ONE
[2019-06-02] MEDS ORDERED: Lactated Ringers 1,000 ML IV SCH (14:15)
[2019-06-02 14:41] LABS: ANION GAP 15.9; CHLORIDE,CL 99 mmol/L (101-111); SODIUM,NA 136 mmol/L (135-145)
[2019-06-02] MEDS ORDERED: Iopamidol 612 MG/ML 75 ML Bottle IVPUSH ONE (14:46)
--- NOTE | 2019-06-02 16:39 | CT ---
EXAMINATION: Abdomen Pelvis w Cont SEX: Male AGE: 39 years CLINICAL HISTORY: 39-year-old hypertensive 194 pound male smoker with UPPER ABDOMINAL PAIN (WBC 10,700) who has had previous cholecystectomy and appendectomy and reported on [address] scan to have "no sign of acute intraperitoneal abnormality, malignancy or signs of mechanical bowel obstruction (no pancreatitis)". Scan technique: Volume acquisition of data from the abdomen and pelvis obtained without oral contrast but during the intravenous administration 75 cc nonionic Isovue contrast (3 cc/s via injector) while patient was lying supine on the Siemens multislice scanner [place], [place]. All data archived in the PACS system for storage, reformatting axial/sagittal/coronal planes and study. INTERPRETATION: 1. Cholecystectomy. 2. No appreciable change in the appearance of the liver, stomach, spleen, pancreas or adrenal glands when compared directly to most recent CT exam 15 April 2019. (Focal fatty sparing anterior inferior margin right lobe liver unchanged). Cholecystectomy. 3. No new abdominal or pelvic mass lesion, retroperitoneal lymphadenopathy, signs of mechanical bowel obstruction, inflammatory "dirty" peritoneal fat, ascites or free intraperitoneal air. 4. Chronic multilevel lower thoracic and mid lumbar disc disease with arthritic changes. 5. Symmetric normal-appearing kidneys. No sign of renal cortical mass, urolithiasis or obstructive uropathy. Normal bladder. 6. Normal cardiac silhouette. Lung bases clear. Normal caliber aortoiliac vessels. CONCLUSION: Negative exam. Cholecystectomy. Multilevel disc disease and arthritis of the spine. CONCLUSION:
== END 2019-06-02 17:11 | disposition home or self-care (01) ==
LOC: DL.ED 13:35
DX: K86.0 Alcohol-induced chronic pancreatitis (principal); I10 Essential (primary) hypertension; F17.210 Nicotine dependence, cigarettes, uncomplicated; Z79.899 Other long term (current) drug therapy
CPT/HCPCS: 36415; 74177; 80053; 80305; 80320; 80329; 81003; 82150; 83605; 83690; 85025; 87040; 96361; 96374; 96375; 96376; 99284; J1170; J2765; J7120; Q9967; G0480

== ENCOUNTER 2019-07-14 06:27 | Inpatient (IN) | payer MEDICAID ==
[2019-07-14] MEDS ORDERED: Lactated Ringers 1,000 ML IV ONE (07:12)
[2019-07-14 07:25] LABS: ANION GAP 15.5; CHLORIDE,CL 99 mmol/L (101-111); SODIUM,NA 136 mmol/L (135-145)
[2019-07-14] MEDS ORDERED: HYDROmorphone 1 MG/ML Syringe IVPUSH ONE (07:26)
[2019-07-14] MEDS ORDERED: Promethazine 25 MG/ML SDV IM ONE (07:26)
--- NOTE | 2019-07-14 07:33 | EDM.PDOC ---
ED HPI GENERAL MEDICAL PROBLEM - General Chief Complaint: Abdominal Pain Stated Complaint: STOMACH PROBLEM Time Seen by Provider: 07/14/19 07:20 Source of Information: Reports: Patient History Limitations: Reports: No Limitations - History of Present Illness INITIAL COMMENTS - FREE TEXT/NARRATIVE: This 39 yo male patient reports to the ED with increased abdominal pain with nausea/vomiting. This visit is the 4th visit in the ED in the past 6 days for this patient. The patient was transferred to [facility] in [place] on 07/11/19 and discharged yesterday just before noon. The patient reports he has had continuous pain throughout the stay in [place]. The patient reports his pain has been getting worse since his discharge. The patient reports he was supposed to have an appointment with Dr. Olguin yesterday, but it was rescheduled for 07/15/19. The patient reports he has not been able to keep any of his medications down due to the nausea/vomiting. The patient reports most of his pain is in the RUQ. Onset Date: 07/13/19 Duration: Constant, Getting Worse Location: Reports: Abdomen (RUQ) Quality: Reports: Ache, Sharp, Stabbing Severity: Severe Improves with: Reports: None Worsens with: Reports: None Associated Symptoms: Reports: Nausea/Vomiting, Other (abdominal pain) Right Upper Abdomen Pain Score (Numeric/FACES): 10 - Related Data Allergies Allergy/AdvReac Type Severity Reaction Status Date / Time No Known Allergies Allergy Verified 07/11/19 08:12 Home Meds: Home Meds Gabapentin [Neurontin] 300 mg PO DAILY 02/12/18 [History] Ibuprofen 200 mg PO ASDIRECTED PRN 02/12/18 [History] Lisinopril 20 mg PO DAILY 11/24/18 [History] hydrOXYzine HCl [Atarax] 25 mg PO Q6H PRN 05/27/19 [History] Ondansetron [Zofran] 4 mg PO .PRN PRN 06/24/19 [History] Pantoprazole Sodium [Protonix] 40 mg PO DAILY 06/24/19 [History] Amoxicillin/Clavulanate K [Augmentin 500-125 MG] 1 tab PO BID 07/10/19 [History] Dicyclomine [Bentyl] 10 mg PO TID 07/14/19 [History] Past Medical History HEENT History: Reports: Impaired Vision Other HEENT History: wears Glasses Cardiovascular History: Reports: Hypertension Respiratory History: Reports: None Gastrointestinal History: Reports: Diverticulosis, GERD, Pancreatitis Genitourinary History: Reports: None Musculoskeletal History: Reports: None, Other (See Below) Other Musculoskeletal History: right foot tailors bunion. Left foot bunion Neurological History: Reports: None Psychiatric History: Reports: Addiction, Other (See Below) Other Psychiatric History: HX OF CANNABIS ABUSE Endocrine/Metabolic History: Reports: None Hematologic History: Reports: None Immunologic History: Reports: None Oncologic (Cancer) History: Reports: None Dermatologic History: Reports: None - Infectious Disease History Infectious Disease History: Reports: Chicken Pox - Past Surgical History Head Surgeries/Procedures: Reports: None HEENT Surgical History: Reports: Oral Surgery Cardiovascular Surgical History: Reports: None Respiratory Surgical History: Reports: None GI Surgical History: Reports: Appendectomy, Cholecystectomy, EGD, ERCP Male Surgical History: Reports: None Endocrine Surgical History: Reports: None Neurological Surgical History: Reports: None Musculoskeletal Surgical History: Reports: Other (See Below) Other Musculoskeletal Surgeries/Procedures:: BUNIONECTOMY LEFT WITH HARDWARE Dermatological Surgical History: Reports: None - History Comment History Comment: Marijuana hyperemesis syndrome Social & Family History - Family History Family Medical History: Noncontributory Other HEENT Family History: HX OF ABCESSED TEETH Oncologic: Reports: Other (See Below) Other Oncologic Family History: FATHER & PATERNAL GRANDFATHER CANCER - Tobacco Use Smoking Status *Q: Former Smoker Years of Tobacco use: 2 Used Tobacco, but Quit: Yes Month/Year Tobacco Last Used: 06/2019 Second Hand Smoke Exposure: No - Caffeine Use Caffeine Use: Reports: None Other Caffeine Use: 1-2 'CANS' OF CAFFIENATED BEVERAGES - Recreational Drug Use Recreational Drug Use: No - Living Situation & Occupation Living situation: Reports: with Family, with Significant Other Occupation: Student ED ROS GENERAL - Review of Systems Review Of Systems: Comprehensive ROS is negative, except as noted in HPI. ED EXAM, GI/ABD - Physical Exam Exam: See Below Exam Limited By: No Limitations General Appearance: Alert, WD/WN, Severe Distress, Thin Eyes: Bilateral: Normal Appearance, EOMI Ears: Normal External Exam, Normal Canal, Hearing Grossly Normal, Normal TMs Nose: Normal Inspection, Normal Mucosa, No Blood Throat/Mouth: Normal Inspection, Normal Lips, Normal Teeth, Normal Gums, Normal Oropharynx, Normal Voice, No Airway Compromise Head: Atraumatic, Normocephalic Neck: Normal Inspection, Supple, Non-Tender, Full Range of Motion Respiratory/Chest: No Respiratory Distress, Lungs Clear, Normal Breath Sounds, No Accessory Muscle Use, Chest Non-Tender Cardiovascular: Normal Peripheral Pulses, Regular Rate, Rhythm, No Edema, No Gallop, No JVD, No Murmur, No Rub GI/Abdominal Exam: No Abnormal Bruit, No Mass, Pelvis Stable, Guarding, Tender ( Right upper quadrant ) (Male) Exam: Deferred Rectal (Males) Exam: Deferred Back Exam: Normal Inspection, Full Range of Motion, NT Extremities: Normal Inspection, Normal Range of Motion, Non-Tender, Normal Capillary Refill, No Pedal Edema Neurological: Alert, Oriented, CN II-XII Intact, Normal Cognition Psychiatric: Depressed Mood, Flat Affect, Tearful Skin Exam: Warm, Dry, Intact, Normal Color, No Rash Lymphatic: No Adenopathy Course - Vital Signs Last Recorded V/S: Last Vital Signs Temp 36.5 C 07/14/19 06:43 Pulse 75 07/14/19 06:43 Resp 16 07/14/19 06:43 BP 167/123 H 07/14/19 06:43 Pulse Ox 99 07/14/19 06:43 - Orders/Labs/Meds Labs: Laboratory Tests 07/14/19 07/14/19 07/14/19 Range/Units 06:42 06:42 07:20 WBC 10.5 H (5.0-10.0) 10^3/uL RBC 5.32 (4.6-6.2) 10^6/uL Hgb 16.3 (14.0-18.0) g/dL Hct 46.4 (40.0-54.0) % MCV 87.2 (80-100) fL MCH 30.6 (27.0-34.0) pg MCHC 35.1 H (33.0-35.0) g/dL Plt Count 527 H (150-450) 10^3/uL Neut % (Auto) 72.7 (42.2-75.2) % Lymph % (Auto) 16.9 L (20.5-50.1) % [place] % (Auto) 7.3 (2-8) % Eos % (Auto) 2.7 (1.0-3.0) % Baso % (Auto) 0.4 (0.0-1.0) % Sodium 136 (135-145) mmol/L Potassium 3.5 L (3.6-5.0) mmol/L Chloride 99 L (101-111) mmol/L Carbon Dioxide 25.0 (21.0-31.0) mmol/L Anion Gap 15.5 BUN 13 (7-18) mg/dL Creatinine 0.9 (0.6-1.3) mg/dL Est Cr Clr Drug Dosing 119.75 mL/min Estimated GFR (MDRD) > 60 BUN/Creatinine Ratio 14.44 Glucose 96 (74-105) mg/dL Calcium 9.8 (8.4-10.2) mg/dl Total Bilirubin 0.9 (0.2-1.0) mg/dL AST 25 (10-42) IU/L ALT 27 (10-60) IU/L Alkaline Phosphatase 72 (42-121) IU/L Ammonia (11-35) umol/L Total Protein 8.1 (6.7-8.2) g/dl Albumin 4.5 (3.2-5.5) g/dl Globulin 3.6 Albumin/Globulin Ratio 1.25 Amylase 56 (28-100) U/L Lipase 28 (22-51) U/L Urine Color Dark yellow (YELLOW) Urine Appearance Slightly cloudy (CLEAR) Urine pH 6.5 (5.0-9.0) Ur Specific [place] 1.025 (1.005-1.030) Urine Protein 30 H (NEGATIVE) Urine Glucose (UA) Negative (NEGATIVE) Urine Ketones 15 H (NEGATIVE) Urine Occult Blood Negative (NEGATIVE) Urine Nitrite Negative (NEGATIVE) Urine Bilirubin Moderate H (NEGATIVE) Urine Urobilinogen 0.2 (0.2-1.0) mg/dL Ur Leukocyte Esterase Negative (NEGATIVE) Urine RBC 0-5 /HPF Urine WBC 0-5 (0-5/HPF) /HPF Ur Epithelial Cells Rare (NOT SEEN) /HPF Calcium Oxalate Crystal Few H (NOT SEEN) /HPF Amorphous Sediment Few (NOT SEEN) /HPF Urine Bacteria Rare (0-FEW/HPF) /HPF Urine Mucus Many H (NOT SEEN) /LPF Urine Opiates Screen (NEGATIVE) Ur Oxycodone Screen (NEGATIVE) Urine Methadone Screen (NEGATIVE) Ur Barbiturates Screen (NEGATIVE) U Tricyclic Antidepress (NEGATIVE) Ur Phencyclidine Scrn (NEGATIVE) Ur Amphetamine Screen (NEGATIVE) U Methamphetamines Scrn (NEGATIVE) Urine MDMA Screen (NEGATIVE) U Benzodiazepines Scrn (NEGATIVE) Urine Cocaine Screen (NEGATIVE) U Marijuana (THC) Screen (NEGATIVE) Ethyl Alcohol < 5 mg/dL 07/14/19 07/14/19 Range/Units 07:20 07:27 WBC (5.0-10.0) 10^3/uL RBC (4.6-6.2) 10^6/uL Hgb (14.0-18.0) g/dL Hct (40.0-54.0) % MCV (80-100) fL MCH (27.0-34.0) pg MCHC (33.0-35.0) g/dL Plt Count (150-450) 10^3/uL Neut % (Auto) (42.2-75.2) % Lymph % (Auto) (20.5-50.1) % [place] % (Auto) (2-8) % Eos % (Auto) (1.0-3.0) % Baso % (Auto) (0.0-1.0) % Sodium (135-145) mmol/L Potassium (3.6-5.0) mmol/L Chloride (101-111) mmol/L Carbon Dioxide (21.0-31.0) mmol/L Anion Gap BUN (7-18) mg/dL Creatinine (0.6-1.3) mg/dL Est Cr Clr Drug Dosing mL/min Estimated GFR (MDRD) BUN/Creatinine Ratio Glucose (74-105) mg/dL Calcium (8.4-10.2) mg/dl Total Bilirubin (0.2-1.0) mg/dL AST (10-42) IU/L ALT (10-60) IU/L Alkaline Phosphatase (42-121) IU/L Ammonia 24 (11-35) umol/L Total Protein (6.7-8.2) g/dl Albumin (3.2-5.5) g/dl Globulin Albumin/Globulin Ratio Amylase (28-100) U/L Lipase (22-51) U/L Urine Color (YELLOW) Urine Appearance (CLEAR) Urine pH (5.0-9.0) Ur Specific [place] (1.005-1.030) Urine Protein (NEGATIVE) Urine Glucose (UA) (NEGATIVE) Urine Ketones (NEGATIVE) Urine Occult Blood (NEGATIVE) Urine Nitrite (NEGATIVE) Urine Bilirubin (NEGATIVE) Urine Urobilinogen (0.2-1.0) mg/dL Ur Leukocyte Esterase (NEGATIVE) Urine RBC /HPF Urine WBC (0-5/HPF) /HPF Ur Epithelial Cells (NOT SEEN) /HPF Calcium Oxalate Crystal (NOT SEEN) /HPF Amorphous Sediment (NOT SEEN) /HPF Urine Bacteria (0-FEW/HPF) /HPF Urine Mucus (NOT SEEN) /LPF Urine Opiates Screen Negative (NEGATIVE) Ur Oxycodone Screen Positive H (NEGATIVE) Urine Methadone Screen Negative (NEGATIVE) Ur Barbiturates Screen Negative (NEGATIVE) U Tricyclic Antidepress Positive H (NEGATIVE) Ur Phencyclidine Scrn Negative (NEGATIVE) Ur Amphetamine Screen Negative (NEGATIVE) U Methamphetamines Scrn Negative (NEGATIVE) Urine MDMA Screen Negative (NEGATIVE) U Benzodiazepines Scrn Negative (NEGATIVE) Urine Cocaine Screen Negative (NEGATIVE) U Marijuana (THC) Screen Positive H (NEGATIVE) Ethyl Alcohol mg/dL Meds: Medications Discontinued Medications Generic Name Dose Route Start Last Admin Trade Name Freq PRN Reason Stop Dose Admin Hydromorphone HCl 1 mg 07/14/19 07:26 07/14/19 07:32 Dilaudid IVPUSH 07/14/19 07:27 1 mg ONETIME ONE Administration Lactated Ringer's 1,000 mls @ 999 mls/hr 07/14/19 07:12 07/14/19 07:24 Ringers, Lactated IV 07/14/19 08:12 999 mls/hr .BOLUS ONE Administration Promethazine HCl 25 mg 07/14/19 07:26 07/14/19 07:31 Phenergan IM 07/14/19 07:27 25 mg ONETIME ONE Administration Departure - Departure Time of Disposition: 08:28 Disposition: Admitted As Inpatient 65 Condition: Fair Clinical Impression: Chronic abdominal pain Chronic pancreatitis Qualifiers: Pancreatitis type: alcohol induced Qualified Code(s): K86.0 - Alcohol-induced chronic pancreatitis - Discharge Information *PRESCRIPTION DRUG MONITORING PROGRAM REVIEWED*: Yes *COPY OF PRESCRIPTION DRUG MONITORING REPORT IN PATIENT NAKITA: Yes Care Plan Goals: Discussed the patient's history, examination, lab results and treatments with Dr. Cruz. Dr. Cruz accepted the patient for continued evaluation and management as an inpatient at [facility].
[2019-07-14] MEDS ORDERED: Metoclopramide 10 MG/2 ML SDV IVPUSH ONE (08:39)
--- NOTE | 2019-07-14 09:51 | PCM.HP ---
H&P History of Present Illness - General Date of Service: 07/14/19 Admit Problem/Dx: Admission Diagnosis/Problem Admission Diagnosis/Problem Pancreatitis Source of Information: Patient - History of Present Illness Initial Comments - Free Text/Narative: The patient is a 39-year-old man with medical history of hypertension, chronic pancreatitis, substance abuse,. The patient was recently admitted at the hospital in [place]. He was discharged yesterday. Presented to the emergency room complaining of epigastric pain. Intensity of the pain is about 10 on a scale of 0-10. Indicates that he has had associated nausea and vomiting. There has not been any fever or chills. No dysuria and no frequency or micturition. Denies cough or wheezing. In the emergency room, he was given intravenous Dilaudid which has helped to reduce intensity. Right Upper Abdomen Pain Score (Numeric/FACES): 10 - Related Data Allergies/Adverse Reactions: Allergies Allergy/AdvReac Type Severity Reaction Status Date / Time No Known Allergies Allergy Verified 07/11/19 08:12 Home Medications: Home Meds Gabapentin [Neurontin] 300 mg PO TID 02/12/18 [History] Ibuprofen 200 mg PO Q8HR PRN 02/12/18 [History] Lisinopril 20 mg PO DAILY 11/24/18 [History] hydrOXYzine HCl [Atarax] 50 mg PO Q8HR PRN 05/27/19 [History] Ondansetron [Zofran] 4 mg PO Q8HR PRN 06/24/19 [History] Pantoprazole Sodium [Protonix] 40 mg PO DAILY 06/24/19 [History] Acetaminophen/oxyCODONE [Percocet 325-5 MG] 1 tab PO Q8HR PRN 07/14/19 [History] Dicyclomine [Bentyl] 10 mg PO TID 07/14/19 [History] Past Medical History HEENT History: Reports: Impaired Vision Other HEENT History: wears Glasses Cardiovascular History: Reports: Hypertension Respiratory History: Reports: None Gastrointestinal History: Reports: Diverticulosis, GERD, Pancreatitis Genitourinary History: Reports: None Musculoskeletal History: Reports: None, Other (See Below) Other Musculoskeletal History: right foot tailors bunion. Left foot bunion Neurological History: Reports: None Psychiatric History: Reports: Addiction, Other (See Below) Other Psychiatric History: HX OF CANNABIS ABUSE Endocrine/Metabolic History: Reports: None Hematologic History: Reports: None Immunologic History: Reports: None Oncologic (Cancer) History: Reports: None Dermatologic History: Reports: None - Infectious Disease History Infectious Disease History: Reports: Chicken Pox - Past Surgical History Head Surgeries/Procedures: Reports: None HEENT Surgical History: Reports: Oral Surgery Cardiovascular Surgical History: Reports: None Respiratory Surgical History: Reports: None GI Surgical History: Reports: Appendectomy, Cholecystectomy, EGD, ERCP Male Surgical History: Reports: None Endocrine Surgical History: Reports: None Neurological Surgical History: Reports: None Musculoskeletal Surgical History: Reports: Other (See Below) Other Musculoskeletal Surgeries/Procedures:: BUNIONECTOMY LEFT WITH HARDWARE Dermatological Surgical History: Reports: None - History Comment History Comment: Marijuana hyperemesis syndrome Social & Family History - Family History Family Medical History: Noncontributory Other HEENT Family History: HX OF ABCESSED TEETH Oncologic: Reports: Other (See Below) Other Oncologic Family History: FATHER & PATERNAL GRANDFATHER CANCER - Tobacco Use Smoking Status *Q: Former Smoker Years of Tobacco use: 2 Used Tobacco, but Quit: Yes Month/Year Tobacco Last Used: 06/2019 Second Hand Smoke Exposure: No - Caffeine Use Caffeine Use: Reports: None Other Caffeine Use: 1-2 'CANS' OF CAFFIENATED BEVERAGES - Recreational Drug Use Recreational Drug Use: No - Living Situation & Occupation Living situation: Reports: with Family, with Significant Other Occupation: Student H&P Review of Systems - Review of Systems: Review Of Systems: See Below General: Reports: Diaphoresis Pulmonary: Reports: No Symptoms Cardiovascular: Reports: No Symptoms Gastrointestinal: Reports: Abdominal Pain Musculoskeletal: Reports: No Symptoms Skin: Reports: No Symptoms Psychiatric: Reports: No Symptoms Exam - Exam Exam: See Below - Vital Signs Vital Signs: Last Vital Signs Temp 36.5 C 07/14/19 06:43 Pulse 75 07/14/19 06:43 Resp 16 07/14/19 06:43 BP 167/123 H 07/14/19 06:43 Pulse Ox 99 07/14/19 06:43 Weight: 81.647 kg - Exam General: Alert, Oriented Neck: Supple, Trachea Midline, 2 Lungs: Clear to Auscultation, Normal Respiratory Effort Cardiovascular: Regular Rate, Regular Rhythm GI/Abdominal Exam: Normal Bowel Sounds, Soft, Non-Tender, No Organomegaly, No Distention, No Abnormal Bruit, No Mass, Pelvis Stable Back Exam: Normal Inspection, Full Range of Motion, NT Extremities: Normal Inspection, Normal Range of Motion, Non-Tender, No Pedal Edema, Normal Capillary Refill - Patient Data Lab Results Last 24 hrs: Laboratory Results - last 24 hr 07/14/19 07/14/19 07/14/19 Range/Units 06:42 06:42 07:20 WBC 10.5 H (5.0-10.0) 10^3/uL RBC 5.32 (4.6-6.2) 10^6/uL Hgb 16.3 (14.0-18.0) g/dL Hct 46.4 (40.0-54.0) % MCV 87.2 (80-100) fL MCH 30.6 (27.0-34.0) pg MCHC 35.1 H (33.0-35.0) g/dL Plt Count 527 H (150-450) 10^3/uL Neut % (Auto) 72.7 (42.2-75.2) % Lymph % (Auto) 16.9 L (20.5-50.1) % [place] % (Auto) 7.3 (2-8) % Eos % (Auto) 2.7 (1.0-3.0) % Baso % (Auto) 0.4 (0.0-1.0) % Sodium 136 (135-145) mmol/L Potassium 3.5 L (3.6-5.0) mmol/L Chloride 99 L (101-111) mmol/L Carbon Dioxide 25.0 (21.0-31.0) mmol/L Anion Gap 15.5 BUN 13 (7-18) mg/dL Creatinine 0.9 (0.6-1.3) mg/dL Est Cr Clr Drug Dosing 119.75 mL/min Estimated GFR (MDRD) > 60 BUN/Creatinine Ratio 14.44 Glucose 96 (74-105) mg/dL Calcium 9.8 (8.4-10.2) mg/dl Total Bilirubin 0.9 (0.2-1.0) mg/dL AST 25 (10-42) IU/L ALT 27 (10-60) IU/L Alkaline Phosphatase 72 (42-121) IU/L Ammonia (11-35) umol/L Total Protein 8.1 (6.7-8.2) g/dl Albumin 4.5 (3.2-5.5) g/dl Globulin 3.6 Albumin/Globulin Ratio 1.25 Amylase 56 (28-100) U/L Lipase 28 (22-51) U/L Urine Color Dark yellow (YELLOW) Urine Appearance Slightly cloudy (CLEAR) Urine pH 6.5 (5.0-9.0) Ur Specific [place] 1.025 (1.005-1.030) Urine Protein 30 H (NEGATIVE) Urine Glucose (UA) Negative (NEGATIVE) Urine Ketones 15 H (NEGATIVE) Urine Occult Blood Negative (NEGATIVE) Urine Nitrite Negative (NEGATIVE) Urine Bilirubin Moderate H (NEGATIVE) Urine Urobilinogen 0.2 (0.2-1.0) mg/dL Ur Leukocyte Esterase Negative (NEGATIVE) Urine RBC 0-5 /HPF Urine WBC 0-5 (0-5/HPF) /HPF Ur Epithelial Cells Rare (NOT SEEN) /HPF Calcium Oxalate Crystal Few H (NOT SEEN) /HPF Amorphous Sediment Few (NOT SEEN) /HPF Urine Bacteria Rare (0-FEW/HPF) /HPF Urine Mucus Many H (NOT SEEN) /LPF Urine Opiates Screen (NEGATIVE) Ur Oxycodone Screen (NEGATIVE) Urine Methadone Screen (NEGATIVE) Ur Barbiturates Screen (NEGATIVE) U Tricyclic Antidepress (NEGATIVE) Ur Phencyclidine Scrn (NEGATIVE) Ur Amphetamine Screen (NEGATIVE) U Methamphetamines Scrn (NEGATIVE) Urine MDMA Screen (NEGATIVE) U Benzodiazepines Scrn (NEGATIVE) Urine Cocaine Screen (NEGATIVE) U Marijuana (THC) Screen (NEGATIVE) Ethyl Alcohol < 5 mg/dL 07/14/19 07/14/19 Range/Units 07:20 07:27 WBC (5.0-10.0) 10^3/uL RBC (4.6-6.2) 10^6/uL Hgb (14.0-18.0) g/dL Hct (40.0-54.0) % MCV (80-100) fL MCH (27.0-34.0) pg MCHC (33.0-35.0) g/dL Plt Count (150-450) 10^3/uL Neut % (Auto) (42.2-75.2) % Lymph % (Auto) (20.5-50.1) % [place] % (Auto) (2-8) % Eos % (Auto) (1.0-3.0) % Baso % (Auto) (0.0-1.0) % Sodium (135-145) mmol/L Potassium (3.6-5.0) mmol/L Chloride (101-111) mmol/L Carbon Dioxide (21.0-31.0) mmol/L Anion Gap BUN (7-18) mg/dL Creatinine (0.6-1.3) mg/dL Est Cr Clr Drug Dosing mL/min Estimated GFR (MDRD) BUN/Creatinine Ratio Glucose (74-105) mg/dL Calcium (8.4-10.2) mg/dl Total Bilirubin (0.2-1.0) mg/dL AST (10-42) IU/L ALT (10-60) IU/L Alkaline Phosphatase (42-121) IU/L Ammonia 24 (11-35) umol/L Total Protein (6.7-8.2) g/dl Albumin (3.2-5.5) g/dl Globulin Albumin/Globulin Ratio Amylase (28-100) U/L Lipase (22-51) U/L Urine Color (YELLOW) Urine Appearance (CLEAR) Urine pH (5.0-9.0) Ur Specific [place] (1.005-1.030) Urine Protein (NEGATIVE) Urine Glucose (UA) (NEGATIVE) Urine Ketones (NEGATIVE) Urine Occult Blood (NEGATIVE) Urine Nitrite (NEGATIVE) Urine Bilirubin (NEGATIVE) Urine Urobilinogen (0.2-1.0) mg/dL Ur Leukocyte Esterase (NEGATIVE) Urine RBC /HPF Urine WBC (0-5/HPF) /HPF Ur Epithelial Cells (NOT SEEN) /HPF Calcium Oxalate Crystal (NOT SEEN) /HPF Amorphous Sediment (NOT SEEN) /HPF Urine Bacteria (0-FEW/HPF) /HPF Urine Mucus (NOT SEEN) /LPF Urine Opiates Screen Negative (NEGATIVE) Ur Oxycodone Screen Positive H (NEGATIVE) Urine Methadone Screen Negative (NEGATIVE) Ur Barbiturates Screen Negative (NEGATIVE) U Tricyclic Antidepress Positive H (NEGATIVE) Ur Phencyclidine Scrn Negative (NEGATIVE) Ur Amphetamine Screen Negative (NEGATIVE) U Methamphetamines Scrn Negative (NEGATIVE) Urine MDMA Screen Negative (NEGATIVE) U Benzodiazepines Scrn Negative (NEGATIVE) Urine Cocaine Screen Negative (NEGATIVE) U Marijuana (THC) Screen Positive H (NEGATIVE) Ethyl Alcohol mg/dL Result Diagrams: 07/14/19 06:42 07/14/19 06:42 Problem List Initiated/Reviewed/Updated: Yes Orders Last 24hrs: Active Orders 24 hr Category Date Time Status Admission Diagnosis [ADT] Stat ADT 07/14/19 08:30 Ordered Patient Status [ADT] Routine ADT 07/14/19 09:21 Active Intake and Output [RC] QSHIFT Care 07/14/19 09:22 Active Oxygen Therapy [RC] PRN Care 07/14/19 09:21 Active Up ad Judy [RC] ASDIRECTED Care 07/14/19 09:21 Active VTE/DVT Education [RC] PER UNIT ROUTINE Care 07/14/19 09:21 Active Vital Signs [RC] Q4H Care 07/14/19 09:21 Active Nothing per Oral Now Diet [DIET] Diet 07/14/19 Breakfast Active BASIC METABOLIC PANEL,BMP [CHEM] AM Lab 07/15/19 05:11 Ordered CBC W/O DIFF,HEMOGRAM [HEME] AM Lab 07/15/19 05:11 Ordered Amoxicillin/Clavulanate K [Augmentin 875 MG/125 MG] Med 07/14/19 21:00 Ordered 1 tab PO Q12HR Enoxaparin [Lovenox] Med 07/14/19 09:30 Ordered 40 mg SUBCUT DAILY Ketorolac [Toradol] Med 07/14/19 09:21 Ordered 30 mg IVPUSH Q6H PRN Lactated Ringers [Ringers, Lactated] 1,000 ml Med 07/14/19 09:30 Ordered IV ASDIRECTED Pantoprazole [ProTONIX IV] Med 07/14/19 09:00 Ordered 40 mg IVPUSH DAILY fentaNYL [Sublimaze] Med 07/14/19 09:26 Ordered 50 mcg IVPUSH Q4H PRN Resuscitation Status Routine Resus Stat 07/14/19 09:21 Ordered Medication Orders Amoxicillin/Clavulanate Potassium (Augmentin 875 Mg/125 Mg) 1 tab PO Q12HR JJ Enoxaparin Sodium (Lovenox) 40 mg SUBCUT DAILY JJ Fentanyl (Sublimaze) 50 mcg IVPUSH Q4H PRN PRN Reason: Abdominal Pain Lactated Ringer's (Ringers, Lactated) 1,000 mls @ 150 mls/hr IV ASDIRECTED [facility] Ketorolac Tromethamine (Toradol) 30 mg IVPUSH Q6H PRN PRN Reason: Pain (moderate 4-6) Pantoprazole Sodium (Protonix Iv) 40 mg IVPUSH DAILY [facility] Assessment/Plan Comment:: #. Abdominal pain Patient apparently has history of chronic pancreatitis Presents with severe abdominal pain. Also indicates that he has been having nausea and vomiting Serum lipase is normal as well as amylase This could be pancreatitis. Could also be drug seeking #. Substance abuse disorder Patient has history of addiction to medications Tested positive for marijuana #. Hypertension Blood pressure is elevated Patient has not been picking up his antihypertensives from the pharmacy but has been picking up his narcotics oxycodone and gabapentin #. History of chronic pancreatitis Apparently alcohol-induced Patient indicates that he no longer drinks Plan: Admit patient to medical floor Intravenous fentanyl for pain control next intravenous Zofran Antibiotic protocol Intravenous Toradol Obtain repeat basic metabolic panel Obtain repeat complete blood count Continuous intravenous fluid with Ringer's lactate going at 150 mL an hour Patient's medical chart reviewed. 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
[2019-07-14] MEDS: Enoxaparin 40 MG/0.4 ML Syringe SUBCUT SCH (10:04)
[2019-07-14] MEDS: fentaNYL 100 MCG/2 ML SDV IVPUSH PRN ×4 (10:04→23:07)
[2019-07-14] MEDS: Pantoprazole 40 MG Vial IVPUSH SCH (10:04)
[2019-07-14] MEDS: Lactated Ringers 1,000 ML IV SCH ×3 (10:04→23:12)
[2019-07-14] MEDS ORDERED: Sodium Chloride 0.9% 10 ML Syringe FLUSH PRN (10:36)
[2019-07-14] MEDS: Ketorolac 30 MG/ML SDV IVPUSH PRN ×3 (10:51→23:27)
[2019-07-14] MEDS ORDERED: Ondansetron 4 MG/2 ML SDV IV PRN (14:37)
[2019-07-14] MEDS: Amoxicillin/Clavulanate K 875-125 MG Tab PO SCH (23:09)
[2019-07-15] MEDS: fentaNYL 100 MCG/2 ML SDV IVPUSH PRN ×2 (03:14→07:31)
[2019-07-15] MEDS: Ketorolac 30 MG/ML SDV IVPUSH PRN (05:59)
[2019-07-15] MEDS: Lactated Ringers 1,000 ML IV SCH (06:05)
[2019-07-15 06:45] LABS: ANION GAP 14.1; CHLORIDE,CL 100 mmol/L (101-111); SODIUM,NA 136 mmol/L (135-145)
[2019-07-15] MEDS: Enoxaparin 40 MG/0.4 ML Syringe SUBCUT SCH (08:26)
[2019-07-15] MEDS: Amoxicillin/Clavulanate K 875-125 MG Tab PO SCH (08:26)
[2019-07-15] MEDS: Pantoprazole 40 MG Vial IVPUSH SCH (08:27)
[2019-07-15 12:57] VITALS: BP 152/101; PULSE 81
--- NOTE | 2019-07-15 12:57 | PCM.DCSUM1 ---
Discharge Summary - Hospital Course Free Text/Narrative:: 1-year-old man with medical history of hypertension, chronic pancreatitis, substance abuse,. The patient was recently admitted at the hospital in [place]. He was discharged yesterday. Presented to the emergency room complaining of epigastric pain. Intensity of the pain is about 10 on a scale of 0-10. Indicates that he has had associated nausea and vomiting. There has not been any fever or chills. No dysuria and no frequency or micturition. Denies cough or wheezing. Work-up was negative for any evidence of acute on chronic pancreatitis. Patient continued to have abdominal pain, however he tolerated diet. Patient was discharged in stable condition with plans to follow-up with primary care and to be referred to chronic pain management possibly in [place]. Diagnosis: Stroke: No - Discharge Data Discharge Date: 07/15/19 Discharge Disposition: Home, Self-Care 01 Condition: Good - Referral to Home Health Primary Care Physician: PCP None - Discharge Plan *PRESCRIPTION DRUG MONITORING PROGRAM REVIEWED*: Yes *COPY OF PRESCRIPTION DRUG MONITORING REPORT IN PATIENT [place]: Yes Prescriptions/Med Rec: Pantoprazole Sodium [Protonix] 40 mg PO DAILY #30 tablet. [place] Medications: Home Meds Gabapentin [Neurontin] 300 mg PO TID 02/12/18 [History] Ibuprofen 200 mg PO Q8HR PRN 02/12/18 [History] Lisinopril 20 mg PO DAILY 11/24/18 [History] hydrOXYzine HCl [hydrOXYzine] 50 mg PO Q8HR PRN 05/27/19 [History] Ondansetron [Zofran] 4 mg PO Q8HR PRN 06/24/19 [History] Acetaminophen/oxyCODONE [Percocet 325-5 MG] 1 tab PO Q8HR PRN 07/14/19 [History] Dicyclomine [Bentyl] 10 mg PO TID 07/14/19 [History] Pantoprazole Sodium [Protonix] 40 mg PO DAILY #30 tablet. 07/15/19 [Rx] Oxygen Therapy Mode: Room Air Patient Handouts: Chronic Pancreatitis Referrals: PCP,None [Primary Care Provider] - - Discharge Summary/Plan Comment DC Time >30 min.: Yes - General Info Date of Service: 07/15/19 Admission Dx/Problem (Free Text: Admission Diagnosis/Problem Admission Diagnosis/Problem Chronic Pancreatitis - Patient Data Vitals - Most Recent: Last Vital Signs Temp 37.1 C 07/15/19 08:07 Pulse 83 07/15/19 08:07 Resp 20 07/15/19 08:07 BP 155/106 H 07/15/19 08:07 Pulse Ox 98 07/15/19 08:07 Weight - Most Recent: 81.647 kg I&O - Last 24 hours: Intake & Output 07/14/19 07/15/19 07/15/19 22:59 06:59 14:59 Intake Total 1500 1240 Output Total 300 550 450 Balance -300 950 790 Lab Results - Last 24 hrs: Laboratory Results - last 24 hr 07/15/19 07/15/19 Range/Units 05:55 05:55 WBC 7.3 (5.0-10.0) 10^3/uL RBC 4.59 L (4.6-6.2) 10^6/uL Hgb 14.2 D (14.0-18.0) g/dL Hct 40.5 (40.0-54.0) % MCV 88.2 (80-100) fL MCH 30.9 (27.0-34.0) pg MCHC 35.1 H (33.0-35.0) g/dL Plt Count 415 D (150-450) 10^3/uL Sodium 136 (135-145) mmol/L Potassium 3.1 L (3.6-5.0) mmol/L Chloride 100 L (101-111) mmol/L Carbon Dioxide 25.0 (21.0-31.0) mmol/L Anion Gap 14.1 BUN 13 (7-18) mg/dL Creatinine 0.8 (0.6-1.3) mg/dL Est Cr Clr Drug Dosing 134.72 mL/min Estimated GFR (MDRD) > 60 Glucose 88 (74-105) mg/dL Calcium 8.7 (8.4-10.2) mg/dl Med Orders - Current: Current Medications Amoxicillin/Clavulanate Potassium (Augmentin 875 Mg/125 Mg) 1 tab PO Q12HR [facility] Last Admin: 07/15/19 08:26 Dose: 1 tab Enoxaparin Sodium (Lovenox) 40 mg SUBCUT DAILY [facility] Last Admin: 07/15/19 08:26 Dose: 40 mg Lactated Ringer's (Ringers, Lactated) 1,000 mls @ 150 mls/hr IV ASDIRECTED [facility] Last Infusion: 07/15/19 12:54 Dose: Infused Ketorolac Tromethamine (Toradol) 30 mg IVPUSH Q6H PRN PRN Reason: Pain (moderate 4-6) Last Admin: 07/15/19 05:59 Dose: 30 mg Ondansetron HCl (Zofran) 4 mg IV Q6HR PRN PRN Reason: Nausea/Vomiting Last Admin: 07/14/19 14:54 Dose: 4 mg Pantoprazole Sodium (Protonix Iv) 40 mg IVPUSH DAILY [facility] Last Admin: 07/15/19 08:27 Dose: 40 mg Sodium Chloride (Saline Flush) 10 ml FLUSH ASDIRECTED PRN PRN Reason: Keep Vein Open Discontinued Medications Fentanyl (Sublimaze) 50 mcg IVPUSH Q4H PRN PRN Reason: Abdominal Pain Last Admin: 07/15/19 07:31 Dose: 50 mcg Hydromorphone HCl (Dilaudid) 1 mg IVPUSH ONETIME ONE Stop: 07/14/19 07:27 Last Admin: 07/14/19 07:32 Dose: 1 mg Lactated Ringer's (Ringers, Lactated) 1,000 mls @ 999 mls/hr IV .BOLUS ONE Stop: 07/14/19 08:12 Last Admin: 07/14/19 07:24 Dose: 999 mls/hr Influenza Virus Vaccine (Afluria Quad 2019-20 (3yr Up)) 60 mcg IM .ONCE ONE Stop: 07/15/19 11:31 Last Admin: 07/15/19 11:35 Dose: 60 mcg Metoclopramide HCl (Reglan) 10 mg IVPUSH ONETIME ONE Stop: 07/14/19 08:40 Last Admin: 07/14/19 08:43 Dose: 10 mg Promethazine HCl (Phenergan) 25 mg IM ONETIME ONE Stop: 07/14/19 07:27 Last Admin: 07/14/19 07:31 Dose: 25 mg - Exam General: Reports: Alert, Oriented Lungs: Reports: Clear to Auscultation, Normal Respiratory Effort Cardiovascular: Reports: Regular Rate, Regular Rhythm GI/Abdominal Exam: Normal Bowel Sounds, Soft, Tender Extremities: Normal Inspection, No Pedal Edema Skin: Reports: Warm, Dry, Intact Neurological: Reports: No New Focal Deficit Psy/Mental Status: Reports: Alert, Normal Affect, Normal Mood
== END 2019-07-15 13:05 | disposition home or self-care (01) | DRG 392 ==
LOC: DL.ED 06:27 → DL.MS 08:30 → OBSVTOIN 09:21
PROVIDERS: ADMIT Hospitalist; ATTEND Internal Medicine
DX: R10.13 Epigastric pain (principal); R11.2 Nausea with vomiting, unspecified; K21.9 Gastro-esophageal reflux disease without esophagitis; I10 Essential (primary) hypertension; F12.10 Cannabis abuse, uncomplicated; Z79.899 Other long term (current) drug therapy; Z90.49 Acquired absence of other specified parts of digestive tract; Z23 Encounter for immunization
CPT/HCPCS: 36415; 80048; 80053; 80305-QW; 81001; 82140; 82150; 83690; 85025; 85027; 90686; 96361; 96372; 96374; 96375; 99285-25; A9270-GY; C9113; G0480; J1170; J1650; J1885; J2405; J2550; J2765; J3010; J7120

== ENCOUNTER 2019-07-17 17:10 | Emergency (ER) | payer MEDICAID ==
[2019-07-17 17:39] VITALS: BP 197/114; PULSE 61
[2019-07-17] MEDS: Promethazine 25 MG/ML SDV IM ONE (17:58)
[2019-07-17 18:25] LABS: ANION GAP 13.7; CHLORIDE,CL 103 mmol/L (101-111); SODIUM,NA 141 mmol/L (135-145)
== END 2019-07-17 18:47 | disposition left against medical advice (07) ==
LOC: DL.ED 17:10
DX: R10.9 Unspecified abdominal pain (principal); Z53.21 Procedure and treatment not carried out due to patient leaving prior to being seen by health care provider
CPT/HCPCS: 36415; 80053; 82150; 83690; 85025; J2550

== ENCOUNTER 2019-08-17 00:37 | Emergency (ER) | payer MEDICAID ==
[2019-08-17 00:49] VITALS: BP 200/116; PULSE 62
[2019-08-17] MEDS ORDERED: LORazepam 2 MG/ML Syringe IVPUSH ONE ×2 (00:52→02:24)
[2019-08-17] MEDS ORDERED: Metoclopramide 10 MG/2 ML SDV IVPUSH ONE (00:52)
[2019-08-17] MEDS ORDERED: Sodium Chloride 0.9% 1,000 ML IV ONE (00:55)
[2019-08-17] MEDS ORDERED: LORazepam 2 MG/ML Syringe ONE (00:55)
[2019-08-17] MEDS ORDERED: Metoclopramide 10 MG/2 ML SDV ONE (00:55)
--- NOTE | 2019-08-17 01:10 | EDM.PDOC ---
ED HPI GENERAL MEDICAL PROBLEM - General Chief Complaint: Abdominal Pain Stated Complaint: ABD PAIN Time Seen by Provider: 08/17/19 01:09 Source of Information: Reports: Patient History Limitations: Reports: No Limitations - History of Present Illness INITIAL COMMENTS - FREE TEXT/NARRATIVE: c/o recurrent abd pain with retching not eating. states been told was pancreatitis but nobody can fix it. been here many times and also [place] and told things are normal. Abdominal Pain Score (Numeric/FACES): 10 - Related Data Allergies Allergy/AdvReac Type Severity Reaction Status Date / Time No Known Allergies Allergy Verified 08/17/19 00:46 Home Meds: Home Meds Gabapentin [Neurontin] 300 mg PO TID 02/12/18 [History] Ibuprofen 200 mg PO Q8HR PRN 02/12/18 [History] Lisinopril 20 mg PO DAILY 11/24/18 [History] hydrOXYzine HCL [hydrOXYzine] 50 mg PO Q8HR PRN 05/27/19 [History] Acetaminophen/oxyCODONE [Percocet 325-5 MG] 1 tab PO Q8HR PRN 07/14/19 [History] Dicyclomine [Bentyl] 10 mg PO TID 07/14/19 [History] Pantoprazole Sodium [Protonix] 40 mg PO DAILY #30 tablet. 07/15/19 [Rx] Past Medical History HEENT History: Reports: Impaired Vision Other HEENT History: wears Glasses Cardiovascular History: Reports: Hypertension Respiratory History: Reports: None Gastrointestinal History: Reports: Diverticulosis, GERD, Pancreatitis Genitourinary History: Reports: None Musculoskeletal History: Reports: None, Other (See Below) Other Musculoskeletal History: right foot tailors bunion. Left foot bunion Neurological History: Reports: None Psychiatric History: Reports: Addiction, Other (See Below) Other Psychiatric History: HX OF CANNABIS ABUSE Endocrine/Metabolic History: Reports: None Hematologic History: Reports: None Immunologic History: Reports: None Oncologic (Cancer) History: Reports: None Dermatologic History: Reports: None - Infectious Disease History Infectious Disease History: Reports: Chicken Pox - Past Surgical History Head Surgeries/Procedures: Reports: None HEENT Surgical History: Reports: Oral Surgery Cardiovascular Surgical History: Reports: None Respiratory Surgical History: Reports: None GI Surgical History: Reports: Appendectomy, Cholecystectomy, EGD, ERCP Male Surgical History: Reports: None Endocrine Surgical History: Reports: None Neurological Surgical History: Reports: None Musculoskeletal Surgical History: Reports: Other (See Below) Other Musculoskeletal Surgeries/Procedures:: BUNIONECTOMY LEFT WITH HARDWARE Dermatological Surgical History: Reports: None - History Comment History Comment: Marijuana hyperemesis syndrome Social & Family History - Family History Family Medical History: Noncontributory Other HEENT Family History: HX OF ABCESSED TEETH Oncologic: Reports: Other (See Below) Other Oncologic Family History: FATHER & PATERNAL GRANDFATHER CANCER - Tobacco Use Smoking Status *Q: Current Every Day Smoker Years of Tobacco use: 2 Packs/Tins Daily: 0.2 Second Hand Smoke Exposure: No - Caffeine Use Caffeine Use: Reports: None Other Caffeine Use: 1-2 'CANS' OF CAFFIENATED BEVERAGES - Recreational Drug Use Recreational Drug Use: No - Living Situation & Occupation Living situation: Reports: with Family, with Significant Other Occupation: Student ED ROS GENERAL - Review of Systems Review Of Systems: Comprehensive ROS is negative, except as noted in HPI. ED EXAM, GI/ABD - Physical Exam Exam: See Below Exam Limited By: No Limitations General Appearance: Alert, WD/WN, Anxious, Other (retching cranky) Ears: Hearing Grossly Normal Throat/Mouth: Normal Voice, No Airway Compromise Head: Atraumatic Neck: Non-Tender, Full Range of Motion Respiratory/Chest: No Respiratory Distress Cardiovascular: Regular Rate, Rhythm GI/Abdominal Exam: Tender, Other (general tenderness with hyper sensitive reaction to palpation.). No: Distended, Guarding, Rigid, Rebound Neurological: Alert, Oriented, Normal Cognition, Normal Gait, No Motor/Sensory Deficits Psychiatric: Flat Affect, Tearful, Other (retching and crying and crnaky) Skin Exam: Warm, Dry, Normal Color Lymphatic: No Adenopathy Course - Vital Signs Last Recorded V/S: Last Vital Signs Temp 36.3 C 08/17/19 00:46 Pulse 62 08/17/19 00:46 Resp 16 08/17/19 00:46 BP 200/116 H 08/17/19 00:46 Pulse Ox 100 08/17/19 00:46 - Orders/Labs/Meds Labs: Laboratory Tests 08/17/19 08/17/19 08/17/19 Range/Units 00:50 00:50 00:50 WBC 17.5 H (5.0-10.0) 10^3/uL RBC 5.47 (4.6-6.2) 10^6/uL Hgb 16.4 (14.0-18.0) g/dL Hct 46.7 (40.0-54.0) % MCV 85.4 D (80-100) fL MCH 30.0 (27.0-34.0) pg MCHC 35.1 H (33.0-35.0) g/dL Plt Count 552 H D (150-450) 10^3/uL Neut % (Auto) 70.6 (42.2-75.2) % Lymph % (Auto) 20.0 L (20.5-50.1) % [place] % (Auto) 7.2 (2-8) % Eos % (Auto) 1.9 (1.0-3.0) % Baso % (Auto) 0.3 (0.0-1.0) % Sodium 139 (135-145) mmol/L Potassium 3.5 L (3.6-5.0) mmol/L Chloride 102 (101-111) mmol/L Carbon Dioxide 25.0 (21.0-31.0) mmol/L Anion Gap 15.5 BUN 22 H (7-18) mg/dL Creatinine 0.9 (0.6-1.3) mg/dL Est Cr Clr Drug Dosing 119.75 mL/min Estimated GFR (MDRD) > 60 BUN/Creatinine Ratio 24.44 Glucose 107 H (74-105) mg/dL Calcium 9.6 (8.4-10.2) mg/dl Total Bilirubin 0.8 (0.2-1.0) mg/dL AST 24 (10-42) IU/L ALT 24 (10-60) IU/L Alkaline Phosphatase 79 (42-121) IU/L Total Protein 8.1 (6.7-8.2) g/dl Albumin 4.4 (3.2-5.5) g/dl Globulin 3.7 Albumin/Globulin Ratio 1.19 Amylase 87 (28-100) U/L Lipase 36 (22-51) U/L Urine Opiates Screen (NEGATIVE) Ur Oxycodone Screen (NEGATIVE) Urine Methadone Screen (NEGATIVE) Ur Barbiturates Screen (NEGATIVE) U Tricyclic Antidepress (NEGATIVE) Ur Phencyclidine Scrn (NEGATIVE) Ur Amphetamine Screen (NEGATIVE) U Methamphetamines Scrn (NEGATIVE) Urine MDMA Screen (NEGATIVE) U Benzodiazepines Scrn (NEGATIVE) Urine Cocaine Screen (NEGATIVE) U Marijuana (THC) Screen (NEGATIVE) Ethyl Alcohol < 5 mg/dL 08/17/19 Range/Units 01:23 WBC (5.0-10.0) 10^3/uL RBC (4.6-6.2) 10^6/uL Hgb (14.0-18.0) g/dL Hct (40.0-54.0) % MCV (80-100) fL MCH (27.0-34.0) pg MCHC (33.0-35.0) g/dL Plt Count (150-450) 10^3/uL Neut % (Auto) (42.2-75.2) % Lymph % (Auto) (20.5-50.1) % [place] % (Auto) (2-8) % Eos % (Auto) (1.0-3.0) % Baso % (Auto) (0.0-1.0) % Sodium (135-145) mmol/L Potassium (3.6-5.0) mmol/L Chloride (101-111) mmol/L Carbon Dioxide (21.0-31.0) mmol/L Anion Gap BUN (7-18) mg/dL Creatinine (0.6-1.3) mg/dL Est Cr Clr Drug Dosing mL/min Estimated GFR (MDRD) BUN/Creatinine Ratio Glucose (74-105) mg/dL Calcium (8.4-10.2) mg/dl Total Bilirubin (0.2-1.0) mg/dL AST (10-42) IU/L ALT (10-60) IU/L Alkaline Phosphatase (42-121) IU/L Total Protein (6.7-8.2) g/dl Albumin (3.2-5.5) g/dl Globulin Albumin/Globulin Ratio Amylase (28-100) U/L Lipase (22-51) U/L Urine Opiates Screen Negative (NEGATIVE) Ur Oxycodone Screen Negative (NEGATIVE) Urine Methadone Screen Negative (NEGATIVE) Ur Barbiturates Screen Negative (NEGATIVE) U Tricyclic Antidepress Negative (NEGATIVE) Ur Phencyclidine Scrn Negative (NEGATIVE) Ur Amphetamine Screen Negative (NEGATIVE) U Methamphetamines Scrn Negative (NEGATIVE) Urine MDMA Screen Negative (NEGATIVE) U Benzodiazepines Scrn Negative (NEGATIVE) Urine Cocaine Screen Negative (NEGATIVE) U Marijuana (THC) Screen Positive H (NEGATIVE) Ethyl Alcohol mg/dL Meds: Medications Discontinued Medications Generic Name Dose Route Start Last Admin Trade Name [place]q PRN Reason Stop Dose Admin Dicyclomine HCl 20 mg 08/17/19 02:59 08/17/19 03:07 Bentyl IM 08/17/19 03:00 20 mg ONETIME ONE Administration Sodium Chloride 1,000 mls @ 999 mls/hr 08/17/19 00:55 08/17/19 01:02 Normal Saline IV 08/17/19 01:55 999 mls/hr .BOLUS ONE Administration Sodium Chloride 1,000 mls @ 150 mls/hr 08/17/19 02:30 08/17/19 02:32 Normal Saline IV 150 mls/hr ASDIRECTED JJ Administration Iopamidol 100 ml 08/17/19 01:17 08/17/19 01:28 Isovue-300 (61%) IVPUSH 08/17/19 01:18 100 ml ONETIME ONE Administration Lorazepam 2 mg 08/17/19 00:52 08/17/19 01:02 Ativan IVPUSH 08/17/19 00:53 2 mg ONETIME ONE Administration Lorazepam Confirm 08/17/19 00:55 08/17/19 01:02 Ativan Administered 08/17/19 00:56 Not Given Dose 2 mg .ROUTE .STK-MED ONE Lorazepam 2 mg 08/17/19 02:24 08/17/19 02:32 Ativan IVPUSH 08/17/19 02:25 2 mg ONETIME ONE Administration Metoclopramide HCl 10 mg 08/17/19 00:52 08/17/19 01:02 Reglan IVPUSH 08/17/19 00:53 10 mg ONETIME ONE Administration Metoclopramide HCl Confirm 08/17/19 00:55 08/17/19 01:02 Reglan Administered 08/17/19 00:56 Not Given Dose 10 mg .ROUTE .STK-MED ONE Ondansetron HCl 4 mg 08/17/19 01:26 08/17/19 01:34 Zofran IV 08/17/19 01:27 4 mg ONETIME ONE Administration Promethazine HCl 25 mg 08/17/19 01:50 08/17/19 01:57 Phenergan IM 08/17/19 01:51 25 mg ONETIME ONE Administration - Re-Assessments/Exams Free Text/Narrative Re-Assessment/Exam: 08/17/19 03:01 results discussed with pt in regards to "cannabinoid hyperemesis syndrome" Departure - Departure Time of Disposition: 03:22 Disposition: Home, Self-Care 01 Condition: Good Clinical Impression: Cannabinoid hyperemesis syndrome - Discharge Information Instructions: Cannabis Use Disorder Referrals: PCP,None [Primary Care Provider] - Forms: ED Department Discharge Additional Instructions: 1) avoid usage of cannabinoids 2) liquid diet next 4 days 3) follow up at clinic rx given; bentyl 10mg bid prn abd pain x 6 compazine 25mg suppositories bid prn retching x 4 Sepsis Event Note - Evaluation Sepsis Screening Result: No Definite Risk - Focused Exam Date Exam was Performed: 08/26/19 Time Exam was Performed: 08:58
[2019-08-17 01:13] LABS: ANION GAP 15.5; CHLORIDE,CL 102 mmol/L (101-111); SODIUM,NA 139 mmol/L (135-145)
[2019-08-17] MEDS ORDERED: Iopamidol 612 MG/ML 100 ML Bottle IVPUSH ONE (01:17)
[2019-08-17] MEDS ORDERED: Ondansetron 4 MG/2 ML SDV IV ONE (01:26)
[2019-08-17] MEDS ORDERED: Promethazine 25 MG/ML SDV IM ONE (01:50)
[2019-08-17] MEDS ORDERED: Sodium Chloride 0.9% 1,000 ML IV SCH (02:30)
[2019-08-17] MEDS ORDERED: Dicyclomine 20 MG/2 ML SDV IM ONE (02:59)
== END 2019-08-17 03:22 | disposition home or self-care (01) ==
LOC: DL.ED 00:37
DX: F12.988 Cannabis use, unspecified with other cannabis-induced disorder (principal); R11.10 Vomiting, unspecified; I10 Essential (primary) hypertension; K21.9 Gastro-esophageal reflux disease without esophagitis; F17.210 Nicotine dependence, cigarettes, uncomplicated; Z90.49 Acquired absence of other specified parts of digestive tract; Z79.899 Other long term (current) drug therapy
CPT/HCPCS: 36415; 74177; 80053; 80305; 80320; 82150; 83690; 85025; 96361; 96372; 96374; 96375; 96376; 99284; J0500; J2060; J2405; J2550; J2765; J7030; Q9967; G0480

== ENCOUNTER 2019-08-19 13:53 | Emergency (ER) | payer MEDICAID ==
[2019-08-19] MEDS ORDERED: Sodium Chloride 0.9% 10 ML Syringe FLUSH PRN (14:54)
[2019-08-19] MEDS ORDERED: Promethazine 25 MG/ML SDV IM ONE (14:55)
[2019-08-19] MEDS ORDERED: diphenhydrAMINE 50 MG/ML SDV IVPUSH ONE ×2 (14:55→17:13)
[2019-08-19] MEDS ORDERED: Ondansetron 4 MG/2 ML SDV IV ONE ×3 (14:55→17:13)
[2019-08-19] MEDS ORDERED: Ketorolac 30 MG/ML SDV IVPUSH ONE (14:55)
[2019-08-19] MEDS ORDERED: Sodium Chloride 0.9% 1,000 ML IV ONE (14:55)
[2019-08-19 15:27] LABS: ANION GAP 16.4; CHLORIDE,CL 99 mmol/L (101-111); SODIUM,NA 135 mmol/L (135-145)
[2019-08-19] MEDS ORDERED: LORazepam 2 MG/ML Syringe IVPUSH ONE (15:39)
[2019-08-19 16:57] VITALS: BP 163/96; PULSE 86
[2019-08-19] MEDS ORDERED: HYDROmorphone 1 MG/ML Syringe IVPUSH ONE (17:13)
--- NOTE | 2019-08-19 17:17 | EDM.PDOC ---
Scribed by Jayne Mcdonnell 08/19/19 2601 for Yoel Beach MD ED HPI GENERAL MEDICAL PROBLEM - General Chief Complaint: Gastrointestinal Problem Stated Complaint: SHARP STOMACH PAINS/VOMITING Time Seen by Provider: 08/19/19 14:50 Source of Information: Reports: Patient, RN, RN Notes Reviewed History Limitations: Reports: No Limitations - History of Present Illness INITIAL COMMENTS - FREE TEXT/NARRATIVE: Patient presents to ER with chronic abdominal pain, nausea and vomiting. Patient states he has not drank ETOH in months or smoked THC in 2-3 weeks. He is taking his medication as directed and it is not helping. Today he tried to take medications and threw them up. Onset: Gradual Duration: Getting Worse Location: Reports: Abdomen Quality: Reports: Ache Severity: Severe Improves with: Reports: None Worsens with: Reports: None Associated Symptoms: Reports: No Other Symptoms - Related Data Allergies Allergy/AdvReac Type Severity Reaction Status Date / Time No Known Allergies Allergy Verified 08/17/19 00:46 Home Meds: Home Meds Gabapentin [Neurontin] 300 mg PO TID 02/12/18 [History] Ibuprofen 200 mg PO Q8HR PRN 02/12/18 [History] Lisinopril 20 mg PO DAILY 11/24/18 [History] hydrOXYzine HCL [hydrOXYzine] 50 mg PO Q8HR PRN 05/27/19 [History] Acetaminophen/oxyCODONE [Percocet 325-5 MG] 1 tab PO Q8HR PRN 07/14/19 [History] Dicyclomine [Bentyl] 10 mg PO TID 07/14/19 [History] Pantoprazole Sodium [Protonix] 40 mg PO DAILY #30 tablet.dr 07/15/19 [Rx] Past Medical History HEENT History: Reports: Impaired Vision Other HEENT History: wears Glasses Cardiovascular History: Reports: Hypertension Respiratory History: Reports: None Gastrointestinal History: Reports: Diverticulosis, GERD, Pancreatitis Genitourinary History: Reports: None Musculoskeletal History: Reports: None, Other (See Below) Other Musculoskeletal History: right foot tailors bunion. Left foot bunion Neurological History: Reports: None Psychiatric History: Reports: Addiction, Other (See Below) Other Psychiatric History: HX OF CANNABIS ABUSE Endocrine/Metabolic History: Reports: None Hematologic History: Reports: None Immunologic History: Reports: None Oncologic (Cancer) History: Reports: None Dermatologic History: Reports: None - Infectious Disease History Infectious Disease History: Reports: Chicken Pox - Past Surgical History Head Surgeries/Procedures: Reports: None HEENT Surgical History: Reports: Oral Surgery Cardiovascular Surgical History: Reports: None Respiratory Surgical History: Reports: None GI Surgical History: Reports: Appendectomy, Cholecystectomy, EGD, ERCP Male Surgical History: Reports: None Endocrine Surgical History: Reports: None Neurological Surgical History: Reports: None Musculoskeletal Surgical History: Reports: Other (See Below) Other Musculoskeletal Surgeries/Procedures:: BUNIONECTOMY LEFT WITH HARDWARE Dermatological Surgical History: Reports: None - History Comment History Comment: Marijuana hyperemesis syndrome Social & Family History - Family History Family Medical History: Noncontributory Other HEENT Family History: HX OF ABCESSED TEETH Oncologic: Reports: Other (See Below) Other Oncologic Family History: FATHER & PATERNAL GRANDFATHER CANCER - Tobacco Use Smoking Status *Q: Current Every Day Smoker Tobacco Use Within Last Twelve Months: Cigarettes - Caffeine Use Caffeine Use: Reports: None Other Caffeine Use: 1-2 'CANS' OF CAFFIENATED BEVERAGES - Alcohol Use Alcohol Use History: Yes Alcohol Use Frequency: Not Used in Over 2 Months - Recreational Drug Use Recreational Drug Use: Yes Drug Use in Last 12 Months: Yes Recreational Drug Type: Reports: Marijuana/Hashish Recreational Drug Use Frequency: Weekly - Living Situation & Occupation Living situation: Reports: with Significant Other, with Family Occupation: Student ED ROS GENERAL - Review of Systems Review Of Systems: Comprehensive ROS is negative, except as noted in HPI. ED EXAM, GI/ABD - Physical Exam Exam: See Below Exam Limited By: No Limitations General Appearance: Alert, WD/WN, Mild Distress, Active Emesis (Self induced retching) Eyes: Bilateral: Normal Appearance (No scleral icterus), EOMI Ears: Normal External Exam Nose: Normal Inspection, Normal Mucosa, No Blood Throat/Mouth: Normal Inspection, Normal Lips, Normal Oropharynx, Normal Voice, No Airway Compromise Head: Atraumatic, Normocephalic Neck: Normal Inspection, Supple, Non-Tender, Full Range of Motion Respiratory/Chest: No Respiratory Distress, Lungs Clear, Normal Breath Sounds, No Accessory Muscle Use, Chest Non-Tender Cardiovascular: Normal Peripheral Pulses, Regular Rate, Rhythm, No Edema, No Gallop, No JVD, No Murmur, No Rub GI/Abdominal Exam: Normal Bowel Sounds, Soft, No Organomegaly, No Distention, No Abnormal Bruit, No Mass, Pelvis Stable, Tender (Epigastric region). No: Guarding, Rigid, Rebound Back Exam: Normal Inspection Extremities: Normal Inspection Neurological: Alert, Oriented, CN II-XII Intact, Normal Cognition, Normal Gait, No Motor/Sensory Deficits Psychiatric: Anxious, Tearful Skin Exam: Warm, Dry, Intact, Normal Color, No Rash Course - Vital Signs Last Recorded V/S: Last Vital Signs Temp 98.0 F 08/19/19 14:46 Pulse 86 08/19/19 16:54 Resp 16 08/19/19 16:54 BP 163/96 H 08/19/19 16:54 Pulse Ox 97 08/19/19 16:54 - Orders/Labs/Meds Orders: Active Orders 24 hr Category Date Time Status Peripheral IV Care [RC] . DIRECTED Care 08/19/19 14:54 Active Sodium Chloride 0.9% [Saline Flush] Med 08/19/19 14:54 Active 10 ml FLUSH ASDIRECTED PRN Peripheral IV Insertion Adult [OM.PC] Stat Oth 08/19/19 14:54 Ordered Medication Orders Sodium Chloride (Saline Flush) 10 ml FLUSH ASDIRECTED PRN PRN Reason: Keep Vein Open Last Admin: 08/19/19 15:26 Dose: 10 ml Labs: Laboratory Tests 08/19/19 08/19/19 08/19/19 Range/Units 15:01 15:01 15:51 WBC 11.1 H (5.0-10.0) 10^3/uL RBC 5.20 (4.6-6.2) 10^6/uL Hgb 15.8 (14.0-18.0) g/dL Hct 45.0 (40.0-54.0) % MCV 86.5 (80-100) fL MCH 30.4 (27.0-34.0) pg MCHC 35.1 H (33.0-35.0) g/dL Plt Count 447 D (150-450) 10^3/uL Neut % (Auto) 73.4 (42.2-75.2) % Lymph % (Auto) 18.5 L (20.5-50.1) % [place] % (Auto) 7.0 (2-8) % Eos % (Auto) 0.6 L (1.0-3.0) % Baso % (Auto) 0.5 (0.0-1.0) % Sodium 135 (135-145) mmol/L Potassium 3.4 L (3.6-5.0) mmol/L Chloride 99 L (101-111) mmol/L Carbon Dioxide 23.0 (21.0-31.0) mmol/L Anion Gap 16.4 BUN 17 (7-18) mg/dL Creatinine 1.0 (0.6-1.3) mg/dL Est Cr Clr Drug Dosing 107.78 mL/min Estimated GFR (MDRD) > 60 BUN/Creatinine Ratio 17.00 Glucose 104 (74-105) mg/dL Calcium 10.5 H (8.4-10.2) mg/dl Total Bilirubin 0.9 (0.2-1.0) mg/dL AST 31 (10-42) IU/L ALT 22 (10-60) IU/L Alkaline Phosphatase 81 (42-121) IU/L Total Protein 7.9 (6.7-8.2) g/dl Albumin 4.4 (3.2-5.5) g/dl Globulin 3.5 Albumin/Globulin Ratio 1.26 Amylase 84 (28-100) U/L Lipase 36 (22-51) U/L Urine Color Yellow (YELLOW) Urine Appearance Slightly cloudy (CLEAR) Urine pH 8.5 (5.0-9.0) Ur Specific [place] 1.020 (1.005-1.030) Urine Protein Negative (NEGATIVE) Urine Glucose (UA) Negative (NEGATIVE) Urine Ketones Negative (NEGATIVE) Urine Occult Blood Negative (NEGATIVE) Urine Nitrite Negative (NEGATIVE) Urine Bilirubin Negative (NEGATIVE) Urine Urobilinogen 0.2 (0.2-1.0) mg/dL Ur Leukocyte Esterase Negative (NEGATIVE) Urine Opiates Screen (NEGATIVE) Ur Oxycodone Screen (NEGATIVE) Urine Methadone Screen (NEGATIVE) Ur Barbiturates Screen (NEGATIVE) U Tricyclic Antidepress (NEGATIVE) Ur Phencyclidine Scrn (NEGATIVE) Ur Amphetamine Screen (NEGATIVE) U Methamphetamines Scrn (NEGATIVE) Urine MDMA Screen (NEGATIVE) U Benzodiazepines Scrn (NEGATIVE) Urine Cocaine Screen (NEGATIVE) U Marijuana (THC) Screen (NEGATIVE) Ethyl Alcohol < 5 mg/dL 08/19/19 Range/Units 15:51 WBC (5.0-10.0) 10^3/uL RBC (4.6-6.2) 10^6/uL Hgb (14.0-18.0) g/dL Hct (40.0-54.0) % MCV (80-100) fL MCH (27.0-34.0) pg MCHC (33.0-35.0) g/dL Plt Count (150-450) 10^3/uL Neut % (Auto) (42.2-75.2) % Lymph % (Auto) (20.5-50.1) % [place] % (Auto) (2-8) % Eos % (Auto) (1.0-3.0) % Baso % (Auto) (0.0-1.0) % Sodium (135-145) mmol/L Potassium (3.6-5.0) mmol/L Chloride (101-111) mmol/L Carbon Dioxide (21.0-31.0) mmol/L Anion Gap BUN (7-18) mg/dL Creatinine (0.6-1.3) mg/dL Est Cr Clr Drug Dosing mL/min Estimated GFR (MDRD) BUN/Creatinine Ratio Glucose (74-105) mg/dL Calcium (8.4-10.2) mg/dl Total Bilirubin (0.2-1.0) mg/dL AST (10-42) IU/L ALT (10-60) IU/L Alkaline Phosphatase (42-121) IU/L Total Protein (6.7-8.2) g/dl Albumin (3.2-5.5) g/dl Globulin Albumin/Globulin Ratio Amylase (28-100) U/L Lipase (22-51) U/L Urine Color (YELLOW) Urine Appearance (CLEAR) Urine pH (5.0-9.0) Ur Specific [place] (1.005-1.030) Urine Protein (NEGATIVE) Urine Glucose (UA) (NEGATIVE) Urine Ketones (NEGATIVE) Urine Occult Blood (NEGATIVE) Urine Nitrite (NEGATIVE) Urine Bilirubin (NEGATIVE) Urine Urobilinogen (0.2-1.0) mg/dL Ur Leukocyte Esterase (NEGATIVE) Urine Opiates Screen Negative (NEGATIVE) Ur Oxycodone Screen Negative (NEGATIVE) Urine Methadone Screen Negative (NEGATIVE) Ur Barbiturates Screen Negative (NEGATIVE) U Tricyclic Antidepress Negative (NEGATIVE) Ur Phencyclidine Scrn Negative (NEGATIVE) Ur Amphetamine Screen Negative (NEGATIVE) U Methamphetamines Scrn Negative (NEGATIVE) Urine MDMA Screen Negative (NEGATIVE) U Benzodiazepines Scrn Negative (NEGATIVE) Urine Cocaine Screen Negative (NEGATIVE) U Marijuana (THC) Screen Positive H (NEGATIVE) Ethyl Alcohol mg/dL Meds: Medications Generic Name Dose Route Start Last Admin Trade Name Freq PRN Reason Stop Dose Admin Sodium Chloride 10 ml 08/19/19 14:54 08/19/19 15:26 Saline Flush FLUSH 10 ml ASDIRECTED PRN Administration Keep Vein Open Discontinued Medications Generic Name Dose Route Start Last Admin Trade Name Freq PRN Reason Stop Dose Admin Diphenhydramine HCl 25 mg 08/19/19 14:55 08/19/19 15:26 Benadryl IVPUSH 08/19/19 14:56 25 mg ONETIME ONE Administration Diphenhydramine HCl 25 mg 08/19/19 17:13 Benadryl IVPUSH 08/19/19 17:14 ONETIME ONE Hydromorphone HCl 1 mg 08/19/19 17:13 Dilaudid IVPUSH 08/19/19 17:14 ONETIME ONE Sodium Chloride 1,000 mls @ 999 mls/hr 08/19/19 14:55 08/19/19 15:25 Normal Saline IV 08/19/19 15:55 999 mls/hr .BOLUS ONE Administration Ketorolac Tromethamine 30 mg 08/19/19 14:55 08/19/19 15:26 Toradol IVPUSH 08/19/19 14:56 30 mg ONETIME ONE Administration Lorazepam 2 mg 08/19/19 15:39 08/19/19 16:21 Ativan IVPUSH 08/19/19 15:40 2 mg ONETIME ONE Administration Ondansetron HCl 4 mg 08/19/19 14:55 08/19/19 15:26 Zofran IV 08/19/19 14:56 4 mg ONETIME ONE Administration Ondansetron HCl 4 mg 08/19/19 15:39 08/19/19 16:21 Zofran IV 08/19/19 15:40 4 mg ONETIME ONE Administration Ondansetron HCl 4 mg 08/19/19 17:13 Zofran IV 08/19/19 17:14 ONETIME ONE Promethazine HCl 50 mg 08/19/19 14:55 08/19/19 15:25 Phenergan IM 08/19/19 14:56 50 mg ONETIME ONE Administration Departure - Departure Time of Disposition: 17:16 Disposition: Home, Self-Care 01 Condition: Fair Clinical Impression: Cannabinoid hyperemesis syndrome, Abdominal pain - Discharge Information *PRESCRIPTION DRUG MONITORING PROGRAM REVIEWED*: No *COPY OF PRESCRIPTION DRUG MONITORING REPORT IN PATIENT NAKITA: No Instructions: Cannabinoid Hyperemesis Syndrome Forms: ED Department Discharge Additional Instructions: Abstain from marijuana use. Seek a treatment program if you are unable to quit on your own. Sepsis Event Note - Focused Exam Vital Signs: Vital Signs Temp Pulse Resp BP Pulse Ox 08/19/19 16:54 86 16 163/96 H 97 08/19/19 14:46 98.0 F 60 22 H 90/69 99 Date Exam was Performed: 08/19/19 Time Exam was Performed: 17:15 - My Orders Last 24 Hours: My Active Orders 08/19/19 14:54 Peripheral IV Care [RC] . DIRECTED Sodium Chloride 0.9% [Saline Flush] 10 ml FLUSH ASDIRECTED PRN Peripheral IV Insertion Adult [OM.PC] Stat - Assessment/Plan Last 24 Hours: My Active Orders 08/19/19 14:54 Peripheral IV Care [RC] . DIRECTED Sodium Chloride 0.9% [Saline Flush] 10 ml FLUSH ASDIRECTED PRN Peripheral IV Insertion Adult [OM.PC] Stat I have read and agree with the documentation that has been completed regarding this visit. By signing this record, I attest that the documentation was completed in my physical presence and is an accurate record of the encounter.
== END 2019-08-19 17:33 | disposition home or self-care (01) ==
LOC: DL.ED 13:53
DX: F12.988 Cannabis use, unspecified with other cannabis-induced disorder (principal); R11.10 Vomiting, unspecified; R10.13 Epigastric pain; I10 Essential (primary) hypertension; K21.9 Gastro-esophageal reflux disease without esophagitis; Z90.49 Acquired absence of other specified parts of digestive tract; F17.210 Nicotine dependence, cigarettes, uncomplicated; Z79.899 Other long term (current) drug therapy
CPT/HCPCS: 36415; 80053; 80305; 80320; 81003; 82150; 83690; 85025; 96372; 96374; 96375; 96376; 99284; J1170; J1200; J1885; J2060; J2405; J2550; J7030; G0480

== ENCOUNTER 2019-10-11 10:27 | Emergency (ER) | payer MEDICAID ==
[2019-10-11 10:39] VITALS: BP 192/111; PULSE 64
[2019-10-11] MEDS ORDERED: Dicyclomine 20 MG/2 ML SDV IM ONE (10:52)
[2019-10-11] MEDS ORDERED: Metoclopramide 10 MG/2 ML SDV IVPUSH ONE (10:53)
[2019-10-11] MEDS ORDERED: Sodium Chloride 0.9% 1,000 ML IV ONE (10:53)
[2019-10-11 11:08] LABS: ANION GAP 9.7; CHLORIDE,CL 104 mmol/L (101-111); SODIUM,NA 137 mmol/L (135-145)
--- NOTE | 2019-10-11 12:26 | EDM.PDOC ---
Scribed by Jayne Mcdonnell 10/11/19 1226 for Mary Wang NP ED HPI GENERAL MEDICAL PROBLEM - General Chief Complaint: Abdominal Pain Stated Complaint: STOMACH PAINS Time Seen by Provider: 10/11/19 10:43 Source of Information: Reports: Patient, RN, RN Notes Reviewed History Limitations: Reports: No Limitations - History of Present Illness INITIAL COMMENTS - FREE TEXT/NARRATIVE: Patient is a 39-year-old male who presents to ER with complaint of abdominal pain and dry heaving for the past few days. He has a history of cannabis hyperemesis and is waiting to get into GI. He smoked weed 3 days ago to try to stimulate his appetite. He started dry heaving afterwards. He reports abdominal pain has been constant. He has not tried anything at home. No fevers or chills. No vomiting, even though he is dry heaving but no vomiting, diarrhea or constipation. Onset: Gradual Duration: Constant Location: Reports: Abdomen Severity: Mild Improves with: Reports: None Worsens with: Reports: None Associated Symptoms: Reports: No Other Symptoms Abdomen Pain Score (Numeric/FACES): 10 - Related Data Allergies Allergy/AdvReac Type Severity Reaction Status Date / Time No Known Allergies Allergy Verified 10/11/19 10:34 Home Meds: Home Meds Gabapentin [Neurontin] 300 mg PO TID 02/12/18 [History] Ibuprofen 200 mg PO Q8HR PRN 02/12/18 [History] Lisinopril 20 mg PO DAILY 11/24/18 [History] hydrOXYzine HCL [hydrOXYzine] 50 mg PO Q8HR PRN 05/27/19 [History] Acetaminophen/oxyCODONE [Percocet 325-5 MG] 1 tab PO Q8HR PRN 07/14/19 [History] Dicyclomine [Bentyl] 10 mg PO TID 07/14/19 [History] Pantoprazole Sodium [Protonix] 40 mg PO DAILY #30 tablet. 07/15/19 [Rx] Past Medical History HEENT History: Reports: Impaired Vision Other HEENT History: wears Glasses Cardiovascular History: Reports: Hypertension Respiratory History: Reports: None Gastrointestinal History: Reports: Diverticulosis, GERD, Pancreatitis Genitourinary History: Reports: None Musculoskeletal History: Reports: None, Other (See Below) Other Musculoskeletal History: right foot tailors bunion. Left foot bunion Neurological History: Reports: None Psychiatric History: Reports: Addiction, Other (See Below) Other Psychiatric History: HX OF CANNABIS ABUSE Endocrine/Metabolic History: Reports: None Hematologic History: Reports: None Immunologic History: Reports: None Oncologic (Cancer) History: Reports: None Dermatologic History: Reports: None - Infectious Disease History Infectious Disease History: Reports: Chicken Pox - Past Surgical History Head Surgeries/Procedures: Reports: None HEENT Surgical History: Reports: Oral Surgery Cardiovascular Surgical History: Reports: None Respiratory Surgical History: Reports: None GI Surgical History: Reports: Appendectomy, Cholecystectomy, EGD, ERCP Male Surgical History: Reports: None Endocrine Surgical History: Reports: None Neurological Surgical History: Reports: None Musculoskeletal Surgical History: Reports: Other (See Below) Other Musculoskeletal Surgeries/Procedures:: BUNIONECTOMY LEFT WITH HARDWARE Dermatological Surgical History: Reports: None - History Comment History Comment: Marijuana hyperemesis syndrome Social & Family History - Family History Family Medical History: Noncontributory Other HEENT Family History: HX OF ABCESSED TEETH Oncologic: Reports: Other (See Below) Other Oncologic Family History: FATHER & PATERNAL GRANDFATHER CANCER - Caffeine Use Caffeine Use: Reports: None Other Caffeine Use: 1-2 'CANS' OF CAFFIENATED BEVERAGES - Living Situation & Occupation Living situation: Reports: with Significant Other, with Family Occupation: Student ED ROS GENERAL - Review of Systems Review Of Systems: Comprehensive ROS is negative, except as noted in HPI. ED EXAM, GI/ABD - Physical Exam Exam: See Below Exam Limited By: No Limitations General Appearance: Alert, WD/WN, Moderate Distress Eyes: Bilateral: Normal Appearance Ears: Normal External Exam, Normal Canal, Hearing Grossly Normal, Normal TMs Nose: Normal Inspection, Normal Mucosa, No Blood Throat/Mouth: Normal Inspection, Normal Lips, Normal Teeth, Normal Gums, Normal Oropharynx, Normal Voice, No Airway Compromise Head: Atraumatic, Normocephalic Neck: Normal Inspection, Supple, Non-Tender, Full Range of Motion Respiratory/Chest: No Respiratory Distress, Lungs Clear, Normal Breath Sounds, No Accessory Muscle Use, Chest Non-Tender Cardiovascular: Normal Peripheral Pulses, Regular Rate, Rhythm, No Edema, No Gallop, No JVD, No Murmur, No Rub GI/Abdominal Exam: Normal Bowel Sounds, Soft, Tender (generalized), Other ( generalized cramping) (Male) Exam: Deferred Rectal (Males) Exam: Deferred Back Exam: Normal Inspection, Full Range of Motion, NT Extremities: Normal Inspection, Normal Range of Motion, Non-Tender, Normal Capillary Refill, No Pedal Edema Neurological: Alert, Oriented, CN II-XII Intact, Normal Gait Psychiatric: Normal Affect, Normal Mood Skin Exam: Warm, Dry, Intact, Normal Color, No Rash Lymphatic: No Adenopathy Course - Vital Signs Last Recorded V/S: Last Vital Signs Temp 98.4 F 10/11/19 10:39 Pulse 64 10/11/19 10:39 Resp 24 H 10/11/19 10:39 BP 192/111 H 10/11/19 10:39 Pulse Ox 100 10/11/19 10:39 - Orders/Labs/Meds Orders: Active Orders 24 hr Category Date Time Status DRUG SCREEN URINE BIORAD [URCHEM] Stat Lab 10/11/19 10:52 Ordered Labs: Laboratory Tests 10/11/19 10/11/19 Range/Units 10:38 10:38 WBC 11.0 H (5.0-10.0) 10^3/uL RBC 5.41 (4.6-6.2) 10^6/uL Hgb 16.1 (14.0-18.0) g/dL Hct 47.3 (40.0-54.0) % MCV 87.4 (80-100) fL MCH 29.8 (27.0-34.0) pg MCHC 34.0 (33.0-35.0) g/dL Plt Count 368 D (150-450) 10^3/uL Neut % (Auto) 67.5 (42.2-75.2) % Lymph % (Auto) 21.5 (20.5-50.1) % [place] % (Auto) 7.4 (2-8) % Eos % (Auto) 3.2 H (1.0-3.0) % Baso % (Auto) 0.4 (0.0-1.0) % Sodium 137 (135-145) mmol/L Potassium 3.7 (3.6-5.0) mmol/L Chloride 104 (101-111) mmol/L Carbon Dioxide 27.0 (21.0-31.0) mmol/L Anion Gap 9.7 BUN 16 (7-18) mg/dL Creatinine 0.9 (0.6-1.3) mg/dL Est Cr Clr Drug Dosing 119.75 mL/min Estimated GFR (MDRD) > 60 Glucose 94 (74-105) mg/dL Calcium 8.7 D (8.4-10.2) mg/dl Meds: Medications Discontinued Medications Generic Name Dose Route Start Last Admin Trade Name Freq PRN Reason Stop Dose Admin Dicyclomine HCl 20 mg 10/11/19 10:52 10/11/19 11:09 Bentyl IM 10/11/19 10:53 20 mg ONETIME ONE Administration Sodium Chloride 1,000 mls @ 1,000 mls/hr 10/11/19 10:53 10/11/19 11:06 Normal Saline IV 10/11/19 11:52 1,000 mls/hr .BOLUS ONE Administration Metoclopramide HCl 10 mg 10/11/19 10:53 10/11/19 11:07 Reglan IVPUSH 10/11/19 10:54 10 mg ONETIME ONE Administration - Re-Assessments/Exams Free Text/Narrative Re-Assessment/Exam: Reviewed exam findings with the patient. Administered Reglan and Bentyl. Patient was no satisfied with treatment and signed AMA. Departure - Departure Time of Disposition: 11:58 Disposition: Against Medical Advice 07 Condition: Fair Clinical Impression: Cannabis hyperemesis syndrome concurrent with and due to cannabis abuse - Discharge Information Referrals: PCP,None [Primary Care Provider] - Forms: ED Department Discharge Sepsis Event Note - Evaluation Sepsis Screening Result: No Definite Risk - Focused Exam Vital Signs: Vital Signs Temp Pulse Resp BP Pulse Ox 10/11/19 10:39 98.4 F 64 24 H 192/111 H 100 Date Exam was Performed: 10/11/19 Time Exam was Performed: 12:26 - My Orders Last 24 Hours: My Active Orders 10/11/19 10:52 DRUG SCREEN URINE BIORAD [URCHEM] Stat - Assessment/Plan Last 24 Hours: My Active Orders 10/11/19 10:52 DRUG SCREEN URINE BIORAD [URCHEM] Stat I have read and agree with the documentation that has been completed regarding this visit. By signing this record, I attest that the documentation was completed in my physical presence and is an accurate record of the encounter.
== END 2019-10-11 11:59 | disposition left against medical advice (07) ==
LOC: DL.ED 10:27
DX: F12.188 Cannabis abuse with other cannabis-induced disorder (principal); I10 Essential (primary) hypertension; Z79.899 Other long term (current) drug therapy
CPT/HCPCS: 36415; 80048; 85025; 96361; 96372; 96374; 99284; J0500; J2765; J7030

== ENCOUNTER 2019-10-14 07:26 | Emergency (ER) | payer MEDICAID ==
[2019-10-14 07:33] VITALS: BP 150/100; PULSE 94
[2019-10-14] MEDS ORDERED: Promethazine 25 MG/ML SDV IM ONE (07:48)
--- NOTE | 2019-10-14 07:54 | EDM.PDOC ---
ED HPI GENERAL MEDICAL PROBLEM - General Chief Complaint: Abdominal Pain Stated Complaint: STOMACH PROBLEMS/THROWING UP Time Seen by Provider: 10/14/19 07:45 Source of Information: Reports: Patient History Limitations: Reports: No Limitations - History of Present Illness INITIAL COMMENTS - FREE TEXT/NARRATIVE: This 39 yo male patient reports to the ED with diffuse abdominal pain with nausea/vomiting. The patient denies any alcohol use in years. The patient denies any marijuana use since the weekend. The patient reports he has a GI consult scheduled in [place] in about 2 weeks (please refer to later note regarding past and upcoming appointments under reassessment). The patient reports he did not make it to his last GI consult due to having bunion surgery. The patient reports he attempted to take Tylenol last night, but could not keep it down. The patient has not seen or attempted to be seen by his primary care facility. The patient has been seen in this ED 19 times in the past year for nausea/vomiting/abdominal pain. The patient admits to frequent marijuana use and understands that some of his symptoms may be related to the marijuana use. Duration: Day(s):, Constant Location: Reports: Abdomen Quality: Reports: Other Severity: Severe Improves with: Reports: None Worsens with: Reports: None Context: Reports: Other Associated Symptoms: Reports: Loss of Appetite, Nausea/Vomiting Treatments [employer]: Reports: Acetaminophen Abdominal Pain Score (Numeric/FACES): 9 - Related Data Allergies Allergy/AdvReac Type Severity Reaction Status Date / Time No Known Allergies Allergy Verified 10/11/19 10:34 Home Meds: Home Meds Gabapentin [Neurontin] 300 mg PO TID 02/12/18 [History] Ibuprofen 200 mg PO Q8HR PRN 02/12/18 [History] Lisinopril 20 mg PO DAILY 11/24/18 [History] hydrOXYzine HCL [hydrOXYzine] 50 mg PO Q8HR PRN 05/27/19 [History] Acetaminophen/oxyCODONE [Percocet 325-5 MG] 1 tab PO Q8HR PRN 07/14/19 [History] Dicyclomine [Bentyl] 10 mg PO TID 07/14/19 [History] Pantoprazole Sodium [Protonix] 40 mg PO DAILY #30 tablet. 07/15/19 [Rx] Past Medical History HEENT History: Reports: Impaired Vision Other HEENT History: wears Glasses Cardiovascular History: Reports: Hypertension Respiratory History: Reports: None Gastrointestinal History: Reports: Diverticulosis, GERD, Pancreatitis Genitourinary History: Reports: None Musculoskeletal History: Reports: Other (See Below) Other Musculoskeletal History: right foot tailors bunion. Left foot bunion Neurological History: Reports: None Psychiatric History: Reports: Addiction, Other (See Below) Other Psychiatric History: HX OF CANNABIS ABUSE Endocrine/Metabolic History: Reports: None Hematologic History: Reports: None Immunologic History: Reports: None Oncologic (Cancer) History: Reports: None Dermatologic History: Reports: None - Infectious Disease History Infectious Disease History: Reports: Chicken Pox - Past Surgical History Head Surgeries/Procedures: Reports: None HEENT Surgical History: Reports: Oral Surgery Cardiovascular Surgical History: Reports: None Respiratory Surgical History: Reports: None GI Surgical History: Reports: Appendectomy, Cholecystectomy, EGD, ERCP Male Surgical History: Reports: None Endocrine Surgical History: Reports: None Neurological Surgical History: Reports: None Musculoskeletal Surgical History: Reports: Other (See Below) Other Musculoskeletal Surgeries/Procedures:: BUNIONECTOMY LEFT WITH HARDWARE Dermatological Surgical History: Reports: None - History Comment History Comment: Marijuana hyperemesis syndrome Social & Family History - Family History Family Medical History: Noncontributory Other HEENT Family History: HX OF ABCESSED TEETH Oncologic: Reports: Other (See Below) Other Oncologic Family History: FATHER & PATERNAL GRANDFATHER CANCER - Tobacco Use Smoking Status *Q: Current Some Day Smoker Years of Tobacco use: 20 Packs/Tins Daily: 0.5 - Caffeine Use Caffeine Use: Reports: None Other Caffeine Use: 1-2 'CANS' OF CAFFIENATED BEVERAGES - Recreational Drug Use Recreational Drug Use: Yes Recreational Drug Type: Reports: Marijuana/Hashish - Living Situation & Occupation Living situation: Reports: with Significant Other, with Family Occupation: Student ED ROS GENERAL - Review of Systems Review Of Systems: Comprehensive ROS is negative, except as noted in HPI. ED EXAM, GI/ABD - Physical Exam Exam: See Below Exam Limited By: No Limitations General Appearance: Alert, WD/WN, Moderate Distress, Thin Eyes: Bilateral: Normal Appearance, EOMI Ears: Normal External Exam, Normal Canal, Hearing Grossly Normal, Normal TMs Nose: Normal Inspection, Normal Mucosa, No Blood Throat/Mouth: Normal Inspection, Normal Lips, Normal Teeth, Normal Gums, Normal Oropharynx, Normal Voice, No Airway Compromise Head: Atraumatic, Normocephalic Neck: Normal Inspection, Supple, Non-Tender, Full Range of Motion Respiratory/Chest: No Respiratory Distress, Lungs Clear, Normal Breath Sounds, No Accessory Muscle Use, Chest Non-Tender Cardiovascular: Normal Peripheral Pulses, Regular Rate, Rhythm, No Edema, No Gallop, No JVD, No Murmur, No Rub GI/Abdominal Exam: Normal Bowel Sounds, Guarding, Tender (Male) Exam: Deferred Rectal (Males) Exam: Deferred Back Exam: Normal Inspection, Full Range of Motion, NT Extremities: Normal Inspection, Normal Range of Motion, Non-Tender, Normal Capillary Refill, No Pedal Edema Neurological: Alert, Oriented, CN II-XII Intact, Normal Cognition, Normal Gait, Normal Reflexes, No Motor/Sensory Deficits Psychiatric: Normal Affect, Normal Mood Skin Exam: Warm, Dry, Intact, Normal Color, No Rash Lymphatic: No Adenopathy Course - Vital Signs Last Recorded V/S: Last Vital Signs Temp 37.1 C 10/14/19 07:30 Pulse 94 10/14/19 07:30 Resp 20 10/14/19 07:30 BP 150/100 H 10/14/19 07:30 Pulse Ox 100 10/14/19 07:30 - Orders/Labs/Meds Orders: Active Orders 24 hr Category Date Time Status Lactated Ringers [Ringers, Lactated] 1,000 ml Med 10/14/19 08:30 Active IV ASDIRECTED Medication Orders Lactated Ringer's (Ringers, Lactated) 1,000 mls @ 999 mls/hr IV ASDIRECTED JJ Last Admin: 10/14/19 08:28 Dose: 999 mls/hr Labs: Laboratory Tests 10/14/19 10/14/19 10/14/19 Range/Units 07:40 07:40 07:40 WBC 9.8 (5.0-10.0) 10^3/uL RBC 5.83 (4.6-6.2) 10^6/uL Hgb 17.4 (14.0-18.0) g/dL Hct 49.3 (40.0-54.0) % MCV 84.6 (80-100) fL MCH 29.8 (27.0-34.0) pg MCHC 35.3 H (33.0-35.0) g/dL Plt Count 380 (150-450) 10^3/uL Neut % (Auto) 65.4 (42.2-75.2) % Lymph % (Auto) 23.5 (20.5-50.1) % [place] % (Auto) 9.2 H (2-8) % Eos % (Auto) 1.6 (1.0-3.0) % Baso % (Auto) 0.3 (0.0-1.0) % Sodium 134 L (135-145) mmol/L Potassium 3.4 L (3.6-5.0) mmol/L Chloride 97 L (101-111) mmol/L Carbon Dioxide 27.0 (21.0-31.0) mmol/L Anion Gap 13.4 BUN 24 H (7-18) mg/dL Creatinine 1.2 (0.6-1.3) mg/dL Est Cr Clr Drug Dosing 89.81 mL/min Estimated GFR (MDRD) > 60 BUN/Creatinine Ratio 20.00 Glucose 102 (74-105) mg/dL Calcium 9.1 (8.4-10.2) mg/dl Magnesium 2.3 (1.8-2.5) mg/dL Total Bilirubin 1.2 H (0.2-1.0) mg/dL AST 22 (10-42) IU/L ALT 23 (10-60) IU/L Alkaline Phosphatase 86 (42-121) IU/L Ammonia 22 (11-35) umol/L Total Protein 7.9 (6.7-8.2) g/dl Albumin 4.3 (3.2-5.5) g/dl Globulin 3.6 Albumin/Globulin Ratio 1.19 Amylase 99 (28-100) U/L Lipase 34 (22-51) U/L Urine Color (YELLOW) Urine Appearance (CLEAR) Urine pH (5.0-9.0) Ur Specific [place] (1.005-1.030) Urine Protein (NEGATIVE) Urine Glucose (UA) (NEGATIVE) Urine Ketones (NEGATIVE) Urine Occult Blood (NEGATIVE) Urine Nitrite (NEGATIVE) Urine Bilirubin (NEGATIVE) Urine Urobilinogen (0.2-1.0) mg/dL Ur Leukocyte Esterase (NEGATIVE) Urine RBC /HPF Urine WBC (0-5/HPF) /HPF Ur Epithelial Cells (NOT SEEN) /HPF Calcium Oxalate Crystal (NOT SEEN) /HPF Amorphous Sediment (NOT SEEN) /HPF Urine Bacteria (0-FEW/HPF) /HPF Urine Mucus (NOT SEEN) /LPF Salicylates < 4 mg/dL Urine Opiates Screen (NEGATIVE) Ur Oxycodone Screen (NEGATIVE) Urine Methadone Screen (NEGATIVE) Acetaminophen < 10 ug/mL Ur Barbiturates Screen (NEGATIVE) U Tricyclic Antidepress (NEGATIVE) Ur Phencyclidine Scrn (NEGATIVE) Ur Amphetamine Screen (NEGATIVE) U Methamphetamines Scrn (NEGATIVE) Urine MDMA Screen (NEGATIVE) U Benzodiazepines Scrn (NEGATIVE) Urine Cocaine Screen (NEGATIVE) U Marijuana (THC) Screen (NEGATIVE) Ethyl Alcohol 5 mg/dL 10/14/19 10/14/19 Range/Units 07:58 07:58 WBC (5.0-10.0) 10^3/uL RBC (4.6-6.2) 10^6/uL Hgb (14.0-18.0) g/dL Hct (40.0-54.0) % MCV (80-100) fL MCH (27.0-34.0) pg MCHC (33.0-35.0) g/dL Plt Count (150-450) 10^3/uL Neut % (Auto) (42.2-75.2) % Lymph % (Auto) (20.5-50.1) % [place] % (Auto) (2-8) % Eos % (Auto) (1.0-3.0) % Baso % (Auto) (0.0-1.0) % Sodium (135-145) mmol/L Potassium (3.6-5.0) mmol/L Chloride (101-111) mmol/L Carbon Dioxide (21.0-31.0) mmol/L Anion Gap BUN (7-18) mg/dL Creatinine (0.6-1.3) mg/dL Est Cr Clr Drug Dosing mL/min Estimated GFR (MDRD) BUN/Creatinine Ratio Glucose (74-105) mg/dL Calcium (8.4-10.2) mg/dl Magnesium (1.8-2.5) mg/dL Total Bilirubin (0.2-1.0) mg/dL AST (10-42) IU/L ALT (10-60) IU/L Alkaline Phosphatase (42-121) IU/L Ammonia (11-35) umol/L Total Protein (6.7-8.2) g/dl Albumin (3.2-5.5) g/dl Globulin Albumin/Globulin Ratio Amylase (28-100) U/L Lipase (22-51) U/L Urine Color Yellow (YELLOW) Urine Appearance Slightly cloudy (CLEAR) Urine pH 6.5 (5.0-9.0) Ur Specific [place] 1.020 (1.005-1.030) Urine Protein 30 H (NEGATIVE) Urine Glucose (UA) Negative (NEGATIVE) Urine Ketones Negative (NEGATIVE) Urine Occult Blood Negative (NEGATIVE) Urine Nitrite Negative (NEGATIVE) Urine Bilirubin Small H (NEGATIVE) Urine Urobilinogen 1.0 (0.2-1.0) mg/dL Ur Leukocyte Esterase Negative (NEGATIVE) Urine RBC 0-5 /HPF Urine WBC 0-5 (0-5/HPF) /HPF Ur Epithelial Cells Few (NOT SEEN) /HPF Calcium Oxalate Crystal Few H (NOT SEEN) /HPF Amorphous Sediment Few (NOT SEEN) /HPF Urine Bacteria Few (0-FEW/HPF) /HPF Urine Mucus Many H (NOT SEEN) /LPF Salicylates mg/dL Urine Opiates Screen Negative (NEGATIVE) Ur Oxycodone Screen Negative (NEGATIVE) Urine Methadone Screen Negative (NEGATIVE) Acetaminophen ug/mL Ur Barbiturates Screen Negative (NEGATIVE) U Tricyclic Antidepress Negative (NEGATIVE) Ur Phencyclidine Scrn Negative (NEGATIVE) Ur Amphetamine Screen Negative (NEGATIVE) U Methamphetamines Scrn Negative (NEGATIVE) Urine MDMA Screen Negative (NEGATIVE) U Benzodiazepines Scrn Negative (NEGATIVE) Urine Cocaine Screen Negative (NEGATIVE) U Marijuana (THC) Screen Positive H (NEGATIVE) Ethyl Alcohol mg/dL Meds: Medications Generic Name Dose Route Start Last Admin Trade Name Freq PRN Reason Stop Dose Admin Lactated Ringer's 1,000 mls @ 999 mls/hr 10/14/19 08:30 10/14/19 08:28 Ringers, Lactated IV 999 mls/hr ASDIRECTED JJ Administration Discontinued Medications Generic Name Dose Route Start Last Admin Trade Name Freq PRN Reason Stop Dose Admin Diphenhydramine HCl 25 mg 10/14/19 08:21 10/14/19 08:29 Benadryl IVPUSH 10/14/19 08:22 25 mg ONETIME ONE Administration Lorazepam 1 mg 10/14/19 09:15 10/14/19 09:22 Ativan IVPUSH 10/14/19 09:16 1 mg ONETIME ONE Administration Metoclopramide HCl 10 mg 10/14/19 08:21 10/14/19 08:29 Reglan IVPUSH 10/14/19 08:22 10 mg ONETIME ONE Administration Promethazine HCl 50 mg 10/14/19 07:48 10/14/19 07:57 Phenergan IM 10/14/19 07:49 50 mg ONETIME ONE Administration - Re-Assessments/Exams Free Text/Narrative Re-Assessment/Exam: 10/14/19 08:22 Since the patient reports that he has an appointment in [place] with a GI Specialist in 2 weeks, a call was placed to consult with the GI specialist. According to scheduling at [facility], the patient does not have any upcoming appointments at this time. The patient also mentioned that he has been working with [facility] to set up the above appointments and arrange for a ride. A call was placed to the [facility] to speak with his primary care provider. According to their scheduling personnel, the patient's last appointment with them was scheduled for 07/22/19, but the patient was a no show. The last time the patient has actually been seen at the [facility] was on 11/28/18. The above information was shared with the patient. The patient then reported his has all of the papers, but he does not know much about the appointments. The patient was advised that we would like to be able to help him , but he does need to take control of his healthcare needs. The patient was advised that we will work at controlling his nausea, but we will not be giving additional narcotics. The patient was advised that he needs to stop smoking marijuana and needs to follow-up with primary care in order for further testing and treatment. Departure - Departure Time of Disposition: 09:41 Disposition: Home, Self-Care 01 Condition: Fair Clinical Impression: Abdominal pain Qualifiers: Abdominal location: generalized Qualified Code(s): R10.84 - Generalized abdominal pain Nausea & vomiting Qualifiers: Vomiting type: unspecified Vomiting Intractability: intractable Qualified Code( s): R11.2 - Nausea with vomiting, unspecified - Discharge Information *PRESCRIPTION DRUG MONITORING PROGRAM REVIEWED*: Not Applicable *COPY OF PRESCRIPTION DRUG MONITORING REPORT IN PATIENT [place]AK[place]: Not Applicable Instructions: Abdominal Pain, Adult, [id number], Nausea and Vomiting, Adult Forms: ED Department Discharge Care Plan Goals: The patient was advised of the examination and lab results during the visit. The patient was given an injection of Phenergan, IV fluids, IV Benadryl, IV Reglan and IV Ativan while in the ED. The patient was advised that he needs to follow-up with his primary care facility for continued evaluation and treatment. The patient should avoid marijuana use. If the patient has any additional symptoms or concerns, the patient should either return to the emergency department or visit his primary care facility. Sepsis Event Note - Evaluation Sepsis Screening Result: No Definite Risk - Focused Exam Vital Signs: Vital Signs Temp Pulse Resp BP Pulse Ox 10/14/19 07:30 37.1 C 94 20 150/100 H 100 Date Exam was Performed: 10/14/19 Time Exam was Performed: 09:41 - My Orders Last 24 Hours: My Active Orders 10/14/19 08:30 Lactated Ringers [Ringers, Lactated] 1,000 ml IV ASDIRECTED - Assessment/Plan Last 24 Hours: My Active Orders 10/14/19 08:30 Lactated Ringers [Ringers, Lactated] 1,000 ml IV ASDIRECTED
[2019-10-14 08:14] LABS: ANION GAP 13.4; CHLORIDE,CL 97 mmol/L (101-111); SODIUM,NA 134 mmol/L (135-145)
[2019-10-14 08:15] LABS: ACETAMINOPHEN < 10 ug/mL
[2019-10-14] MEDS ORDERED: diphenhydrAMINE 50 MG/ML SDV IVPUSH ONE (08:21)
[2019-10-14] MEDS ORDERED: Metoclopramide 10 MG/2 ML SDV IVPUSH ONE (08:21)
[2019-10-14] MEDS ORDERED: Lactated Ringers 1,000 ML IV SCH (08:30)
[2019-10-14] MEDS ORDERED: LORazepam 2 MG/ML SDV IVPUSH ONE (09:15)
== END 2019-10-14 09:47 | disposition home or self-care (01) ==
LOC: DL.ED 07:26
DX: R10.84 Generalized abdominal pain (principal); R11.2 Nausea with vomiting, unspecified; I10 Essential (primary) hypertension; K21.9 Gastro-esophageal reflux disease without esophagitis; F17.210 Nicotine dependence, cigarettes, uncomplicated; Z79.899 Other long term (current) drug therapy
CPT/HCPCS: 36415; 80053; 80305; 80307; 81001; 82140; 82150; 83690; 83735; 85025; 96361; 96372; 96374; 96375; 99284; J1200; J2060; J2550; J2765; J7120

== ENCOUNTER 2019-10-16 10:43 | Emergency (ER) | payer MEDICAID ==
--- NOTE | 2019-10-16 11:14 | EDM.PDOC ---
ED HPI GENERAL MEDICAL PROBLEM - General Chief Complaint: Abdominal Pain Stated Complaint: HYPERTENSIVE CRISIS Time Seen by Provider: 10/16/19 11:03 Source of Information: Reports: Patient History Limitations: Reports: No Limitations - History of Present Illness INITIAL COMMENTS - FREE TEXT/NARRATIVE: This 39 yo male patient returns to the ED for the 3rd visit this week. The patient was sent to the ED from the [facility] by Dr. Olguin. The patient presented to the Clinic with nausea/vomiting, abdominal pain and right sided chest pain. While in the Clinic, the patient's blood pressure was 220/110. The patient reports he has not been taking any of his medications, because he has been staying in [place] and his medications are out at [place]. The patient has not made any attempt to get his medications. The patient reports his right sided chest pain started 3 days ago and has continued. The patient reports his chest pain has gotten better over the past 24 hours. The patient denies any recent marijuana use. During the patient's previous visit, the patient was given medications to control the nausea and control his anxiety which lowered his blood pressure to 150/100. Onset: Unknown/Unsure Duration: Week(s):, Constant Location: Reports: Chest (right sided chest pain for 2 days), Abdomen (diffuse abdominal pain (acute on chronic)) Quality: Reports: Other Severity: Severe Improves with: Reports: None Worsens with: Reports: None Context: Reports: Other Associated Symptoms: Reports: Chest Pain, Nausea/Vomiting - Related Data Allergies Allergy/AdvReac Type Severity Reaction Status Date / Time No Known Allergies Allergy Verified 10/11/19 10:34 Home Meds: Home Meds Gabapentin [Neurontin] 300 mg PO TID 02/12/18 [History] Ibuprofen 200 mg PO Q8HR PRN 02/12/18 [History] Lisinopril 20 mg PO DAILY 11/24/18 [History] hydrOXYzine HCL [hydrOXYzine] 50 mg PO Q8HR PRN 05/27/19 [History] Acetaminophen/oxyCODONE [Percocet 325-5 MG] 1 tab PO Q8HR PRN 07/14/19 [History] Dicyclomine [Bentyl] 10 mg PO TID 07/14/19 [History] Pantoprazole Sodium [Protonix] 40 mg PO DAILY #30 tablet. 07/15/19 [Rx] Past Medical History HEENT History: Reports: Impaired Vision Other HEENT History: wears Glasses Cardiovascular History: Reports: Hypertension Respiratory History: Reports: None Gastrointestinal History: Reports: Diverticulosis, GERD, Pancreatitis Genitourinary History: Reports: None Musculoskeletal History: Reports: Other (See Below) Other Musculoskeletal History: right foot tailors bunion. Left foot bunion Neurological History: Reports: None Psychiatric History: Reports: Addiction, Other (See Below) Other Psychiatric History: HX OF CANNABIS ABUSE Endocrine/Metabolic History: Reports: None Hematologic History: Reports: None Immunologic History: Reports: None Oncologic (Cancer) History: Reports: None Dermatologic History: Reports: None - Infectious Disease History Infectious Disease History: Reports: Chicken Pox - Past Surgical History Head Surgeries/Procedures: Reports: None HEENT Surgical History: Reports: Oral Surgery Cardiovascular Surgical History: Reports: None Respiratory Surgical History: Reports: None GI Surgical History: Reports: Appendectomy, Cholecystectomy, EGD, ERCP Male Surgical History: Reports: None Endocrine Surgical History: Reports: None Neurological Surgical History: Reports: None Musculoskeletal Surgical History: Reports: Other (See Below) Other Musculoskeletal Surgeries/Procedures:: BUNIONECTOMY LEFT WITH HARDWARE Dermatological Surgical History: Reports: None - History Comment History Comment: Marijuana hyperemesis syndrome Social & Family History - Family History Family Medical History: Noncontributory Other HEENT Family History: HX OF ABCESSED TEETH Oncologic: Reports: Other (See Below) Other Oncologic Family History: FATHER & PATERNAL GRANDFATHER CANCER - Caffeine Use Caffeine Use: Reports: None Other Caffeine Use: 1-2 'CANS' OF CAFFIENATED BEVERAGES - Living Situation & Occupation Living situation: Reports: with Significant Other, with Family Occupation: Student ED ROS GENERAL - Review of Systems Review Of Systems: Comprehensive ROS is negative, except as noted in HPI. ED EXAM, GENERAL - Physical Exam Exam: See Below Exam Limited By: No Limitations General Appearance: Alert, WD/WN, Moderate Distress, Thin Eye Exam: Bilateral Eye: EOMI, Normal Inspection, PERRL Ears: Normal External Exam, Normal Canal, Hearing Grossly Normal, Normal TMs Nose: Normal Inspection, Normal Mucosa, No Blood Throat/Mouth: Normal Inspection, Normal Lips, Normal Teeth, Normal Gums, Normal Oropharynx, Normal Voice, No Airway Compromise Head: Atraumatic, Normocephalic Neck: Normal Inspection, Supple, Non-Tender, Full Range of Motion Respiratory/Chest: No Respiratory Distress, Lungs Clear, Normal Breath Sounds, No Accessory Muscle Use, Chest Non-Tender Cardiovascular: Normal Peripheral Pulses, Regular Rate, Rhythm, No Edema, No Gallop, No JVD, No Murmur, No Rub GI/Abdominal: Normal Bowel Sounds, Soft, No Organomegaly, No Distention, No Abnormal Bruit, No Mass, Pelvis Stable, Tender (diffuse) (Male) Exam: Deferred Rectal (Males) Exam: Deferred Back Exam: Normal Inspection, Full Range of Motion, NT Extremities: Normal Inspection, Normal Range of Motion, Non-Tender, Normal Capillary Refill, No Pedal Edema Neurological: Alert, Oriented, CN II-XII Intact Psychiatric: Normal Affect, Normal Mood Skin Exam: Warm, Dry, Intact, Normal Color, No Rash Lymphatic: No Adenopathy Course - Vital Signs Last Recorded V/S: Last Vital Signs Temp 36.3 C 10/16/19 11:45 Pulse 66 10/16/19 11:45 Resp 18 10/16/19 11:45 BP 181/119 H 10/16/19 13:05 Pulse Ox 97 10/16/19 11:45 - Orders/Labs/Meds Orders: Active Orders 24 hr Category Date Time Status EKG Documentation Completion [RC] URGENT Care 10/16/19 10:49 Active Labs: Laboratory Tests 10/16/19 10/16/19 10/16/19 Range/Units 10:57 10:57 10:57 WBC 10.3 H (5.0-10.0) 10^3/uL RBC 5.95 (4.6-6.2) 10^6/uL Hgb 17.7 (14.0-18.0) g/dL Hct 49.5 (40.0-54.0) % MCV 83.2 (80-100) fL MCH 29.7 (27.0-34.0) pg MCHC 35.8 H (33.0-35.0) g/dL Plt Count 392 (150-450) 10^3/uL Neut % (Auto) 75.4 H (42.2-75.2) % Lymph % (Auto) 15.8 L (20.5-50.1) % [place] % (Auto) 7.7 (2-8) % Eos % (Auto) 0.8 L (1.0-3.0) % Baso % (Auto) 0.3 (0.0-1.0) % Sodium 134 L (135-145) mmol/L Potassium 3.4 L (3.6-5.0) mmol/L Chloride 96 L (101-111) mmol/L Carbon Dioxide 28.0 (21.0-31.0) mmol/L Anion Gap 13.4 BUN 21 H (7-18) mg/dL Creatinine 1.1 (0.6-1.3) mg/dL Est Cr Clr Drug Dosing TNP Estimated GFR (MDRD) > 60 BUN/Creatinine Ratio 19.09 Glucose 112 H (74-105) mg/dL Calcium 9.4 (8.4-10.2) mg/dl Total Bilirubin 1.9 H (0.2-1.0) mg/dL AST 29 (10-42) IU/L ALT 22 (10-60) IU/L Alkaline Phosphatase 89 (42-121) IU/L Troponin I 0.03 H* (0.00-0.02) ng/ml Total Protein 8.1 (6.7-8.2) g/dl Albumin 4.6 (3.2-5.5) g/dl Globulin 3.5 Albumin/Globulin Ratio 1.31 Urine Color (YELLOW) Urine Appearance (CLEAR) Urine pH (5.0-9.0) Ur Specific [place] (1.005-1.030) Urine Protein (NEGATIVE) Urine Glucose (UA) (NEGATIVE) Urine Ketones (NEGATIVE) Urine Occult Blood (NEGATIVE) Urine Nitrite (NEGATIVE) Urine Bilirubin (NEGATIVE) Urine Urobilinogen (0.2-1.0) mg/dL Ur Leukocyte Esterase (NEGATIVE) Urine RBC /HPF Urine WBC (0-5/HPF) /HPF Ur Epithelial Cells (NOT SEEN) /HPF Calcium Oxalate Crystal (NOT SEEN) /HPF Urine Bacteria (0-FEW/HPF) /HPF Urine Mucus (NOT SEEN) /LPF Urine Opiates Screen (NEGATIVE) Ur Oxycodone Screen (NEGATIVE) Urine Methadone Screen (NEGATIVE) Ur Barbiturates Screen (NEGATIVE) U Tricyclic Antidepress (NEGATIVE) Ur Phencyclidine Scrn (NEGATIVE) Ur Amphetamine Screen (NEGATIVE) U Methamphetamines Scrn (NEGATIVE) Urine MDMA Screen (NEGATIVE) U Benzodiazepines Scrn (NEGATIVE) Urine Cocaine Screen (NEGATIVE) U Marijuana (THC) Screen (NEGATIVE) Ethyl Alcohol < 5 mg/dL 10/16/19 10/16/19 Range/Units 11:44 11:44 WBC (5.0-10.0) 10^3/uL RBC (4.6-6.2) 10^6/uL Hgb (14.0-18.0) g/dL Hct (40.0-54.0) % MCV (80-100) fL MCH (27.0-34.0) pg MCHC (33.0-35.0) g/dL Plt Count (150-450) 10^3/uL Neut % (Auto) (42.2-75.2) % Lymph % (Auto) (20.5-50.1) % [place] % (Auto) (2-8) % Eos % (Auto) (1.0-3.0) % Baso % (Auto) (0.0-1.0) % Sodium (135-145) mmol/L Potassium (3.6-5.0) mmol/L Chloride (101-111) mmol/L Carbon Dioxide (21.0-31.0) mmol/L Anion Gap BUN (7-18) mg/dL Creatinine (0.6-1.3) mg/dL Est Cr Clr Drug Dosing Estimated GFR (MDRD) BUN/Creatinine Ratio Glucose (74-105) mg/dL Calcium (8.4-10.2) mg/dl Total Bilirubin (0.2-1.0) mg/dL AST (10-42) IU/L ALT (10-60) IU/L Alkaline Phosphatase (42-121) IU/L Troponin I (0.00-0.02) ng/ml Total Protein (6.7-8.2) g/dl Albumin (3.2-5.5) g/dl Globulin Albumin/Globulin Ratio Urine Color Dark yellow (YELLOW) Urine Appearance Slightly cloudy (CLEAR) Urine pH 6.0 (5.0-9.0) Ur Specific [place] >= 1.030 (1.005-1.030) Urine Protein 30 H (NEGATIVE) Urine Glucose (UA) Negative (NEGATIVE) Urine Ketones Negative (NEGATIVE) Urine Occult Blood Negative (NEGATIVE) Urine Nitrite Negative (NEGATIVE) Urine Bilirubin Small H (NEGATIVE) Urine Urobilinogen 1.0 (0.2-1.0) mg/dL Ur Leukocyte Esterase Negative (NEGATIVE) Urine RBC Not seen /HPF Urine WBC 0-5 (0-5/HPF) /HPF Ur Epithelial Cells Few (NOT SEEN) /HPF Calcium Oxalate Crystal Rare (NOT SEEN) /HPF Urine Bacteria Few (0-FEW/HPF) /HPF Urine Mucus Many H (NOT SEEN) /LPF Urine Opiates Screen Negative (NEGATIVE) Ur Oxycodone Screen Negative (NEGATIVE) Urine Methadone Screen Negative (NEGATIVE) Ur Barbiturates Screen Negative (NEGATIVE) U Tricyclic Antidepress Negative (NEGATIVE) Ur Phencyclidine Scrn Negative (NEGATIVE) Ur Amphetamine Screen Negative (NEGATIVE) U Methamphetamines Scrn Negative (NEGATIVE) Urine MDMA Screen Negative (NEGATIVE) U Benzodiazepines Scrn Negative (NEGATIVE) Urine Cocaine Screen Negative (NEGATIVE) U Marijuana (THC) Screen Positive H (NEGATIVE) Ethyl Alcohol mg/dL Meds: Medications Discontinued Medications Generic Name Dose Route Start Last Admin Trade Name Freq PRN Reason Stop Dose Admin Clonidine HCl 0.1 mg 10/16/19 12:43 10/16/19 13:05 Catapres PO 10/16/19 12:44 0.1 mg ONETIME ONE Administration Diphenhydramine HCl 25 mg 10/16/19 11:17 10/16/19 11:37 Benadryl IVPUSH 10/16/19 11:18 25 mg ONETIME ONE Administration Lactated Ringer's 1,000 mls @ 500 mls/hr 10/16/19 11:17 10/16/19 11:37 Ringers, Lactated IV 10/16/19 13:16 500 mls/hr .BOLUS ONE Administration Lorazepam 1 mg 10/16/19 11:16 10/16/19 11:37 Ativan IVPUSH 10/16/19 11:17 1 mg ONETIME ONE Administration Promethazine HCl 50 mg 10/16/19 11:16 10/16/19 11:36 Phenergan IM 10/16/19 11:17 50 mg ONETIME ONE Administration Departure - Departure Time of Disposition: 13:38 Disposition: Home, Self-Care 01 Condition: Fair Clinical Impression: Hypertensive emergency Nausea & vomiting Qualifiers: Vomiting type: unspecified Vomiting Intractability: intractable Qualified Code( s): R11.2 - Nausea with vomiting, unspecified Abdominal pain Qualifiers: Abdominal location: generalized Qualified Code(s): R10.84 - Generalized abdominal pain - Discharge Information *PRESCRIPTION DRUG MONITORING PROGRAM REVIEWED*: Not Applicable *COPY OF PRESCRIPTION DRUG MONITORING REPORT IN PATIENT NAKITA: Not Applicable Instructions: Abdominal Pain, Adult, [id number], Nausea and Vomiting, Adult Forms: ED Department Discharge Care Plan Goals: The patient was advised of the examination and lab results during the visit. The patient was given medications for his nausea and to lower his blood pressure. The patient was encouraged to take his prescription medications as prescribed. If the patient has any additional symptoms or concerns, the patient should either return to the emergency department or visit his primary care facility. Sepsis Event Note - Focused Exam Vital Signs: Vital Signs Temp Pulse Resp BP BP Pulse Ox 10/16/19 13:05 181/119 H 10/16/19 11:45 36.3 C 66 18 191/120 H 97 Date Exam was Performed: 10/16/19 Time Exam was Performed: 13:38 - My Orders Last 24 Hours: My Active Orders 10/16/19 10:49 EKG Documentation Completion [RC] URGENT - Assessment/Plan Last 24 Hours: My Active Orders 10/16/19 10:49 EKG Documentation Completion [RC] URGENT
[2019-10-16] MEDS ORDERED: Promethazine 25 MG/ML SDV IM ONE (11:16)
[2019-10-16] MEDS ORDERED: LORazepam 2 MG/ML SDV IVPUSH ONE (11:16)
[2019-10-16] MEDS ORDERED: diphenhydrAMINE 50 MG/ML SDV IVPUSH ONE (11:17)
[2019-10-16] MEDS ORDERED: Lactated Ringers 1,000 ML IV ONE (11:17)
[2019-10-16 11:24] LABS: ANION GAP 13.4; CHLORIDE,CL 96 mmol/L (101-111); SODIUM,NA 134 mmol/L (135-145)
[2019-10-16 11:48] VITALS: PULSE 66
[2019-10-16] MEDS ORDERED: cloNIDine 0.1 MG Tab PO ONE (12:43)
[2019-10-16 13:06] VITALS: BP 181/119
== END 2019-10-16 13:45 | disposition home or self-care (01) ==
LOC: DL.ED 10:43
DX: I16.1 Hypertensive emergency (principal); R11.2 Nausea with vomiting, unspecified; I10 Essential (primary) hypertension; K21.9 Gastro-esophageal reflux disease without esophagitis; R10.84 Generalized abdominal pain; Z79.899 Other long term (current) drug therapy
CPT/HCPCS: 36415; 71045; 80053; 80305; 80307; 81001; 84484; 85025; 93005; 96361; 96372; 96374; 96375; 99285; A9270; J1200; J2060; J2550; J7120

== ENCOUNTER 2019-10-17 15:07 | Emergency (ER) | payer MEDICAID ==
[2019-10-17 15:32] VITALS: BP 160/117; PULSE 97
[2019-10-17 16:21] LABS: ANION GAP 14.3; CHLORIDE,CL 94 mmol/L (101-111); SODIUM,NA 132 mmol/L (135-145)
--- NOTE | 2019-10-22 05:44 | EDM.PDOCBH ---
ED HPI GENERAL MEDICAL PROBLEM - General Chief Complaint: Behavioral/Psych Stated Complaint: SUICIDAL Time Seen by Provider: 10/17/19 15:25 Source of Information: Reports: Patient, RN History Limitations: Reports: No Limitations - History of Present Illness INITIAL COMMENTS - FREE TEXT/NARRATIVE: ED ambulatory reported to RN that he feels suicidal . Denied plan, Frustrated over chronic problems. Has not been taken medications. Patient seen multiple times in ER this weekStates he wants to go to [place]. Crisis Counselor [facility] notified. - Related Data Allergies Allergy/AdvReac Type Severity Reaction Status Date / Time No Known Allergies Allergy Verified 10/17/19 15:17 Home Meds: Home Meds Gabapentin [Neurontin] 300 mg PO TID 02/12/18 [History] Ibuprofen 200 mg PO Q8HR PRN 02/12/18 [History] Lisinopril 20 mg PO DAILY 11/24/18 [History] hydrOXYzine HCL [hydrOXYzine] 50 mg PO Q8HR PRN 05/27/19 [History] Dicyclomine [Bentyl] 10 mg PO TID 07/14/19 [History] Pantoprazole Sodium [Protonix] 40 mg PO DAILY #30 tablet. 07/15/19 [Rx] Past Medical History HEENT History: Reports: Impaired Vision Other HEENT History: wears Glasses Cardiovascular History: Reports: Hypertension Respiratory History: Reports: None Gastrointestinal History: Reports: Diverticulosis, GERD, Pancreatitis, Other ( See Below) Other Gastrointestinal History: Chronic abd. pain Genitourinary History: Reports: None Musculoskeletal History: Reports: Other (See Below) Other Musculoskeletal History: right foot tailors bunion. Left foot bunion Neurological History: Reports: None Psychiatric History: Reports: Addiction, Suicidal Ideation, Other (See Below) Other Psychiatric History: HX OF CANNABIS ABUSE Endocrine/Metabolic History: Reports: None Hematologic History: Reports: None Immunologic History: Reports: None Oncologic (Cancer) History: Reports: None Dermatologic History: Reports: None - Infectious Disease History Infectious Disease History: Reports: Chicken Pox - Past Surgical History Head Surgeries/Procedures: Reports: None HEENT Surgical History: Reports: Oral Surgery Cardiovascular Surgical History: Reports: None Respiratory Surgical History: Reports: None GI Surgical History: Reports: Appendectomy, Cholecystectomy, EGD, ERCP Male Surgical History: Reports: None Endocrine Surgical History: Reports: None Neurological Surgical History: Reports: None Musculoskeletal Surgical History: Reports: Other (See Below) Other Musculoskeletal Surgeries/Procedures:: BUNIONECTOMY LEFT WITH HARDWARE Dermatological Surgical History: Reports: None - History Comment History Comment: Marijuana hyperemesis syndrome Social & Family History - Family History Family Medical History: Noncontributory Other HEENT Family History: HX OF ABCESSED TEETH Oncologic: Reports: Other (See Below) Other Oncologic Family History: FATHER & PATERNAL GRANDFATHER CANCER - Tobacco Use Smoking Status *Q: Current Every Day Smoker Years of Tobacco use: 20 Packs/Tins Daily: 0.5 - Caffeine Use Caffeine Use: Reports: Coffee, Soda Other Caffeine Use: 1-2 'CANS' OF CAFFIENATED BEVERAGES - Recreational Drug Use Recreational Drug Use: Yes Recreational Drug Type: Reports: Benzodiazepines, Marijuana/Hashish, Methamphetamine - Living Situation & Occupation Living situation: Reports: with Significant Other, with Family Occupation: Student ED ROS GENERAL - Review of Systems Review Of Systems: Unable To Obtain Reason Not Obtained: left ED EXAM, BEHAVIORAL HEALTH - Physical Exam Exam: Not Obtained Reason Not Obtained: Patient left without being seen by provider. Was seen by [facility] OPERATIONAL REVIEW SERGEANT COURSE, BEHAVIORAL HEALTH COMP - Course Vital Signs: Last Vital Signs Temp 99 F 10/17/19 15:10 Pulse 97 10/17/19 15:10 Resp 18 10/17/19 15:10 BP 160/117 H 10/17/19 15:10 Pulse Ox 97 10/17/19 15:10 Orders, Labs, Meds: Laboratory Tests 10/17/19 10/17/19 10/17/19 Range/Units 15:26 15:26 15:56 WBC 8.7 (5.0-10.0) 10^3/uL RBC 5.47 (4.6-6.2) 10^6/uL Hgb 16.3 (14.0-18.0) g/dL Hct 45.9 (40.0-54.0) % MCV 83.9 (80-100) fL MCH 29.8 (27.0-34.0) pg MCHC 35.5 H (33.0-35.0) g/dL Plt Count 371 (150-450) 10^3/uL Neut % (Auto) 66.2 (42.2-75.2) % Lymph % (Auto) 24.0 (20.5-50.1) % [place] % (Auto) 7.6 (2-8) % Eos % (Auto) 1.7 (1.0-3.0) % Baso % (Auto) 0.5 (0.0-1.0) % Sodium (135-145) mmol/L Potassium (3.6-5.0) mmol/L Chloride (101-111) mmol/L Carbon Dioxide (21.0-31.0) mmol/L Anion Gap BUN (7-18) mg/dL Creatinine (0.6-1.3) mg/dL Est Cr Clr Drug Dosing mL/min Estimated GFR (MDRD) BUN/Creatinine Ratio Glucose (74-105) mg/dL Calcium (8.4-10.2) mg/dl Total Bilirubin (0.2-1.0) mg/dL AST (10-42) IU/L ALT (10-60) IU/L Alkaline Phosphatase (42-121) IU/L Total Protein (6.7-8.2) g/dl Albumin (3.2-5.5) g/dl Globulin Albumin/Globulin Ratio Urine Color Yellow (YELLOW) Urine Appearance Slightly cloudy (CLEAR) Urine pH 7.0 (5.0-9.0) Ur Specific [place] 1.020 (1.005-1.030) Urine Protein Negative (NEGATIVE) Urine Glucose (UA) Negative (NEGATIVE) Urine Ketones Negative (NEGATIVE) Urine Occult Blood Negative (NEGATIVE) Urine Nitrite Negative (NEGATIVE) Urine Bilirubin Negative (NEGATIVE) Urine Urobilinogen 4.0 H (0.2-1.0) mg/dL Ur Leukocyte Esterase Negative (NEGATIVE) Urine Opiates Screen Negative (NEGATIVE) Ur Oxycodone Screen Negative (NEGATIVE) Urine Methadone Screen Negative (NEGATIVE) Ur Barbiturates Screen Negative (NEGATIVE) U Tricyclic Antidepress Negative (NEGATIVE) Ur Phencyclidine Scrn Negative (NEGATIVE) Ur Amphetamine Screen Negative (NEGATIVE) U Methamphetamines Scrn Negative (NEGATIVE) Urine MDMA Screen Negative (NEGATIVE) U Benzodiazepines Scrn Positive H (NEGATIVE) Urine Cocaine Screen Negative (NEGATIVE) U Marijuana (THC) Screen Positive H (NEGATIVE) Ethyl Alcohol mg/dL 10/17/19 Range/Units 15:56 WBC (5.0-10.0) 10^3/uL RBC (4.6-6.2) 10^6/uL Hgb (14.0-18.0) g/dL Hct (40.0-54.0) % MCV (80-100) fL MCH (27.0-34.0) pg MCHC (33.0-35.0) g/dL Plt Count (150-450) 10^3/uL Neut % (Auto) (42.2-75.2) % Lymph % (Auto) (20.5-50.1) % [place] % (Auto) (2-8) % Eos % (Auto) (1.0-3.0) % Baso % (Auto) (0.0-1.0) % Sodium 132 L (135-145) mmol/L Potassium 3.3 L (3.6-5.0) mmol/L Chloride 94 L (101-111) mmol/L Carbon Dioxide 27.0 (21.0-31.0) mmol/L Anion Gap 14.3 BUN 12 (7-18) mg/dL Creatinine 1.0 (0.6-1.3) mg/dL Est Cr Clr Drug Dosing 107.78 mL/min Estimated GFR (MDRD) > 60 BUN/Creatinine Ratio 12.00 Glucose 94 (74-105) mg/dL Calcium 9.1 (8.4-10.2) mg/dl Total Bilirubin 2.2 H (0.2-1.0) mg/dL AST 21 (10-42) IU/L ALT 20 (10-60) IU/L Alkaline Phosphatase 80 (42-121) IU/L Total Protein 7.8 (6.7-8.2) g/dl Albumin 4.4 (3.2-5.5) g/dl Globulin 3.4 Albumin/Globulin Ratio 1.29 Urine Color (YELLOW) Urine Appearance (CLEAR) Urine pH (5.0-9.0) Ur Specific [place] (1.005-1.030) Urine Protein (NEGATIVE) Urine Glucose (UA) (NEGATIVE) Urine Ketones (NEGATIVE) Urine Occult Blood (NEGATIVE) Urine Nitrite (NEGATIVE) Urine Bilirubin (NEGATIVE) Urine Urobilinogen (0.2-1.0) mg/dL Ur Leukocyte Esterase (NEGATIVE) Urine Opiates Screen (NEGATIVE) Ur Oxycodone Screen (NEGATIVE) Urine Methadone Screen (NEGATIVE) Ur Barbiturates Screen (NEGATIVE) U Tricyclic Antidepress (NEGATIVE) Ur Phencyclidine Scrn (NEGATIVE) Ur Amphetamine Screen (NEGATIVE) U Methamphetamines Scrn (NEGATIVE) Urine MDMA Screen (NEGATIVE) U Benzodiazepines Scrn (NEGATIVE) Urine Cocaine Screen (NEGATIVE) U Marijuana (THC) Screen (NEGATIVE) Ethyl Alcohol < 5 mg/dL Departure - Departure Time of Disposition: 16:45 Disposition: Left Without Being Seen 07 Clinical Impression: Depressive disorder - Discharge Information *PRESCRIPTION DRUG MONITORING PROGRAM REVIEWED*: No *COPY OF PRESCRIPTION DRUG MONITORING REPORT IN PATIENT NAKITA: No Referrals: PCP,Unobtain [Primary Care Provider] - Forms: ED Department Discharge Sepsis Event Note - Evaluation Sepsis Screening Result: No Definite Risk
== END 2019-10-17 17:45 | disposition left against medical advice (07) ==
LOC: DL.ED 15:07
DX: F32.9 Major depressive disorder, single episode, unspecified (principal); I10 Essential (primary) hypertension; F17.210 Nicotine dependence, cigarettes, uncomplicated; Z79.899 Other long term (current) drug therapy; K21.9 Gastro-esophageal reflux disease without esophagitis
CPT/HCPCS: 36415; 80053; 80305-QW; 80307; 81003; 85025; 99284

== ENCOUNTER 2019-10-18 17:39 | Emergency (ER) | payer MEDICAID | END 2019-10-18 19:09 | disposition left against medical advice (07) | LOC: DL.ED 17:39 | DX: Z53.21 Procedure and treatment not carried out due to patient leaving prior to being seen by health care provider (principal) ==

== ENCOUNTER 2019-10-25 15:50 | Emergency (ER) | payer MEDICAID ==
[2019-10-25 17:34] VITALS: BP 189/148; PULSE 69
[2019-10-25] MEDS ORDERED: Ondansetron 4 MG Tab.DIS PO ONE (19:24)
[2019-10-25 19:51] LABS: ANION GAP 13.5; CHLORIDE,CL 103 mmol/L (101-111); SODIUM,NA 139 mmol/L (135-145)
--- NOTE | 2019-10-25 19:51 | EDM.PDOC ---
ED HPI GENERAL MEDICAL PROBLEM - General Chief Complaint: Abdominal Pain Stated Complaint: STOMACH PAIN Time Seen by Provider: 10/25/19 19:48 Source of Information: Reports: Patient History Limitations: Reports: No Limitations - History of Present Illness INITIAL COMMENTS - FREE TEXT/NARRATIVE: c/o abd pain all morning, states in [facility] and not here for pain meds. explained to pt from all his prior visits here and in [place] the recommendation is no opiods where dilaudid is the only med that has worked successfully. pt unhappy about the conclusions and wanted to leave. explained to pt his labs are unremarkable for his pain etiology. pt still wanted to leave. Abdominal Pain Score (Numeric/FACES): 9 - Related Data Allergies Allergy/AdvReac Type Severity Reaction Status Date / Time No Known Allergies Allergy Verified 10/17/19 15:17 Home Meds: Home Meds Gabapentin [Neurontin] 300 mg PO TID 02/12/18 [History] Ibuprofen 200 mg PO Q8HR PRN 02/12/18 [History] Lisinopril 20 mg PO DAILY 11/24/18 [History] hydrOXYzine HCL [hydrOXYzine] 50 mg PO Q8HR PRN 05/27/19 [History] Dicyclomine [Bentyl] 20 mg PO BID 07/14/19 [History] Pantoprazole Sodium [Protonix] 40 mg PO DAILY #30 tablet. 07/15/19 [Rx] Propranolol [Inderal] 40 mg PO BID 10/25/19 [History] Past Medical History HEENT History: Reports: Impaired Vision Other HEENT History: wears Glasses Cardiovascular History: Reports: Hypertension Respiratory History: Reports: None Gastrointestinal History: Reports: Diverticulosis, GERD, Pancreatitis, Other ( See Below) Other Gastrointestinal History: Chronic abd. pain Genitourinary History: Reports: None Musculoskeletal History: Reports: Other (See Below) Other Musculoskeletal History: right foot tailors bunion. Left foot bunion Neurological History: Reports: None Psychiatric History: Reports: Addiction, Suicidal Ideation, Other (See Below) Other Psychiatric History: HX OF CANNABIS ABUSE Endocrine/Metabolic History: Reports: None Hematologic History: Reports: None Immunologic History: Reports: None Oncologic (Cancer) History: Reports: None Dermatologic History: Reports: None - Infectious Disease History Infectious Disease History: Reports: Chicken Pox - Past Surgical History Head Surgeries/Procedures: Reports: None HEENT Surgical History: Reports: Oral Surgery Cardiovascular Surgical History: Reports: None Respiratory Surgical History: Reports: None GI Surgical History: Reports: Appendectomy, Cholecystectomy, EGD, ERCP Male Surgical History: Reports: None Endocrine Surgical History: Reports: None Neurological Surgical History: Reports: None Musculoskeletal Surgical History: Reports: Other (See Below) Other Musculoskeletal Surgeries/Procedures:: BUNIONECTOMY LEFT WITH HARDWARE Dermatological Surgical History: Reports: None - History Comment History Comment: Marijuana hyperemesis syndrome Social & Family History - Family History Family Medical History: Noncontributory Other HEENT Family History: HX OF ABCESSED TEETH Oncologic: Reports: Other (See Below) Other Oncologic Family History: FATHER & PATERNAL GRANDFATHER CANCER - Tobacco Use Smoking Status *Q: Current Some Day Smoker Years of Tobacco use: 20 Packs/Tins Daily: 0.5 - Caffeine Use Caffeine Use: Reports: None Other Caffeine Use: 1-2 'CANS' OF CAFFIENATED BEVERAGES - Recreational Drug Use Recreational Drug Use: No - Living Situation & Occupation Living situation: Reports: with Significant Other, with Family Occupation: Student ED ROS GENERAL - Review of Systems Review Of Systems: Comprehensive ROS is negative, except as noted in HPI. ED EXAM, GI/ABD - Physical Exam Exam: See Below Exam Limited By: No Limitations General Appearance: Alert, WD/WN, Mild Distress, Other (retching on-off, upset, cranky). No: Active Emesis Ears: Hearing Grossly Normal Throat/Mouth: Normal Voice, No Airway Compromise Head: Atraumatic Neck: Non-Tender, Full Range of Motion Respiratory/Chest: No Respiratory Distress Cardiovascular: Regular Rate, Rhythm GI/Abdominal Exam: Other (general discomfort when palpated but able to get up to leave without problem) Neurological: Alert, Oriented, Normal Cognition, Normal Gait, No Motor/Sensory Deficits Psychiatric: Other (cranky) Skin Exam: Warm, Dry, Normal Color Lymphatic: No Adenopathy Course - Vital Signs Last Recorded V/S: Last Vital Signs Temp 37.6 C 10/25/19 17:30 Pulse 69 10/25/19 17:30 Resp 18 10/25/19 17:30 BP 189/148 H 10/25/19 17:30 Pulse Ox 99 10/25/19 17:30 - Orders/Labs/Meds Labs: Laboratory Tests 03/04/0710/25/19 10/25/19 Range/Units 19:10 19:20 19:20 WBC 11.5 H (5.0-10.0) 10^3/uL RBC 5.41 (4.6-6.2) 10^6/uL Hgb 16.0 (14.0-18.0) g/dL Hct 47.6 (40.0-54.0) % MCV 88.0 D (80-100) fL MCH 29.6 (27.0-34.0) pg MCHC 33.6 (33.0-35.0) g/dL Plt Count 347 (150-450) 10^3/uL Neut % (Auto) 79.9 H (42.2-75.2) % Lymph % (Auto) 12.4 L (20.5-50.1) % Dent % (Auto) 6.3 (2-8) % Eos % (Auto) 1.1 (1.0-3.0) % Baso % (Auto) 0.3 (0.0-1.0) % Sodium 139 (135-145) mmol/L Potassium 4.5 (3.6-5.0) mmol/L Chloride 103 (101-111) mmol/L Carbon Dioxide 27.0 (21.0-31.0) mmol/L Anion Gap 13.5 BUN 17 (7-18) mg/dL Creatinine 0.9 (0.6-1.3) mg/dL Est Cr Clr Drug Dosing 119.75 mL/min Estimated GFR (MDRD) > 60 BUN/Creatinine Ratio 18.88 Glucose 106 H (74-105) mg/dL Calcium 9.8 (8.4-10.2) mg/dl Total Bilirubin 0.7 (0.2-1.0) mg/dL AST 24 (10-42) IU/L ALT 26 (10-60) IU/L Alkaline Phosphatase 75 (42-121) IU/L Total Protein 7.7 (6.7-8.2) g/dl Albumin 4.4 (3.2-5.5) g/dl Globulin 3.3 Albumin/Globulin Ratio 1.33 Amylase 97 (28-100) U/L Lipase 34 (22-51) U/L Urine Opiates Screen Negative (NEGATIVE) Ur Oxycodone Screen Negative (NEGATIVE) Urine Methadone Screen Negative (NEGATIVE) Ur Barbiturates Screen Negative (NEGATIVE) U Tricyclic Antidepress Negative (NEGATIVE) Ur Phencyclidine Scrn Negative (NEGATIVE) Ur Amphetamine Screen Negative (NEGATIVE) U Methamphetamines Scrn Negative (NEGATIVE) Urine MDMA Screen Negative (NEGATIVE) U Benzodiazepines Scrn Negative (NEGATIVE) Urine Cocaine Screen Negative (NEGATIVE) U Marijuana (THC) Screen Negative (NEGATIVE) Meds: Medications Discontinued Medications Generic Name Dose Route Start Last Admin Trade Name Freq PRN Reason Stop Dose Admin Ondansetron HCl 4 mg 10/25/19 19:24 10/25/19 19:29 Zofran Odt PO 10/25/19 19:25 4 mg ONETIME ONE Administration Departure - Departure Time of Disposition: 20:01 Disposition: Against Medical Advice 07 Condition: Fair Clinical Impression: Chronic generalized abdominal pain - Discharge Information Forms: ED Department Discharge Sepsis Event Note - Evaluation Sepsis Screening Result: No Definite Risk - Focused Exam Vital Signs: Vital Signs Temp Pulse Resp BP Pulse Ox 10/25/19 17:30 37.6 C 69 18 189/148 H 99 Date Exam was Performed: 10/25/19 Time Exam was Performed: 19:58
== END 2019-10-25 19:49 | disposition left against medical advice (07) ==
LOC: DL.ED 15:50
DX: R10.84 Generalized abdominal pain (principal); G89.29 Other chronic pain; I10 Essential (primary) hypertension; K21.9 Gastro-esophageal reflux disease without esophagitis; F17.210 Nicotine dependence, cigarettes, uncomplicated; Z79.899 Other long term (current) drug therapy
CPT/HCPCS: 36415; 80053; 80305; 82150; 83690; 85025; 99284; A9270

== ENCOUNTER 2019-12-04 06:14 | Day surgery (SDC) | payer MEDICAID, OTHER ==
[2019-12-04] MEDS ORDERED: Midazolam 1 MG/ML 2 ML SDV IV ONE ×3 (06:15→07:40)
[2019-12-04] MEDS ORDERED: fentaNYL 100 MCG/2 ML SDV IV ONE ×3 (06:15→07:39)
[2019-12-04] MEDS ORDERED: Midazolam 1 MG/ML 2 ML SDV ONE (06:21)
[2019-12-04] MEDS ORDERED: fentaNYL 100 MCG/2 ML SDV ONE (06:21)
[2019-12-04] MEDS ORDERED: Dextrose 5%-0.45% NaCl 1,000 ML IV SCH (06:45)
--- NOTE | 2019-12-04 10:31 | OR ---
DATE: 12/04/2019 PROCEDURE: Esophagogastroduodenoscopy and multiple pinch biopsies. INSTRUMENT USED: GIF-HQ190 Olympus video panendoscope. PREMEDICATIONS: No oral or topical anesthesia used. Fentanyl 100 mcg intravenous, Versed 2 mg intravenous. The procedure was done under pulse oximetry, BP recording, and presales senior specialist. INDICATION: The patient with known chronic hepatitis C with persistent abdominal pain, unexplained and not responsive to medical measures. Esophagogastroduodenoscopy is performed for detection of any active erosive lesions, Villarreal esophagus and/or malignancy also under consideration, H pylori status to be determined, presence of varices to be detected, endoscopic hemostasis therapy if needed. PROCEDURE IN DETAIL: The scope was passed with ease. Adequate visualization of the esophagus was made from proximal to distal areas. No upper esophageal lesions identified. No distal esophageal stricture. No uphill or downhill esophageal varices. No Lani-Parra tear. No evidence of erosive esophagitis by [place] criteria. No esophageal polyp or tumor mass identified. Z-line was seen at around 40 cm distal to the oral verge, configuration consistent with grade 1 by ZAP classification. No proximal gastric varices noted. Gastric fundus examination by retroflexion showed no polypoid lesions. No gastric ulcer, malignant mass, or vascular ectasia identified. Duodenal bulb showed no ulcer. Visualized second part of the duodenum was unremarkable. Multiple pinch biopsies were taken from the gastric antrum and proximal body and sent for PyloriTek test for H pylori, and if negative in an hour, the tissue is to be sent for histopathology. No bleeding was noted from any of the visualized areas at the completion of examination. Photographs were taken of the duodenal bulb, gastric antrum, fundus, and distal esophagus. IMPRESSION: Normal study. The patient tolerated the procedure well. [facility] /[id number]
[2019-12-04 11:00] VITALS: BP 144/92; PULSE 64
== END 2019-12-04 09:45 | disposition home or self-care (01) ==
LOC: DL.ENDO 06:14
PROVIDERS: ATTEND Internal Medicine Gastroenterology
DX: K31.89 Other diseases of stomach and duodenum (principal); B18.2 Chronic viral hepatitis C; I10 Essential (primary) hypertension; F17.210 Nicotine dependence, cigarettes, uncomplicated; F41.1 Generalized anxiety disorder; F32.9 Major depressive disorder, single episode, unspecified; F12.90 Cannabis use, unspecified, uncomplicated; Z98.890 Other specified postprocedural states; Z90.49 Acquired absence of other specified parts of digestive tract; Z79.899 Other long term (current) drug therapy; Z87.898 Personal history of other specified conditions
CPT/HCPCS: 43239; 87077; J2250; J3010; J7042

== ENCOUNTER 2024-10-24 20:01 | Emergency (ER) | payer MEDICAID ==
[2024-10-24 21:00] LABS: BASOPHILS PERCENT AUTO 0.4 % (0.0-1.0); EOSINOPHILS PERCENT AUTO 4.9 % (1.0-3.0); HEMATOCRIT 45.9 % (40.0-54.0); HEMOGLOBIN 14.6 g/dL (14.0-18.0); LYMPHOCYTES PERCENT AUTO 23.6 % (20.5-50.1); MEAN CORPUSCULAR HEMOGLOBIN 27.9 pg (27.0-34.0); MEAN CORPUSCULAR HGB CONC 31.8 g/dL (33.0-35.0); MEAN CORPUSCULAR VOLUME 87.8 fL (80-100); MONOCYTES PERCENT AUTO 9.5 % (2-8); NEUTROPHILS PERCENT AUTO 61.6 % (42.2-75.2); PLATELET COUNT,PLT 281 10^3/uL (150-450); RED BLOOD CELL COUNT 5.23 10^6/uL (4.6-6.2); WHITE BLOOD CELL COUNT,WBC 9.1 10^3/uL (5.0-10.0)
[2024-10-24 21:35] LABS: A/G RATIO 0.7; ALANINE AMINOTRANSFERASE,ALT 65 U/L (16-63); ALBUMIN 3.4 g/dL (3.4-5.0); ALKALINE PHOSPHATASE 157 U/L (46-116); ANION GAP 12.4 mEq/L (7-13); ASPARTATE AMNIOTRANSFERASE,AST 26 U/L (15-37); BILIRUBIN TOTAL 0.5 mg/dL (0.2-1.0); BLOOD UREA NITROGEN,BUN 18 mg/dL (7-18); BUN/CREATININE RATIO 14.1 (No establ ref range); CALCIUM 9.2 mg/dL (8.5-10.1); CARBON DIOXIDE,CO2 29 mmol/L (21-32); CHLORIDE,CL 106 mmol/L (98-107); CREATININE 1.28 mg/dL (0.70-1.30); EST CRCL DRUG DOSING (CG) 79.99 mL/min; GLUCOSE RANDOM 100 mg/dL (70-99); LIPASE 48 U/L (16-77); POTASSIUM,K 4.4 mmol/L (3.5-5.1); PROTEIN TOTAL,TP 8.4 g/dL (6.4-8.2); SODIUM,NA 143 mmol/L (136-145)
[2024-10-24 21:36] LABS: ESTIMATED GFR 70 mL/min (>=60); ETHANOL BLOOD MEDICAL < 3 mg/dL (0)
[2024-10-24] MEDS: Albuterol/Ipratropium 3.0-0.5 MG/3 ML Neb Soln NEB ONE (21:53)
[2024-10-24] MEDS: methylPREDNISolone Sodium Succinate 125 MG/2 ML SDV IVPUSH ONE (21:53)
[2024-10-24 22:08] LABS: APPEARANCE,URINE CLEAR (CLEAR); BILIRUBIN,URINE NEGATIVE (NEGATIVE); COLOR,URINE YELLOW (YELLOW); GLUCOSE,URINE NEGATIVE (NEGATIVE); KETONES,URINE NEGATIVE (NEGATIVE); LEUKOCYTE ESTERASE,URINE NEGATIVE (NEGATIVE); NITRITE,URINE NEGATIVE (NEGATIVE); OCCULT BLOOD,URINE NEGATIVE (NEGATIVE); PROTEIN,URINE NEGATIVE (NEGATIVE); UROBILINOGEN,URINE 0.2 mg/dL (0.2-1.0)
[2024-10-24 22:11] LABS: AMPHETAMINES,URINE NEGATIVE (NEGATIVE); BARBITURATES,URINE NEGATIVE (NEGATIVE); BENZODIAZEPINE,URINE NEGATIVE (NEGATIVE); MDMA (ECSTASY), URINE NEGATIVE (NEGATIVE); METHADONE,URINE NEGATIVE (NEGATIVE); METHAMPHETAMINES,URINE NEGATIVE (NEGATIVE); OPIATES,URINE NEGATIVE (NEGATIVE); OXYCODONE,URINE NEGATIVE (NEGATIVE); PHENCYCLIDINE,URINE NEGATIVE (NEGATIVE); TCA,URINE NEGATIVE (NEGATIVE)
[2024-10-24 23:05] VITALS: BP 130/74; PULSE 61
== END 2024-10-24 22:45 | disposition home or self-care (01) ==
LOC: DL.ED 20:01
DX: J06.9 Acute upper respiratory infection, unspecified (principal); B97.89 Other viral agents as the cause of diseases classified elsewhere; I10 Essential (primary) hypertension; K21.9 Gastro-esophageal reflux disease without esophagitis; Z90.49 Acquired absence of other specified parts of digestive tract
CPT/HCPCS: 36415; 80053; 80305; 80307; 81003; 82947; 83690; 83735; 84484; 85025; 85379; 87428; 93005; 96374; 99285; J2919; J7620; 93010; 99283; A9270-GY